=== PATIENT | female | born 1970 | race Caucasian/White ===

== ENCOUNTER 2018-09-09 00:19 | Inpatient (IN) | payer SELFPAY ==
[2018-09-09] VITALS (8 sets, daily range): BP systolic 118–156; BP diastolic 59–83
[~2018-09-09] VITALS: Ht 154.9 cm; Wt 91.6 kg
[~2018-09-09 00:19] MED LIST: ACDPT PO; ACET-461 PO; AMOX500T2 PO; ASP81TEC PO; ATOR80TA PO; CARV3.122 PO; CEPH500C PO; CLPD75T PO; IBUP200T48 PO; INSU100C4 SQ; INSU100I14 SQ; INSU100V5 SQ; Insulin Human Lispro SC; LANTUS; LISI2.5T85 PO; MTF500T PO; MULT-974 PO; NITR0.3T6 SL; PAXIL; RITALIN; TRAM50TA2 PO
--- OUTSIDE RECORDS SUMMARY | 2018-09-09 00:23 | XMS REPORT ---
Author Author AMY ARAYA [facility] Address [address] [place] [address] Care Team Providers Care Dishtank Operator Name Role Phone AMY ARAYA Unavailable PROBLEMS Type Condition ICD9-CM Code [id number] Code Onset Dates Condition Status SNOMED Code Problem Chest pain 786.50 Active 42880946 Problem Diabetes type 2, uncontrolled E11.65 Active 38825178 Problem Arteriosclerosis of coronary artery I25.10 Active 66509323 Problem Alcohol dependence with unspecified alcohol-induced disorder F10.29 Active 33882477 ALLERGIES No Information ENCOUNTERS Encounter Location Date Diagnosis [place] [address] [address] 6984 Dec, Abscess, scalp L02.811 [place] [address] [place] [id number] [place] [address] 39263- 4778 Dec, [facility] [address] 52739- [address]3 Dec, [facility] [address] [place] [id number] [place] [address] 48533 -4501 Dec, Abscess, scalp L02.811 [facility] [address] [place] [id number] [place] [address] 38539- 0649 Dec, Abscess, scalp L02.811 [facility] [address] [address]63 -2107 17 Dec, 2017 Abscess, scalp L02.811 [facility] [address] [place] [id number] [place] [address] 15566- 6672 15 Dec, 2017 Abscess, scalp L02.811 [facility] [address] 03152- 1689 Dec, Abscess, scalp L02.[address] [facility] [id number] [place] [address] 86514 -5185 11 Dec, 2017 Cutaneous abscess of head excluding face L02.811 [facility] [id number] [place] [address] 65336 -0180 10 Dec, 2017 Abscess L02.[address] [id number] [place] [id number] Dec, [facility] [id number] [place] [address] 83084 -2984 Dec, Abscess L02.91 [facility] [id number] [place] [address] 74526 -9990 Aug, Acute allergic rhinitis due to other allergen, unspecified seasonality J30.89 and Cellulitis of head except face L03.811 [place] [address] [place] [id number] [place] [address] 65481- 3151 Jun, [place] [address] 06192- 6700 Jun, [place] [address] [place] [id number] [place] [address] 87475- 4537 Jun, [place] [id number] [place] [address] 12311- 0561 Jun, [place] [address] [place] [id number] [place] [address] 71559- 5986 Jun, [place] [address] [place] [id number] [place] [address] 19806- 9676 Jun, Hematuria 599.70 ; Diabetes type 2, uncontrolled 250.02 ; Chest pain 786.50 ; Chronic pain 338.29 and Coronary atherosclerosis of unspecified type of vessel, grand traverse or graft 414.00 [place] [address] [place] [id number] [place] [address] 05248- 6913 Feb, [facility] [place] [facility] [address] [id number] [place] [address]- 0738 13 Feb, 2015 [facility] [place] [facility] [address] [id number] [place] [address]- 3294 Jan, [facility] [place] [facility] [address] [id number] [place] [address]- 8766 Jan, [facility] [place] [facility] [address] [id number] [place] [address]- 6052 Jan, [facility] [place] [facility] [address] [id number] [place] [address]- 0510 Jan, [facility] [place] [facility] [address] [id number] [place] [address]- 3899 Jan, [facility] [place] [facility] [address] [facility] [id number] [place] [address]- 6908 Jan, [facility] [place] [facility] [address] [id number] [place] [address]- 2519 Dec, [facility] [place] [facility] [address] [id number] [place] [address]- 7674 Dec, [facility] [place] [facility] [address] [facility] [id number] [place] [address]- 7735 Dec, [facility] [place] [facility] [address] [facility] [id number] [place] [address]- 5572 Dec, 2014 [facility] [place] [facility] [address] [id number] [address]- 6194 Dec, 2014 [facility] [place] [facility] [address] [id number] [place] [address]- 1389 Dec, 2014 [facility] [place] [facility] [address] [id number] [place] [address]- 8457 Dec, 2014 [facility] [place] [facility] [address] [facility] [id number] [place] [address]- 4748 Dec, 2014 [facility] [place] [facility] [address] [id number] [place] [address]- 1727 Nov, [facility] [address] [id number] [place] [address]- 6893 Nov, [facility] [address] [id number] [place] [address]- 4014 Aug, [facility] [address] [id number] [place] [address]- 8528 Aug, [facility] [address] [id number] [place] [address]- 8937 May, [facility] [address] [id number] [place] [address]- 2293 March, [facility] [address] [id number] [place] [address]- 8275 March, [facility] [address] [id number] [place] [address]- 7224 March, [facility] [address] [id number] [place] [address]- 8376 March, [facility] [address] [id number] [place] [address]- 2772 Feb, [facility] [address] [id number] [place] [address]- 0607 Feb, [facility] [address] [id number] [place] [address]- 7548 Jan, [facility] [address] [id number] [place] [address]- 8698 Jan, [facility] [address] [id number] [place] [address]- 7206 Dec, [facility] [address] [id number] [place] [address]- 3656 Nov, [facility] [address] [id number] [place] [address]- 5545 Nov, [facility] [address] [id number] [place] [address]- 4776 Nov, [facility] [address] [id number] [place] [address]- 4016 Nov, [facility] [address] [id number] [place] [address]- 2866 Nov, [facility] [address] [place] [id number] Oct [facility] [address] [id number] [place] [address]- 8010 Oct, [facility] [address] [id number] [place] [address]- 3820 Oct, [facility] [address] [id number] [place] [address]- 4807 Oct, [facility] [address] [id number] [place] [address]- 3306 Sep, [facility] [address] [id number] [place] [address]- 9448 Sep, [facility] [address] [id number] [place] [address]- 4066 May, [facility] [address] [id number] [place] [address]- 1476 Apr, [facility] [address] [id number] [place] [address]- 4406 March, [facility] [address] [id number] [place] [address]- 7690 Feb, [facility] [address] [id number] [place] [address]- 2776 Feb, [facility] [address] [id number] [place] [address]- 1416 Feb, [facility] [address] [id number] [place] [address]- 8827 Jan, [facility] [place] [facility] [address] [id number] [place] [address]- 6904 Jan, [facility] [place] [facility] [address] [id number] [place] [address]- 6486 Jan, [facility] [place] [facility] [address] [facility] [id number] [place] [address]- 0251 Dec, [facility] [place] [facility] [address] [id number] [place] [address]- 3494 Dec, [facility] [place] [facility] [address] [id number] [place] [address]- 9400 Dec, [facility] [place] [facility] [address] [facility] [id number] [place] [address]- 7311 Dec, [facility] [place] [facility] [address] [facility] [id number] [place] [address]- 8547 Dec, [facility] [place] [facility] [address] [facility] [id number] [place] [address]- 5477 Dec, [facility] [place] [facility] [address] [facility] [id number] [place] [address]- 7684 Oct, [facility] [place] [facility] [address] [facility] [id number] [place] [address]- 9645 Oct, [facility] [place] [facility] [address] [facility] [id number] [place] [address]- 7722 Oct, [facility] [place] [facility] [address] [facility] [id number] [place] [address]- 8228 Sep, [facility] [place] [facility] [address] [facility] [id number] [place] [address]- 1168 Sep, [facility] [place] [facility] [address] [facility] [id number] [place] [address]- 6865 Sep, [facility] [place] [facility] [address] [facility] [id number] [place] [address]- 5120 Sep, [facility] [place] [facility] [id number] [address]- 2157 14 Sep, 2011 [facility] [id number] [address]- 8808 15 May, 2011 [facility] [id number] [address]- 6925 14 Dec, 2010 [facility] [id number] [address]- 7161 10 Oct, 2010 [facility] [id number] [address]- 1178 Sep, [facility] [id number] [place] [address] 00961- 9720 Aug, [facility] [id number] [place] [address] 38553- 6571 Aug, [facility] [address] [place] [id number] [place] [address] 29473- 0870 Aug, [facility] [id number] [address]- 3249 16 Sep, 2009 [facility] [id number] [address]- 4133 Sep, [facility] [address] [address]- 5107 17 Jul, 2009 IMMUNIZATIONS No Known Immunizations SOCIAL HISTORY Never Assessed REASON FOR VISIT wound care CBrumbackRn PLAN OF CARE VITAL SIGNS MEDICATIONS Unknown Medications RESULTS No Results PROCEDURES No Known procedures INSTRUCTIONS MEDICATIONS ADMINISTERED No Known Medications MEDICAL (GENERAL) HISTORY Type Description Date Medical History Blurred vision Medical History CAD-hospitalized at 10/2012 for NSTEMI, s/p stenting to the mid LAD (had 99% occulsion). EF 45% Medical History Hypertension Medical History Asthma Medical History DM II Medical History Arthritis Medical History Chronic pain-Lupus, fibromyalgia, RA Medical History Depression Medical History Anxiety Medical History ADHD Surgical History coronary artery stent (LAD) s/p NSTEMI-EF 45% 10/2012 Surgical History section 1990 & 1995 Surgical History rotator cuff tear repair-Right 2010 Hospitalization History NSTEMI 10/2012 Hospitalization History ETOH rehab 12/2014
--- OUTSIDE RECORDS SUMMARY | 2018-09-09 00:24 | XMS REPORT ---
Author Author CLEOPATRA FRANCISCO Organization [facility] Address [address] [place] [address] Care Team Providers Care Scow Captain Name Role Phone CLEOPATRA FRANCISCO Unavailable PROBLEMS Type Condition ICD9-CM Code CIE45-VV Code Onset Dates Condition Status SNOMED Code Problem Chest pain 786.50 Active 72566250 Problem Diabetes type 2, uncontrolled E11.65 Active 87147213 Problem Arteriosclerosis of coronary artery I25.10 Active 80384000 Problem Alcohol dependence with unspecified alcohol-induced disorder F10.29 Active 54835269 ALLERGIES No Information ENCOUNTERS Encounter Location Date Diagnosis [place] [address] [address] Dec, Abscess, scalp L02.811 [facility] [address] 19071- 3656 Dec, [facility] [address] 39227- 6857 Dec, [facility] [address] 79160 -5180 Dec, Abscess, scalp L02.811 [facility] [address] [place] [id number] [place] [address] 91522- 3733 Dec, Abscess, scalp L02.811 [facility] [address] 76008 -8830 Dec, Abscess, scalp L02.811 [facility] [address] 59887- 7213 Dec, Abscess, scalp L02.811 [place] [address] 06156- 7627 Dec, Abscess, scalp L02.811 [facility] [address] [address] -7769 11 Dec, 2017 Cutaneous abscess of head excluding face L02.811 [facility] [address] [address] -4419 10 Dec, 2017 Abscess L02.[address] [id number] [id number] Dec, [facility] [id number] [place] [address] 17532 -3324 Dec, Abscess L02.91 [facility] [id number] [place] [address] 59147 -5893 Aug, Acute allergic rhinitis due to other allergen, unspecified seasonality J30.89 and Cellulitis of head except face L03.811 [place] [address] [place] [id number] [place] [address] 30265- 5178 Jun, [place] [address] [place] [id number] [place] [address] 16268- 3280 Jun, [place] [address] [place] [id number] [place] [address] 95507- 0297 Jun, [place] [address] [place] [address] 26478- 9224 Jun, [place] [address] [place] [id number] [place] [address] 85758- 3336 Jun, [facility] [address] [place] [id number] [place] [address] 70000- 4684 Jun, Hematuria 599.70 ; Diabetes type 2, uncontrolled 250.02 ; Chest pain 786.50 ; Chronic pain 338.29 and Coronary atherosclerosis of unspecified type of vessel, [place] or graft 414.00 [place] [address] [place] [id number] [place] [address] 77939- 3066 Feb, [facility] [place] [facility] [address] [id number] [place] [address]- 3761 Feb, [facility] [place] [facility] [address] [id number] [place] [address]- 4685 Jan, [facility] [place] [facility] [address] [id number] [place]15 Jan, [facility] [place] [facility] [address] [id number] [place] [address]- 9672 Jan, [facility] [place] [facility] [address] [id number] [place] [address]- 4920 Jan, [facility] [place] [facility] [address] [id number] [place] [address]- 5372 Jan, [facility] [place] [facility] [address] [facility] [id number] [place] [address]- 4714 Jan, [facility] [place] [facility] [address] [id number] [place] [address]- 0931 Dec, 2014 [facility] [place] [facility] [address] [id number] [place] [address]- 6437 Dec, 2014 [facility] [place] [facility] [address] [facility] [id number] [place] [address]- 4861 Dec, 2014 [facility] [place] [facility] [address] [facility] [id number] [place] [address]- 0103 Dec, 2014 [facility] [place] [facility] [address] [id number] [place] [address]- 3054 Dec, 2014 [facility] [place] [facility] [address] [id number] [place] [address]- 0837 Dec, 2014 [facility] [place] [facility] [address] [id number] [place] [address]- 6916 Dec, 2014 [facility] [place] [facility] [address] [facility] [id number] [place] [address]- 6504 Dec, 2014 [facility] [place] [facility] [address] [facility] [id number] [place] [address]- 9889 Nov, [facility] [address] [id number] [place] [address]- 2564 Nov, [facility] [address] [id number] [place] [address]- 6144 Aug, [facility] [address] [id number] [place] [address]- 2259 Aug, [facility] [address] [id number] [place] [address]- 4150 May, [facility] [address] [id number] [place] [address]- 2853 March, [facility] [address] [id number] [place] [address]- 9295 March, [facility] [address] [id number] [place] [address]- 9874 March, [facility] [address] [id number] [place] [address]- 8952 March, [facility] [address] [id number] [place] [address]- 8272 Feb, [facility] [address] [id number] [place] [address]- 7604 Feb, [facility] [address] [id number] [place] [address]- 0419 Jan, [facility] [place] [facility] [address] [id number] [place] [address]- 2838 Jan, [facility] [place] [facility] [address] [id number] [place] [address]- 1399 Dec, [facility] [place] [facility] [address] [id number] [place] [address]- 6828 Nov, [facility] [address] [id number] [place] [address]- [address] Nov, [facility] [address] [id number] [place] [address]- 7986 Nov, [facility] [address] [id number] [place] [address]- 8176 Nov, [facility] [address] [id number] [place] [address]- 6556 Nov, [facility] [address] [place] [id number] [address] [facility] [address] [id number] [place] [address]- 3686 Oct, [facility] [address] [id number] [place] [address]- 6451 Oct, [facility] [address] [id number] [place] [address]- 1594 Oct, [facility] [address] [id number] [place] [address]- 1126 Sep, [facility] [address] [id number] [place] [address]- 6575 Sep, [facility] [address] [id number] [place] [address]- 9442 May, [facility] [address] [id number] [place] [address]- 4551 Apr, [facility] [address] [id number] [place] [address]- 6306 March, [facility] [address] [id number] [place] [address]- 1166 Feb, [facility] [address] [id number] [place] [address]- 7616 Feb, [facility] [address] [id number] [place] [address]- 9276 Feb, [facility] [address] [id number] [place] [address]- 8927 Jan, [facility] [address] [id number] [place] [address]- 9541 Jan, [facility] [place] [facility] [address] [id number] [place] [address]- 3378 Jan, [facility] [place] [facility] [address] [id number] [place] [address]- 6698 Dec, [facility] [place] [facility] [address] [id number] [place] [address] Dec, [facility] [place] [facility] [address] [id number] [place] [address] Dec, [facility] [place] [facility] [address] [id number] [place] [address] Dec, [facility] [place] [facility] [address] [id number] [place] [address] Dec, [facility] [place] [facility] [address] [id number] [place] [address] Dec, [facility] [place] [facility] [address] [id number] [place] [address] Oct, [facility] [place] [facility] [address] [id number] [place] [address] Oct, [facility] [place] [facility] [address] [id number] [place] [address] Oct, [facility] [place] [facility] [address] [id number] [place] [address] Sep, [facility] [place] [facility] [address] [id number] [place] [address]- [address] Sep, [facility] [place] [facility] [address] [id number] [place] [address] Sep, [facility] [place] [facility] [address] [id number] [place] [address] Sep, [facility] [place] [facility] [address] [address] 14 Sep, 2011 [facility] [address] [address] 15 May, 2011 [facility] [address] [address] 14 Dec, 2010 [facility] [id number] [address] 10 Oct, 2010 [facility] [id number] [address] Sep, [facility] [id number] [place] [address] Aug, [facility] [id number] [place] [address] Aug, [facility] [id number] [place] [address] Aug, [facility] [address] [address] 16 Sep, 2009 [facility] [address] [address] Sep, [facility] [id number] [address] 17 Jul, 2009 IMMUNIZATIONS No Known Immunizations SOCIAL HISTORY Never Assessed REASON FOR VISIT Wound care- Surinder May RN PLAN OF CARE VITAL SIGNS MEDICATIONS Unknown [...]
--- OUTSIDE RECORDS SUMMARY | 2018-09-09 00:24 | XMS REPORT ---
Author Author MACIEJ FITZGERALD Organization [facility] [place] [facility] Address [address] [place] [address] Care Team Providers Care Site Controller Name Role Phone MACIEJ FITZGERALD Unavailable PROBLEMS Type Condition ICD9-CM Code MVN54-IR Code Onset Dates Condition Status SNOMED Code Problem Chest pain 786.50 Active 51240565 Problem Diabetes type 2, uncontrolled E11.65 Active 95483337 Problem Arteriosclerosis of coronary artery I25.10 Active 47705529 Problem Alcohol dependence with unspecified alcohol-induced disorder F10.29 Active 66087113 ALLERGIES No Known Allergies ENCOUNTERS Encounter Location Date Diagnosis [facility] [place] [facility] [address] [address] Dec, Abscess, scalp L02.811 [facility] [place] [facility] [address] [address] 26 Dec, 2017 [facility] [place] [facility] [address] [address]- [address] 23 Dec, 2017 [facility] [address] [address] Dec, Abscess, scalp L02.811 [facility] [place] [facility] [id number] [place] [address]357- 6095 Dec, Abscess, scalp L02.811 [facility] [address] [address] 17 Dec, 2017 Abscess, scalp L02.811 [facility] [place] [facility] [id number] [place] [address]41- 5662 15 Dec, 2017 Abscess, scalp L02.811 [facility] [place] [facility] [address] [address] Dec, Abscess, scalp L02.811 [facility] [id number] [place] [address]99 -1057 11 Dec, 2017 Cutaneous abscess of head excluding face L02.811 [facility] [id number] [place] [address] -7091 10 Dec, 2017 [address] [id number] [id number] Dec, [facility] [id number] [place] [address] 11084 -0251 Dec, Abscess L02.91 [facility] [id number] [place] [address] 40[address] -0504 Aug, Acute allergic rhinitis due to other allergen, unspecified seasonality J30.89 and Cellulitis of head except face L03.811 [place] [id number] [place] [address] 98594- 0165 Jun, [place] [address] [address]- [address] Jun, [place] [id number] [place] [address] 29805- 1167 Jun, [place] [id number] [place] [address] 83597- 8917 Jun, [place] [id number] [place] [address] 79419- 4072 Jun, [place] [id number] [place] [address] 75646- 1300 Jun, Hematuria 599.70 ; Diabetes type 2, uncontrolled 250.02 ; Chest pain 786.50 ; Chronic pain 338.29 and Coronary atherosclerosis of unspecified type of vessel, [place] or graft 414.00 [place] [id number] [place] [address] 21205- 9877 Feb, [facility] [place] [facility] [address] [id number] [place] [address] 3719 13 Feb, 2015 [facility] [place] [facility] [address] [id number] [place] [address]- 4525 24 Jan, 2015 [facility] [place] [facility] [address] [facility] [id number] [place] [address]- 1738 24 Jan, 2015 [facility] [place] [facility] [address] [id number] [place] [address]- 0093 Jan, [facility] [place] [facility] [address] [id number] [place] [address]- 4893 Jan, [facility] [place] [facility] [address] [facility] [id number] [place] [address]- 6721 Jan, [facility] [place] [facility] [address] [id number] [place] [address]- 4577 Jan, [facility] [place] [facility] [address] [facility] [id number] [place] [address]- 5810 Dec, 2014 [facility] [place] [facility] [address] [facility] [id number] [place] [address]- 6530 Dec, [facility] [place] [facility] [address] [id number] [place] [address]- 1568 Dec, [facility] [place] [facility] [address] [id number] [place] [address]- 2329 Dec, 2014 [facility] [place] [facility] [address] [facility] [id number] [address]- 6581 Dec, 2014 [facility] [place] [facility] [address] [id number] [place] [address]- 2248 Dec, 2014 [facility] [place] [facility] [address] [facility] [id number] [place] [address]- 3824 Dec, 2014 [facility] [place] [facility] [address] [facility] [id number] [place] Dec, 2014 [facility] [place] [facility] [address] [id number] [place] [address]- 6423 Nov, [facility] [address] [id number] [place] [address]- 0738 Nov, [facility] [address] [id number] [place] [address]- 6179 Aug, [facility] [address] [id number] [place] [address]- 2568 Aug, [facility] [address] [id number] [place] [address]- 6757 May, [facility] [address] [id number] [place] [address]- 3408 March, [facility] [address] [id number] [place] [address]- 1815 March, [facility] [address] [id number] [place] [address]- 3634 March, [facility] [address] [id number] [place] [address]- 3535 March, [facility] [address] [id number] [place] [address]- 3817 Feb, [facility] [address] [id number] [place] [address]- 4042 Feb, [facility] [address] [id number] [place] [address]- 7608 Jan, [facility] [address] [id number] [place] [address]- 3977 Jan, [facility] [place] [facility] [address] [id number] [place] [address]- 7983 Dec, [facility] [place] [facility] [address] [id number] [place] [address]- 2366 Nov, [facility] [address] [id number] [place] [address]- 2910 Nov, [facility] [address] [id number] [place] [address]- 8371 Nov, [facility] [address] [id number] [place] [address]- 4076 Nov, [facility] [address] [id number] [place] [address]- 8556 Nov, [facility] [address] [place] [id number] Oct [facility] [address] [id number] [place] [address]- 2524 Oct, [facility] [address] [id number] [place] [address]- 5750 Oct, [facility] [address] [id number] [place] [address]- 9905 Oct, [facility] [address] [id number] [place] [address]- 2957 Sep, [facility] [address] [id number] [place] [address]- 4367 Sep, [facility] [address] [id number] [place] [address]- 9390 May, [facility] [address] [id number] [place] [address]- 3601 Apr, [facility] [address] [id number] [place] [address]- 3924 March, [facility] [address] [id number] [place] [address]- 1964 24 Feb, 2012 [facility] [address] [id number] [place] [address]- 3987 Feb, [facility] [address] [id number] [place] [address]- 0205 Feb, [facility] [address] [id number] [place] [address]- 1296 Jan, [facility] [address] [id number] [place] [address]- 2521 Jan, [facility] [place] [facility] [address] [id number] [place] [address]- 4716 Jan, [facility] [place] [facility] [address] [facility] [id number] [place] [address]- 5466 Dec, [facility] [place] [facility] [address] [id number] [place] [address]- 6775 Dec, [facility] [place] [facility] [address] [id number] [place] [address]- 0754 Dec, [facility] [place] [facility] [address] [id number] [place] [address]- 1615 Dec, [facility] [address] [facility] [id number] [place] [address]- 7846 Dec, [facility] [place] [facility] [address] [facility] [id number] [place] [address]- 7262 Dec, [facility] [address] [facility] [id number] [place] [address]- 9067 Oct, [facility] [place] [facility] [address] [facility] [id number] [place] [address]- 7339 Oct, [facility] [address] [facility] [id number] [place] [address]- 5183 Oct, [facility] [place] [facility] [address] [id number] [place] [address]- 3654 Sep, [facility] [place] [facility] [address] [id number] [place] [address]- 7659 Sep, [facility] [place] [facility] [address] [facility] [id number] [place] [address] Sep, [facility] [place] [facility] [address] [facility] [id number] [place] Sep, [facility] [place] [facility] [id number] [address]- 5563 14 Sep, 2011 [facility] [place] [facility] [id number] [address]- 3964 15 May, 2011 [facility] [place] [facility] [id number] [address]- 5101 14 Dec, 2010 [facility] [place] [facility] [id number] [address]- 5680 Oct, [facility] [place] [facility] [address] [facility] [id number] [address]- 7253 Sep, [facility] [place] [facility] [id number] [place] [address] 07328- 8699 Aug, [facility] [place] [facility] [address] [id number] [address]- 3313 Aug, [facility] [place] [facility] [id number] [place] [address] 57992- 3030 Aug, [facility] [place] [facility] [id number] [address]- 9632 16 Sep, 2009 [facility] [place] [facility] [id number] [address]- 3325 Sep, [facility] [place] [facility] [id number] [address]- 3102 Jul, IMMUNIZATIONS No Known Immunizations SOCIAL HISTORY Never Assessed REASON FOR VISIT wound repacking JStrasserRN PLAN OF CARE Activity Details Follow Up if not improving with PCP or reg follow up Reason: VITAL SIGNS Height 61 in 2017-12-24 Weight 174.2 lbs 2017-12-24 Temperature 98.4 degrees Fahrenheit 2017-12-24 Heart Rate 98 bpm 2017-12-24 Respiratory Rate 18 2017-12-24 BMI 32.91 kg/m2 2017-12-24 Blood pressure systolic 122 mmHg 2017-12-24 Blood pressure diastolic 70 mmHg 2017-12-24 MEDICATIONS Medication Instructions Dosage Frequency Start Date End Date Duration Status Levemir 100 UNIT/ML Subcutaneous Once a day INJECT 20 UNITS SUBCUTANEOUSLY AT BEDTIME 24h 30 days Not-Taking Pravastatin Sodium 20 MG Orally Once a day 1 tablet 24h 14 Jun, 2015 30 day(s) Not-Taking Lisinopril 5 MG Orally Once a day 1 tablet 24h Jun, Not- Taking NovoLog Flexpen 100 UNIT/ML Subcutaneous 3 times a day inject 7 Units by Subcutaneous route before meals 3 times per day 8h 24 Feb, 2013 30 days Not-Taking Keflex 500 mg Orally every 12 hrs 1 capsule 12h Dec, Dec, Active Neurontin 100 MG Orally Three times a day as directed 8h Jun, 30 days Not-Taking Nitroglycerin 0.[address] 1 tablet (0.3 mg) by sublingual route at the first sign of an attack; no more than 3 tabs are recommended within a 15 minute period. Nov, Not-Taking RESULTS No Results PROCEDURES No Known procedures [...]
--- OUTSIDE RECORDS SUMMARY | 2018-09-09 00:24 | XMS REPORT ---
Author Author CLEOPATRA FRANCISCO Organization [facility] Address [address] [place] [address] Care Team Providers Care Podiatric Medicine Doctor Name Role Phone CLEOPATRA FRANCISCO Unavailable PROBLEMS Type Condition ICD9-CM Code ZMV54-EG Code Onset Dates Condition Status SNOMED Code Problem Chest pain 786.50 Active 98811268 Problem Diabetes type 2, uncontrolled E11.65 Active 83511604 Problem Arteriosclerosis of coronary artery I25.10 Active 18231116 Problem Alcohol dependence with unspecified alcohol-induced disorder F10.29 Active 64469420 ALLERGIES No Known Allergies ENCOUNTERS Encounter Location Date Diagnosis [place] [address] [address] Dec, Abscess, scalp L02.811 [facility] [address] [address]- [address]68 Dec, [facility] [address] [address]- [address]271 Dec, [facility] [address] [address] -[address]266 Dec, Abscess, scalp L02.811 [facility] [address] 6[address]- 0297 Dec, Abscess, scalp L02.811 [facility] [address] 7[address]11 -[address]95 Dec, Abscess, scalp L02.811 [facility] [address] 8[address]37- 0800 Dec, Abscess, scalp L02.811 [facility] [address] [address]77- 0916 Dec, Abscess, scalp L02.811 [facility] [address] [address] 11 Dec, 2017 Cutaneous abscess of head excluding face L02.811 [facility] [address] [place] [address]70 -1832 10 Dec, 2017 Abscess L02.[address] [id number] [id number] Dec, [facility] [id number] [place] [address]24 -7030 Dec, Abscess L02.91 [facility] [id number] [place] [address] 71523 -4052 Aug, Acute allergic rhinitis due to other allergen, unspecified seasonality J30.89 and Cellulitis of head except face L03.811 [place] [id number] [place] [address] 00689- 7306 Jun, [place] [address] [id number] [place] [address] 61497- 5627 Jun, [place] [id number] [place] [address] 51879- 1012 Jun, [place] [id number] [place] [address] 80100- 6837 Jun, [place] [address] [id number] [place] [address]- 2011 Jun, [facility] [id number] [place] [address] 55084- 5365 Jun, Hematuria 599.70 ; Diabetes type 2, uncontrolled 250.02 ; Chest pain 786.50 ; Chronic pain 338.29 and Coronary atherosclerosis of unspecified type of vessel, [place] or graft 414.00 [place] [id number] [place] [address] 65161- 3316 Feb, [facility] [place] [facility] [address] [id number] [place] [address]- 2783 Feb, [facility] [place] [facility] [address] [id number] [place] [address]- 5008 Jan, [facility] [place] [facility] [address] [id number] [place] [address]- 8317 Jan, [facility] [place] [facility] [address] [id number] [place] [address]- 9714 Jan, [facility] [place] [facility] [address] [id number] [place] [address]- 7676 Jan, [facility] [place] [facility] [address] [id number] [place] [address]- 9687 Jan, [facility] [place] [facility] [address] [facility] [id number] [place] [address]- 8808 Jan, [facility] [place] [facility] [address] [id number] [place] [address]- 6526 Dec, 2014 [facility] [place] [facility] [address] [facility] [id number] [place] [address]- 0970 Dec, 2014 [facility] [place] [facility] [address] [facility] [id number] [place] [address]- 7303 Dec, 2014 [facility] [place] [facility] [address] [facility] [id number] [place] [address]- 5260 Dec, 2014 [facility] [place] [facility] [address] [id number] [place] [address]- 7906 Dec, 2014 [facility] [place] [facility] [address] [id number] [place] [address]- 8414 Dec, 2014 [facility] [place] [facility] [address] [id number] [place] [address]- 4955 Dec, 2014 [facility] [place] [facility] [address] [facility] [id number] [place] 0188 Dec, 2014 [facility] [place] [facility] [address] [facility] [id number] [place] [address]- 9122 Nov, [facility] [address] [id number] [place] [address]- 3513 Nov, [facility] [address] [id number] [place] [address]- 2175 Aug, [facility] [address] [id number] [place] [address]- 3672 Aug, [facility] [address] [id number] [place] [address]- 0923 May, [facility] [address] [id number] [place] [address]- 8597 March, [facility] [address] [id number] [place] [address]- 5231 March, [facility] [address] [id number] [place] [address]- 2330 March, [facility] [address] [id number] [place] [address]- 9693 March, [facility] [address] [id number] [place] [address]- 9519 Feb, [facility] [address] [id number] [place] [address]- 4791 Feb, [facility] [address] [id number] [place] [address]- 6598 Jan, [facility] [place] [facility] [address] [id number] [place] [address]- 0277 Jan, [facility] [place] [facility] [address] [id number] [place] [address]- 3144 Dec, [facility] [place] [facility] [address] [id number] [place] [address]- 4084 Nov, [facility] [place] [facility] [address] [id number] [place] [address]- 4890 Nov, [facility] [place] [facility] [address] [id number] [place] [address]- 3936 Nov, [facility] [address] [id number] [place] [address]- 6526 Nov, [facility] [address] [id number] [place] [address]- 7066 Nov, [facility] [address] [place] [id number] Oct [facility] [address] [id number] [place] [address]- 2666 Oct, [facility] [address] [id number] [place] [address]- 9202 Oct, [facility] [address] [id number] [place] [address]- 9072 Oct, [facility] [address] [id number] [place] [address]- 9186 Sep, [facility] [address] [id number] [place] [address]- 6913 Sep, [facility] [address] [id number] [place] [address]- 2776 May, [facility] [address] [id number] [place] [address]- 5326 Apr, [facility] [address] [id number] [place] [address]- 0086 March, [facility] [address] [id number] [place] [address]- 8926 Feb, [facility] [address] [id number] [place] [address]- 6526 Feb, [facility] [address] [id number] [place] [address]- 2206 Feb, [facility] [address] [id number] [place] [address]- 8816 Jan, [facility] [place] [facility] [address] [id number] [place] [address]- 0631 Jan, [facility] [place] [facility] [address] [id number] [place] [address]- 1496 Jan, [facility] [place] [facility] [address] [id number] [place] [address]- 9536 Dec, [facility] [place] [facility] [address] [id number] [place] [address]- 7436 Dec, [facility] [place] [facility] [address] [id number] [place] [address]- 4430 Dec, [facility] [place] [facility] [address] [id number] [place] [address] Dec, [facility] [place] [facility] [address] [id number] [place] [address] Dec, [facility] [place] [facility] [address] [id number] [place] [address] Dec, [facility] [place] [facility] [address] [id number] [place] [address] Oct, [facility] [place] [facility] [address] [id number] [place] [address] Oct, [facility] [place] [facility] [address] [id number] [place] [address] Oct, [facility] [place] [facility] [address] [id number] [place] [address] Sep, [facility] [place] [facility] [address] [id number] [place] [address] Sep, [facility] [place] [facility] [address] [id number] [place] [address] Sep, [facility] [place] [facility] [address] [id number] [place] [address] Sep, [facility] [place] [facility] [id number] [address] 14 Sep, 2011 [facility] [id number] [place] [address] 15 May, 2011 [facility] [id number] [address] 14 Dec, 2010 [facility] [id number] [address] Oct, [facility] [id number] [address] Sep, [facility] [id number] [place] [address] Aug, [facility] [id number] [place] [address] Aug, [facility] [id number] [place] [address] Aug, [facility] [id number] [address] 16 Sep, 2009 [facility] [id number] [place] [address] Sep, [facility] [id number] [place] [address] 17 Jul, 2009 IMMUNIZATIONS No Known Immunizations SOCIAL HISTORY Never Assessed REASON FOR VISIT Wound packing- SUBHA Alan PLAN OF CARE Activity Details Follow Up 2 - 3 Days Reason:wound packing VITAL SIGNS Height 61 in 2018-01-01 Weight 178 lbs 2018-01-01 Temperature 98.9 degrees Fahrenheit 2018-01-01 Heart Rate 92 bpm 2018-01-01 Respiratory Rate 20 2018-01-01 BMI 33.63 kg/m2 2018-01-01 Blood pressure systolic 140 mmHg 2018-01-01 Blood pressure diastolic 82 mmHg 2018-01-01 MEDICATIONS Medication Instructions Dosage Frequency Start Date End Date Duration Status Keflex 500 mg Orally every 12 hrs 1 capsule 12h Dec, Dec, Active RESULTS No Results PROCEDURES No Known procedures [...]
--- OUTSIDE RECORDS SUMMARY | 2018-09-09 00:24 | XMS REPORT ---
Author Author CLEOPATRA FRANCISCO Organization [facility] Address [address] [place] [address] Care Team Providers Care Optic Fibre Drawer Name Role Phone CLEOPATRA FRANCISCO Unavailable PROBLEMS Type Condition ICD9-CM Code NHR05-GB Code Onset Dates Condition Status SNOMED Code Problem Chest pain 786.50 Active 87944977 Problem Diabetes type 2, uncontrolled E11.65 Active 71187585 Problem Arteriosclerosis of coronary artery I25.10 Active 44779079 Problem Alcohol dependence with unspecified alcohol-induced disorder F10.29 Active 65287509 ALLERGIES No Information ENCOUNTERS Encounter Location Date Diagnosis [place] [id number] [address] Dec, Abscess, scalp L02.811 [facility] [address] [address] Dec, [facility] [address] [address]- [address] Dec, [facility] [address] [address] Dec, Abscess, scalp L02.811 [facility] [address] [place] [id number] [place] [address]45- 9017 Dec, Abscess, scalp L02.811 [facility] [address] [address] Dec, Abscess, scalp L02.811 [facility] [address] [address]- 6980 Dec, Abscess, scalp L02.811 [place] [address] [address]- [address] Dec, Abscess, scalp L02.811 [facility] [address] [address] 11 Dec, 2017 Cutaneous abscess of head excluding face L02.811 [facility] [address] [address] 10 Dec, 2017 Abscess [address] [id number] [id number] Dec, [facility] [id number] [place] [address]886 Dec, Abscess L02.91 [facility] [id number] [place] [address]84 -[address]153 Aug, Acute allergic rhinitis due to other allergen, unspecified seasonality J30.89 and Cellulitis of head except face L03.811 [place] [address] [place] [id number] [place] [address] 37264- 9552 Jun, [place] [address] [place] [id number] [place] [address] 90707- 8093 Jun, [place] [address] [place] [id number] [place] [address] 16672- 7974 Jun, [place] [id number] [place] [address] 53463- 6155 Jun, [place] [address] [place] [id number] [place] [address] 90194- 5034 Jun, [facility] [address] [place] [id number] [place] [address] 87812- 5285 Jun, Hematuria 599.70 ; Diabetes type 2, uncontrolled 250.02 ; Chest pain 786.50 ; Chronic pain 338.29 and Coronary atherosclerosis of unspecified type of vessel, [place] or graft 414.00 [place] [address] [place] [id number] [place] [address] 99027- 2771 Feb, [facility] [place] [facility] [address] [id number] [place] [address]- 1717 Feb, [facility] [place] [facility] [address] [id number] [place] [address]- 9319 Jan, [facility] [place] [facility] [address] [id number] [place] Jan, [facility] [place] [facility] [address] [id number] [place] [address]- 0895 Jan, [facility] [place] [facility] [address] [id number] [place] [address]- 5033 Jan, [facility] [place] [facility] [address] [id number] [place] [address]- 9693 Jan, [facility] [place] [facility] [address] [facility] [id number] [place] [address]- 2876 Jan, [facility] [place] [facility] [address] [id number] [place] [address]- 2371 Dec, 2014 [facility] [place] [facility] [address] [id number] [place] [address]- 9205 Dec, 2014 [facility] [place] [facility] [address] [facility] [id number] [place] [address]- 6543 Dec, 2014 [facility] [place] [facility] [address] [facility] [id number] [place] [address]- 3436 Dec, 2014 [facility] [place] [facility] [address] [id number] [place] [address]- 9932 Dec, 2014 [facility] [place] [facility] [address] [id number] [place] [address]- 9238 Dec, 2014 [facility] [place] [facility] [address] [id number] [place] [address]- 5347 Dec, 2014 [facility] [place] [facility] [address] [facility] [id number] [place] [address]- 1404 Dec, 2014 [facility] [place] [facility] [address] [facility] [id number] [place] [address]- 4892 Nov, [facility] [address] [id number] [place] [address]- 6933 Nov, [facility] [address] [id number] [place] [address]- 3369 Aug, [facility] [address] [id number] [place] [address]- 3646 Aug, [facility] [address] [id number] [place] [address]- 4758 May, [facility] [address] [id number] [place] [address]- 0292 March, [facility] [address] [id number] [place] [address]- 9683 March, [facility] [address] [id number] [place] [address]- 3751 March, [facility] [address] [id number] [place] [address]- 6853 March, [facility] [address] [id number] [place] [address]- 3295 Feb, [facility] [address] [id number] [place] [address]- 3644 Feb, [facility] [address] [id number] [place] [address]- 4726 Jan, [facility] [place] [facility] [address] [id number] [place] [address]- 7309 Jan, [facility] [place] [facility] [address] [id number] [place] [address]- 7612 Dec, [facility] [place] [facility] [address] [id number] [place] [address]- 7521 Nov, [facility] [address] [id number] [place] [address]- 4732 Nov, [facility] [address] [id number] [place] [address]- 7716 Nov, [facility] [address] [id number] [place] [address]- 5426 Nov, [facility] [address] [id number] [place] [address]- 8506 Nov, [facility] [address] [place] [id number] Oct [facility] [address] [id number] [place] [address]- 7666 Oct, [facility] [address] [id number] [place] [address]- 8171 Oct, [facility] [address] [id number] [place] [address]- 5965 Oct, [facility] [address] [id number] [place] [address]- 1746 Sep, [facility] [address] [id number] [place] [address]- 1162 Sep, [facility] [address] [id number] [place] [address]- 8008 May, [facility] [address] [id number] [place] [address]- 0680 Apr, [facility] [address] [id number] [place] [address]- 4996 March, [facility] [address] [id number] [place] [address]- 3236 Feb, [facility] [address] [id number] [place] [address]- 7186 Feb, [facility] [address] [id number] [place] [address]- 1076 Feb, [facility] [address] [id number] [place] [address]- 8013 Jan, [facility] [address] [id number] [place] [address]- 5816 Jan, [facility] [place] [facility] [address] [id number] [place] [address]- 2895 Jan, [facility] [place] [facility] [address] [id number] [place] [address]- 2676 Dec, [facility] [place] [facility] [address] [id number] [place] [address]- 3684 Dec, [facility] [place] [facility] [address] [id number] [place] [address]- 9328 Dec, [facility] [place] [facility] [address] [id number] [place] [address]- 8875 Dec, [facility] [place] [facility] [address] [id number] [place] [address]- 8346 Dec, [facility] [place] [facility] [address] [id number] [place] [address]- 0940 Dec, [facility] [place] [facility] [address] [id number] [place] [address]- 6913 Oct, [facility] [place] [facility] [address] [id number] [place] [address]- 4430 Oct, [facility] [place] [facility] [address] [id number] [place] [address]- 1432 Oct, [facility] [place] [facility] [address] [id number] [place] [address]- 8287 Sep, [facility] [place] [facility] [address] [id number] [place] [address]- 7245 Sep, [facility] [place] [facility] [address] [id number] [place] [address]- 4654 Sep, [facility] [place] [facility] [address] [id number] [place] [address]- 0646 Sep, [facility] [place] [facility] [address], [place] [address]- 3[address] 14 Sep, 2011 [facility] [address], [place] [address]- 4[address] 15 May, 2011 [facility] [address], [place] [address]- 2300 14 Dec, 2010 [facility] [address], [place] [address]- 3028 10 Oct, 2010 [facility] [address], [place] [address]- 6618 Sep, [facility] [id number] [place] [address] 62484- 3105 Aug, [facility] [address] [place] [id number] [place] [address] 90441- 2908 Aug, [facility] [address] [place] [id number] [place] [address] 94012- 2029 Aug, [facility] [address], [place] [address]- 5154 16 Sep, 2009 [facility] [address], [place] [address]- 5303 Sep, [facility] [address], [place] [address]- 9438 17 Jul, 2009 IMMUNIZATIONS No Known Immunizations SOCIAL HISTORY Never Assessed REASON FOR VISIT wound care CBrumbackRN PLAN OF CARE VITAL SIGNS MEDICATIONS Unknown [...]
--- OUTSIDE RECORDS SUMMARY | 2018-09-09 00:24 | XMS REPORT ---
Author Author CLEOPATRA FRANCISCO Organization [facility] Address [address] [place] [address] Care Team Providers Care Residential Pest Control Technician Name Role Phone CLEOPATRA FRANCISCO Unavailable PROBLEMS Type Condition ICD9-CM Code SAR28-LC Code Onset Dates Condition Status SNOMED Code Problem Chest pain 786.50 Active 12772231 Problem Diabetes type 2, uncontrolled E11.65 Active 62430121 Problem Arteriosclerosis of coronary artery I25.10 Active 51832872 Problem Alcohol dependence with unspecified alcohol-induced disorder F10.29 Active 38236766 ALLERGIES No Known Allergies ENCOUNTERS Encounter Location Date Diagnosis [place] [address] [address] Dec, Abscess, scalp L02.811 [facility] [address] [address]- [address]290 Dec, [facility] [address] [address]- 1590 Dec, [facility] [address] [address] Dec, Abscess, scalp L02.811 [facility] [address] [address]- 0714 Dec, Abscess, scalp L02.811 [facility] [address] [address] Dec, Abscess, scalp L02.811 [facility] [address] [address]61- 1225 Dec, Abscess, scalp L02.811 [facility] [address] [address]- 3498 Dec, Abscess, scalp L02.811 [facility] [address], [place] [address] 11 Dec, 2017 Cutaneous abscess of head excluding face L02.811 [facility] [address] [place] [address]8322 10 Dec, 2017 Abscess L02.[address] [id number] [id number] Dec, [facility] [address] [place] [address] 42925 -5176 Dec, Abscess L02.91 [facility] [address] [place] [id number] [place] [address] 72105 -3810 Aug, Acute allergic rhinitis due to other allergen, unspecified seasonality J30.89 and Cellulitis of head except face L03.811 [place] [address] [place] [id number] [place] [address] 04991- 8012 Jun, [place] [address] [place] [id number] [place] [address] 19242- 2222 Jun, [place] [address] [place] [id number] [place] [address] 20556- 3591 Jun, [place] [address] [place] [id number] [place] [address] 92348- 2984 Jun, [place] [address] [place] [id number] [place] [address] 47695- 1569 Jun, [facility] [address] [place] [id number] [place] [address] 69989- 4031 Jun, Hematuria 599.70 ; Diabetes type 2, uncontrolled 250.02 ; Chest pain 786.50 ; Chronic pain 338.29 and Coronary atherosclerosis of unspecified type of vessel, [place] or graft 414.00 [place] [address] [place] [id number] [place] [address] 93835- 9535 Feb, [facility] [place] [facility] [address] [id number] [place] [address]- 9250 Feb, [facility] [place] [facility] [address] [id number] [place] [address]- 7882 Jan, [facility] [place] [facility] [address] [id number] [place] [address]- 5528 Jan, [facility] [place] [facility] [address] [id number] [place] [address]- 1834 Jan, [facility] [place] [facility] [address] [id number] [place] [address]- 2998 Jan, [facility] [place] [facility] [address] [id number] [place] [address]- 7195 Jan, [facility] [place] [facility] [address] [facility] [id number] [place] [address]- 3480 Jan, [facility] [place] [facility] [address] [id number] [place] [address]- 1480 Dec, 2014 [facility] [place] [facility] [address] [facility] [id number] [place] [address]- 7984 Dec, 2014 [facility] [place] [facility] [address] [facility] [id number] [place] [address]- 3958 Dec, 2014 [facility] [place] [facility] [address] [facility] [id number] [place] [address]- 3159 Dec, 2014 [facility] [place] [facility] [address] [id number] [place] [address]- 1911 Dec, 2014 [facility] [place] [facility] [address] [id number] [place] [address]- 5128 Dec, 2014 [facility] [place] [facility] [address] [id number] [place] [address]- 5299 Dec, 2014 [facility] [place] [facility] [address] [facility] [id number] [place] 6860 Dec, 2014 [facility] [place] [facility] [address] [facility] [id number] [place] [address]- 1697 Nov, [facility] [address] [id number] [place] [address]- 9635 Nov, [facility] [address] [id number] [place] [address]- 7652 Aug, [facility] [address] [id number] [place] [address]- 5534 Aug, [facility] [address] [id number] [place] [address]- 3658 May, [facility] [address] [id number] [place] [address]- 0134 March, [facility] [address] [id number] [place] [address]- 2973 March, [facility] [address] [id number] [place] [address]- 7791 March, [facility] [address] [id number] [place] [address]- 7130 March, [facility] [address] [id number] [place] [address]- 9678 Feb, [facility] [address] [id number] [place] [address]- 9113 Feb, [facility] [address] [id number] [place] [address]- 5393 Jan, [facility] [place] [facility] [address] [id number] [place] [address]- 9510 Jan, [facility] [place] [facility] [address] [id number] [place] [address]- 4301 Dec, [facility] [place] [facility] [address] [id number] [place] [address]- 6135 Nov, [facility] [place] [facility] [address] [id number] [place] [address]- 4707 Nov, [facility] [place] [facility] [address] [id number] [place] [address]- 5466 Nov, [facility] [address] [id number] [place] [address]- 9796 Nov, [facility] [address] [id number] [place] [address]- 2696 Nov, [facility] [address] [place] [id number] Oct [facility] [address] [id number] [place] [address]- 9966 Oct, [facility] [address] [id number] [place] [address]- 7684 Oct, [facility] [address] [id number] [place] [address]- 3993 Oct, [facility] [address] [id number] [place] [address]- 5336 Sep, [facility] [address] [id number] [place] [address]- 0029 Sep, [facility] [address] [id number] [place] [address]- 5776 May, [facility] [address] [id number] [place] [address]- 3376 Apr, [facility] [address] [id number] [place] [address]- 8326 March, [facility] [address] [id number] [place] [address]- 2806 Feb, [facility] [address] [id number] [place] [address]- 9666 Feb, [facility] [address] [id number] [place] [address]- 5596 Feb, [facility] [address] [id number] [place] [address]- 5696 Jan, [facility] [place] [facility] [address] [id number] [place] [address]- 9083 Jan, [facility] [place] [facility] [address] [id number] [place] [address]- 9366 Jan, [facility] [place] [facility] [address] [id number] [place] [address]- 6036 Dec, [facility] [place] [facility] [address] [id number] [place] [address]- 8476 Dec, [facility] [place] [facility] [address] [id number] [place] [address]- 3329 Dec, [facility] [place] [facility] [address] [id number] [place] [address]- 0567 Dec, [facility] [place] [facility] [address] [id number] [place] [address]- 0166 Dec, [facility] [place] [facility] [address] [id number] [place] [address]- 1771 Dec, [facility] [place] [facility] [address] [id number] [place] [address]- 6028 Oct, [facility] [place] [facility] [address] [id number] [place] [address]- 2050 Oct, [facility] [place] [facility] [address] [id number] [place] [address]- 8423 Oct, [facility] [place] [facility] [address] [id number] [place] [address]- 6166 Sep, [facility] [place] [facility] [address] [id number] [place] [address]- 2968 Sep, [facility] [place] [facility] [address] [id number] [place] [address]- 8056 Sep, [facility] [place] [facility] [address] [id number] [place] [address]- 2967 Sep, [facility] [place] [facility] [id number] [address] 14 Sep, 2011 [facility] [id number] [address] 15 May, 2011 [facility] [id number] [address] 14 Dec, 2010 [facility] [id number] [address] 10 Oct, 2010 [facility] [id number] [place] [address] Sep, [facility] [id number] [place] [address] Aug, [facility] [id number] [place] [address] Aug, [facility] [id number] [place] [address] Aug, [facility] [id number] [address] 16 Sep, 2009 [facility] [id number] [place] [address] Sep, [facility] [id number] [place] [address] Jul, IMMUNIZATIONS No Known Immunizations SOCIAL HISTORY Never Assessed REASON FOR VISIT Wound Packing JStrasserRN PLAN OF CARE Activity Details Follow Up 2 - 3 Days Reason:wound repacking. VITAL SIGNS Height 61 in 2018-01-03 Weight 178 lbs 2018-01-03 Temperature 98.4 degrees Fahrenheit 2018-01-03 Heart Rate 108 bpm 2018-01-03 Respiratory Rate 20 2018-01-03 BMI 33.63 kg/m2 2018-01-03 Blood pressure systolic 130 mmHg 2018-01-03 Blood pressure diastolic 76 mmHg 2018-01-03 MEDICATIONS Medication Instructions Dosage Frequency Start Date End Date Duration Status Augmentin 875-125 MG Orally every 12 hrs 1 tablet 12h Dec, Jan, 10 day(s) Active RESULTS No Results PROCEDURES No Known [...]
--- OUTSIDE RECORDS SUMMARY | 2018-09-09 00:25 | XMS REPORT ---
Author Author NICK LAM [facility] Address [address] [place] [address] Care Team Providers Care Bit And Shank Department Supervisor Name Role Phone NICK LAM Unavailable PROBLEMS Type Condition ICD9-CM Code EEW85-RR Code Onset Dates Condition Status SNOMED Code Problem Chest pain 786.50 Active 30414985 Problem Diabetes type 2, uncontrolled E11.65 Active 73442026 Problem Arteriosclerosis of coronary artery I25.10 Active 22891838 Problem Alcohol dependence with unspecified alcohol-induced disorder F10.29 Active 74466496 ALLERGIES No Known Allergies ENCOUNTERS Encounter Location Date Diagnosis [place] [address] [address] 28 Dec, 2017 Abscess, scalp L02.811 [facility] [address] [address] [id number] [place] [address] 70267- 6079 26 Dec, 2017 [facility] [address] 01653- [address]20 Dec, [facility] [address] [id number] [place] [address] 76113 -3710 Dec, Abscess, scalp L02.811 [facility] [address] [id number] [place] [address] 33256- 6807 Dec, Abscess, scalp L02.811 [facility] [address] 7[address] -3434 17 Dec, 2017 Abscess, scalp L02.811 [facility] [id number] [place] [address] 09054- 4990 15 Dec, 2017 Abscess, scalp L02.811 [facility] [address] 09089- 3531 Dec, Abscess, scalp L02.811 [facility] [id number] [place] [address] 01939 -2263 11 Dec, 2017 Cutaneous abscess of head excluding face L02.811 [facility] [id number] [place] [address] 84790 -7549 10 Dec, 2017 Abscess L02.[address] [id number] [id number] Dec, [facility] [address] [place] [address] 97370 -7629 Dec, Abscess L02.91 [facility] [address] [place] [address] 56172 -7224 Aug, Acute allergic rhinitis due to other allergen, unspecified seasonality J30.89 and Cellulitis of head except face L03.811 [place] [address] [id number] [place] [address] 57476- 3817 Jun, [place] [address] 28505- 4105 Jun, [place] [address] [place] [id number] [place] [address] 81662- 1880 Jun, [place] [address] [place] [address] 41737- 1661 Jun, [place] [address] [place] [id number] [place] [address] 33623- 5535 Jun, [place] [address] [id number] [place] [address] 88501- 7789 Jun, Hematuria 599.70 ; Diabetes type 2, uncontrolled 250.02 ; Chest pain 786.50 ; Chronic pain 338.29 and Coronary atherosclerosis of unspecified type of vessel, [place] or graft 414.00 [place] [address] [id number] [place] [address] 85225- 9220 Feb, [facility] [place] [facility] [address] [id number] [place] [address] 8443 13 Feb, 2015 [facility] [place] [facility] [address] [id number] [place] [address] 7184 Jan, [facility] [place] [facility] [address] [id number] [place] [address]- 4430 Jan, [facility] [place] [facility] [address] [id number] [place] [address] 0048 Jan, [facility] [place] [facility] [address] [id number] [place] [address]- 9766 Jan, [facility] [place] [facility] [address] [id number] [place] [address]- 3254 Jan, [facility] [place] [facility] [address] [facility] [id number] [place] [address]- 8887 Jan, [facility] [place] [facility] [address] [id number] [place] [address]- 7711 Dec, [facility] [place] [facility] [address] [id number] [place] [address] 6021 Dec, [facility] [place] [facility] [address] [facility] [id number] [place] [address]- 6952 Dec, [facility] [place] [facility] [address] [facility] [id number] [place] [address]- 7787 Dec, 2014 [facility] [place] [facility] [address] [id number] [address] 7315 Dec, 2014 [facility] [place] [facility] [address] [id number] [place] [address]- 9869 Dec, 2014 [facility] [place] [facility] [address] [id number] [place] [address]- 5050 Dec, 2014 [facility] [place] [facility] [address] [facility] [id number] [place] [address]- 6942 Dec, 2014 [facility] [place] [facility] [address] [id number] [place] [address]- 2530 Nov, [facility] [address] [id number] [place] [address]- 8460 Nov, [facility] [address] [id number] [place] [address]- 7620 Aug, [facility] [address] [id number] [place] [address]- 1184 Aug, [facility] [address] [id number] [place] [address]- 8696 May, [facility] [address] [id number] [place] [address]- 8279 March, [facility] [address] [id number] [place] [address]- 4701 March, [facility] [address] [id number] [place] [address]- 9759 March, [facility] [address] [id number] [place] [address]- 1600 March, [facility] [address] [id number] [place] [address]- 2345 Feb, [facility] [address] [id number] [place] [address]- 3271 Feb, [facility] [address] [id number] [place] [address]- 7094 Jan, [facility] [address] [id number] [place] [address]- 8941 Jan, [facility] [address] [id number] [place] [address]- 8057 Dec, [facility] [address] [id number] [place] [address]- 9746 Nov, [facility] [address] [id number] [place] [address]- 1527 Nov, [facility] [address] [id number] [place] [address]- 1394 Nov, [facility] [address] [id number] [place] [address]- 0246 Nov, [facility] [address] [id number] [place] [address]- 7806 Nov, Via [facility] [address] [place] [id number] Oct [facility] [address] [id number] [place] [address]- 9565 Oct, [facility] [address] [id number] [place] [address]- 6025 Oct, [facility] [address] [id number] [place] [address]- 4770 Oct, [facility] [address] [id number] [place] [address]- 8846 Sep, [facility] [address] [id number] [place] [address]- 6389 Sep, [facility] [address] [id number] [place] [address]- 3776 May, [facility] [address] [id number] [place] [address]- 1546 Apr, [facility] [address] [id number] [place] [address]- 3616 March, [facility] [address] [id number] [place] [address]- 0787 Feb, [facility] [address] [id number] [place] [address]- 8866 Feb, [facility] [address] [id number] [place] [address]- 9656 Feb, [facility] [address] [id number] [place] [address]- 7320 Jan, [facility] [place] [facility] [address] [id number] [place] [address]- 5856 Jan, [facility] [place] [facility] [address] [id number] [place] [address]- 0456 Jan, [facility] [place] [facility] [address] [facility] [id number] [place] [address]- 2551 Dec, [facility] [place] [facility] [address] [id number] [place] [address]- 6056 Dec, [facility] [place] [facility] [address] [id number] [place] [address]- 8867 Dec, [facility] [place] [facility] [address] [facility] [id number] [place] [address]- 8698 Dec, [facility] [place] [facility] [address] [facility] [id number] [place] [address]- 2643 Dec, [facility] [place] [facility] [address] [facility] [id number] [place] [address]- 0758 Dec, [facility] [place] [facility] [address] [facility] [id number] [place] [address]- 3222 Oct, [facility] [place] [facility] [address] [facility] [id number] [place] [address]- 2509 Oct, [facility] [place] [facility] [address] [facility] [id number] [place] [address]- 8859 Oct, [facility] [place] [facility] [address] [facility] [id number] [place] [address]- 8878 Sep, [facility] [place] [facility] [address] [facility] [id number] [place] [address]- 2331 Sep, [facility] [place] [facility] [address] [facility] [id number] [place] [address]- 8688 Sep, [facility] [place] [facility] [address] [facility] [id number] [place] [address]- 0696 Sep, [facility] [place] [facility] [address] [address]- 5117 14 Sep, 2011 [facility] [address] 3251 15 May, 2011 [facility] [address] [address]- 4080 14 Dec, 2010 [facility] [address] [address]- 0872 Oct, [facility] [address] 5483 Sep, [facility] [id number] [place] [address] 238225- 0868 Aug, [facility] [address] [address]- 4323 Aug, [facility] [address] [place] [id number] [place] [address] 80328- 6968 Aug, [facility] [address] 4269 Sep, [facility] [address], [place] [address]- 9989 Sep, [facility] [address] [address]- 4875 Jul, IMMUNIZATIONS No Known Immunizations SOCIAL HISTORY Never Assessed REASON FOR VISIT wound packing to top of head. [email or web address] PLAN OF CARE Activity Details Follow Up prn Reason: VITAL SIGNS Height 61 in 2017-12-30 Weight 176.4 lbs 2017-12-30 Temperature 98.6 degrees Fahrenheit 2017-12-30 Heart Rate 90 bpm 2017-12-30 Respiratory Rate 20 2017-12-30 BMI 33.33 kg/m2 2017-12-30 Blood pressure systolic 144 mmHg 2017-12-30 Blood pressure diastolic 86 mmHg 2017-12-30 MEDICATIONS Medication Instructions Dosage Frequency Start Date [...]
--- OUTSIDE RECORDS SUMMARY | 2018-09-09 00:25 | XMS REPORT ---
Author Author CLEOPATRA FRANCISCO Organization [facility] Address [address] [place] [address] Care Team Providers Care Campaign Fundraiser Name Role Phone CLEOPATRA FRANCISCO Unavailable PROBLEMS Type Condition ICD9-CM Code FUR58-HX Code Onset Dates Condition Status SNOMED Code Problem Chest pain 786.50 Active 21157083 Problem Diabetes type 2, uncontrolled E11.65 Active 94092278 Problem Arteriosclerosis of coronary artery I25.10 Active 53636549 Problem Alcohol dependence with unspecified alcohol-induced disorder F10.29 Active 20958916 ALLERGIES No Information ENCOUNTERS Encounter Location Date Diagnosis [place] [address] [address]48- 8664 Dec, Abscess, scalp L02.811 [facility] [address] 45590- 0883 Dec, [facility] [address] 89448- 2176 Dec, [facility] [address] 63285 -5872 Dec, Abscess, scalp L02.811 [facility] [address] [place] [id number] [place] [address] 61641- 0442 Dec, Abscess, scalp L02.811 [facility] [address] 81345 -5056 Dec, Abscess, scalp L02.811 [facility] [address] 36890- 3276 Dec, Abscess, scalp L02.811 [place] [address] 22625- 9670 Dec, Abscess, scalp L02.811 [facility] [address] [address] 11 Dec, 2017 Cutaneous abscess of head excluding face L02.811 [facility] [address] [address]0275 10 Dec, 2017 Abscess L[address] [id number] [id number] Dec, [facility] [address] [place] [address] 45211 -4685 Dec, Abscess L02.91 [facility] [address] [place] [address] 28136 -6140 Aug, Acute allergic rhinitis due to other allergen, unspecified seasonality J30.89 and Cellulitis of head except face L03.811 [place] [address] [place] [id number] [place] [address] 99939- 5205 Jun, [place] [address] [place] [id number] [place] [address] 12056- 7084 Jun, [place] [address] [place] [id number] [place] [address] 06182- 9863 Jun, [place] [address] [place] [address] 98314- 2442 Jun, [place] [address] [place] [id number] [place] [address] 32409- 8346 Jun, [facility] [address] [place] [id number] [place] [address] 73868- 5935 Jun, Hematuria 599.70 ; Diabetes type 2, uncontrolled 250.02 ; Chest pain 786.50 ; Chronic pain 338.29 and Coronary atherosclerosis of unspecified type of vessel, [place] or graft 414.00 [place] [address] [place] [id number] [place] [address] 41589- 7053 Feb, [facility] [place] [facility] [address] [id number] [place] [address]- 0878 Feb, [facility] [place] [facility] [address] [id number] [place] [address]- 8547 Jan, [facility] [place] [facility] [address] [id number] [place] 5258 Jan, [facility] [place] [facility] [address] [id number] [place] [address]- 2486 Jan, [facility] [place] [facility] [address] [id number] [place] [address]- 4267 Jan, [facility] [place] [facility] [address] [id number] [place] [address]- 6030 Jan, [facility] [place] [facility] [address] [facility] [id number] [place] [address]- 8980 Jan, [facility] [place] [facility] [address] [id number] [place] [address]- 0689 Dec, 2014 [facility] [place] [facility] [address] [id number] [place] [address]- 2631 Dec, 2014 [facility] [place] [facility] [address] [facility] [id number] [place] [address]- 6031 Dec, 2014 [facility] [place] [facility] [address] [facility] [id number] [place] [address]- 5212 Dec, 2014 [facility] [place] [facility] [address] [id number] [place] [address]- 1887 Dec, 2014 [facility] [place] [facility] [address] [id number] [place] [address]- 6399 Dec, 2014 [facility] [place] [facility] [address] [id number] [place] [address]- 4305 Dec, 2014 [facility] [place] [facility] [address] [facility] [id number] [place] [address]- 0454 Dec, 2014 [facility] [place] [facility] [address] [facility] [id number] [place] [address]- 2337 Nov, [facility] [address] [id number] [place] [address]- 5866 Nov, [facility] [address] [id number] [place] [address]- 9464 Aug, [facility] [address] [id number] [place] [address]- 4820 Aug, [facility] [address] [id number] [place] [address]- 0032 May, [facility] [address] [id number] [place] [address]- 0986 March, [facility] [address] [id number] [place] [address]- 7655 March, [facility] [address] [id number] [place] [address]- 0705 March, [facility] [address] [id number] [place] [address]- 6460 March, [facility] [address] [id number] [place] [address]- 1132 Feb, [facility] [address] [id number] [place] [address]- 3662 Feb, [facility] [address] [id number] [place] [address]- 1480 Jan, [facility] [place] [facility] [address] [id number] [place] [address]- 6932 Jan, [facility] [place] [facility] [address] [id number] [place] [address]- 9676 Dec, [facility] [place] [facility] [address] [id number] [place] [address]- 7195 Nov, [facility] [address] [id number] [place] [address]- 0772 Nov, [facility] [address] [id number] [place] [address]- 7736 Nov, [facility] [address] [id number] [place] [address]- 9366 Nov, [facility] [address] [id number] [place] [address]- 9356 Nov, [facility] [address] [place] [id number] Oct [facility] [address] [id number] [place] [address]- 9776 Oct, [facility] [address] [id number] [place] [address]- 7623 Oct, [facility] [address] [id number] [place] [address]- 2301 Oct, [facility] [address] [id number] [place] [address]- 6606 Sep, [facility] [address] [id number] [place] [address]- 1050 Sep, [facility] [address] [id number] [place] [address]- 9682 May, [facility] [address] [id number] [place] [address]- 0516 Apr, [facility] [address] [id number] [place] [address]- 2756 March, [facility] [address] [id number] [place] [address]- 6916 Feb, [facility] [address] [id number] [place] [address]- 8556 Feb, [facility] [address] [id number] [place] [address]- 7996 Feb, [facility] [address] [id number] [place] [address]- 4949 Jan, [facility] [address] [id number] [place] [address]- 8977 Jan, [facility] [place] [facility] [address] [id number] [place] [address]- 0947 Jan, [facility] [place] [facility] [address] [id number] [place] [address]- 5497 Dec, [facility] [place] [facility] [address] [id number] [place] [address]- 3064 Dec, [facility] [place] [facility] [address] [id number] [place] [address]- 2584 Dec, [facility] [place] [facility] [address] [id number] [place] [address]- 4522 Dec, [facility] [place] [facility] [address] [id number] [place] [address] Dec, [facility] [place] [facility] [address] [id number] [place] [address] Dec, [facility] [place] [facility] [address] [id number] [place] [address] Oct, [facility] [place] [facility] [address] [id number] [place] [address] Oct, [facility] [place] [facility] [address] [id number] [place] [address] Oct, [facility] [place] [facility] [address] [id number] [place] [address] Sep, [facility] [place] [facility] [address] [id number] [place] [address] Sep, [facility] [place] [facility] [address] [id number] [place] [address] Sep, [facility] [place] [facility] [address] [id number] [place] [address] Sep, [facility] [place] [facility] [id number] [address] 14 Sep, 2011 [facility] [id number] [place] [address] May, [facility] [id number] [place] [address] 14 Dec, 2010 [facility] [id number] [address] Oct, [facility] [id number] [address] Sep, [facility] [id number] [place] [id number] Aug, [facility] [id number] [place] [address] Aug, [facility] [id number] [place] [address] Aug, [facility] [id number] [place] [address] 16 Sep, 2009 [facility] [id number] [place] [address] Sep, [facility] [id number] [place] [address] Jul, IMMUNIZATIONS No Known Immunizations SOCIAL HISTORY Never Assessed REASON FOR VISIT Wound Packing on the PT head[place] PLAN OF CARE Activity Details Follow Up 2 - 3 Days Reason:repacking. VITAL SIGNS Height 61 in 2017-12-26 Weight 173.6 lbs 2017-12-26 Temperature 98.4 degrees Fahrenheit 2017-12-26 Heart Rate 92 bpm 2017-12-26 Respiratory Rate 18 2017-12-26 BMI 32.80 kg/m2 2017-12-26 Blood pressure systolic 142 mmHg 2017-12-26 Blood pressure diastolic 86 mmHg 2017-12-26 MEDICATIONS Medication Instructions Dosage Frequency Start Date [...]
--- OUTSIDE RECORDS SUMMARY | 2018-09-09 00:25 | XMS REPORT ---
Author Author CLEOPATRA FRANCISCO Organization [facility] Address [address] [place] [address] Care Team Providers Care Procedures Analyst Name Role Phone CLEOPATRA FRANCISCO Unavailable PROBLEMS Type Condition ICD9-CM Code CVA10-HO Code Onset Dates Condition Status SNOMED Code Problem Chest pain 786.50 Active 14493305 Problem Diabetes type 2, uncontrolled E11.65 Active 90997590 Problem Arteriosclerosis of coronary artery I25.10 Active 73525853 Problem Alcohol dependence with unspecified alcohol-induced disorder F10.29 Active 72772778 ALLERGIES No Known Allergies ENCOUNTERS Encounter Location Date Diagnosis [place] [address] [address] Dec, Abscess, scalp L02.811 [facility] [address] [address] Dec, [facility] [address] [address] Dec, [facility] [address] [address] Dec, Abscess, scalp L02.811 [facility] [address] [address]- 9875 Dec, Abscess, scalp L02.811 [facility] [address] [address] Dec, Abscess, scalp L02.811 [facility] [address] [address]- 5542 Dec, Abscess, scalp L02.811 [facility] [address] [address]- 6937 Dec, Abscess, scalp L02.811 [facility] [address] [address] 11 Dec, 2017 Cutaneous abscess of head excluding face L02.811 [facility] [id number] [place] [address]49 -8504 10 Dec, 2017 Abscess L[address] [id number] [id number] Dec, [facility] [id number] [place] [address]1248 -5670 Dec, Abscess L02.91 [facility] [address] [place] [id number] [place] [address] 28899 -7814 Aug, Acute allergic rhinitis due to other allergen, unspecified seasonality J30.89 and Cellulitis of head except face L03.811 [place] [address] [place] [id number] [place] [address] 47044- 8826 Jun, [place] [address] [place] [id number] [place] [address] 30237- 5094 Jun, [place] [address] [place] [id number] [place] [address] 96174- 0432 Jun, [place] [address] [place] [id number] [place] [address] 20529- 9760 Jun, [place] [address] [place] [id number] [place] [address] 72245- 8234 Jun, [facility] [address] [place] [id number] [place] [address] 36588- 5804 Jun, Hematuria 599.70 ; Diabetes type 2, uncontrolled 250.02 ; Chest pain 786.50 ; Chronic pain 338.29 and Coronary atherosclerosis of unspecified type of vessel, [place] or graft 414.00 [place] [address] [place] [id number] [place] [address] 20501- 7958 Feb, [facility] [place] [facility] [address] [id number] [place] [address] 6803 Feb, [facility] [place] [facility] [address] [id number] [place] [address]- 3186 Jan, [facility] [place] [facility] [address] [id number] [place] [address]- 6969 Jan, [facility] [place] [facility] [address] [id number] [place] [address]- 5019 Jan, [facility] [place] [facility] [address] [id number] [place] [address]- 3211 Jan, [facility] [place] [facility] [address] [id number] [place] [address]- 4272 Jan, [facility] [place] [facility] [address] [facility] [id number] [place] [address]- 5443 Jan, [facility] [place] [facility] [address] [id number] [place] [address]- 8847 Dec, 2014 [facility] [place] [facility] [address] [facility] [id number] [place] [address]- 6754 Dec, 2014 [facility] [place] [facility] [address] [facility] [id number] [place] [address]- 6591 Dec, 2014 [facility] [place] [facility] [address] [facility] [id number] [place] [address]- 4996 Dec, 2014 [facility] [place] [facility] [address] [id number] [place] [address]- 1235 Dec, 2014 [facility] [place] [facility] [address] [id number] [place] [address]- 1361 Dec, 2014 [facility] [place] [facility] [address] [id number] [place] [address]- 7724 Dec, 2014 [facility] [place] [facility] [address] [facility] [id number] [place] Dec, 2014 [facility] [place] [facility] [address] [facility] [id number] [place] [address]- 8947 Nov, [facility] [address] [id number] [place] [address]- 1483 Nov, [facility] [address] [id number] [place] [address]- 2180 Aug, [facility] [address] [id number] [place] [address]- 9790 Aug, [facility] [address] [id number] [place] [address]- 5885 May, [facility] [address] [id number] [place] [address]- 6290 March, [facility] [address] [id number] [place] [address]- 6800 March, [facility] [address] [id number] [place] [address]- 3938 March, [facility] [address] [id number] [place] [address]- 8230 March, [facility] [address] [id number] [place] [address]- 6518 Feb, [facility] [address] [id number] [place] [address]- 2655 Feb, [facility] [address] [id number] [place] [address]- 6251 Jan, [facility] [place] [facility] [address] [id number] [place] [address]- 7376 Jan, [facility] [place] [facility] [address] [id number] [place] [address]- 7869 Dec, [facility] [place] [facility] [address] [id number] [place] [address]- 1699 Nov, [facility] [place] [facility] [address] [id number] [place] [address]- 9330 Nov, [facility] [place] [facility] [address] [id number] [place] [address]- 7706 Nov, [facility] [address] [id number] [place] [address]- 2386 Nov, [facility] [address] [id number] [place] [address]- 1536 Nov, [facility] [address] [place] [id number] Oct [facility] [address] [id number] [place] [address]- 5356 Oct, [facility] [address] [id number] [place] [address]- 2206 Oct, [facility] [address] [id number] [place] [address]- 2286 Oct, [facility] [address] [id number] [place] [address]- 3266 Sep, [facility] [address] [id number] [place] [address]- 9890 Sep, [facility] [address] [id number] [place] [address]- 9726 May, [facility] [address] [id number] [place] [address]- 0106 Apr, [facility] [address] [id number] [place] [address]- 0246 March, [facility] [address] [id number] [place] [address]- 8796 Feb, [facility] [address] [id number] [place] [address]- 9496 Feb, [facility] [address] [id number] [place] [address]- 9436 Feb, [facility] [address] [id number] [place] [address]- 2606 Jan, [facility] [place] [facility] [address] [id number] [place] [address]- 8445 Jan, [facility] [place] [facility] [address] [id number] [place] [address]- 6826 Jan, [facility] [place] [facility] [address] [id number] [place] [address]- 3386 Dec, [facility] [place] [facility] [address] [id number] [place] [address]- 5056 Dec, [facility] [place] [facility] [address] [id number] [place] [address]- 4564 Dec, [facility] [place] [facility] [address] [id number] [place] [address]- 5379 Dec, [facility] [place] [facility] [address] [id number] [place] [address]- 9026 Dec, [facility] [place] [facility] [address] [id number] [place] [address]- 4870 Dec, [facility] [place] [facility] [address] [id number] [place] [address]- 4767 Oct, [facility] [place] [facility] [address] [id number] [place] [address]- 5253 Oct, [facility] [place] [facility] [address] [id number] [place] [address]- 2607 Oct, [facility] [place] [facility] [address] [id number] [place] [address]- 6003 Sep, [facility] [place] [facility] [address] [id number] [place] [address]- 5154 Sep, [facility] [place] [facility] [address] [id number] [place] [address]- 6585 Sep, [facility] [place] [facility] [address] [id number] [place] [address]- 2578 Sep, [facility] [place] [facility] [address] [address]- 7446 14 Sep, 2011 [facility] [address] [address]- 8673 15 May, 2011 [facility] [address] [address]- 3637 14 Dec, 2010 [facility] [address] [address]- 7430 Oct, [facility] [address] [address]- 7140 Sep, [facility] [id number] [place] [address] 41194- 1559 Aug, [facility] [id number] [place] [address] 97743- 1187 Aug, [facility] [address] [place] [id number] [place] [address] 09046- 7827 Aug, [facility] [address] [address]- 4622 16 Sep, 2009 [facility] [address] [address]- 1549 Sep, [facility] [address] [address]- 7598 17 Jul, 2009 IMMUNIZATIONS No Known Immunizations SOCIAL HISTORY Never Assessed REASON FOR VISIT Wound packing on head, reports packing came out a little yesterday morning she covered with the gauze then when she uncovered it last night packing came out with gauze removal. Reports minimal drainage. CBrumbackRN PLAN OF CARE VITAL SIGNS Height 61 in 2017-12-28 Weight 172.2 lbs 2017-12-28 Temperature 98.6 degrees Fahrenheit 2017-12-28 Heart Rate 96 bpm 2017-12-28 Respiratory Rate 18 2017-12-28 BMI 32.53 kg/m2 2017-12-28 Blood pressure systolic 142 mmHg 2017-12-28 Blood pressure diastolic 88 mmHg 2017-12-28 MEDICATIONS Medication Instructions Dosage Frequency Start Date [...]
--- OUTSIDE RECORDS SUMMARY | 2018-09-09 00:25 | XMS REPORT ---
Author Author MIREILLE BAPTISTE Organization [facility] Address [address] [place] [address] Care Team Providers Care Bankruptcy Judge Name Role Phone MIREILLE BAPTISTE Unavailable PROBLEMS Type Condition ICD9-CM Code GIR99-YQ Code Onset Dates Condition Status SNOMED Code Problem Chest pain 786.50 Active 82867812 Problem Diabetes type 2, uncontrolled E11.65 Active 89462605 Problem Arteriosclerosis of coronary artery I25.10 Active 82796734 Problem Alcohol dependence with unspecified alcohol-induced disorder F10.29 Active 09021554 ALLERGIES No Information ENCOUNTERS Encounter Location Date Diagnosis [facility] [address] [address]- [address] 28 Dec, 2017 Abscess, scalp L02.811 [facility] [address] [place] [id number] [place] [address] 11351- 2017 26 Dec, 2017 [facility] [address] [address]- 6752 Dec, [facility] [address] [place] [id number] [place] [address]162 -7198 Dec, Abscess, scalp L02.811 [facility] [address] [place] [id number] [place] [address] 94950- 3412 Dec, Abscess, scalp L02.811 [facility] [address] [place] [id number] [place] [address] 66650 -0644 17 Dec, 2017 Abscess, scalp L02.811 [facility] [address] [place] [id number] [place] [address] 02001- 9000 15 Dec, 2017 Abscess, scalp L02.811 [facility] [address] [address]- 1761 Dec, Abscess, scalp L02.811 [facility] [address] [place] [address] 47969 -4321 11 Dec, 2017 Cutaneous abscess of head excluding face L02.811 [facility] [address] [place] [address] 22349 -0477 10 Dec, 2017 Abs[address] [id number] [id number] Dec, [facility] [address] [place] [address] 61933 -7566 Dec, Abscess L02.91 [facility] [address] [place] [address] 57376 -6501 Aug, Acute allergic rhinitis due to other allergen, unspecified seasonality J30.89 and Cellulitis of head except face L03.811 [place] [address] [place] [id number] [place] [address] 66015- 3041 Jun, [place] [address] [address]- 6483 Jun, [place] [address] [place] [id number] [place] [address] 56489- 9401 Jun, [place] [address] [place] [id number] [place] [address] 15077- 2569 Jun, [place] [address] [place] [id number] [place] [address] 60518- 6031 Jun, [place] [address] [address]26- 6367 Jun, Hematuria 599.70 ; Diabetes type 2, uncontrolled 250.02 ; Chest pain 786.50 ; Chronic pain 338.29 and Coronary atherosclerosis of unspecified type of vessel, [place] or graft 414.00 [place] [address] [place] [id number] [place] [address] 23709- 5374 Feb, [facility] [place] [facility] [address] [id number] [place] [address]- 9765 13 Feb, 2015 [facility] [place] [facility] [address] [id number] [place] [address]- 9772 24 Jan, 2015 [facility] [place] [facility] [address] [id number] [place] [address]- 7892 24 Jan, 2015 [facility] [place] [facility] [address] [id number] [place] [address]- 2464 Jan, [facility] [place] [facility] [address] [id number] [place] [address]- 8467 Jan, [facility] [place] [facility] [address] [id number] [place] [address]- 0664 Jan, [facility] [place] [facility] [address] [place] [id number] [place] [address]- 3897 Jan, [facility] [place] [facility] [address] [facility] [id number] [place] [address]- 6741 Dec, [facility] [place] [facility] [address] [id number] [place] [address]- 8252 Dec, [facility] [place] [facility] [address] [facility] [id number] [place] [address]- 5204 Dec, 2014 [facility] [place] [facility] [address] [facility] [id number], [place] [address]- 8353 Dec, 2014 [facility] [place] [facility] [address] [id number], [place] [address]- 2247 Dec, 2014 [facility] [place] [facility] [address] [id number] [place] [address]- 2718 Dec, 2014 [facility] [place] [facility] [address] [facility] [id number] [place] [address]- 1155 Dec, 2014 [facility] [place] [facility] [address] [facility] [id number] [place] [address]- 0115 Dec, 2014 [facility] [place] [facility] [address] [id number] [place] [address]- 3109 Nov, [facility] [address] [id number] [place] [address]- 3101 Nov, [facility] [address] [id number] [place] [address]- 2249 Aug, [facility] [address] [id number] [place] [address]- 1699 Aug, [facility] [address] [id number] [place] [address]- 2953 May, [facility] [address] [id number] [place] [address]- 7630 March, [facility] [address] [id number] [place] [address]- 4862 March, [facility] [address] [id number] [place] [address]- 6271 March, [facility] [address] [id number] [place] [address]- 8303 March, [facility] [address] [id number] [place] [address]- 4034 Feb, [facility] [address] [id number] [place] [address]- 7078 Feb, [facility] [address] [id number] [place] [address]- 1143 Jan, [facility] [address] [id number] [place] [address]- 9970 Jan, [facility] [address] [id number] [place] [address]- 8659 Dec, [facility] [address] [id number] [place] [address]- 1746 Nov, [facility] [address] [id number] [place] [address]- 8529 Nov, [facility] [address] [id number] [place] [address]- 4327 Nov, [facility] [address] [id number] [place] [address]- 5896 Nov, [facility] [address] [id number] [place] [address]- 9052 Nov, [facility] [address] [place] [id number] Oct [facility] [address] [id number] [place] [address]- 9539 Oct, [facility] [address] [id number] [place] [address]- 3415 Oct, [facility] [address] [id number] [place] [address]- 6254 Oct, [facility] [address] [id number] [place] [address]- 5595 Sep, [facility] [address] [id number] [place] [address]- 2263 Sep, [facility] [address] [id number] [place] [address]- 7530 May, [facility] [address] [id number] [place] [address]- 8330 Apr, [facility] [address] [id number] [place] [address]- 4767 March, [facility] [address] [id number] [place] [address]- 8896 24 Feb, 2012 [facility] [address] [id number] [place] [address]- 9535 Feb, [facility] [address] [id number] [place] [address]- 9423 Feb, [facility] [address] [id number] [place] [address]- 5312 Jan, [facility] [place] [facility] [address] [id number] [place] [address]- 7354 Jan, [facility] [place] [facility] [address] [id number] [place] 1189 Jan, [facility] [place] [facility] [address] [facility] [id number] [place] [address]- 8855 Dec, [facility] [place] [facility] [address] [id number] [place] [address]- 7295 Dec, [facility] [place] [facility] [address] [id number] [place] [address]- 0578 Dec, [facility] [place] [facility] [address] [facility] [id number] [place] [address]- 6692 Dec, [facility] [address] [facility] [id number] [place] [address]- 1146 Dec, [facility] [place] [facility] [address] [facility] [id number] [place] [address]- 8104 Dec, [facility] [place] [facility] [address] [facility] [id number] [place] [address]- 8090 Oct, [facility] [place] [facility] [address] [facility] [id number] [place] [address]- 4913 Oct, [facility] [place] [facility] [address] [facility] [id number] [place] [address]- 0016 Oct, [facility] [place] [facility] [address] [id number] [place] [address]- 7887 Sep, [facility] [place] [facility] [address] [id number] [place] [address]- 4581 Sep, [facility] [place] [facility] [address] [facility] [id number] [place] [address] Sep, [facility] [place] [facility] [address] [facility] [id number] [place] [address] Sep, [facility] [place] [facility] [id number] [address] 14 Sep, 2011 [facility] [address] [address] 15 May, 2011 [facility] [address] [address] 14 Dec, 2010 [facility] [id number] [place] [address] Oct, [facility] [id number], [place] [address] Sep, [facility] [id number] [place] [address] Aug, [facility] [id number] [place] [address] Aug, [facility] [address] [id number] [place] [address] Aug, [facility] [address], [place] [address] 16 Sep, 2009 [facility] [address], [place] [address] Sep, [facility] [address], [place] [address] 17 Jul, 2009 IMMUNIZATIONS No Known Immunizations SOCIAL HISTORY Never Assessed REASON FOR VISIT PLAN OF CARE VITAL SIGNS MEDICATIONS Unknown [...]
--- OUTSIDE RECORDS SUMMARY | 2018-09-09 00:26 | XMS REPORT ---
Author Author AMY ARAYA Organization [employer] Address Unknown Phone Unavailable Care Team Providers Care Bill Recapitulation Clerk Name Role Phone AMY ARAYA CP Unavailable Allergies No Known Allergies Problems Problem Type Condition ICD-9 Code Onset Dates Condition Status Problem Unspecified vaginitis and vulvovaginitis 616.10 Active Problem Unspecified breast screening V76.10 Active Problem Lymphadenitis, unspecified, except mesenteric 289.3 Active Problem Acute sinusitis, unspecified 461.9 Active Problem Screening for malignant neoplasm of the cervix V76.2 Active Problem Chest pain 786.50 Active Problem Hematuria 599.70 Active Problem Diabetes type 2, uncontrolled 250.02 Active Problem Dysmenorrhea 625.3 Active Problem Other and unspecified alcohol dependence, unspecified drunkenness 303.90 Active Problem Chronic pain 338.29 Active Problem Coronary atherosclerosis of unspecified type of vessel, [place] or graft 414.00 Active Medications No Known Medications Results No Known Results Summary Purpose [employer] Submission
--- OUTSIDE RECORDS SUMMARY | 2018-09-09 00:26 | XMS REPORT ---
Author Author LEI LE [facility] Address [address] [place] [address] Care Team Providers Care Hospice Community Liaison Name Role Phone LEI LE Unavailable PROBLEMS Type Condition ICD9-CM Code AKG15-YD Code Onset Dates Condition Status SNOMED Code Problem Chest pain 786.50 Active 15813237 Problem Diabetes type 2, uncontrolled E11.65 Active 13909720 Problem Arteriosclerosis of coronary artery I25.10 Active 67087920 Problem Alcohol dependence with unspecified alcohol-induced disorder F10.29 Active 77562894 ALLERGIES No Information ENCOUNTERS Encounter Location Date Diagnosis [facility] [address] [address] 28 Dec, 2017 Abscess, scalp L02.811 [facility] [address] [address] 26 Dec, 2017 [facility] [address] [address] 23 Dec, [address] [facility] [address] [address] Dec, Abscess, scalp L02.811 [facility] [address] [address] Dec, Abscess, scalp L02.811 [facility] [address] [address] 17 Dec, 2017 Abscess, scalp L02.811 [facility] [address] [address] 15 Dec, 2017 Abscess, scalp L02.811 [facility] [address] [place] [address] 13 Dec, 2017 Abscess, scalp L02.811 [facility] [id number] [place] [address] 11 Dec, 2017 Cutaneous abscess of head excluding face L02.811 [facility] [id number] [place] [address] 10 Dec, 2017 Abscess L02.[address] [id number] [id number] Dec, [facility] [id number] [place] [address] Dec, Abscess L02.91 [facility] [id number] [place] [address] Aug, Acute allergic rhinitis due to other allergen, unspecified seasonality J30.89 and Cellulitis of head except face L03.811 [place] [id number] [place] [address] Jun, [place] [address] [address] Jun, [place] [id number] [place] [address] Jun, [place] [id number] [place] [address] Jun, [place] [id number] [place] [address] Jun, [place] [id number] [place] [address] Jun, Hematuria 599.70 ; Diabetes type 2, uncontrolled 250.02 ; Chest pain 786.50 ; Chronic pain 338.29 and Coronary atherosclerosis of unspecified type of vessel, inupiat or graft 414.00 [place] [address] [address] 14 Feb, 2015 [facility] [place] [facility] [address] [facility] [id number] [place] [address] 13 Feb, 2015 [facility] [place] [facility] [address] [facility] [id number] [place] [address] 24 Jan, 2015 [facility] [place] [facility] [address] [facility] [id number] [place] [address] Jan, [facility] [place] [facility] [address] [facility] [id number] [place] [address] Jan, [facility] [place] [facility] [address] [facility] [id number] [place] [address] Jan, [facility] [place] [facility] [address] [facility] [id number] [place] [address] Jan, [facility] [place] [facility] [id number] [place] [address] Jan, [facility] [place] [facility] [address] [facility] [id number], [place] [address] Dec, [facility] [place] [facility] [address] [id number] [place] [address] Dec, 2014 [facility] [place] [facility] [address] [facility] [id number] [place] [address] Dec, [facility] [place] [facility] [address] [id number] [address] Dec, 2014 [facility] [place] [facility] [address] [facility] [id number], [place] [address] Dec, 2014 [facility] [place] [facility] [address] [facility] [id number] [place] [address] Dec, 2014 [facility] [place] [facility] [address] [facility] [id number], [place] [address] Dec, 2014 [facility] [place] [facility] [address] [address] Dec, 2014 [facility] [place] [facility] [address] [id number] [place] [address] Nov, [facility] [address] [id number] [place] [address] Nov, [facility] [place] [facility] [address] [id number] [place] [address] Aug, [facility] [address] [id number] [place] [address] Aug, [facility] [place] [facility] [address] [id number] [place] [address] May, [facility] [place] [facility] [address] [id number] [place] [address] March, [facility] [address] [id number] [place] [address] March, [facility] [address] [id number] [place] [address]- [address] March, [facility] [address] [id number] [place] [address] March, [facility] [address] [id number] [place] [address] Feb, [facility] [address] [id number] [place] [address]- 5096 Feb, [facility] [place] [facility] [address] [id number] [place] [address] Jan, [facility] [place] [facility] [address] [id number] [place] [address]- 6[address] Jan, [facility] [place] [facility] [address] [id number] [place] [address]- 9124 Dec, [facility] [place] [facility] [address] [id number] [place] [address]- 4252 Nov, [facility] [place] [facility] [address] [id number] [place] [address]- 7782 Nov, [facility] [address] [id number] [place] [address] Nov, [facility] [address] [id number] [place] [address]- [address] Nov, [facility] [address] [facility] [id number] [place] [address]- [address] Nov, [address] [id number] Oct [facility] [address] [id number] [place] [address]- [address] Oct, [facility] [address] [id number] [place] [address]- 78[address] Oct, [facility] [address] [id number] [place] [address]- 75[address] Oct, [facility] [address] [id number] [place] [address]- 2380 Sep, [facility] [address] [id number] [place] [address]- 3047 Sep, [facility] [address] [id number] [place] [address]- 67[address] May, [facility] [address] [id number] [place] [address]- [address] Apr, [facility] [address] [id number], [place] [address] March, [facility] [address] [id number] [place] [address]- [address] Feb, [facility] [address] [id number] [place] [address]- 5027 Feb, [facility] [address] [id number] [place] [address]- 08[address] Feb, [facility] [address] [id number], [place] [address] Jan, [facility] [place] [facility] [address] [id number] [place] [address]- [address] Jan, [facility] [place] [facility] [address] [id number] [place] [address]- 7396 Jan, [facility] [place] [facility] [address] [id number] [place] [address]- 1536 Dec, [facility] [place] [facility] [address] [id number] [place] [address]- 6038 Dec, [facility] [place] [facility] [address] [id number] [place] [address]- 8280 Dec, [facility] [place] [facility] [address] [id number] [place] [address]- 6[address] Dec, [facility] [place] [facility] [address] [id number] [place] [address]- 7962 Dec, [facility] [place] [facility] [address] [id number] [place] [address]- 8967 Dec, [facility] [place] [facility] [address] [id number] [place] [address]- 1272 Oct, [facility] [place] [facility] [address] [facility] [id number] [place] [address]- 0813 Oct, [facility] [place] [facility] [address] [id number] [place] [address]- 1202 Oct, [facility] [place] [facility] [address] [id number] [place] [address]- 4010 Sep, [facility] [place] [facility] [address] [id number] [place] [address]- 4917 Sep, [facility] [place] [facility] [address] [id number] [place] [address]- 2004 Sep, [facility] [place] [facility] [address] [id number] [place] [address]- 5848 Sep, [facility] [address] [id number] [address] Sep, [facility] [address], [place] [address] May, [facility] [id number] [address] Dec, [facility] [address], [place] [address] Oct, [facility] [id number] Sep, [facility] [address], [place] [address]- [address] Aug, [facility] [address], [place] [address]- [address] Aug, [facility] [address], [place] [address]- [address] Aug, [facility] [address], [place] [address] Sep, [facility] [address], [place] [address] Sep, [facility] [address] [id number], [place] [address] Jul, IMMUNIZATIONS Vaccine Route Administration Date Status ROCEPHIN 1 GM (IM) IM Intramuscular Dec 23, 2017 Administered SOCIAL HISTORY Never Assessed REASON FOR VISIT Nirmalepalean JStrasserRN PLAN OF CARE VITAL SIGNS MEDICATIONS Unknown Medications RESULTS No Results PROCEDURES Procedure Date Ordered Result Body Site ROCEPHIN 1 GM (IM) Dec 23, 2017 THER/PROPH/DIAG INJ, SC/IM Dec 23, 2017 INSTRUCTIONS MEDICATIONS ADMINISTERED No Known Medications MEDICAL [...] 1995 Surgical History rotator cuff tear repair-Right 2009 Hospitalization History NSTEMI 10/2012 Hospitalization History ETOH rehab 12/2014
--- OUTSIDE RECORDS SUMMARY | 2018-09-09 00:26 | XMS REPORT | Continuity of Care Document ---
Author Author [facility] Address Unknown Phone Unavailable Allergies Active Description Code Type Severity Reaction Onset Reported/Identified Relationship to Patient Clinical Status Yes etodolac [id number] Drug Allergy Unknown N/A 02/13/2006 Yes morphine Drug Allergy 01/31/2009 Yes morphine Drug Allergy N/A N/A 01/31/2009 Yes morphine [id number] Drug Allergy Mild itching 12/01/2014 Yes latex [id number] Drug Allergy Unknown N/A 12/01/2014 Medications There is no data. Problems Date Dx Coded Attending Type Code Diagnosis Diagnosed By 06/10/2008 250.02 DIABETES MELLITUS TYPE 2 - UNCOMPLICATED, UNCONTROLLED 06/10/2008 354.0 CARPAL TUNNEL SYNDROME 06/10/2008 401.9 UNSPECIFIED ESSENTIAL HYPERTENSION 06/10/2008 780.52 INSOMNIA UNSPECIFIED 06/10/2008 250.02 DIABETES MELLITUS TYPE 2 - UNCOMPLICATED, UNCONTROLLED 06/10/2008 354.0 CARPAL TUNNEL SYNDROME 06/10/2008 401.9 UNSPECIFIED ESSENTIAL HYPERTENSION 06/10/2008 780.52 INSOMNIA UNSPECIFIED 06/10/2008 DOMINGA MOYA DO 250.02 DIABETES MELLITUS TYPE 2 - UNCOMPLICATED, UNCONTROLLED 06/10/2008 DOMINGA MOYA DO 354.0 CARPAL TUNNEL SYNDROME 06/10/2008 DOMINGA MOYA DO 401.9 UNSPECIFIED ESSENTIAL HYPERTENSION 06/10/2008 DOMINGA MOYA DO 780.52 INSOMNIA UNSPECIFIED 06/10/2008 SARA BURTON MD 250.02 DIABETES MELLITUS TYPE 2 - UNCOMPLICATED, UNCONTROLLED 06/10/2008 SARA BURTON MD 354.0 CARPAL TUNNEL SYNDROME 06/10/2008 SARA BURTON MD 401.9 UNSPECIFIED ESSENTIAL HYPERTENSION 06/10/2008 SARA BURTON MD 780.52 INSOMNIA UNSPECIFIED 06/10/2008 250.02 DIABETES MELLITUS TYPE 2 - UNCOMPLICATED, UNCONTROLLED 06/10/2008 354.0 CARPAL TUNNEL SYNDROME 06/10/2008 401.9 UNSPECIFIED ESSENTIAL HYPERTENSION 06/10/2008 780.52 INSOMNIA UNSPECIFIED 06/10/2008 PEARL DENTON APRN 250.02 DIABETES MELLITUS TYPE 2 - UNCOMPLICATED, UNCONTROLLED 06/10/2008 CORREI LATIF, PEARL SANTORO 354.0 CARPAL TUNNEL SYNDROME 06/10/2008 CORRIE LATIF, PEARL SANTORO 401.9 UNSPECIFIED ESSENTIAL HYPERTENSION 06/10/2008 CORRIE STAFFORDNPEARL 780.52 INSOMNIA UNSPECIFIED 06/10/2008 ISABEL CUSTOMS BROKERAGE MANAGER, JÚNIOR R 250.02 DIABETES MELLITUS TYPE 2 - UNCOMPLICATED, UNCONTROLLED 06/10/2008 ISABEL CUSTOMS BROKERAGE MANAGER, JÚNIOR R 354.0 CARPAL TUNNEL SYNDROME 06/10/2008 ISABEL CUSTOMS BROKERAGE MANAGER, JÚNIOR R 401.9 UNSPECIFIED ESSENTIAL HYPERTENSION 06/10/2008 ISABEL STAFFORDN, JÚNIOR R 780.52 INSOMNIA UNSPECIFIED 06/10/2008 SIABEL CUSTOMS BROKERAGE MANAGER, JÚNIOR R 250.02 DIABETES MELLITUS TYPE 2 - UNCOMPLICATED, UNCONTROLLED 06/10/2008 ISABEL CUSTOMS BROKERAGE MANAGER, JÚNIOR R 354.0 CARPAL TUNNEL SYNDROME 06/10/2008 ISABEL LATIF, JÚNIOR R 401.9 UNSPECIFIED ESSENTIAL HYPERTENSION 06/10/2008 ISABEL STAFFORDN, JÚNIOR R 780.52 INSOMNIA UNSPECIFIED 06/10/2008 CHARISSE LATIF, SHILPI A 250.02 DIABETES MELLITUS TYPE 2 - UNCOMPLICATED, UNCONTROLLED 06/10/2008 CHARISSE LATIF, SHILPI A 354.0 CARPAL TUNNEL SYNDROME 06/10/2008 CHARISSE LATIF, SHILPI A 401.9 UNSPECIFIED ESSENTIAL HYPERTENSION 06/10/2008 CHARISSE LATIF, SHILPI A 780.52 INSOMNIA UNSPECIFIED 01/31/2009 465.9 UPPER RESPIRATORY INFECTION ACUTE 01/31/2009 465.9 UPPER RESPIRATORY INFECTION ACUTE 01/31/2009 DOMINGA MOYA DO 465.9 UPPER RESPIRATORY INFECTION ACUTE 01/31/2009 MICHEAL RINCON, SARA 465.9 UPPER RESPIRATORY INFECTION ACUTE 01/31/2009 465.9 UPPER RESPIRATORY INFECTION ACUTE 01/31/2009 CORRIE LATIF PEARL SANTORO 465.9 UPPER RESPIRATORY INFECTION ACUTE 01/31/2009 ISABEL LATIF JÚNIOR R 465.9 UPPER RESPIRATORY INFECTION ACUTE 01/31/2009 ISABEL LATIF JÚNIOR R 465.9 UPPER RESPIRATORY INFECTION ACUTE 01/31/2009 STEVEN MCQUEEN APRNIDI A 465.9 UPPER RESPIRATORY INFECTION ACUTE 12/22/2009 070.54 HEPATITIS, C VIRUS - CHRONIC 12/22/2009 729.1 INTERCOSTAL MYOSITIS 12/22/2009 780.79 FATIGUE 12/22/2009 070.54 HEPATITIS, C VIRUS - CHRONIC 12/22/2009 729.1 INTERCOSTAL MYOSITIS 12/22/2009 780.79 FATIGUE 12/22/2009 DOMINGA MOYA DO 070.54 HEPATITIS, C VIRUS - CHRONIC 12/22/2009 DOMINGA MOYA DO 729.1 INTERCOSTAL MYOSITIS 12/22/2009 DOMINGA MOYA DO 780.79 FATIGUE 12/22/2009 SARA BURTON MD 070.54 HEPATITIS, C VIRUS - CHRONIC 12/22/2009 SARA BURTON MD 729.1 INTERCOSTAL MYOSITIS 12/22/2009 SARA BURTON MD 780.79 FATIGUE 12/22/2009 070.54 HEPATITIS, C VIRUS - CHRONIC 12/22/2009 729.1 INTERCOSTAL MYOSITIS 12/22/2009 780.79 FATIGUE 12/22/2009 PEARL DENTON APRN 070.54 HEPATITIS, C VIRUS - CHRONIC 12/22/2009 PEARL DENTON APRN 729.1 INTERCOSTAL MYOSITIS 12/22/2009 PEARL DENTON APRN 780.79 FATIGUE 12/22/2009 ISABEL LATIF JÚNIOR R 070.54 HEPATITIS, C VIRUS - CHRONIC 12/22/2009 ISABEL LATIF, JÚNIOR R 729.1 INTERCOSTAL MYOSITIS 12/22/2009 ISABEL LATIF JÚNIOR R 780.79 FATIGUE 12/22/2009 ISABEL LATIF JÚNIOR R 070.54 HEPATITIS, C VIRUS - CHRONIC 12/22/2009 ISABEL LATIF, JÚNIOR R 729.1 INTERCOSTAL MYOSITIS 12/22/2009 ISABEL LATIF, JÚNIOR R 780.79 FATIGUE 12/22/2009 SHILPI MCQUEEN APRN A 070.54 HEPATITIS, C VIRUS - CHRONIC 12/22/2009 SHILPI MCQUEEN APRN A 729.1 INTERCOSTAL MYOSITIS 12/22/2009 SHILPI MCQUEEN APRN 780.79 FATIGUE 12/24/2009 285.9 ANEMIA UNSPECIFIED 12/24/2009 285.9 ANEMIA UNSPECIFIED 12/24/2009 DOMINGA MOYA DO 285.9 ANEMIA UNSPECIFIED 12/24/2009 SARA BURTON MD 285.9 ANEMIA UNSPECIFIED 12/24/2009 285.9 ANEMIA UNSPECIFIED 12/24/2009 PEARL DENTON APRN 285.9 ANEMIA UNSPECIFIED 12/24/2009 ISABEL LATIF, JÚNIOR R 285.9 ANEMIA UNSPECIFIED 12/24/2009 ISABEL LATIF, JÚNIOR R 285.9 ANEMIA UNSPECIFIED 12/24/2009 SHILPI MCQUEEN APRN A 285.9 ANEMIA UNSPECIFIED 12/27/2010 296.32 MO DEPRESSIVE RECURRENT MODERATE 12/27/2010 300.02 AN GEN ANXIETY 12/27/2010 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 12/27/2010 296.32 MO DEPRESSIVE RECURRENT MODERATE 12/27/2010 300.02 AN GEN ANXIETY 12/27/2010 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 12/27/2010 MOYA DO DOMINGA K 296.32 MO DEPRESSIVE RECURRENT MODERATE 12/27/2010 MOYA DO DOMINGA K 300.02 AN GEN ANXIETY 12/27/2010 MOYA DO DOMINGA K 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 12/27/2010 SARA BURTON MD 296.32 MO DEPRESSIVE RECURRENT MODERATE 12/27/2010 SARA BURTON MD 300.02 AN GEN ANXIETY 12/27/2010 SARA BURTON MD 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 12/27/2010 296.32 MO DEPRESSIVE RECURRENT MODERATE 12/27/2010 300.02 AN GEN ANXIETY 12/27/2010 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 12/27/2010 PEARL DENTON APRN 296.32 MO DEPRESSIVE RECURRENT MODERATE 12/27/2010 PEARL DENTON APRN 300.02 AN GEN ANXIETY 12/27/2010 PEARL DENTON APRN 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 12/27/2010 ISABEL LATIF JÚNIOR R 296.32 MO DEPRESSIVE RECURRENT MODERATE 12/27/2010 ISABEL LATIF, JÚNIOR R 300.02 AN GEN ANXIETY 12/27/2010 ISABEL LATIF JÚNIOR R 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 12/27/2010 ISABEL LATIF JÚNIOR R 296.32 MO DEPRESSIVE RECURRENT MODERATE 12/27/2010 ISABEL LATIF JÚNIOR R 300.02 AN GEN ANXIETY 12/27/2010 ISABEL LATIF JÚNIOR R 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 12/27/2010 SHILPI MCQUEEN APRN A 296.32 MO DEPRESSIVE RECURRENT MODERATE 12/27/2010 SHILPI MCQUEEN APRN A 300.02 AN GEN ANXIETY 12/27/2010 SHILPI MCQUEEN APRN A 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 05/27/2011 314.01 ADHD COMBINED 05/27/2011 314.01 ADHD COMBINED 05/27/2011 DOMINGA MOYA DO 314.01 ADHD COMBINED 05/27/2011 SARA BURTON MD 314.01 ADHD COMBINED 05/27/2011 314.01 ADHD COMBINED 05/27/2011 PEARL DENTON APRN 314.01 ADHD COMBINED 05/27/2011 ISABEL LATIF JÚNIOR R 314.01 ADHD COMBINED 05/27/2011 ISABEL LATIF JÚNIOR R 314.01 ADHD COMBINED 05/27/2011 SHILPI MCQUEEN APRN A 314.01 ADHD COMBINED 07/05/2011 112.3 CANDIDIASIS OF SKIN AND NAILS 07/05/2011 710.0 SYSTEMIC LUPUS ERYTHEMATOSUS 07/05/2011 780.60 FEVER UNSPECIFIED 07/05/2011 112.3 CANDIDIASIS OF SKIN AND NAILS 07/05/2011 710.0 SYSTEMIC LUPUS ERYTHEMATOSUS 07/05/2011 780.60 FEVER UNSPECIFIED 07/05/2011 DOMINGA MOYA DO 112.3 CANDIDIASIS OF SKIN AND NAILS 07/05/2011 DOMINGA MOYA DO 710.0 SYSTEMIC LUPUS ERYTHEMATOSUS 07/05/2011 DOMINGA MOYA DO 780.60 FEVER UNSPECIFIED 07/05/2011 SARA BURTON MD 112.3 CANDIDIASIS OF SKIN AND NAILS 07/05/2011 SARA BURTON MD 710.0 SYSTEMIC LUPUS ERYTHEMATOSUS 07/05/2011 SARA BURTON MD 780.60 FEVER UNSPECIFIED 07/05/2011 112.3 CANDIDIASIS OF SKIN AND NAILS 07/05/2011 710.0 SYSTEMIC LUPUS ERYTHEMATOSUS 07/05/2011 780.60 FEVER UNSPECIFIED 07/05/2011 PEARL DENTON APRN 112.3 CANDIDIASIS OF SKIN AND NAILS 07/05/2011 PEARL DENOTN APRN 710.0 SYSTEMIC LUPUS ERYTHEMATOSUS 07/05/2011 PEARL DENTON APRN 780.60 FEVER UNSPECIFIED 07/05/2011 ISABEL LATIF JÚNIOR R 112.3 CANDIDIASIS OF SKIN AND NAILS 07/05/2011 ISABEL LATIF JÚNIOR R 710.0 SYSTEMIC LUPUS ERYTHEMATOSUS 07/05/2011 ISABEL CUSTOMS BROKERAGE MANAGER, JÚNIOR R 780.60 FEVER UNSPECIFIED 07/05/2011 ISABEL CUSTOMS BROKERAGE MANAGER, JÚNIOR R 112.3 CANDIDIASIS OF SKIN AND NAILS 07/05/2011 ISABEL CUSTOMS BROKERAGE MANAGER, JÚNIOR R 710.0 SYSTEMIC LUPUS ERYTHEMATOSUS 07/05/2011 ISABEL CUSTOMS BROKERAGE MANAGER, JÚNIOR R 780.60 FEVER UNSPECIFIED 07/05/2011 CHARISSE CUSTOMS BROKERAGE MANAGER, SHILPI A 112.3 CANDIDIASIS OF SKIN AND NAILS 07/05/2011 CHARISSE CUSTOMS BROKERAGE MANAGER, SHILPI A 710.0 SYSTEMIC LUPUS ERYTHEMATOSUS 07/05/2011 CHARISSE CUSTOMS BROKERAGE MANAGER, SHILPI A 780.60 FEVER UNSPECIFIED 01/03/2012 289.3 PRIMARY LYMPHADENITIS 01/03/2012 616.10 VAGINITIS 01/03/2012 V76.10 visit for: screening exam malignant neoplasm breast 01/03/2012 V76.2 Cervical Pap Smear 01/03/2012 289.3 PRIMARY LYMPHADENITIS 01/03/2012 616.10 VAGINITIS 01/03/2012 V76.10 visit for: screening exam malignant neoplasm breast 01/03/2012 V76.2 Cervical Pap Smear 01/03/2012 DOMINGA MOYA DO 289.3 PRIMARY LYMPHADENITIS 01/03/2012 DOMINGA MOYA DO 616.10 VAGINITIS 01/03/2012 DOMINGA MOYA DO V76.10 visit for: screening exam malignant neoplasm breast 01/03/2012 DOMINGA MOYA DO V76.2 Cervical Pap Smear 01/03/2012 SARA BURTON MD 289.3 PRIMARY LYMPHADENITIS 01/03/2012 SARA BURTON MD 616.10 VAGINITIS 01/03/2012 SARA BURTON MD V76.10 visit for: screening exam malignant neoplasm breast 01/03/2012 SARA BURTON MD V76.2 Cervical Pap Smear 01/03/2012 289.3 PRIMARY LYMPHADENITIS 01/03/2012 616.10 VAGINITIS 01/03/2012 V76.10 visit for: screening exam malignant neoplasm breast 01/03/2012 V76.2 Cervical Pap Smear 01/03/2012 PEARL DENTON APRN 289.3 PRIMARY LYMPHADENITIS 01/03/2012 PEARL DENTON APRN 616.10 VAGINITIS 01/03/2012 DENTON CUSTOMS BROKERAGE MANAGER, PEARL MAUDE V76.10 visit for: screening exam malignant neoplasm breast 01/03/2012 PEARL DENTON APRN V76.2 Cervical Pap Smear 01/03/2012 ISABEL CUSTOMS BROKERAGE MANAGER, JÚNIOR R 289.3 PRIMARY LYMPHADENITIS 01/03/2012 ISABEL CUSTOMS BROKERAGE MANAGER, JÚNIOR R 616.10 VAGINITIS 01/03/2012 ISABEL CUSTOMS BROKERAGE MANAGER, JÚNIOR R V76.10 visit for: screening exam malignant neoplasm breast 01/03/2012 ISABEL CUSTOMS BROKERAGE MANAGER, JÚNIOR R V76.2 Cervical Pap Smear 01/03/2012 ISABEL CUSTOMS BROKERAGE MANAGER, JÚNIOR R 289.3 PRIMARY LYMPHADENITIS 01/03/2012 ISABEL CUSTOMS BROKERAGE MANAGER, JÚNIOR R 616.10 VAGINITIS 01/03/2012 ISABEL CUSTOMS BROKERAGE MANAGER, JÚNIOR R V76.10 visit for: screening exam malignant neoplasm breast 01/03/2012 ISABEL CUSTOMS BROKERAGE MANAGER, JÚNIOR R V76.2 Cervical Pap Smear 01/03/2012 CHARISSE LATIF, SHILPI A 289.3 PRIMARY LYMPHADENITIS 01/03/2012 CHARISSE LATIF, SHILPI A 616.10 VAGINITIS 01/03/2012 CHARISSE APRN, SHILPI A V76.10 visit for: screening exam malignant neoplasm breast 01/03/2012 CHARISSE APRN, SHILPI A V76.2 Cervical Pap Smear 01/09/2012 461.9 SINUSITIS ACUTE 01/09/2012 461.9 SINUSITIS ACUTE 01/09/2012 DOMINGA MOYA DO 461.9 SINUSITIS ACUTE 01/09/2012 SARA BURTON MD 461.9 SINUSITIS ACUTE 01/09/2012 461.9 SINUSITIS ACUTE 01/09/2012 PEARL DENTON APRN 461.9 SINUSITIS ACUTE 01/09/2012 ISABEL LATIF JÚNIOR R 461.9 SINUSITIS ACUTE 01/09/2012 ISABEL LATIF, JÚNIOR R 461.9 SINUSITIS ACUTE 01/09/2012 CHARISSE LATIF SHILPI A 461.9 SINUSITIS ACUTE 11/14/2012 DOMINGA MOYA DO 414.00 CAD 11/14/2012 SARA BURTON MD 414.00 CORONARY ARTERY DISEASE 11/14/2012 414.00 CORONARY ARTERY DISEASE 11/14/2012 PEARL DENTON APRN 414.00 CORONARY ARTERY DISEASE 11/14/2012 ALVARO HALL APRNINA R 414.00 CORONARY ARTERY DISEASE 11/14/2012 ISABEL LATIF, JÚNIOR R 414.00 CORONARY ARTERY DISEASE 11/14/2012 SHILPI MCQUEEN APRN A 414.00 CORONARY ARTERY DISEASE 11/29/2012 MICHEAL RINCON, SARA 625.3 DYSMENORRHEA 11/29/2012 625.3 DYSMENORRHEA 11/29/2012 CORRIE LATIF PEARL MAUDE 625.3 DYSMENORRHEA 11/29/2012 JÚNIOR HALL APRN R 625.3 DYSMENORRHEA 11/29/2012 ALVARO HALL APRNINA R 625.3 DYSMENORRHEA 11/29/2012 CHARISSE LATIF, SHILPI A 625.3 DYSMENORRHEA 12/04/2014 RUBIN RINCON, ERIKA N Ot 038.9 12/04/2014 RUBIN RINCON, ERIKA N Ot 041.49 12/04/2014 RUBIN RINCON, ERIKA N Ot 070.54 12/04/2014 RUBIN RINCON, ERIKA N Ot 250.02 12/04/2014 RUBIN RINCON, ERIKA N Ot 276.1 12/04/2014 RUBIN RINCON, ERIKA N Ot 303.01 12/04/2014 RUBIN RINCON, ERIKA N Ot 305.01 12/04/2014 RUBIN RINCON, ERIKA N Ot 414.01 12/04/2014 RUBIN RINCON, ERIKA N Ot 599.0 12/04/2014 RUBIN RINCON, ERIKA N Ot 995.91 12/31/2014 ALVARO HALL APRNINA R 303.90 OTHER AND UNSPECIFIED ALCOHOL DEPENDENCE UNSPECIFIED DRINKING BEHAVIOR 12/31/2014 ALVARO HALL APRNINA R 303.90 OTHER AND UNSPECIFIED ALCOHOL DEPENDENCE UNSPECIFIED DRINKING BEHAVIOR 12/31/2014 SHILPI MCQUEEN APRN A 303.90 OTHER AND UNSPECIFIED ALCOHOL DEPENDENCE UNSPECIFIED DRINKING BEHAVIOR 02/18/2015 JÚNIOR HALL APRN R 719.47 PAIN IN JOINT INVOLVING ANKLE AND FOOT 02/18/2015 JÚNIOR HALL APRN R 788.41 URINARY FREQUENCY 02/18/2015 SHILPI MCQUEEN APRN A 719.47 PAIN IN JOINT INVOLVING ANKLE AND FOOT 02/18/2015 SHILPI MCQUEEN APRN A 788.41 URINARY FREQUENCY 02/23/2015 SHILPI MCQUEEN APRN 131.01 TRICHOMONAL VULVOVAGINITIS 02/23/2015 SHILPI MCQUEEN APRN V72.31 COLLEGE ADMISSIONS COUNSELOR EXAM, ROUTINE 02/23/2015 SHILPI MCQUEEN APRN V73.81 HPV SCREENING 02/23/2015 SHILPI MCQUEEN APRN V74.5 STD SCREEN Procedures Code Description Performed By Performed On Cardiolog Junito Louise 11/14/2012 13336 A1C (IN-HOUSE) 11/29/2012 48840 US PELVIC COMPL (REFLEX CPT - 46090) 12/03/2012 05124 MICRO ALBUMIN-IN HOUSE 12/03/2012 35247 PSYCH IND W/MED CK 20 12/04/2012 10232 A1C (IN-HOUSE) 03/06/2013 68032 CULTURE URINE 02/18/2015 81876 UA W/ CULTURE IF INDICATED 02/18/2015 94652 TRICHOMONAS (IN-HOUSE) 02/23/2015 76227 MAMMOGRAM, SCREENING 02/23/2015 76007 CULTURE UROGENITAL 02/23/2015 36005 GC/CHLAM PROBE (STATE) 02/23/2015 21596 PAP SMEAR 02/23/2015 Q0091 PAP SMEAR OBTAIN SMEAR 02/23/2015 Results Test Result Range Aerobic Bacterial Culture - 09/01/17 17:35 Aerobic Bacterial Culture Note CULTURE, AEROBIC - 09/01/17 17:35 Aerobic Bacterial Culture Final report NRG Result 1 Staphylococcus aureus NRG Antimicrobial Susceptibility NRG CULTURE, AEROBIC - 12/22/17 13:20 CULTURE, AEROBIC BACTERIA SEE NOTE NRG Encounters ACCT No. Visit Date/Time Discharge Status Pt. Type Provider Facility Loc./Unit Complaint [id number] 02/23/2015 08:49:00 02/23/2015 23:59:59 CLS Outpatient SHILPI MCQUEEN APRN [id number] 02/18/2015 11:19:00 02/18/2015 23:59:59 CLS Outpatient JÚNIOR HALL APRN [id number] 12/31/2014 14:44:00 12/31/2014 23:59:59 CLS Outpatient JÚNIOR HALL APRN [id number] 05/13/2013 11:48:00 05/13/2013 23:59:59 CLS Outpatient CORRIE LATIF PEARL MAUDE [id number] 11/29/2012 13:55:00 11/29/2012 23:59:59 CLS Outpatient SARA BURTON MD [id number] 11/14/2012 09:49:00 11/14/2012 23:59:59 CLS Outpatient DOMINGA MOYA DO [id number] 11/12/2012 09:06:00 11/12/2012 23:59:59 CLS Outpatient [id number] 09/18/2012 12:59:00 09/18/2012 23:59:59 CLS Outpatient [id number] 03/06/2013 14:04:00 Document Registration [id number] 09/07/2017 16:08:00 Document Registration [id number] 01/10/2018 12:40:00 01/10/2018 23:59:59 CLS Outpatient [facility]Y A[facility]A [facility] [id number] 12/22/2017 12:15:00 Document Registration [id number] 09/01/2017 16:45:00 Document Registration [id number] 12/01/2014 17:35:00 12/04/2014 15:57:00 DIS Inpatient RUBIN RINCON, ERIKA [place] [facility]
--- OUTSIDE RECORDS SUMMARY | 2018-09-09 00:26 | XMS REPORT ---
Author Author [facility] Address [address] [place] [address] Care Team Providers Care Barrow Worker Name Role Phone MYRON Garcia Unavailable PROBLEMS Type Condition ICD9-CM Code DCC79-US Code Onset Dates Condition Status SNOMED Code Problem Chest pain 786.50 Active 39124510 Problem Diabetes type 2, uncontrolled E11.65 Active 81956376 Problem Arteriosclerosis of coronary artery I25.10 Active 50002275 Problem Alcohol dependence with unspecified alcohol-induced disorder F10.29 Active 62684097 ALLERGIES No Known Allergies ENCOUNTERS Encounter Location Date Diagnosis [place] [address] [address] Dec, Abscess, scalp L02.811 [facility] [address] [address] Dec, [facility] [address] [address] 23 Dec, 2017 [facility] [address] [address] Dec, Abscess, scalp L02.811 [facility] [address] [address] Dec, Abscess, scalp L02.811 [facility] [address] [address] 17 Dec, 2017 Abscess, scalp L02.811 [facility] [address] [address] 15 Dec, 2017 Abscess, scalp L02.811 [facility] [address] [place] [address] 13 Dec, 2017 Abscess, scalp L02.811 [facility] [address] [place] [id number] [place] [address] 11 Dec, 2017 Cutaneous abscess of head excluding face L02.811 [facility] [id number] [place] [address] 10 Dec, 2017 Abscess L02.[address] [id number] [id number] Dec, [facility] [address] [place] [id number] [place] [address] Dec, Abscess L02.91 [facility] [id number] [place] [address] Aug, Acute allergic rhinitis due to other allergen, unspecified seasonality J30.89 and Cellulitis of head except face L03.811 [place] [address] [place] [id number] [place] [address] Jun, [place] [address] [address] Jun, [place] [address] [place] [id number] [place] [address] Jun, [place] [address] [place] [id number] [place] [address] Jun, [place] [address] [place] [id number] [place] [address] Jun, [place] [address] [place] [id number] [place] [address] Jun, Hematuria 599.70 ; Diabetes type 2, uncontrolled 250.02 ; Chest pain 786.50 ; Chronic pain 338.29 and Coronary atherosclerosis of unspecified type of vessel, [place] or graft 414.00 [place] [address] [address] 14 Feb, 2015 [facility] [place] [facility] [address] [facility] [id number] [place] [address] 13 Feb, 2015 [facility] [place] [facility] [address] [facility] [id number] [place] [address] 24 Jan, 2015 [facility] [place] [facility] [address] [facility] [id number] [place] [address]- [address] Jan, [facility] [place] [facility] [address] [facility] [id number] [place] [address] Jan, [facility] [place] [facility] [address] [facility] [id number] [place] [address]- [address] Jan, [facility] [place] [facility] [address] [facility] [id number] [place] [address] Jan, [facility] [place] [facility] [id number] [place] [address] Jan, [facility] [place] [facility] [address] [facility] [id number] [address] Dec, [facility] [place] [facility] [address] [place] [id number] [place] [address] Dec, 2014 [facility] [place] [facility] [address] [facility] [id number] [place] [address] Dec, [facility] [place] [facility] [address] [id number] [address] Dec, 2014 [facility] [place] [facility] [address] [facility] [id number] [address] Dec, 2014 [facility] [place] [facility] [address] [facility] [id number] [place] [address]- [address] Dec, 2014 [facility] [place] [facility] [address] [facility] [id number][place] [address] Dec, 2014 [facility] [place] [facility] [address] [address] Dec, 2014 [facility] [place] [facility] [address] [id number] [place] [address] Nov, [facility] [address] [id number] [place] [address]- [address] Nov, [facility] [place] [facility] [address] [id number] [place] [address] 98[address] Aug, [facility] [address] [id number] [place] [address]- 9549 Aug, [facility] [place] [facility] [address] [id number] [place] [address]- 95[address] May, [facility] [place] [facility] [address] [id number] [place] [address]- [address] March, [facility] [place] [facility] [address] [id number] [place] [address] March, [facility] [address] [id number] [place] [address]- [address] March, [facility] [address] [id number] [place] [address] March, [facility] [address] [id number] [place] [address]- 75[address] Feb, [facility] [address] [id number] [place] [address]- [address] Feb, [facility] [place] [facility] [address] [id number] [place] [address]- [address]73 Jan, [facility] [place] [facility] [address] [id number] [place] [address]- 46[address] Jan, [facility] [place] [facility] [address] [id number] [place] [address]- 2354 Dec, [facility] [place] [facility] [address] [id number] [place] [address]- 9381 Nov, [facility] [place] [facility] [address] [id number] [place] [address]- 6085 Nov, [facility] [address] [id number] [place] [address]- 1806 Nov, [facility] [address] [id number] [place] [address]- 7606 Nov, [facility] [address] [facility] [id number] [place] [address] Nov, [address] [id number] Oct [facility] [address] [id number] [place] [address]- [address] Oct, [facility] [address] [id number] [place] [address]- [address] Oct, [facility] [address] [id number] [place] [address]- 8347 Oct, [facility] [address] [id number] [place] [address]- 8772 Sep, [facility] [address] [id number] [place] [address]- [address]076 Sep, [facility] [address] [id number] [place] [address]- 2325 May, [facility] [address] [id number] [place] [address]- [address] Apr, [facility] [address] [id number], [place] [address] March, [facility] [address] [id number] [place] [address]- 49[address] Feb, [facility] [address] [id number] [place] [address]- [address] Feb, [facility] [address] [id number] [place] [address]- [address] Feb, [facility] [address] [id number] [address]- [address] Jan, [facility] [place] [facility] [address] [id number] [place] [address]- 8781 Jan, [facility] [place] [facility] [address] [id number] [place] [address]- 7256 Jan, [facility] [place] [facility] [address] [id number] [place] [address]- 3996 Dec, [facility] [place] [facility] [address] [id number] [place] [address]- 6616 Dec, [facility] [place] [facility] [address] [id number] [place] [address]- 2242 Dec, [facility] [place] [facility] [address] [id number] [place] [address]- 4461 Dec, [facility] [place] [facility] [address] [id number] [place] [address]- 2587 Dec, [facility] [place] [facility] [address] [id number] [place] [address]- 5014 Dec, [facility] [place] [facility] [address] [id number] [place] [address]- 0062 Oct, [facility] [place] [facility] [address] [facility] [id number] [place] [address]- 3514 Oct, [facility] [place] [facility] [address] [id number] [place] [address]- 4608 Oct, [facility] [place] [facility] [address] [id number] [place] [address]- 1308 Sep, [facility] [place] [facility] [address] [id number] [place] [address]- 3883 Sep, [facility] [place] [facility] [address] [id number] [place] [address]- 5306 Sep, [facility] [place] [facility] [address] [id number] [place] [address]- 5983 Sep, [facility] [address] [address] Sep, [facility] [address] May, [facility] [address] [address] Dec, [facility] [address] [address] Oct, [facility] [address] [address] Sep, [facility] [address] Aug, [facility] [address] [address]- [address] Aug, [facility] [address], [place] [address]- [address] Aug, [facility] [address], [place] [address]- [address] Sep, [facility] [address], [place] [address]- 18[address] Sep, [facility] [address] [id number] Jul, IMMUNIZATIONS Vaccine Route Administration Date Status DEXAMETHASONE 4MG/ML (PER 1 MG) IM Intramuscular Sep 01, 2017 Administered DEPO MEDROL 40 MG/ML IM Intramuscular Sep 01, 2017 Administered SOCIAL HISTORY Never Assessed REASON FOR VISIT sores on head- she states when she gets these sores it messes with her sinuses. States she has facial swelling Tj SURESH PLAN OF CARE Activity Details Follow Up prn Reason: VITAL SIGNS Height 61 in 2017-09-01 Weight 174.2 lbs 2017-09-01 Temperature 98.0 degrees Fahrenheit 2017-09-01 Heart Rate 104 bpm 2017-09-01 Respiratory Rate 18 2017-09-01 BMI 32.91 kg/m2 2017-09-01 Blood pressure systolic 166 mmHg 2017-09-01 Blood pressure diastolic 94 mmHg 2017-09-01 MEDICATIONS Medication Instructions Dosage Frequency Start Date End Date Duration Status Bactrim DS 800-160 MG Orally Twice a day 1 tablet 12h 20 Aug, 2017Aug 10 day(s) Active RESULTS Name Result Date Reference Range CULTURE, AEROBIC 2017-09-01 Aerobic Bacterial Culture Final report Result 1 Staphylococcus aureus Antimicrobial Susceptibility PROCEDURES Procedure Date Ordered Result Body Site CULTURE, BACTERIA, OTHER Sep 01, 2017 DEPO MEDROL 40 MG/ML Sep 01, 2017 DEXAMETHASONE 4MG/ML (PER 1 MG) Sep 01, 2017 THER/PROPH/DIAG INJ, SC/IM Sep 01, 2017 INSTRUCTIONS MEDICATIONS ADMINISTERED No Known Medications [...]
[2018-09-09] MEDS ORDERED: LACTATED RINGERS 1,000 ML IV ONE (01:38)
[2018-09-09 01:44] LABS: BILIRUBIN,URINE NEGATIVE (NEGATIVE); COLOR,URINE YELLOW; GLUCOSE, URINE (UA) 4+ (NEGATIVE); KETONES,URINE 2+ (NEGATIVE); LEUKOCYTE ESTERASE ,URINE 1+ (NEGATIVE); NITRITE,URINE NEGATIVE (NEGATIVE); PH,URINE 7 (5-9); PROTEIN,URINE 2+ (NEGATIVE); UROBILINOGEN,URINE NORMAL (NORMAL)
[2018-09-09] MEDS ORDERED: ONDANSETRON 4 MG/2 ML (SDV) Z0FRAN IVP ONE (01:45)
[2018-09-09 01:53] LABS: BACTERIA,URINE NEGATIVE /HPF; CLARITY,URINE SLIGHTLY CLOUDY; SQUAMOUS EPITHELIAL CELL,UR 0-2 /HPF
[2018-09-09 01:55] LABS: AMPHETAMINE SCREEN, URINE NEGATIVE (NEGATIVE); BARBITURATE SCREEN URINE NEGATIVE (NEGATIVE); BENZODIAZEPINES SCREEN URINE NEGATIVE (NEGATIVE); CANNABINOID SCREEN, URINE NEGATIVE (NEGATIVE); COCAINE SCREEN URINE NEGATIVE (NEGATIVE); METHADONE STAT NEGATIVE (NEGATIVE); METHAMPHETAMINE SCREEN URINE S NEGATIVE (NEGATIVE); OPIATE SCREEN URINE NEGATIVE (NEGATIVE); OXYCODONE STAT NEGATIVE (NEGATIVE); PROPOXYPHENE STAT NEGATIVE (NEGATIVE); TRICYCLIC ANTIDEPRESSANTS SCRE NEGATIVE (NEGATIVE)
[2018-09-09 01:56] LABS: BASOPHILS % (AUTO) 0 % (0-10); EOSINOPHILS # (AUTO) 0.1 10^3/uL (0.0-0.3); EOSINOPHILS % (AUTO) 1 % (0-10); HEMATOCRIT 34 % (35-52); HEMOGLOBIN 11.4 G/DL (11.5-16.0); LYMPHOCYTES # (AUTO) 1.3 X 10^3 (1.0-4.0); LYMPHOCYTES % (AUTO) 12 % (12-44); MEAN CORPUSCULAR HEMOGLOBIN 26 PG (25-34); MEAN CORPUSCULAR HGB CONC 34 G/DL (32-36); MEAN CORPUSCULAR VOLUME 77 FL (80-99); MEAN PLATELET VOLUME 10.1 FL (7.4-10.4); MONOCYTES # (AUTO) 0.6 X 10^3 (0.0-1.0); MONOCYTES % (AUTO) 5 % (0-12); NEUTROPHILS # (AUTO) 8.8 X 10^3 (1.8-7.8); NEUTROPHILS % (AUTO) 82 % (42-75); PLATELET COUNT 255 10^3/uL (130-400); RED BLOOD COUNT 4.42 10^6/uL (4.35-5.85); RED CELL DISTRIBUTION WIDTH 13.6 % (10.0-14.5); WHITE BLOOD COUNT 10.7 10^3/uL (4.3-11.0)
[2018-09-09 02:13] LABS: ALANINE AMINOTRANSFERASE 14 U/L (0-55); ALBUMIN 3.6 GM/DL (3.2-4.5); ALKALINE PHOSPHATASE 405 U/L (40-136); AMYLASE 22 U/L (25-125); BILIRUBIN,TOTAL 0.5 MG/DL (0.1-1.0); BUN/CREATININE RATIO 12; CARBON DIOXIDE 20 MMOL/L (21-32); CHLORIDE 94 MMOL/L (98-107); CREATININE SERUM 1.14 MG/DL (0.60-1.30); GFR ESTIMATED 51; LIPASE 22 U/L (8-78); POTASSIUM 4.2 MMOL/L (3.6-5.0); SODIUM 129 MMOL/L (135-145); TOTAL PROTEIN 8.5 GM/DL (6.4-8.2)
[2018-09-09 02:15] LABS: GLUCOSE 717 MG/DL (70-105)
[2018-09-09] MEDS ORDERED: NS IV 1000 ML 1,000 ML IV ONE ×2 (02:17→04:12)
[2018-09-09] MEDS ORDERED: inSUlin (REGULAR) HUMAN 1 UNIT/0.01 ML (CHARGE PER UNIT) IV ONE (02:30)
[2018-09-09] MEDS ORDERED: NS 250 ML (IVPB) BAG IV ONE (02:45)
[2018-09-09] MEDS ORDERED: IOHEXOL 350 MG/ML 100 ML (OMNIPAQUE 350) VIAL IV ONE (02:45)
[2018-09-09] MEDS ORDERED: NS IV 1000 ML 1,000 ML ONE (03:13)
[2018-09-09] MEDS ORDERED: KETOROLAC 30 MG/ML VIAL IVP ONE (03:15)
[2018-09-09] MEDS ORDERED: inSUlin (REGULAR) HUMAN 1 UNIT/0.01 ML (CHARGE PER UNIT) ONE (03:16)
[2018-09-09 03:54] LABS: ABG BASE EXCESS -4.2 MMOL/L (-2.5-2.5); ABG OXYGEN SATURATION 98 % (94-100); ABG PCO2 34 MMHG (35-45); ABG PH 7.39 (7.37-7.43); ABG PO2 89 MMHG (79-93); ABG TCO2 21.2 MMOL/L (21.0-31.0)
[2018-09-09 03:55] LABS: ALLENS TEST YES-POS; INSPIRED O2 RA; PATIENT TEMP 97.7; VENTILATOR NO
--- NOTE | 2018-09-09 03:57 | ED Abdominal Pain ---
General Chief Complaint: Abdominal/GI Problems Stated Complaint: R SIDE ABD PAIN Sepsis Screen: No Definite Risk Source of Information: Patient (SOMEWHAT DIFFICULT HISTORIAN--CHANGES STORY MULTIPLE TIMES, GIVES CONFLICTING / INCONSISTENT INFORMATION, ESPECIALLY REGARDING PAST MEDICAL HISTORY), Old Records History of Present Illness Date Seen by Provider: Sep 09, 2018 Time Seen by Provider: 01:32 Initial Comments PT ARRIVES VIA POV FROM HOME C/O RLQ ABDOMINAL PAIN FOR OVER A MONTH STATES PAIN HAD BEEN OFF AND ON, BUT HAS BEEN MUCH WORSE AND CONSTANT FOR OVER A WEEK AND WAS MUCH WORSE TONIGHT PT STATES IT IS NOT GOING AWAY ANYMORE HAS HAD SUBJECTIVE FEVER + NAUSEA, NO VOMITING. ATE DINNER AT 1900 TONIGHT WORKED FULL SHIFT AND GOT OFF AT MIDNIGHT, THEN CAME HERE NO DIARRHEA OR CONSTIPATION STATES SHE WAS HAVING DIFFICULTY URINATING WHEN SYMPTOMS FIRST BEGAN--BURNING, URGENCY, FREQUENCY--BUT THAT HAS GONE AWAY HAS NOT SOUGHT CARE UNTIL TODAY HAS NOT TAKEN ANYTHING FOR SYMPTOMS LMP 07/30/18. NO CONTROL PCP: SHAY--HAS NOT SEEN A DR IN OVER A YEAR. Allergies and Home Medications Allergies Coded Allergies: etodolac (Verified Allergy, Unknown, 02/13/06) latex (Unverified Allergy, Unknown, 12/01/14) morphine (Unverified Adverse Reaction, Mild, itching, 12/01/14) Home Medications Amoxicillin Trihydrate 500 Mg Tablet, 500 MG PO BID Prescribed by: VERO PRYOR on 12/04/141056 Insulin Detemir 1 Unit/0.01 Ml Soln, 20 UNIT SQ HS Prescribed by: VERO PRYOR on 12/04/14 105 Metformin Hcl 500 Mg Tab, 500 MG PO BID@17 Prescribed by: VREO PRYOR on 12/04/141056 Multivitamin 1 Each Tablet, 1 EACH PO DAILY Prescribed by: VERO PRYOR on 12/04/14 105 [Insulin Human Lispro] 1 UNIT/0.01 ML ROZ, 7 UNIT SC AC Prescribed by: VERO PRYOR on 12/04/141056 Patient Home Medication List Home Medication List Reviewed: Yes Review of Systems Review of Systems Constitutional: see HPI, fever Respiratory: No Symptoms Reported Cardiovascular: No Symptoms Reported Gastrointestinal: See HPI, Abdominal Pain, Nausea; Denies Vomiting Genitourinary: See HPI Musculoskeletal: no symptoms reported; No back pain Skin: no symptoms reported Psychiatric/Neurological: No Symptoms Reported Endocrine: No Symptoms Reported Hematologic/Lymphatic: No Symptoms Reported Past Likfuyk-Dfmonp-Hkyhfs Hx Patient Social History Alcohol Use: Regular Use (HX OF ABUSE, NOW "OCCASIONALLY" DRINKS --LAST DRINK WAS A COUPLE OF WEEKS AGO, PER PT ON 09/09/18) Recreational Drug Use: Yes (+ IV METH USE--CLAIMS NONE SINCE 1999, PER PT ON ) Smoking Status: Former Smoker (STATES SHE QUIT YEARS AGO, PER PT ON 09/09/18) Type Used: Cigarettes 2nd Hand Smoke Exposure: No Recent Foreign Travel: No Contact w/Someone Who Travel: No Recent Infectious Disease Expo: No Recent Hopitalizations: No Immunizations Up To Date Tetanus Booster (TDap): Unknown PED Vaccines UTD: No Seasonal Allergies Seasonal Allergies: No Past Medical History Surgeries: Yes (C SECTION X 2; CARDIAC CATH--STENT X 1; RIGHT SHOULDER SURGERY) Section, Coronary Stent, Orthopedic Respiratory: No Cardiac: Yes (NE 2011-CARDIAC CATH WITH STENT X 1) Coronary Artery Disease, Heart Attack, Hypertension Neurological: No Reproductive Disorders: No Female Reproductive Disorders: Denies Genitourinary: Yes Kidney Infection Gastrointestinal: Yes (HEPATITIS C--NO TREATMENT; VENTRAL HERNIA--NO SURGERY) Abdominal Hernia, Hepatitis Musculoskeletal: Yes (RIGHT SHOULDER SURGERY) Arthritis, Fibromyalgia Endocrine: Yes (CLAIMS LUPUS BUT HAS NEVER BEEN ON MEDICATIONS OR SEEN CODING ASSISTANT; EXTREME NON-COMPLIANCE WITH DIABETES) Diabetes, Insulin dep, Lupus HEENT: No Cancer: No Psychosocial: Yes (ADD) ADD/ADHD Integumentary: No Blood Disorders: No Family Medical History Arthritis 19 MOTHER, Onset:Unknown FH: COPD (chronic obstructive pulmonary disease) 19 MOTHER, Onset:Unknown FH: uterine cancer 19 MOTHER, Onset:Unknown No Family History of: AIDS Abdominal aortic aneurysm Noé's disease Alcoholism Alzheimer's disease Aphasia Asthma Cancer of mouth Cardiovascular disease Cataracts Colon cancer Completed stroke Congenital disease Congenital heart disease Coronary thrombosis Cystic fibrosis Deafness or hearing loss Dementia Diabetes mellitus Drug abuse Dysphasia Fibrocystic disease of breast Gastroenteritis Glaucoma Headache disorder Hypercholesterolemia Hypertension Infertility Kidney disease Myocardial infarction Neoplasm Not obtainable due to adoption Osteoporosis Parkinson's disease Prostate cancer Psychosocial problem Respiratory disorder Seizure disorder Severe allergy Thyroid disease Tuberculosis Visual disorder Physical Exam Vital Signs Vital Signs - First Documented 09/09/18 01:27 Temp 97.7 Pulse 126 Resp 16 B/P (MAP) 182/99 (126) Pulse Ox 99 O2 Delivery Room Air Capillary Refill : Less Than 3 Seconds Height/Weight/BMI Height: 5'1.00" Weight: 175lbs. 2.0oz. [id number]; BMI Method:Stated General Appearance: other (WALKS SLOW, SLIGHTLY BENT AT WAIST, HOLDING RLQ; REEKS OF CIGARETTES ) HEENT: other (POOR DENTITION. DRY ORAL MUCOSA WITH LIPS DRIED, CRACKED AND PEELING. SCABBED SORES ON LIPS. ) Neck: normal inspection Respiratory: normal breath sounds, no respiratory distress, no accessory muscle use Cardiovascular: no murmur, tachycardia Gastrointestinal: normal bowel sounds, soft, no organomegaly, no pulsatile mass , tenderness (RLQ/RIGHT MID ABDOMEN), hernia (VENTRAL) Extremities: normal range of motion, non-tender, no calf tenderness, normal capillary refill, pedal edema (TRACE TO 1+ BILATERALLY) Back: normal inspection, CVA tenderness (R) Neurologic/Psychiatric: assembly and packing supervisor II-XII nml as tested, no motor/sensory deficits, alert, normal mood/affect, oriented x 3 Skin: normal color, warm/dry, other (MULTIPLE SORES/SCARS/SCABS TO FACE. ) Progress/Results/Core Measures Results/Orders Lab Results Laboratory Tests Test 09/09/18 01:30 09/09/18 01:47 09/09/18 03:40 Range/Units Urine Color YELLOW Urine Clarity SLIGHTLY CLOUDY Urine pH 7 5-9 Urine Specific [place] 1.005 L 1.016-1.022 Urine Protein 2+ H NEGATIVE Urine Glucose (UA) 4+ H NEGATIVE Urine Ketones 2+ H NEGATIVE Urine Nitrite NEGATIVE NEGATIVE Urine Bilirubin NEGATIVE NEGATIVE Urine Urobilinogen NORMAL NORMAL MG/DL Urine Leukocyte Esterase 1+ H NEGATIVE Urine RBC (Auto) 4+ H NEGATIVE Urine RBC 10-25 H /HPF Urine WBC 2-5 /HPF Urine Squamous Epithelial Cells 0-2 /HPF Urine Crystals NONE /LPF Urine Bacteria NEGATIVE /HPF Urine Casts NONE /LPF Urine Mucus NEGATIVE /LPF Urine Culture Indicated NO Urine Opiates Screen NEGATIVE NEGATIVE Urine Oxycodone Screen NEGATIVE NEGATIVE Urine Methadone Screen NEGATIVE NEGATIVE Urine Propoxyphene Screen NEGATIVE NEGATIVE Urine Barbiturates Screen NEGATIVE NEGATIVE Ur Tricyclic Antidepressants Screen NEGATIVE NEGATIVE Urine Phencyclidine Screen NEGATIVE NEGATIVE Urine Amphetamines Screen NEGATIVE NEGATIVE Urine Methamphetamines Screen NEGATIVE NEGATIVE Urine Benzodiazepines Screen NEGATIVE NEGATIVE Urine Cocaine Screen NEGATIVE NEGATIVE Urine Cannabinoids Screen NEGATIVE NEGATIVE White Blood Count 10.7 4.3-11.0 10^3/uL Red Blood Count 4.42 4.35-5.85 10^6/uL Hemoglobin 11.4 L 11.5-16.0 G/DL Hematocrit 34 L 35-52 % Mean Corpuscular Volume 77 L 80-99 FL Mean Corpuscular Hemoglobin 26 25-34 PG Mean Corpuscular Hemoglobin Concent 34 32-36 G/DL Red Cell Distribution Width 13.6 10.0-14.5 % Platelet Count 255 130-400 10^3/uL Mean Platelet Volume 10.1 7.4-10.4 FL Neutrophils (%) (Auto) 82 H 42-75 % Lymphocytes (%) (Auto) 12 12-44 % Monocytes (%) (Auto) 5 0-12 % Eosinophils (%) (Auto) 1 0-10 % Basophils (%) (Auto) 0 0-10 % Neutrophils # (Auto) 8.8 H 1.8-7.8 X 10^3 Lymphocytes # (Auto) 1.3 1.0-4.0 X 10^3 Monocytes # (Auto) 0.6 0.0-1.0 X 10^3 Eosinophils # (Auto) 0.1 0.0-0.3 10^3/uL Basophils # (Auto) 0.0 0.0-0.1 10^3/uL Sodium Level 129 L 135-145 MMOL/L Potassium Level 4.2 3.6-5.0 MMOL/L Chloride Level 94 L 98-107 MMOL/L Carbon Dioxide Level 20 L 21-32 MMOL/L Anion Gap 15 H 5-14 MMOL/L Blood Urea Nitrogen 14 7-18 MG/DL Creatinine 1.14 0.60-1.30 MG/DL Estimat Glomerular Filtration Rate 51 BUN/Creatinine Ratio 12 Glucose Level 717 *H 70-105 MG/DL Calcium Level 10.0 8.5-10.1 MG/DL Corrected Calcium 10.3 H 8.5-10.1 MG/DL Total Bilirubin 0.5 0.1-1.0 MG/DL Aspartate Amino Transf (AST/SGOT) 14 5-34 U/L Alanine Aminotransferase (ALT/SGPT) 14 0-55 U/L Alkaline Phosphatase 405 H 40-136 U/L Total Protein 8.5 H 6.4-8.2 GM/DL Albumin 3.6 3.2-4.5 GM/DL Amylase Level 22 L 25-125 U/L Lipase 22 8-78 U/L Serum Test, Qualitative NEGATIVE NEGATIVE Serum Alcohol < 10 <10 MG/DL Blood Gas Puncture Site R BRAK Blood Gas Patient Temperature 97.7 Arterial Blood pH 7.39 7.37-7.43 Arterial Blood Partial Pressure CO2 34 L 35-45 MMHG Arterial Blood Partial Pressure O2 89 79-93 MMHG Arterial Blood HCO3 20 L 23-27 MMOL/L Arterial Blood Total CO2 21.2 21.0-31.0 MMOL/L Arterial Blood Oxygen Saturation 98 94-100 % Arterial Blood Base Excess -4.2 L -2.5-2.5 MMOL/L Andrew Test YES-POS Blood Gas Ventilator Setting NO Blood Gas Inspired Oxygen RA My Orders Orders - JUN TINOCO DO Saline Lock/Iv-Start (09/09/18 01:38) Urine Bedside (09/09/18 01:38) Alcohol (09/09/18 01:38) Amylase (09/09/18 01:38) Cbc With Automated Diff (09/09/18 01:38) Comprehensive Metabolic Panel (09/09/18 01:38) Drug Screen Stat (Urine) (09/09/18 01:38) Lipase (09/09/18 01:38) Ua Culture If Indicated (09/09/18 01:38) Saline Lock/Iv-Start (09/09/18 01:38) Ondansetron Injection (Zofran Injectio (09/09/18 01:45) Saline Lock/Iv-Start (09/09/18 01:38) Lactated Ringers (Lr 1000 Ml Iv Solution (09/09/18 01:38) Hcg,Qualitative Serum (09/09/18 01:47) Arterial Blood Gas (09/09/18 02:17) Ct Abd/Pelv W (Appendicitis) (09/09/18 02:17) Acute Abd Series (09/09/18 02:17) Saline Lock/Iv-Start (09/09/18 02:17) Ns Iv 1000 Ml (Sodium Chloride 0.9%) (09/09/18 02:17) Insulin (Regular) Human (Humulin R (Per (09/09/18 02:30) Iohexol Injection (Omnipaque 350 Mg/Ml 1 (09/09/18 02:45) Ns (Ivpb) (Sodium Chloride 0.9%) (09/09/18 02:45) Pharmacy Communication (Pharmacy Communi (09/09/18 02:45) Ketorolac Injection (Toradol Injection) (09/09/18 03:15) Piperacillin Sodium/Tazobactam (Zosyn Vi (09/09/18 04:00) Medications Given in ED Current Medications Medications Dose Ordered Sig/Sisi Route Start Time Stop Time Status Last Admin Dose Admin Insulin Human Regular 20 unit ONCE ONCE IV 09/09/18 02:30 09/09/18 05:22 DC 09/09/18 03:19 20 UNIT Iohexol 100 ml ONCE ONCE IV 09/09/18 02:45 09/09/18 02:46 DC 09/09/18 02:47 100 ML Ketorolac Tromethamine 30 mg ONCE ONCE IVP 09/09/18 03:15 09/09/18 03:16 DC 09/09/18 03:42 30 MG Lactated Ringer's 1,000 ml @ 0 mls/hr Q0M ONCE IV 09/09/18 01:38 09/09/18 01:41 DC 09/09/18 02:09 0 MLS/HR Ondansetron HCl 4 mg ONCE ONCE IVP 09/09/18 01:45 09/09/18 01:46 DC 09/09/18 02:09 4 MG Piperacillin Sod/ Tazobactam Sod 4.5 gm/Sodium Chloride 100 ml @ 200 mls/hr ONCE ONCE IV 09/09/18 04:00 09/09/18 05:22 DC 09/09/18 05:07 200 MLS/HR Sodium Chloride 250 ml ONCE ONCE IV 09/09/18 02:45 09/09/18 02:46 DC 09/09/18 02:47 80 ML Sodium Chloride 1,000 ml @ 0 mls/hr Q0M ONCE IV 09/09/18 02:17 09/09/18 05:22 DC 09/09/18 03:19 0 MLS/HR Vital Signs/I&O 09/09/18 01:27 Temp 97.7 Pulse 126 Resp 16 B/P (MAP) 182/99 (126) Pulse Ox 99 O2 Delivery Room Air Blood Pressure Mean: 126 Progress Progress Note : Progress Note PT HAD REPEATEDLY DENIED THAT SHE HAD ANY MEDICAL PROBLEMS OF ANY KIND, EXCEPT "LUPUS" PT ALSO REPEATEDLY DENIED ANY SURGERIES BESIDES X 2, HOWEVER ON REVIEW OF OLD RECORDS IT SHOWS PT HAD RIGHT SHOULDER SURGERY AND CARDIAC CATH WITH STENT X 1--ON DIRECT QUESTIONING OF PT ABOUT THIS AGAIN, SHE LATER ADMITS THAT SHE HAS HAD THOSE PROCEDURES WELL. ON RECEIVING LAB FINDINGS OF GLUCOSES OF OVER 700, QUESTIONED PT ABOUT ANY HISTORY OF DIABETES, AND NOW SHE ADMITS THAT SHE HAS BEEN A DIABETIC SINCE AT LEAST 1989, AND STATES "I'VE NEVER TAKEN CARE OF IT, I'M SUPPOSED TO, BUT I JUST NEVER DID TAKE CARE OF IT" AND STATES SHE HAS NEVER BEEN PRESCRIBED ANY MEDICATION FOR IT ( OLD CHARTS REPORT THAT SHE HAS BEEN INSULIN-DEPENDENT AND ON METFORMIN WELL) PT ALSO ADAMANTLY DENIED ANY HISTORY OF HTN OR ANY CARDIAC PROBLEMS INITIALLY, THEN ON REVIEW OF OLD CHART IT LISTS HX OF CAD WITH NE AND STENT X 1--ON DIRECT QUESTIONING ABOUT THIS, PT NOW ADMITS THAT SHE HAS HAD AN NE AND STENT. PT ALSO STATES SHE HAS BEEN DX WITH HTN IN THE PAST WELL, BUT REFUSED TO TAKE MEDICATION FOR IT. ALSO ON DIRECT QUESTIONING ABOUT HEPATITIS / LIVER PROBLEMS PT HAD ADAMANTLY DENIED ANY PROBLEMS THERE EITHER INITIALLY, AND AGAIN ON DIRECT QUESTIONING HER ABOUT OLD RECORDS LISTING HISTORY OF HEPATITIS C, SHE NOW ADMITS THAT SHE HAS HEPATITIS C AND NEVER HAD TREATMENT. SHE NOW STATES "THEY TOLD ME I HAD HEPATITIS C IN THE HOSPITAL, BUT WHEN I SAW THEM IN THE CLINIC THEY SAID I HAD LUPUS INSTEAD" --AGAIN DENIES THAT SHE HAS EVER BEEN REFERRED TO CODING ASSISTANT, OR HAD ANY TREATMENT FOR REPORTED LUPUS. PT ALSO DENIES THAT SHE HAS EVER BEEN REFERRED TO LIVER SPECIALIST FOR HER HEPATITIS. ALSO ON INFORMING HER OF HER CT SCAN RESULTS TODAY, AFTER SHE INITIALLY HAD DENIED ANY HISTORY OF ANY PROBLEMS WITH KIDNEYS, BLADDER OR INFECTIONS, PT LATER STATES SHE HAS HAD KIDNEY INFECTIONS BEFORE. NO DETERIORATION IN PT'S CONDITION DURING ER STAY PAIN AND NAUSEA EASED WITH MEDICATIONS GIVEN HYDRALAZINE FOR BP GIVEN INSULIN REPEAT ACCUCHECK 348 AT TIME OF TRANSFER TO FLOOR Diagnostic Imaging Comments ACUTE ABDOMEN XRAYS--NO ACUTE PROCESS PENDING RADIOLOGIST REVIEW CT ABDOMEN/PELVIS--NORMAL APPENDIX. RIGHT KIDNEY IS ENLARGED WITH HETEROGENEOUS ENHANCING AND HETEROGENEOUSLY ENHANCING LOW DENSITY LESION IN INFERIOR POLE OF RIGHT KIDNEY 3 CM IN SIZE. MODERATE RIGHT HYDRONEPHROSIS, NO OBSTRUCTION / STONES. MAY REPRESENT PYELONEPHRITIS WITH INTRARENAL ABSCESS. SPLEEN WITH HYPOENHANCING AREA WHICH MAY REPRESENT INFARCT. BLADDER SEVERELY DILATED WITHOUT WALL THICKENING. NO STONE IN BLADDER LARGE FAT-CONTAINING VENTRAL HERNIA. NO BOWEL CONTAINED IN SAC. NO EVIDENCE OF OBSTRUCTION. PER [facility] VIA FAX @ [phone] Departure Communication (Admissions) [id number]--SPOKE WITH YUMI SANTO, AUTOMOTIVE TITLE CLERK FOR [facility]. ACCEPTS PT FOR ADMIT. Impression Primary Impression: Pyelonephritis Additional Impressions: Uncontrolled diabetes mellitus EXTREME NONCOMPLIANCE HX OF NE WITH STENT HX OF HEPATITIS C UNTREATED History of alcoholism History of methamphetamine abuse Uncontrolled hypertension Hyperosmolar non-ketotic state in patient with type 2 diabetes mellitus Disposition: ADMITTED INPATIENT Condition: Stable Admissions Decision to Admit Reason: Admit from ER (General) Decision to Admit/Date: Sep 09, 2018 Time/Decision to Admit Time: 04:00 Departure-Patient Inst. Referrals: [facility] (PCP/Family) Primary Care Physician JUN TINOCO DO Sep 09, 2018 03:57
[2018-09-09] MEDS ORDERED: PIPERACILLIN SODIUM/TAZOBACTAM 4.5 GM in NS (IVPB) 100 ML IV ONE (04:00)
[2018-09-09] MEDS ORDERED: hydrALAZINE (APESOLINE) 20 MG/ML VIAL IV ONE (04:15)
[2018-09-09] MEDS ORDERED: PIPERACILLIN/TAZO 4.5 GM VIAL (ZOSYN) IV ONE (04:54)
[2018-09-09] MEDS ORDERED: NS (IVPB) 100 ML ONE (04:54)
--- NOTE | 2018-09-09 05:57 | History & Physicial (CHS) ---
HPI History of Present Illness: 47-year-old female presents to [facility] emergency department with chief complaint of right mid to upper quadrant abdominal pain. She has had the pain for over a month but apparently worsened over the past week. She does admit to nausea. She has had no fever or vomiting. She has had pyelonephritis in 2006. She reports she has not had any gallbladder issues in the past. She reports not taking her medications for her diabetes for quite some time due to finances. She admits that this is probably not very smart and she will get back on taking her medical regiment. Source: patient Exam Limitations: clinical condition Date seen by provider: Sep 09, 2018 Time Seen by Provider: 06:30 Attending Physician Jonathan Eason MD [facility] Consult Date of Admission Sep 09, 2018 at 04:00 Home Medications Home Medications Reviewed patient Home Medication Reconciliation performed by pharmacy medication reconciliations tube test technician and/or nursing. Patients Allergies have been reviewed. Allergies Coded Allergies: etodolac (Verified Allergy, Unknown, 02/13/06) latex (Unverified Allergy, Unknown, 12/01/14) morphine (Unverified Adverse Reaction, Mild, itching, 12/01/14) Uncoded Allergies: plastic tape (Allergy, Severe, skin peeling off, 09/09/18) XSE-[id number]-Bcgqht Hx Patient Social History Alcohol Use: Regular Use (HX OF ABUSE, NOW "OCCASIONALLY" DRINKS --LAST DRINK WAS A COUPLE OF WEEKS AGO, PER PT ON 09/09/18) Recreational Drug Use: Yes (+ IV METH USE--CLAIMS NONE SINCE 1999, PER PT ON ) Smoking Status: Former Smoker (STATES SHE QUIT YEARS AGO, PER PT ON 09/09/18) Type Used: Cigarettes 2nd Hand Smoke Exposure: No Recent Foreign Travel: No Contact w/other who traveled: No Recent Hopitalizations: No Recent Infectious Disease Expo: No Immunizations Up To Date Tetanus Booster (TDap): Unknown Past Medical History PMHx: Reported chronic hep C Lupus per patient report Diabetes Coronary artery disease s/p LAD stenting 2011 HTN HLD Alcoholism Surg Hx: x 2 Coronary artery stenting Family Medical History Family History: Arthritis 19 MOTHER, Onset:Unknown FH: COPD (chronic obstructive pulmonary disease) 19 MOTHER, Onset:Unknown FH: uterine cancer 19 MOTHER, Onset:Unknown No Family History of: AIDS Abdominal aortic aneurysm Bulloch's disease Alcoholism Alzheimer's disease Aphasia Asthma Cancer of mouth Cardiovascular disease Cataracts Colon cancer Completed stroke Congenital disease Congenital heart disease Coronary thrombosis Cystic fibrosis Deafness or hearing loss Dementia Diabetes mellitus Drug abuse Dysphasia Fibrocystic disease of breast Gastroenteritis Glaucoma Headache disorder Hypercholesterolemia Hypertension Infertility Kidney disease Myocardial infarction Neoplasm Not obtainable due to adoption Osteoporosis Parkinson's disease Prostate cancer Psychosocial problem Respiratory disorder Seizure disorder Severe allergy Thyroid disease Tuberculosis Visual disorder Review of Systems (CHC) Constitutional: see HPI Reviewed Test Results Reviewed Test Results Lab Laboratory Tests Test 09/09/18 01:30 09/09/18 01:47 09/09/18 03:40 09/09/18 04:13 Range/Units Urine Color YELLOW Urine Clarity SLIGHTLY CLOUDY Urine pH 7 5-9 Urine Specific [place] 1.005 L 1.016-1.022 Urine Protein 2+ H NEGATIVE Urine Glucose (UA) 4+ H NEGATIVE Urine Ketones 2+ H NEGATIVE Urine Nitrite NEGATIVE NEGATIVE Urine Bilirubin NEGATIVE NEGATIVE Urine Urobilinogen NORMAL NORMAL MG/DL Urine Leukocyte Esterase 1+ H NEGATIVE Urine RBC (Auto) 4+ H NEGATIVE Urine RBC 10-25 H /HPF Urine WBC 2-5 /HPF Urine Squamous Epithelial Cells 0-2 /HPF Urine Crystals NONE /LPF Urine Bacteria NEGATIVE /HPF Urine Casts NONE /LPF Urine Mucus NEGATIVE /LPF Urine Culture Indicated NO Urine Opiates Screen NEGATIVE NEGATIVE Urine Oxycodone Screen NEGATIVE NEGATIVE Urine Methadone Screen NEGATIVE NEGATIVE Urine Propoxyphene Screen NEGATIVE NEGATIVE Urine Barbiturates Screen NEGATIVE NEGATIVE Ur Tricyclic Antidepressants Screen NEGATIVE NEGATIVE Urine Phencyclidine Screen NEGATIVE NEGATIVE Urine Amphetamines Screen NEGATIVE NEGATIVE Urine Methamphetamines Screen NEGATIVE NEGATIVE Urine Benzodiazepines Screen NEGATIVE NEGATIVE Urine Cocaine Screen NEGATIVE NEGATIVE Urine Cannabinoids Screen NEGATIVE NEGATIVE White Blood Count 10.7 4.3-11.0 10^3/uL Red Blood Count 4.42 4.35-5.85 10^6/uL Hemoglobin 11.4 L 11.5-16.0 G/DL Hematocrit 34 L 35-52 % Mean Corpuscular Volume 77 L 80-99 FL Mean Corpuscular Hemoglobin 26 25-34 PG Mean Corpuscular Hemoglobin Concent 34 32-36 G/DL Red Cell Distribution Width 13.6 10.0-14.5 % Platelet Count 255 130-400 10^3/uL Mean Platelet Volume 10.1 7.4-10.4 FL Neutrophils (%) (Auto) 82 H 42-75 % Lymphocytes (%) (Auto) 12 12-44 % Monocytes (%) (Auto) 5 0-12 % Eosinophils (%) (Auto) 1 0-10 % Basophils (%) (Auto) 0 0-10 % Neutrophils # (Auto) 8.8 H 1.8-7.8 X 10^3 Lymphocytes # (Auto) 1.3 1.0-4.0 X 10^3 Monocytes # (Auto) 0.6 0.0-1.0 X 10^3 Eosinophils # (Auto) 0.1 0.0-0.3 10^3/uL Basophils # (Auto) 0.0 0.0-0.1 10^3/uL Sodium Level 129 L 135-145 MMOL/L Potassium Level 4.2 3.6-5.0 MMOL/L Chloride Level 94 L 98-107 MMOL/L Carbon Dioxide Level 20 L 21-32 MMOL/L Anion Gap 15 H 5-14 MMOL/L Blood Urea Nitrogen 14 7-18 MG/DL Creatinine 1.14 0.60-1.30 MG/DL Estimat Glomerular Filtration Rate 51 BUN/Creatinine Ratio 12 Glucose Level 717 *H 70-105 MG/DL Calcium Level 10.0 8.5-10.1 MG/DL Corrected Calcium 10.3 H 8.5-10.1 MG/DL Total Bilirubin 0.5 0.1-1.0 MG/DL Aspartate Amino Transf (AST/SGOT) 14 5-34 U/L Alanine Aminotransferase (ALT/SGPT) 14 0-55 U/L Alkaline Phosphatase 405 H 40-136 U/L Total Protein 8.5 H 6.4-8.2 GM/DL Albumin 3.6 3.2-4.5 GM/DL Amylase Level 22 L 25-125 U/L Lipase 22 8-78 U/L Serum Test, Qualitative NEGATIVE NEGATIVE Serum Alcohol < 10 <10 MG/DL Blood Gas Puncture Site R BRAK Blood Gas Patient Temperature 97.7 Arterial Blood pH 7.39 7.37-7.43 Arterial Blood Partial Pressure CO2 34 L 35-45 MMHG Arterial Blood Partial Pressure O2 89 79-93 MMHG Arterial Blood HCO3 20 L 23-27 MMOL/L Arterial Blood Total CO2 21.2 21.0-31.0 MMOL/L Arterial Blood Oxygen Saturation 98 94-100 % Arterial Blood Base Excess -4.2 L -2.5-2.5 MMOL/L Andrew Test YES-POS Blood Gas Ventilator Setting NO Blood Gas Inspired Oxygen RA Radiology NAME: PIP[facility] REC#: [id number] PT STATUS: ADM IN : 1970 PHYSICIAN: JUN TINOCO DO ADMIT DATE: 09/09/18/ICU Draft Date of Exam:09/09/18 CT ABD/PELV W (APPENDICITIS) PROCEDURE: CT abdomen and pelvis with contrast, rule out appendicitis. TECHNIQUE: Multiple contiguous axial images were obtained through the abdomen and pelvis after the administration of intravenous contrast. INDICATION: Right lower quadrant pain There are no prior CT studies available for comparison. The gallbladder ultrasound exam performed on 12/01/2014 noted hepatomegaly but failed to show any sign of an acute abnormality. The pelvic ultrasound exam of 12/07/2012 was unremarkable for an acute abnormality. On this exam the right renal pelvis and right ureter are distended. There is no sign of an obstructive calculus however. There is distortion of the perinephric fat about the right kidney and there is a complex 2.7 x 3.1 CM area of mixed density along the anterior aspect of the inferior pole of the right kidney. This could be related to a renal abscess. A neoplastic mass could also present in this manner. The postcontrast images also reveal that there is some debris within the dilated renal pelvis. This may be related to infection and/or hemorrhage. The left kidney and left renal pelvis are unremarkable. The urinary bladder itself is markedly distended. The appendix was not particularly well-visualized but there are no indirect signs of acute appendicitis. The uterus is not enlarged. There is no pelvic mass or free fluid collection noted. There is a 2.3 CM defect in the anterior abdominal wall in the region of the umbilicus. An 8.9 x 6.0 CM collection of mesenteric fat has extended through the defect. There is no incarceration or obstruction of bowel by the hernia however. As noted on the previous ultrasound exam the liver is enlarged. There is no focal mass involving the liver and the biliary tree is not abnormally dilated. The spleen is also prominent measuring 13.3 CM in length. The adrenals, the gallbladder, the pancreas, aorta and inferior vena cava show no sign of an acute abnormality. The stomach is partially filled with particulate matter and consequently difficult to assess. The lung bases are generally clear. The heart is not enlarged but there are dense coronary calcifications involving the LAD. The bone windows show no sign of a fracture or of a destructive lesion. IMPRESSION: 1. There is dilatation of the right ureter and right renal pelvis and distortion of the pericolonic fat. There is no sign of an obstructive calculus however. The appearance of the right kidney could be secondary to pyelonephritis and there is a question of a renal abscess. The complex lesion involving the anterior aspect of the inferior pole of the right kidney could also be neoplastic in nature. A urologic consult would be recommended. 2. There is marked distention of the urinary bladder by urine. 3. There is a ventral hernia with a sizable amount of mesenteric fat extending through the hernia. There is no sign of a bowel obstruction. 4. There is no acute abnormality of the abdomen or pelvis otherwise. 5. There is hepatomegaly and the spleen is prominent. 6. There is coronary artery disease. Dictated on workstation # [id number] Dict: 09/09/1822 Trans: 09/09/18 0819 [facility] [id number] Interpreted by: TOYIN VERAS MD Electronically signed by: Physical Exam-([facility]) Physical Exam Vital Signs VS - Last 72 Hours, by Label 09/09/18 09/09/18 09/09/18 01:27 06:32 06:45 Temp 97.7 97.7 97.8 Pulse 126 105 107 Resp 16 16 20 B/P (MAP) 182/99 (126) 135/84 (101) 156/83 (107) Pulse Ox 99 96 99 O2 Delivery Room Air Room Air Room Air Capillary Refill : Less Than 3 Seconds General Appearance: no apparent distress Eyes: Bilateral Eye Normal Inspection HEENT: pharynx normal Neck: non-tender, full range of motion, supple Respiratory: chest non-tender, lungs clear, normal breath sounds Gastrointestinal: soft, tenderness (Noted primarily to the mid to right upper quadrant. She does not have any right-sided flank discomfort), other Back: no CVA tenderness (Appreciated ) Extremities: normal range of motion, no pedal edema Neurologic/Psychiatric: alert, normal mood/affect, oriented x 3 Skin: normal color, warm/dry Assessment/Plan Assessment/Plan Admission Dx 1. Pyelonephritis as evidenced by imaging 2. Diabetes mellitus 3. Hepatitis C history of 4. Hypertension Admission Status: Inpatient Order (span 2 midnights) Reason for Inpatient Admission: Further IV antibiotics. Regulate her uncontrolled diabetes Assessment & Plan 1. Pyelonephritis as evidenced by imaging by CT -Patient to be admitted for IV Zosyn as well as IV fluids -CT report also suggestive of possible abscess or neoplasm. Consultation with urology. 2. Diabetes mellitus -. Patient to be placed on sliding insulin scale and initially placed in the ICU 3. Hepatitis C history of -Hepatitis panel pending 4. Hypertension -To be further monitored in the ICU -Patient has received hydralazine as one-time dose -Add on enalapril JONATHAN EASON MD Sep 09, 2018 05:57
[2018-09-09] MEDS ORDERED: KETOROLAC 30 MG/ML VIAL ONE (06:49)
[2018-09-09] MEDS: KETOROLAC 30 MG/ML VIAL IVP PRN ×3 (06:55→20:41)
[2018-09-09] MEDS ORDERED: ACETAMINOPHEN 500 MG TAB (TYLENOL) PO PRN (07:15)
[2018-09-09] MEDS ORDERED: ONDANSETRON 4 MG/2 ML (SDV) Z0FRAN IV PRN (07:15)
--- NOTE | 2018-09-09 08:07 | Diagnostic Imaging Report ---
EXAMINATION: Acute abdomen series at 256h. INDICATION: Abdominal pain The accompanying erect PA chest shows the heart size to be within normal limits and stable when compared to 12/01/2014. The lungs are generally clear. There is no sign of a pneumoperitoneum. Supine and erect views of the abdomen were obtained. There is some gas in both the large and small bowel in a nonspecific fashion. There is no evidence for a bowel obstruction. There is a fair amount of fecal material present. There is no mass or organomegaly evident. A few prominent phleboliths are seen in the right pelvis. The osseous structures are intact. IMPRESSION: The bowel gas pattern is nonspecific. There is no acute abnormality identified. Dictated by: Dictated on workstation # [id number]
[2018-09-09] MEDS: NS IV 1000 ML 1,000 ML IV SCH ×3 (08:10→19:20)
--- NOTE | 2018-09-09 08:20 | Diagnostic Imaging Report ---
PROCEDURE: CT abdomen and pelvis with contrast, rule out appendicitis. TECHNIQUE: Multiple contiguous axial images were obtained through the abdomen and pelvis after the administration of intravenous contrast. INDICATION: Right lower quadrant pain There are no prior CT studies available for comparison. The gallbladder ultrasound exam performed on 12/01/2014 noted hepatomegaly but failed to show any sign of an acute abnormality. The pelvic ultrasound exam of 12/07/2012 was unremarkable for an acute abnormality. On this exam the right renal pelvis and right ureter are distended. There is no sign of an obstructive calculus however. There is distortion of the perinephric fat about the right kidney and there is a complex 2.7 x 3.1 CM area of mixed density along the anterior aspect of the inferior pole of the right kidney. This could be related to a renal abscess. A neoplastic mass could also present in this manner. The postcontrast images also reveal that there is some debris within the dilated renal pelvis. This may be related to infection and/or hemorrhage. The left kidney and left renal pelvis are unremarkable. The urinary bladder itself is markedly distended. The appendix was not particularly well-visualized but there are no indirect signs of acute appendicitis. The uterus is not enlarged. There is no pelvic mass or free fluid collection noted. There is a 2.3 CM defect in the anterior abdominal wall in the region of the umbilicus. An 8.9 x 6.0 CM collection of mesenteric fat has extended through the defect. There is no incarceration or obstruction of bowel by the hernia however. As noted on the previous ultrasound exam the liver is enlarged. There is no focal mass involving the liver and the biliary tree is not abnormally dilated. The spleen is also prominent measuring 13.3 CM in length. The adrenals, the gallbladder, the pancreas, aorta and inferior vena cava show no sign of an acute abnormality. The stomach is partially filled with particulate matter and consequently difficult to assess. The lung bases are generally clear. The heart is not enlarged but there are dense coronary calcifications involving the LAD. The bone windows show no sign of a fracture or of a destructive lesion. IMPRESSION: 1. There is dilatation of the right ureter and right renal pelvis and distortion of the pericolonic fat. There is no sign of an obstructive calculus however. The appearance of the right kidney could be secondary to pyelonephritis and there is a question of a renal abscess. The complex lesion involving the anterior aspect of the inferior pole of the right kidney could also be neoplastic in nature. A urologic consult would be recommended. 2. There is marked distention of the urinary bladder by urine. 3. There is a ventral hernia with a sizable amount of mesenteric fat extending through the hernia. There is no sign of a bowel obstruction. 4. There is no acute abnormality of the abdomen or pelvis otherwise. 5. There is hepatomegaly and the spleen is prominent. 6. There is coronary artery disease. 7. These results were conveyed to the ER by our [employer] service. Dictated by: Dictated on workstation # [id number]
[2018-09-09] MEDS: inSUlin ASPART (NovoLOG) 1 UNIT/0.01 ML (CHARGE PER UNIT) SC SCH ×4 (08:21→20:41)
[2018-09-09] MEDS ORDERED: FLU QUADRIvalent (5+ YOA) 2018-2019 (AFLURIA) 0.5 ML IM ONE (11:15)
[2018-09-09] MEDS: ENALAPRIL 10 MG (VASOTEC) TAB PO SCH (11:37)
[2018-09-09] MEDS: PIPERACILLIN/TAZO 4.5 GM/NS 100 ML IV SCH ×4 (11:38→19:20)
[2018-09-09] MEDS: metFORMIN 500 MG (GLUCOPHAGE) TAB PO SCH (17:08)
[2018-09-09] MEDS: inSUlin DETERMIR 1 UNIT/0.01 ML (LEVEMIR) CHARGE PER UNIT SQ SCH (20:41)
[2018-09-10] VITALS (7 sets, daily range): BP systolic 124–160; BP diastolic 58–82
[2018-09-10] MEDS: PIPERACILLIN/TAZO 4.5 GM/NS 100 ML IV SCH ×6 (03:10→19:16)
[2018-09-10] MEDS: inSUlin ASPART (NovoLOG) 1 UNIT/0.01 ML (CHARGE PER UNIT) SC SCH ×5 (05:51→21:37)
[2018-09-10] MEDS: KETOROLAC 30 MG/ML VIAL IVP PRN ×2 (05:54→13:47)
[2018-09-10 06:58] LABS: BASOPHILS % (AUTO) 0 % (0-10); EOSINOPHILS # (AUTO) 0.1 10^3/uL (0.0-0.3); EOSINOPHILS % (AUTO) 2 % (0-10); HEMATOCRIT 29 % (35-52); HEMOGLOBIN 9.3 G/DL (11.5-16.0); LYMPHOCYTES # (AUTO) 1.1 X 10^3 (1.0-4.0); LYMPHOCYTES % (AUTO) 24 % (12-44); MEAN CORPUSCULAR HEMOGLOBIN 26 PG (25-34); MEAN CORPUSCULAR HGB CONC 32 G/DL (32-36); MEAN CORPUSCULAR VOLUME 79 FL (80-99); MEAN PLATELET VOLUME 10.5 FL (7.4-10.4); MONOCYTES # (AUTO) 0.4 X 10^3 (0.0-1.0); MONOCYTES % (AUTO) 8 % (0-12); NEUTROPHILS # (AUTO) 3.1 X 10^3 (1.8-7.8); NEUTROPHILS % (AUTO) 67 % (42-75); PLATELET COUNT 227 10^3/uL (130-400); RED BLOOD COUNT 3.64 10^6/uL (4.35-5.85); RED CELL DISTRIBUTION WIDTH 13.9 % (10.0-14.5); WHITE BLOOD COUNT 4.7 10^3/uL (4.3-11.0)
[2018-09-10 07:26] LABS: ALANINE AMINOTRANSFERASE 103 U/L (0-55); ALBUMIN 2.9 GM/DL (3.2-4.5); ALKALINE PHOSPHATASE 849 U/L (40-136); BILIRUBIN,TOTAL 0.5 MG/DL (0.1-1.0); BUN/CREATININE RATIO 18; CALCIUM 8.9 MG/DL (8.5-10.1); CARBON DIOXIDE 21 MMOL/L (21-32); CHLORIDE 105 MMOL/L (98-107); CREATININE SERUM 0.82 MG/DL (0.60-1.30); GFR ESTIMATED > 60; GLUCOSE 200 MG/DL (70-105); POTASSIUM 3.6 MMOL/L (3.6-5.0); SODIUM 135 MMOL/L (135-145); TOTAL PROTEIN 6.7 GM/DL (6.4-8.2)
[2018-09-10] MEDS: NS IV 1000 ML 1,000 ML IV SCH ×4 (08:28→19:15)
[2018-09-10] MEDS: ENALAPRIL 10 MG (VASOTEC) TAB PO SCH (08:29)
--- NOTE | 2018-09-10 09:49 | CONSULTATION REPORT ---
DATE OF SERVICE: 09/10/2018 ATTENDING PHYSICIAN: Jonathan Peña MD, in [facility]. SUMMARY: After reviewing the patient's records, x-rays, this is a 47-year-old white lady admitted to the emergency room and found to have acute viral nephritis. She was started on Zosyn. On the CT also, bladder is severely dilated with some more thickening and ventral hernia. The patient is a very poor historian. Denies all kinds of problems, which she does have among which coronary artery disease with a previous stent, osteoarthritis with previous right shoulder surgery, , previous UTIs, insulin-dependent diabetes, fibromyalgia, also has history of alcohol abuse, smoking and IV meth use. ALLERGIES: SHE IS ALLERGIC TO ETODOLAC, LATEX AND MORPHINE. MEDICATIONS: At home, she is on insulin, Glucophage, vitamins. No other medications. PHYSICAL EXAMINATION: Temperature is normal. She is sleeping. She did not have a catheter put in. I did not want to wake her up at this point. I will examine her later on today. LABORATORY DATA: Her urinalysis was positive. Her white count was normal. Her creatinine was 1.14, normal limits, and 51 GFR. Her sugar was 717. IMPRESSION: 1. Right acute pyelonephritis. 2. Urinary retention. 3. History of urinary tract infection. 4. Miscellaneous as per history. PLAN: Continue present management, insert the Leon catheter, see how much we get and manage accordingly. Job ID: [id number] DocumentID: [id number] Dictated Date: 09/10/2018 08:17:30 Director Of Teaching And Learning Date: 09/10/2018 09:48:49 Dictated By: ONESIMO ALVARADO MD
[2018-09-10] MEDS ORDERED: LORA10TA76 PO (09:53)
[2018-09-10] MEDS ORDERED: SIME125T PO (09:53)
[2018-09-10] MEDS ORDERED: ACET-2267 PO (09:53)
[2018-09-10] MEDS ORDERED: IBUP-30 PO (09:53)
[2018-09-10] MEDS: HYDROcodone/APAP 5 MG/325 MG (LORTAB) TAB PO PRN ×3 (10:11→21:13)
[2018-09-10] MEDS: SIMETHICONE 80 MG (MYLICON) CHEW PO SCH ×4 (10:11→21:14)
--- NOTE | 2018-09-10 10:19 | Progress Note-Hospitalist ---
DANUTA CATHERINE DO 09/10/18 1019: Subjective HPI/CC On Admission Date Seen by Provider: Sep 10, 2018 Time Seen by Provider: 09:00 Subjective/Events-last exam CC: RUQ abdominal pain HPI: This is a 47yoWF clinic patient of [facility] w/h/o DM and questionable HCV who presented to the ER w/c/o worsening RUQ abdominal pain of 1 week duration. She has a PMH of DM non-compliant with meds and appt at [facility], ETOH abuse and meth abuse and currently is less nauseated and currently is asking for pain meds. I reviewed the CT scan and noted Urology had seen the patient which was slightly suspicious for kidney mass or abscess. Checked meds and labs. I have consulted Dr Card and obtained an USG for further review. I have also obtained a repeat hepatitis panel since [facility] records do not show a h/o viral hepatitis and patient denies that information also. Review of Systems Gastrointestinal: Abdominal Pain Objective Exam Vital Signs Vital Signs Date Time Temp Pulse Resp B/P (MAP) Pulse Ox O2 Delivery O2 Flow Rate FiO2 09/10/18 15:52 97.8 91 18 147/73 (97) 99 Room Air Capillary Refill : Less Than 3 Seconds General Appearance: No Apparent Distress, WD/WN, Chronically ill Respiratory: Chest Non Tender, Lungs Clear, Normal Breath Sounds, No Accessory Muscle Use, No Respiratory Distress Cardiovascular: Regular Rate, Rhythm, No Edema, No Gallop, No JVD, No Murmur, Normal Peripheral Pulses Gastrointestinal: Tenderness Neurologic/Psychiatric: Alert, Oriented x3, No Motor/Sensory Deficits, Normal Mood/Affect Skin: Normal Color, Warm/Dry Results/Procedures Lab Laboratory Tests 09/10/18 06:35 Patient resulted labs reviewed. Assessment/Plan Assessment and Plan Assess & Plan/Chief Complaint Assessment: Acute pyelonephritis Elevated LFT's especially AP Records report hepatitis but denies and [facility] reveal no record of viral hepatitis - obtaining USG and surgical consultation DM OOC Non-compliance ETOH abuse hx Meth use hx Kidney mass vs abscess on CT scan Plan: Abx empiric Urology and Surgery services appreciated Pain control Insulin HGA1C pending Diagnosis/Problems Diagnosis/Problems (1) Kidney abscess Status: Acute (2) Right kidney mass Status: Acute (3) Pyelonephritis Status: Acute (4) Elevated liver enzymes Status: Acute (5) Elevated alkaline phosphatase level Status: Acute (6) Uncontrolled diabetes mellitus Status: Chronic Qualifiers: Diabetes mellitus type: type 2 Glycemic state: with hyperglycemia Qualified Codes: E11.65 - Type 2 diabetes mellitus with hyperglycemia (7) History of alcoholism Status: Chronic (8) History of methamphetamine abuse Status: Chronic (9) Hydronephrosis Status: Acute Qualifiers: Hydronephrosis type: unspecified Qualified Codes: N13.30 - Unspecified hydronephrosis Clinical Quality Measures DVT/VTE Risk/Contraindication: Risk Factor Score Per Nursin RFS Level Per Nursing on Admit: 2=Moderate JUSTIN CARLISLE MED STUDENT 09/10/18 1122: Subjective HPI/CC On Admission CC: Pyelonephritis, Uncontrolled Diabetes, Hyponatremia HPI: Patient presented to the [facility] ED with a complaint of right mid to upper quadrant abdominal pain. She stated that the pain had been getting worse over the previous week. The patient states that she had a similar episode in 2005. She has uncontrolled diabetes and has not been monitoring her blood sugars or taking her medications. She is not experiencing N/V/D. She is currently constipated and last had a bowel movement on or Monday. She is not currently in pain. The patient states that she is ambulating and has been eating regularly. Subjective/Events-last exam PMH: UTI, ETOH abuse, Hyponatremia, Hyperglycemia due to Type II DM, Uncontrolled HTN, Pyelonephritis, History of Methamphetamine abuse, Hep-C PSH: x 2, PCI - stent x1, Rt shoulder surgery Meds: Acetominophen 1,000 mg PO Q6H PRN Ibuprofen 600 mg PO TID PRN Loatadine 10 mg PO Daily PRN Simethicone 125 mg PO UD PRN Allergies: etodolac, latex, morphine Social: Previous alcohol and methamphetamine abuse. Former smoker, cigarettes. Family Hx: Mother - arthritis, COPD, uterine cancer Focused Exam Respiratory: Chest Non Tender, Lungs Clear, Normal Breath Sounds, No Accessory Muscle Use, No Respiratory Distress Cardiovascular: Regular Rate, Rhythm, No Edema, No Gallop, No JVD, No Murmur, Normal Peripheral Pulses Skin: rash, ulcerations Objective Exam General Appearance: No Apparent Distress, WD/WN HEENT: PERRL/EOMI, TMs Normal, Normal ENT Inspection, Pharynx Normal Neck: Full Range of Motion, Normal Inspection, Non Tender, Supple Respiratory: Chest Non Tender, Lungs Clear, Normal Breath Sounds, No Accessory Muscle Use, No Respiratory Distress Cardiovascular: Regular Rate, Rhythm, No Edema, No Gallop, No JVD, No Murmur, Normal Peripheral Pulses Gastrointestinal: Normal Bowel Sounds, No Organomegaly, No Pulsatile Mass, Non Tender, Soft Neurologic/Psychiatric: Alert, Oriented x3, No Motor/Sensory Deficits, Normal Mood/Affect Skin: Normal Color, Warm/Dry Lymphatic: No Adenopathy Assessment/Plan Assessment and Plan Assess & Plan/Chief Complaint Assessment: 1) Pyelonephritis 2) Diabetes Myelitis type II 3) Hepatitis C DANUTA CATHERINE DO Sep 10, 2018 10:19 JUSTIN CARLISLE MED STUDENT Sep 10, 2018 11:22
--- NOTE | 2018-09-10 14:04 | Consultation ---
History of Present Illness History of Present Illness Patient Consulted On(diane/time) 09/10/18 13:59 Date Seen by Provider: Sep 10, 2018 Time Seen by Provider: 13:00 Reason for Visit: right-sided abdominal pain History of Present Illness Acute onset of pain along the right side of abdomen with hyperglycemia, leading to an ER visit and subsequent admission. Radiologic evaluation shows abnormality around the right kidney with hydronephrosis and a distended bladder. In addition, there is splenomegaly with no obvious evidence of portal hypertension. I've been asked to see her regarding elevated liver enzymes especially alkaline phosphatase. She confirms using intravenous drugs in the past and having suffered hepatic dysfunction. There is uncertainty about hepatitis C positivity. This should be rechecked during the current admission. In addition, she has a history of excessive alcohol use but reports being abstinent. Allergies and Home Medications Allergies Coded Allergies: etodolac (Verified Allergy, Unknown, 02/13/06) latex (Unverified Allergy, Unknown, 12/01/14) morphine (Unverified Adverse Reaction, Mild, itching, 12/01/14) Uncoded Allergies: plastic tape (Allergy, Severe, skin peeling off, 09/09/18) Home Medications Acetaminophen 500 Mg Tablet, 1,000 MG PO Q6H PRN for PAIN-MILD, (Reported) Ibuprofen 200 Mg Tablet, 600 MG PO TID PRN for PAIN-MILD, (Reported) Loratadine 10 Mg Tablet, 10 MG PO DAILY PRN for ALLERGIES, (Reported) Simethicone 125 Mg Tab.chew, 125 MG PO UD PRN for GAS, (Reported) Patient Home Medication List Home Medication List Reviewed: Yes Past Cuqchod-Jxueny-Fzkxzi Hx Patient Social History Alcohol Use: Regular Use Alcohol Beverage of Choice: Beer, Wine, Cheap Liquor Recreational Drug Use: Yes (+ IV METH USE--CLAIMS NONE SINCE 1999, PER PT ON ) Smoking Status: Former Smoker Type Used: Cigarettes Former Smoker, Quit: Sep 09, 2008 2nd Hand Smoke Exposure: No Recent Foreign Travel: No Contact w/Someone Who Travel: No Recent Infectious Disease Expo: No Recent Hopitalizations: No Physical Abuse: No Sexual Abuse: No Mistreated: No Immunizations Up To Date Tetanus Booster (TDap): Unknown PED Vaccines UTD: No Seasonal Allergies Seasonal Allergies: No Past Medical History Surgeries: Yes (C SECTION X 2; CARDIAC CATH--STENT X 1; RIGHT SHOULDER SURGERY) Section, Coronary Stent, Orthopedic Respiratory: No Cardiac: Yes (MA 2012-CARDIAC CATH WITH STENT X 1) Coronary Artery Disease, Heart Attack, Hypertension Neurological: No Reproductive Disorders: No Female Reproductive Disorders: Denies Genitourinary: Yes Kidney Infection Gastrointestinal: Yes (HEPATITIS C--NO TREATMENT; VENTRAL HERNIA--NO SURGERY) Abdominal Hernia, Hepatitis Musculoskeletal: Yes (RIGHT SHOULDER SURGERY) Arthritis, Fibromyalgia Endocrine: Yes Diabetes, Insulin dep, Lupus HEENT: No Cancer: No Psychosocial: Yes (ADD) ADD/ADHD Integumentary: No Blood Disorders: No Family Medical History Arthritis 19 MOTHER, Onset:Unknown FH: COPD (chronic obstructive pulmonary disease) 19 MOTHER, Onset:Unknown FH: uterine cancer 19 MOTHER, Onset:Unknown No Family History of: AIDS Abdominal aortic aneurysm Noé's disease Alcoholism Alzheimer's disease Aphasia Asthma Cancer of mouth Cardiovascular disease Cataracts Colon cancer Completed stroke Congenital disease Congenital heart disease Coronary thrombosis Cystic fibrosis Deafness or hearing loss Dementia Diabetes mellitus Drug abuse Dysphasia Fibrocystic disease of breast Gastroenteritis Glaucoma Headache disorder Hypercholesterolemia Hypertension Infertility Kidney disease Myocardial infarction Neoplasm Not obtainable due to adoption Osteoporosis Parkinson's disease Prostate cancer Psychosocial problem Respiratory disorder Seizure disorder Severe allergy Thyroid disease Tuberculosis Visual disorder Review of Systems-General Constitutional: malaise EENTM: no symptoms reported Respiratory: no symptoms reported Cardiovascular: no symptoms reported Gastrointestinal: see HPI Genitourinary: see HPI Musculoskeletal: back pain Skin: no symptoms reported Psychiatric/Neurological: No Symptoms Reported Physical Exam-General Problems Physical Exam Vital Signs Vital Signs - First Documented 09/09/18 01:27 Temp 97.7 Pulse 126 Resp 16 B/P (MAP) 182/99 (126) Pulse Ox 99 O2 Delivery Room Air Capillary Refill : Less Than 3 Seconds General Appearance: no apparent distress Neck: supple, normal inspection Respiratory: lungs clear Cardiovascular: regular rate, rhythm Gastrointestinal: hernia, spleenomegaly, other Extremities: normal inspection Neurologic/Psychiatric: alert, oriented x 3 Skin: warm/dry Comments Long-standing, reducible ventral hernia. Spleen just palpable. No ascites. No evidence of caput medusae. Assessment/Plan Assessment/Plan Admission Diagnosis/Plan lady with multiple medical problems including uncontrolled diabetes, evidence of possible pyelonephritis. Hepatic dysfunction with elevated liver enzymes. Reasonable to obtain a gallbladder ultrasound to rule out gallstones. Should they be discovered, she will require an endoscopic ultrasound to evaluate the common bile duct. Otherwise, she could be managed on the lines of hepatic dysfunction. I've also requested the hepatitis status to be ascertained by current laboratory analysis Admission Status: Inpatient Order (span 2 midnights) Reason for Inpatient Admission: multiple medical comorbidities requiring management last longer than 2 days Clinical Quality Measures DVT/VTE Risk/Contraindication: Risk Factor Score Per Nursin RFS Level Per Nursing on Admit: 2=Moderate CRISTOFER VINES MD Sep 10, 2018 14:04
--- NOTE | 2018-09-10 15:49 | Diagnostic Imaging Report ---
PROCEDURE: US DOPPLER ABD/COMPLETE TECHNIQUE: Multiple real-time grayscale images were obtained over the kidneys in various projections. Duplex evaluation of renal arteries was also attempted. INDICATION: Renal mass noted on recent CT. Study is performed for further evaluation. COMPARISON: Comparison is made with CT study from 09/09/2018. FINDINGS: The right kidney measures 12.6 x 5.3 x 5.6 cm and the left kidney measures 10.6 x 4.7 x 5.0 cm. Moderate right-sided hydronephrosis is again seen. Cortical thickness and echogenicity is normal bilaterally. There is ill-defined hypoechogenicity noted at the lower pole of the right kidney or just outside of the right kidney. This area measures 3.4 x 2.4 x 3.8 cm. This remains indeterminate. Renal Doppler was attempted. Left renal artery could not be visualized due to bowel gas. Right renal artery in the proximal, mid, and distal aspect shows normal velocities with normal renal artery to aorta ratios. Duplex waveforms are normal in appearance. IMPRESSION: 1. Moderate right hydronephrosis. 2. Ill-defined region of hypoechogenicity arising from or immediately adjacent to the lower pole of the right kidney, likely accounting for the process seen on CT study one day earlier. Features are nonspecific and again could be inflammatory or neoplastic. This is much better seen by CT therefore followup with CT would be recommended. 3. Limited evaluation of the left renal artery due to bowel gas. There is no evidence of right side renal artery stenosis. Dictated by: Dictated on workstation # [id number]
--- NOTE | 2018-09-10 17:48 | Diagnostic Imaging Report ---
PROCEDURE: US Gallbladder. TECHNIQUE: Multiple real-time grayscale images were obtained over the right upper quadrant in various projections. INDICATION: Elevated liver enzymes. FINDINGS: The liver is mildly enlarged at 18.5 cm. No discrete liver mass is identified. Gallbladder is without stones or sludge. There is questionable mild pericholecystic fluid. No biliary ductal dilatation is seen. The right kidney does demonstrate mild hydronephrosis. No calculi are seen. There is no ascites. The pancreas was not well visualized due to bowel gas. IMPRESSION: 1. Mild hepatomegaly. 2. There are findings suggestive of mild pericholecystic fluid, however, no definite gallstones or wall thickening are seen. 3. There is mild right hydronephrosis, etiology indeterminate. Dictated by: Dictated on workstation # [id number]
[2018-09-10] MEDS: inSUlin DETERMIR 1 UNIT/0.01 ML (LEVEMIR) CHARGE PER UNIT SQ SCH (21:13)
[2018-09-11] MEDS: NS IV 1000 ML 1,000 ML IV SCH ×3 (01:03→08:39)
[2018-09-11] MEDS: PIPERACILLIN/TAZO 4.5 GM/NS 100 ML IV SCH ×6 (02:41→18:19)
[2018-09-11] MEDS: HYDROcodone/APAP 5 MG/325 MG (LORTAB) TAB PO PRN ×4 (03:44→21:34)
[2018-09-11 04:00] VITALS: BP 174/87
[2018-09-11 04:36] LABS: BASOPHILS % (AUTO) 0 % (0-10); EOSINOPHILS # (AUTO) 0.1 10^3/uL (0.0-0.3); EOSINOPHILS % (AUTO) 2 % (0-10); HEMATOCRIT 28 % (35-52); LYMPHOCYTES # (AUTO) 1.4 X 10^3 (1.0-4.0); LYMPHOCYTES % (AUTO) 29 % (12-44); MEAN CORPUSCULAR HEMOGLOBIN 26 PG (25-34); MEAN CORPUSCULAR HGB CONC 33 G/DL (32-36); MEAN CORPUSCULAR VOLUME 79 FL (80-99); MEAN PLATELET VOLUME 10.6 FL (7.4-10.4); MONOCYTES # (AUTO) 0.4 X 10^3 (0.0-1.0); MONOCYTES % (AUTO) 9 % (0-12); NEUTROPHILS # (AUTO) 2.8 X 10^3 (1.8-7.8); NEUTROPHILS % (AUTO) 60 % (42-75); PLATELET COUNT 214 10^3/uL (130-400); RED BLOOD COUNT 3.48 10^6/uL (4.35-5.85); RED CELL DISTRIBUTION WIDTH 14.4 % (10.0-14.5); WHITE BLOOD COUNT 4.7 10^3/uL (4.3-11.0)
[2018-09-11 05:13] LABS: ALANINE AMINOTRANSFERASE 172 U/L (0-55); ALBUMIN 2.7 GM/DL (3.2-4.5); ALKALINE PHOSPHATASE 993 U/L (40-136); BILIRUBIN,TOTAL 0.4 MG/DL (0.1-1.0); BUN/CREATININE RATIO 20; CALCIUM 8.3 MG/DL (8.5-10.1); CARBON DIOXIDE 18 MMOL/L (21-32); CHLORIDE 109 MMOL/L (98-107); CREATININE SERUM 0.81 MG/DL (0.60-1.30); GFR ESTIMATED > 60; GLUCOSE 182 MG/DL (70-105); POTASSIUM 3.9 MMOL/L (3.6-5.0); SODIUM 135 MMOL/L (135-145); TOTAL PROTEIN 6.4 GM/DL (6.4-8.2)
[2018-09-11] MEDS: inSUlin ASPART (NovoLOG) 1 UNIT/0.01 ML (CHARGE PER UNIT) SC SCH ×4 (06:30→20:48)
[2018-09-11] MEDS: KETOROLAC 30 MG/ML VIAL IVP PRN ×2 (06:37→18:46)
[2018-09-11 06:54] VITALS: BP 148/80
[2018-09-11 07:17] LABS: HEPATITIS C ANTIBODY C Reactive (Non-Reactive)
[2018-09-11 07:57] VITALS: BP 154/78
[2018-09-11] MEDS: SIMETHICONE 80 MG (MYLICON) CHEW PO SCH ×4 (08:37→21:34)
[2018-09-11] MEDS: ENALAPRIL 10 MG (VASOTEC) TAB PO SCH (08:37)
[2018-09-11] MEDS: metFORMIN 500 MG (GLUCOPHAGE) TAB PO SCH ×2 (08:37→16:33)
--- NOTE | 2018-09-11 09:24 | Progress Note-Urology ---
Progress Note-Urology Progress Notes/Assess & Plan Progress/Assessment & Plan DOING AND FEELING BETTER. URINE CLEAR. MAY DC DELACRUZ ONCE NOT NEEDED Final Diagnosis RT PYELONEPHRITIS ONESIMO ALVARADO MD Sep 11, 2018 09:24
[2018-09-11] MEDS: amLODIPine 5 MG (NORVASC) TAB PO SCH (09:42)
[2018-09-11 10:08] LABS: PROTHROMBIN TIME PATIENT 13.2 SEC (12.2-14.7)
--- NOTE | 2018-09-11 10:19 | Progress Note-Hospitalist ---
DANUTA CATHERINE DO 09/11/18 1019: Subjective HPI/CC On Admission Date Seen by Provider: Sep 11, 2018 Time Seen by Provider: 09:15 CC: Pyelonephritis, Uncontrolled Diabetes, Hyponatremia HPI: Patient presented to the [facility] ED with a complaint of right mid to upper quadrant abdominal pain. She stated that the pain had been getting worse over the previous week. The patient states that she had a similar episode in 2005. She has uncontrolled diabetes and has not been monitoring her blood sugars or taking her medications. She is not experiencing N/V/D. She is currently constipated and last had a bowel movement on or Monday. She is not currently in pain. The patient states that she is ambulating and has been eating regularly. Subjective/Events-last exam Patient states that she is still having significant pain in her right lower quadrant. She states that she slept well las night and had a good breakfast this morning. She reports feeling a little nauseated but no vomiting or diarrhea. The patient has not had a bowel movement since or Monday. She has not experienced any shortness of breath. Ammonia slightly high but INR 1.0 Dispo pending PO abx rec from Urology HCV confirmed Review of Systems Gastrointestinal: Abdominal Pain, Constipation Objective Exam Vital Signs Vital Signs Date Time Temp Pulse Resp B/P (MAP) Pulse Ox O2 Delivery O2 Flow Rate FiO2 09/11/18 07:57 97.5 88 18 154/78 (103) 100 Room Air Capillary Refill : Less Than 3 Seconds General Appearance: No Apparent Distress, WD/WN, Chronically ill Respiratory: Chest Non Tender, Lungs Clear, Normal Breath Sounds, No Accessory Muscle Use, No Respiratory Distress Cardiovascular: Regular Rate, Rhythm, No Edema, No Gallop, No JVD, No Murmur, Normal Peripheral Pulses Gastrointestinal: Normal Bowel Sounds, No Organomegaly, No Pulsatile Mass, Soft , Tenderness (RUQ) Neurologic/Psychiatric: Alert, Oriented x3, No Motor/Sensory Deficits, Normal Mood/Affect Results/Procedures Lab Laboratory Tests 09/11/18 04:23 Patient resulted labs reviewed. Assessment/Plan Assessment and Plan Assess & Plan/Chief Complaint Assessment: Acute pyelonephritis Elevated LFT's especially AP Records report hepatitis but denies and [facility] reveal no record of viral hepatitis - obtaining USG and surgical consultation DM OOC Non-compliance ETOH abuse hx Meth use hx Kidney mass vs abscess on CT scan Plan: Abx empiric Urology and Surgery services appreciated Pain control Insulin HGA1C 12 Diagnosis/Problems Diagnosis/Problems (1) Right kidney mass Status: Acute (2) Pyelonephritis Status: Acute (3) Elevated liver enzymes Status: Acute (4) Elevated alkaline phosphatase level Status: Acute (5) Uncontrolled diabetes mellitus Status: Chronic Qualifiers: Diabetes mellitus type: type 2 Glycemic state: with hyperglycemia Qualified Codes: E11.65 - Type 2 diabetes mellitus with hyperglycemia (6) History of alcoholism Status: Chronic (7) History of methamphetamine abuse Status: Chronic (8) Hydronephrosis Status: Acute Qualifiers: Hydronephrosis type: unspecified Qualified Codes: N13.30 - Unspecified hydronephrosis (9) Hepatitis C Status: Chronic Qualifiers: Viral hepatitis chronicity: unspecified Hepatic coma status: without hepatic coma Qualified Codes: B19.20 - Unspecified viral hepatitis C without hepatic coma Clinical Quality Measures DVT/VTE Risk/Contraindication: Risk Factor Score Per Nursin RFS Level Per Nursing on Admit: 2=Moderate JUSTIN CARLISLE STUDENT 09/11/18 1046: Subjective HPI/CC On Admission CC: Pyelonephritis, Uncontrolled Diabetes, Hyponatremia HPI: Patient states that she is still having significant pain in her right lower quadrant. She states that she slept well las night and had a good breakfast this morning. She reports feeling a little nauseated but no vomiting or diarrhea. The patient has not had a bowel movement since or Monday. She has not experienced any shortness of breath. Objective Exam General Appearance: No Apparent Distress, WD/WN Neck: Full Range of Motion, Non Tender Respiratory: Chest Non Tender, Lungs Clear, Normal Breath Sounds, No Accessory Muscle Use, No Respiratory Distress Cardiovascular: Regular Rate, Rhythm, No Edema, No Gallop, No JVD, No Murmur, Normal Peripheral Pulses Gastrointestinal: Tenderness Neurologic/Psychiatric: Alert, Oriented x3, No Motor/Sensory Deficits, Normal Mood/Affect Skin: Normal Color, Warm/Dry Lymphatic: No Adenopathy Assessment/Plan Assessment and Plan Assess & Plan/Chief Complaint Assessment: 1) Pyelonephritis 2) Diabetes Myelitis type II 3) Hepatitis C Plan: 1) continue empiric antibiotics DANUTA CATHERINE DO Sep 11, 2018 10:19 JUSTIN CARLISLE MED STUDENT Sep 11, 2018 10:46
[2018-09-11] MEDS ORDERED: ENAL10TA PO (11:16)
[2018-09-11] MEDS ORDERED: LACT20SO2 PO (11:16)
[2018-09-11] MEDS ORDERED: NEED-474 MC (11:16)
[2018-09-11] MEDS ORDERED: AMLO5TAB7 PO (11:16)
[2018-09-11] MEDS ORDERED: INSU100I29 SQ (11:16)
[2018-09-11] MEDS ORDERED: CEFD300C3 PO (11:16)
[2018-09-11] MEDS ORDERED: INSU100I14 SQ (11:16)
[2018-09-11] MEDS: LACTULOSE SYRUP 10GM/15ML (ENULOSE) 30ML UDC PO SCH ×2 (11:33→21:33)
[2018-09-11 12:00] VITALS: BP 150/77
--- NOTE | 2018-09-11 13:35 | Physical Therapy Evaluation ---
PT Evaluation-General Medical Diagnosis Admission Date Sep 09, 2018 at 04:00 Medical Diagnosis: pyelonephritis Onset Date: Sep 09, 2018 Therapy Diagnosis Therapy Diagnosis: pyelonephritis Height/Weight Height (Feet): 5 Height (Inches): 1.00 Weight (Pounds): 195 Weight (Ounces): 12.0 Precautions Precautions/Isolations: Standard Precautions Weight Bear Status Right Lower Extremity: Right Full Weight Bearing Left Lower Extremity: Left Full Weight Bearing Referral Physician: Evaristo Reason for Referral: Evaluation/Treatment Medical History Pertinent Medical History: DM Additional Medical History Meth use, ETOH abuse, Hep C, Current History Patient admitted to hospital for R mid to upper quadrant abdominal pain. Social History Home: Single Level Current Living Status: Spouse Entry Into Home: Stairs With Railing PT Steps Into Home: 3 Prior/Core FIM Prior Level of Function Functional [place] Measure 0=Not Assessed/NA 4=Minimal Assistance 1=Total Assistance 5=Supervision or Setup 2=Maximal Assistance 6=Modified [place] 3=Moderate Assistance 7=Complete IndependenceIRFPAI Quality Coding Scale 6 Independent with activity with or without an assistive device 5 Patient requires set up or clean up by helper. Patient completes activity by themselves 4 Supervision or touching assist (CGA). [place] provide cues , steadying assist 3 The helper provides less than half the effort to complete the activity 2 The helper provides more than half the effort to complete the activity 1 Dependent. The helper does all the effort to complete an activity 7 Patient refused to complete or attempt activity 9 The patient did not perform the activity before the current illness or injury 88 Not attempted due to Medical conditions or safety concerns Bed Mobility: 7 Transfers (B,C,W/C) (FIM): 7 Gait: 7 Stairs: 7 PT Evaluation-Current Subjective Patient was awake in bed eating lunch when PT arrived. Pt agreed to evaluation with PT. Pain Numeric Pain Scale: 0-No Pain Location: No Pain Reported Objective Patient Orientation: Normal For Age Problem Solving: Good Attachments: Leon Catheter, IV ROM/Strength ROM Upper Extremities WNL ROM Lower Extremities WNL Strength Upper Extremities WNL Strength Lower Extremities WNL Integumentary/Posture Bowel Incontinence: No Bladder Incontinence: No Neuromuscular (Tone, Coordination, Reflexes) Tone, coordination, and reflexes WNL Sensory Vision: Functional Hearing: Functional Sensation Right Upper Extremit: Intact Sensation Left Upper Extremity: Intact Sensation Right Lower Extremit: Intact Sensation Left Lower Extremity: Intact Transfers Functional [place] Measure 0=Not Assessed/NA 4=Minimal Assistance 1=Total Assistance 5=Supervision or Setup 2=Maximal Assistance 6=Modified [place] 3=Moderate Assistance 7=Complete [place] Transfers (B, C, W/C) (FIM): 7 Scootin Rollin Supine to/from Sit: 7 Sit to/from Stand: 7 Gait Mode of Locomotion: Walk Anticipated Mode of Locomotion: Walk Gait (FIM): 7 Distance (FIM): 3=150 ft Distance: 200' Gait Level of Assist: 7 Gait Persons Needed: 0 Gait Assistive Device: None Balance Sitting Static: Normal Sitting Dynamic: Normal Standing Static: Good Standing Dynamic: Good Assessment/Needs Patient was able to ambulate for 200' feet without showing signs of fatigue but did use railing along wall to guide herself. Patient reported she uses rails at home as precaution when she feels dizzy but states she does not experiences symptoms often. Rehab Potential: Good PT Plan Problem List Problem List: Other Treatment/Plan Treatment Plan: Discontinue PT Treatment Plan: Other Treatment Duration: Sep 11, 2018 Frequency: 1 time per week Estimated Hrs Per Day: .25 hour per day Patient and/or Family Agrees t: Yes Time/GCodes Time In: 1311 Time Out: 1327 Total Billed Treatment Time: 16 Total Billed Treatment 1 visit EVLowC - 16 mins KARMEN SAWANT PT Sep 11, 2018 13:35
--- NOTE | 2018-09-11 14:42 | Progress Note (SOAP) ---
Subjective Date Seen by a Provider: Sep 11, 2018 Time Seen by a Provider: 13:30 Subjective/Events-last exam right-sided abdominal pain improved but still bothersome. Gallbladder ultrasound negative for stones. Liver enzymes trending up. Review of Systems General: No Chills, No Night Sweats, No Fatigue, No Malaise HEENT: No Head Aches, No Visual Changes, No Eye Pain, No Ear Pain, No Dysphasia , No Sinus Congestion, No Post Nasal Drip, No Sore Throat, No Other Cardiovascular: No: Chest Pain, Palpitations, Orthopnea, Paroxysmal Noc. Dyspnea, Edema, Lt Headedness Gastrointestinal: Abdominal Pain Genitourinary: Retention Musculoskeletal: No: other, neck pain, shoulder pain, arm pain, back pain, hand pain, leg pain, foot pain Neurological: No: Weakness, Numbness, Incoordination, Change in speech, Confusion, Seizures, Other Objective Exam Vital Signs Date Time Temp Pulse Resp B/P (MAP) Pulse Ox O2 Delivery O2 Flow Rate FiO2 09/11/18 12:00 98.1 87 16 150/77 (101) 98 Room Air 09/11/18 07:57 97.5 88 18 154/78 (103) 100 Room Air 09/11/18 06:54 148/80 (102) 09/11/18 04:00 97.1 94 16 174/87 (116) 98 Room Air 09/10/18 23:56 97.1 91 16 145/77 (99) 96 Room Air 09/10/18 21:00 98 Room Air 09/10/18 20:00 97.7 97 20 160/82 (108) 98 Room Air 09/10/18 15:52 97.8 91 18 147/73 (97) 99 Room Air I & O 09/11/18 07:00 Intake Total 6072 ml Output Total 2475 ml Balance 3597 ml Capillary Refill : Less Than 3 Seconds General Appearance: Anxious Respiratory: Lungs Clear Cardiovascular: Regular Rate, Rhythm Gastrointestinal: soft Extremity: Normal Inspection Neurologic/Psychiatric: Alert, Oriented x3 Skin: Warm/Dry Results Lab Laboratory Tests 09/10/18 17:17: Glucometer 233H 09/10/18 21:00: Glucometer 269H 09/11/18 04:23: White Blood Count 4.7, Red Blood Count 3.48L, Hemoglobin 9.0L, Hematocrit 28L, Mean Corpuscular Volume 79L, Mean Corpuscular Hemoglobin 26, Mean Corpuscular Hemoglobin Concent 33, Red Cell Distribution Width 14.4, Platelet Count 214, Mean Platelet Volume 10.6H, Neutrophils (%) (Auto) 60, Lymphocytes (%) (Auto) 29 , Monocytes (%) (Auto) 9, Eosinophils (%) (Auto) 2, Basophils (%) (Auto) 0, Neutrophils # (Auto) 2.8, Lymphocytes # (Auto) 1.4, Monocytes # (Auto) 0.4, Eosinophils # (Auto) 0.1, Basophils # (Auto) 0.0, Sodium Level 135, Potassium Level 3.9, Chloride Level 109H, Carbon Dioxide Level 18L, Anion Gap 8, Blood Urea Nitrogen 16, Creatinine 0.81, Estimat Glomerular Filtration Rate > 60, BUN/ Creatinine Ratio 20, Glucose Level 182H, Calcium Level 8.3L, Corrected Calcium 9.3, Total Bilirubin 0.4, Aspartate Amino Transf (AST/SGOT) 142H, Alanine Aminotransferase (ALT/SGPT) 172H, Alkaline Phosphatase 993H, Total Protein 6.4, Albumin 2.7L 09/11/18 06:14: Glucometer 181H 09/11/18 09:50: Prothrombin Time 13.2, INR Comment 1.0, Ammonia 34H 09/11/18 10:58: Glucometer 192H Assessment/Plan Assessment/Plan Assess & Plan/Chief Complaint lady with multiple medical problems including uncontrolled diabetes, evidence of possible pyelonephritis. Hepatic dysfunction with elevated liver enzymes. Reasonable to obtain a gallbladder ultrasound to rule out gallstones. Should they be discovered, she will require an endoscopic ultrasound to evaluate the common bile duct. Otherwise, she could be managed on the lines of hepatic dysfunction. I've also requested the hepatitis status to be ascertained by current laboratory analysis. lady with confirmed hepatitis . Elevated liver enzymes, possibly due to active hepatitis. Pyelonephritis, on appropriate antibiotics. Reasonable to obtain an evaluation by a lidding machine operator. This could be arranged as an outpatient Final Diagnosis elevated liver enzymes. Pyelonephritis. Hepatitis C Clinical Quality Measures DVT/VTE Risk/Contraindication: Risk Factor Score Per Nursin RFS Level Per Nursing on Admit: 2=Moderate CRISTOFER VINES MD Sep 11, 2018 14:42
[2018-09-11 16:00] VITALS: BP 171/77
[2018-09-11] MEDS ORDERED: ACHD5005 PO (16:48)
[2018-09-11 20:04] VITALS: BP 179/83
[2018-09-11] MEDS ORDERED: BETHANECHOL 25 MG (URECHOLINE) TAB PO ONE (20:30)
[2018-09-11] MEDS ORDERED: PHENAZOPYRIDINE 100 MG (PYRIDIUM) TABLET PO ONE (20:30)
[2018-09-11] MEDS: inSUlin DETERMIR 1 UNIT/0.01 ML (LEVEMIR) CHARGE PER UNIT SQ SCH (21:34)
[2018-09-12 00:03] VITALS: BP 155/82
[2018-09-12] MEDS: PIPERACILLIN/TAZO 4.5 GM/NS 100 ML IV SCH ×4 (02:23→11:43)
[2018-09-12 04:00] VITALS: BP 137/84
[2018-09-12] MEDS: HYDROcodone/APAP 5 MG/325 MG (LORTAB) TAB PO PRN ×2 (04:00→11:56)
[2018-09-12] MEDS: inSUlin ASPART (NovoLOG) 1 UNIT/0.01 ML (CHARGE PER UNIT) SC SCH ×2 (06:04→11:16)
[2018-09-12] MEDS: metFORMIN 500 MG (GLUCOPHAGE) TAB PO SCH (06:04)
[2018-09-12] MEDS: BETHANECHOL 25 MG (URECHOLINE) TAB PO SCH ×2 (07:16→11:43)
[2018-09-12] MEDS: PHENAZOPYRIDINE 100 MG (PYRIDIUM) TABLET PO SCH ×2 (07:56→13:17)
[2018-09-12] MEDS: SIMETHICONE 80 MG (MYLICON) CHEW PO SCH ×2 (07:56→13:18)
[2018-09-12 08:50] VITALS: BP 162/89
[2018-09-12] MEDS: ENALAPRIL 10 MG (VASOTEC) TAB PO SCH (09:07)
[2018-09-12] MEDS: amLODIPine 5 MG (NORVASC) TAB PO SCH (09:07)
[2018-09-12] MEDS: LACTULOSE SYRUP 10GM/15ML (ENULOSE) 30ML UDC PO SCH (09:08)
[2018-09-12 12:00] VITALS: BP 140/72
--- NOTE | 2018-09-12 13:20 | Discharge Instructions ---
Discharge Inst-[facility] Discharge Medications New Medications: Cefdinir (Cefdinir) 300 Mg Capsule 300 MG PO BID, #10 CAP Insulin Aspart (Novolog Flexpen) 300 Units/3 Ml Solution 10 UNITS SQ AC, #5 EA Insulin Detemir (Levemir Flextouch) 100 Unit/1 Ml Insuln.pen 20 UNIT SQ HS, #5 EA [place], Insulin Disposable (Advocate Pen [place]) 1 Each Dis.needle EACH MC ACHS for Hyperglycemia, #100 Amlodipine Besylate (Amlodipine Besylate) 5 Mg Tablet 5 MG PO DAILY, #30 TAB Enalapril Maleate (Enalapril Maleate) 10 Mg Tablet 10 MG PO DAILY, #30 TAB Hydrocodone Bit/Acetaminophen (Hydrocodone/Acetaminophen 5/325mg Tablet) 1 Tab Tab 1 TAB PO Q4H PRN for PAIN-MODERATE, #15 TAB Lactulose (Lactulose) 20 Gm/30 Ml Solution 10 GM PO BID, #8 OZ Continued Medications: Ibuprofen (Advil) 200 Mg Tablet 600 MG PO TID PRN for PAIN-MILD, TAB (This prescription has been renewed) Loratadine (Claritin) 10 Mg Tablet 10 MG PO DAILY PRN for ALLERGIES, TAB (This prescription has been renewed) Simethicone (Gas-X) 125 Mg Tab.chew 125 MG PO UD PRN for GAS, TAB (This prescription has been renewed) Discontinued Medications: Acetaminophen (Tylenol Extra Strength) 500 Mg Tablet 1000 MG PO Q6H PRN for PAIN-MILD, TAB Patient Instructions Goal/Follow Up Appt: Follow up with at [facility] with Mariana Clifton APRN on 09/18/18 at 1:20pm Activity & Diet Discharge Diet: ADA Diet Orders-Post D/C & Referrals Pneu Vac Indicated: Yes DOMINGA MOYA DO Sep 12, 2018 13:20
--- NOTE | 2018-09-12 13:28 | Discharge Summary ---
Diagnosis/Chief Complaint Date of Admission Sep 09, 2018 at 04:00 Date of Discharge Sep 12, 2018 Admission Diagnosis Admission Diagnosis 1. Pyelonephritis as evidenced by imaging 2. Diabetes mellitus 3. Hepatitis C history of 4. Hypertension Discharge Diagnosis 1. Acute pyelonephritis - UA consistent with infection though no culture done; CT and US imaging consistent with pyelonephritis - treated with Zosyn IV - Rx for Cefdinir on DC 2. Kidney mass vs abscess/inflammatory process on CT scan - will need f/u CT as outpatient 3. Elevated LFT's especially AP - gallbladder US negative for acute pathology - Records report hepatitis but denies and [facility] reveal no record of viral hepatitis- obtaining USG and surgical consultation 4. Hepatitic C Ab+ - Hep C antibody positive, pt reports hx of IVDU years ago but was unaware of Hep C diagnosis - will need Hep C viral load/quant and genotype if positive - can refer to Dr. Perez for Hep C treatment if active Hep C status 5. DM Type 2, uncontrolled, insulin requiring - initiated on Metformin, which can be titrated up to 1000mg BID as out-patient - initiated Levemir 20 units qhs and Novolog 10 units with meals - BS still high but improved since admission 6. Hypertension - started on Lisinopril 10mg and amlodipine 5mg daily 7. Urinary retention - seen in consultation by Dr. Junior who started bethanechol - retention has improved on DC 8. ERROL - initial Cr 1.14 -->0.81 at [place] Non-compliance ETOH abuse hx Meth use hx Chief Complaint/HPI Chief Complaint/HPI 47-year-old female presents to [facility] emergency department with chief complaint of right mid to upper quadrant abdominal pain. She has had the pain for over a month but apparently worsened over the past week. She does admit to nausea. She has had no fever or vomiting. She has had pyelonephritis in 2006. She reports she has not had any gallbladder issues in the past. She reports not taking her medications for her diabetes for quite some time due to finances. She admits that this is probably not very smart and she will get back on taking her medical regiment. Discharge Summary-Simple/Stand Consultations Discharge Physical Examination Allergies: Coded Allergies: etodolac (Verified Allergy, Unknown, 02/13/06) latex (Unverified Allergy, Unknown, 12/01/14) morphine (Unverified Adverse Reaction, Mild, itching, 12/01/14) Uncoded Allergies: plastic tape (Allergy, Severe, skin peeling off, 09/09/18) Vitals & I&Os Vital Sign - Last 12Hours Date Time Temp Pulse Resp B/P (MAP) Pulse Ox O2 Delivery O2 Flow Rate FiO2 09/12/18 12:30 96.7 09/12/18 09:00 Room Air 09/12/18 08:50 94 20 162/89 (113) 98 Intake and Output 09/12/18 00:00 Intake Total 1450 ml Output Total 1650 ml Balance -200 ml General Appearance: Alert, Oriented X3, Cooperative Hospital Course See final discharge diagnosis. Radiology Reviewed NAME: PIPPA RAINEY [facility] REC#: [id number] PT STATUS: ADM IN : 1970 PHYSICIAN: JUN TINOCO DO ADMIT DATE: 09/09/18/ICU Draft Date of Exam:09/09/18 CT ABD/PELV W (APPENDICITIS) PROCEDURE: CT abdomen and pelvis with contrast, rule out appendicitis. TECHNIQUE: Multiple contiguous axial images were obtained through the abdomen and pelvis after the administration of intravenous contrast. INDICATION: Right lower quadrant pain There are no prior CT studies available for comparison. The gallbladder ultrasound exam performed on 12/01/2014 noted hepatomegaly but failed to show any sign of an acute abnormality. The pelvic ultrasound exam of 12/07/2012 was unremarkable for an acute abnormality. On this exam the right renal pelvis and right ureter are distended. There is no sign of an obstructive calculus however. There is distortion of the perinephric fat about the right kidney and there is a complex 2.7 x 3.1 CM area of mixed density along the anterior aspect of the inferior pole of the right kidney. This could be related to a renal abscess. A neoplastic mass could also present in this manner. The postcontrast images also reveal that there is some debris within the dilated renal pelvis. This may be related to infection and/or hemorrhage. The left kidney and left renal pelvis are unremarkable. The urinary bladder itself is markedly distended. The appendix was not particularly well-visualized but there are no indirect signs of acute appendicitis. The uterus is not enlarged. There is no pelvic mass or free fluid collection noted. There is a 2.3 CM defect in the anterior abdominal wall in the region of the umbilicus. An 8.9 x 6.0 CM collection of mesenteric fat has extended through the defect. There is no incarceration or obstruction of bowel by the hernia however. As noted on the previous ultrasound exam the liver is enlarged. There is no focal mass involving the liver and the biliary tree is not abnormally dilated. The spleen is also prominent measuring 13.3 CM in length. The adrenals, the gallbladder, the pancreas, aorta and inferior vena cava show no sign of an acute abnormality. The stomach is partially filled with particulate matter and consequently difficult to assess. The lung bases are generally clear. The heart is not enlarged but there are dense coronary calcifications involving the LAD. The bone windows show no sign of a fracture or of a destructive lesion. IMPRESSION: 1. There is dilatation of the right ureter and right renal pelvis and distortion of the pericolonic fat. There is no sign of an obstructive calculus however. The appearance of the right kidney could be secondary to pyelonephritis and there is a question of a renal abscess. The complex lesion involving the anterior aspect of the inferior pole of the right kidney could also be neoplastic in nature. A urologic consult would be recommended. 2. There is marked distention of the urinary bladder by urine. 3. There is a ventral hernia with a sizable amount of mesenteric fat extending through the hernia. There is no sign of a bowel obstruction. 4. There is no acute abnormality of the abdomen or pelvis otherwise. 5. There is hepatomegaly and the spleen is prominent. 6. There is coronary artery disease. Dictated on workstation # [id number] Dict: 09/09/18621 Trans: 09/09/18 0819 [facility] [id number] Interpreted by: TOYIN VERAS MD Electronically signed by: Discharge Instructions to patient/family Please see electronic discharge instructions given to patient. Discharge [facility] Discharge Medications New Medications: Cefdinir (Cefdinir) 300 Mg Capsule 300 MG PO BID, #10 CAP Insulin Aspart (Novolog Flexpen) 300 Units/3 Ml Solution 10 UNITS SQ AC, #5 EA Insulin Detemir (Levemir Flextouch) 100 Unit/1 Ml Insuln.pen 20 UNIT SQ HS, #5 EA Benedict, Insulin Disposable (Advocate Pen Benedict) 1 Each Dis.needle EACH ACHS for Hyperglycemia, #100 Amlodipine Besylate (Amlodipine Besylate) 5 Mg Tablet 5 MG PO DAILY, #30 TAB Enalapril Maleate (Enalapril Maleate) 10 Mg Tablet 10 MG PO DAILY, #30 TAB Hydrocodone Bit/Acetaminophen (Hydrocodone/Acetaminophen 5/325mg Tablet) 1 Tab Tab 1 TAB PO Q4H PRN for PAIN-MODERATE, #15 TAB Lactulose (Lactulose) 20 Gm/30 Ml Solution 10 GM PO BID, #8 OZ Continued Medications: Ibuprofen (Advil) 200 Mg Tablet 600 MG PO TID PRN for PAIN-MILD, TAB (This prescription has been renewed) Loratadine (Claritin) 10 Mg Tablet 10 MG PO DAILY PRN for ALLERGIES, TAB (This prescription has been renewed) Simethicone (Gas-X) 125 Mg Tab.chew 125 MG PO UD PRN for GAS, TAB (This prescription has been renewed) Discontinued Medications: Acetaminophen (Tylenol Extra Strength) 500 Mg Tablet 1000 MG PO Q6H PRN for PAIN-MILD, TAB Patient Instructions Goal/Follow Up Appt: Follow up with at [facility] with Mariana Clifton APRN on 09/18/18 at 1:20pm Activity & Diet Discharge Diet: ADA Diet Orders-Post D/C & Referrals Pneu Vac Indicated: Yes Discharge Medications Reviewed and agree with Discharge Medication list on patient's Discharge Instruction sheet Clinical Quality Measures DVT/VTE Risk/Contraindication: Risk Factor Score Per Nursin RFS Level Per Nursing on Admit: 2=Moderate DOMINGA MOYA DO Sep 12, 2018 13:28
[2018-09-12 15:10] VITALS: BP 140/72
== END 2018-09-12 15:10 | disposition home or self-care (01) | DRG 689 ==
LOC: EDUNIT# 00:19 → ER 00:19 → UNDOADMIN 04:00 → ICU 04:00 → 4TH 12:30
PROVIDERS: ADMIT Family Medicine; ATTEND Family Medicine
DX: N10 Acute pyelonephritis (principal); E11.00 Type 2 diabetes mellitus with hyperosmolarity without nonketotic hyperglycemic-hyperosmolar coma (NKHHC); B18.2 Chronic viral hepatitis C; E87.1 Hypo-osmolality and hyponatremia; N15.1 Renal and perinephric abscess; N17.9 Acute kidney failure, unspecified; N28.9 Disorder of kidney and ureter, unspecified; N13.30 Unspecified hydronephrosis; R33.9 Retention of urine, unspecified; I25.2 Old myocardial infarction; I25.10 Atherosclerotic heart disease of native coronary artery without angina pectoris; I10 Essential (primary) hypertension; F90.9 Attention-deficit hyperactivity disorder, unspecified type; M79.7 Fibromyalgia; M19.91 Primary osteoarthritis, unspecified site; M32.9 Systemic lupus erythematosus, unspecified; E78.5 Hyperlipidemia, unspecified; F10.20 Alcohol dependence, uncomplicated; K43.9 Ventral hernia without obstruction or gangrene; Z95.5 Presence of coronary angioplasty implant and graft; Z87.891 Personal history of nicotine dependence; Z91.19 Patient's noncompliance with other medical treatment and regimen; Z79.4 Long term (current) use of insulin; Z87.440 Personal history of urinary (tract) infections
CPT/HCPCS: 36415; 36600; 74022; 74177; 76705; 80053; 80074; 80306; 80320; 81000; 82140; 82150; 82805; 82962; 83036; 83690; 84075; 84080; 84703; 85025; 85610; 86703; 93975; 96361; 96374; 96375

== ENCOUNTER 2019-11-21 10:33 | Inpatient (IN) | payer SELFPAY ==
[~2019-11-21] VITALS: Ht 154 cm; Wt 82.2 kg
[~2019-11-21 10:33] MED LIST changes: +ACET-2267 PO; +ACHD5005 PO; +AMLO5TAB9 PO; +CEFD300C3 PO; +ENAL10TA PO; +IBUP-30 PO; +INSU100I29 SQ; +LACT20SO2 PO; +LORA10TA76 PO; +NEED-474 MC; +SIME125T PO
--- NOTE | 2019-11-21 11:44 | ED Abdominal Pain ---
General Chief Complaint: Abdominal/GI Problems Stated Complaint: ABD PAIN/NAUSEA Nursing Triage Note: ONSET ABD PAIN ON AND OFF FOR 1 MONTH LAST SEVERAL DAY HAS GOT WORSE. DX WITH UTI 1 MONTH AGO C/O BEING DIZZY TODAY. HAS HAD THAT IN THE PAST. HAS HAD THIS IN THE PAST AND TOLD BY TO TAKE MIRLAX Sepsis Screen: No Definite Risk Source of Information: Patient Exam Limitations: No Limitations History of Present Illness Date Seen by Provider: Nov 21, 2019 Time Seen by Provider: 11:39 Initial Comments 49-year-old female who presents to the emergency room with complaints of intermittent abdominal pain for the past month but for the last 2 days has become worse. She describes the pain as cramping and it is periumbilical. The pain does not radiate anywhere. She reports that she recently had a urinary tract infection around November 06, 2019. She also complains of unilateral left- sided lower extremity swelling for the past 3 weeks. She has been seen and evaluated and was started on gabapentin for neuropathy. She denies pain to the left lower extremity. There is no redness and there is a negative Homans sign. Timing/Duration: Other (1 month) Associated Symptoms: Denies Symptoms Allergies and Home Medications Allergies Coded Allergies: etodolac (Verified Allergy, Unknown, 02/13/06) latex (Unverified Allergy, Unknown, 12/01/14) morphine (Unverified Adverse Reaction, Mild, itching, 12/01/14) Uncoded Allergies: plastic tape (Allergy, Severe, skin peeling off, 09/09/18) Home Medications Amlodipine Besylate 5 Mg Tablet, 5 MG PO DAILY Prescribed by: DANUTA CATHERINE on 09/11/18 111 Cefdinir 300 Mg Capsule, 300 MG PO BID Prescribed by: DANUTA CATHERINE on 09/11/18 111 Enalapril Maleate 10 Mg Tablet, 10 MG PO DAILY Prescribed by: DANUTA CATHERINE on 09/11/18 111 Hydrocodone Bit/Acetaminophen 1 Tab Tab, 1 TAB PO Q4H PRN for PAIN-MODERATE Prescribed by: DANUTA CATHERINE on 09/11/18 1648 Ibuprofen 200 Mg Tablet, 600 MG PO TID PRN for PAIN-MILD, (Reported) Insulin Aspart 300 Units/3 Ml Solution, 10 UNITS SQ AC Prescribed by: DANUTA CATHERINE on 09/11/18 111 Insulin Detemir 100 Unit/1 Ml Insuln.pen, 20 UNIT SQ HS Prescribed by: DANUTA CATHERINE on 09/11/181115 Lactulose 20 Gm/30 Ml Solution, 10 GM PO BID Prescribed by: DANUTA CATHERINE on 09/11/18 111 Loratadine 10 Mg Tablet, 10 MG PO DAILY PRN for ALLERGIES, (Reported) Simethicone 125 Mg Tab.chew, 125 MG PO UD PRN for GAS, (Reported) Patient Home Medication List Home Medication List Reviewed: Yes Review of Systems Review of Systems Constitutional: see HPI; No chills, No fever Gastrointestinal: See HPI, Abdominal Pain, Nausea, Vomiting Musculoskeletal: see HPI, other (left leg swelling) All Other Systems Reviewed Negative Unless Noted: Yes Past Fxvhhig-Qlahah-Mwkhba Hx Past Med/Social Hx: Reviewed Nursing Past Med/Soc Hx Patient Social History Alcohol Use: Occasionally Uses Number of Drinks Today: Alcohol Beverage of Choice: Beer, Wine, Cheap Liquor Recreational Drug Use: No Smoking Status: Former Smoker Type Used: Cigarettes Former Smoker, Quit: Sep 09, 2008 2nd Hand Smoke Exposure: No Recent Foreign Travel: No Contact w/Someone Who Travel: No Recent Infectious Disease Expo: No Recent Hopitalizations: No Immunizations Up To Date Tetanus Booster (TDap): Unknown PED Vaccines UTD: No Seasonal Allergies Seasonal Allergies: No Past Medical History Surgeries: Yes (C SECTION X 2; CARDIAC CATH--STENT X 1; RIGHT SHOULDER SURGERY) Section, Coronary Stent, Orthopedic Respiratory: No Cardiac: Yes ([place] 2011-CARDIAC CATH WITH STENT X 1) Coronary Artery Disease, Heart Attack, High Cholesterol, Hypertension Neurological: No Neuropathy Reproductive Disorders: No Female Reproductive Disorders: Denies Genitourinary: Yes Kidney Infection Gastrointestinal: Yes (HEPATITIS C--NO TREATMENT; VENTRAL HERNIA--NO SURGERY) Abdominal Hernia, Hepatitis Musculoskeletal: Yes (RIGHT SHOULDER SURGERY) Arthritis, Fibromyalgia Endocrine: Yes Diabetes, Insulin dep, Lupus HEENT: No Cancer: No Psychosocial: Yes (ADD) ADD/ADHD Integumentary: No Blood Disorders: No Family Medical History Reviewed Nursing Family Hx Arthritis 19 MOTHER, Onset:Unknown FH: COPD (chronic obstructive pulmonary disease) 19 MOTHER, Onset:Unknown FH: uterine cancer 19 MOTHER, Onset:Unknown No Family History of: AIDS Abdominal aortic aneurysm Noé's disease Alcoholism Alzheimer's disease Aphasia Asthma Cancer of mouth Cardiovascular disease Cataracts Colon cancer Completed stroke Congenital disease Congenital heart disease Coronary thrombosis Cystic fibrosis Deafness or hearing loss Dementia Diabetes mellitus Drug abuse Dysphasia Fibrocystic disease of breast Gastroenteritis Glaucoma Headache disorder Hypercholesterolemia Hypertension Infertility Kidney disease Myocardial infarction Neoplasm Not obtainable due to adoption Osteoporosis Parkinson's disease Prostate cancer Psychosocial problem Respiratory disorder Seizure disorder Severe allergy Thyroid disease Tuberculosis Visual disorder Physical Exam Vital Signs Vital Signs - First Documented 11/21/19 11:07 Temp 37.8 Pulse 101 Resp 18 B/P (MAP) 156/79 (104) Pulse Ox 95 O2 Delivery Room Air Capillary Refill : Less Than 3 Seconds Height/Weight/BMI Height: 5'1.00" Weight: 202lbs. 12.0oz. 91.989135ha; 33.00 BMI Method:Stated General Appearance: WD/WN, no apparent distress Respiratory: chest non-tender, lungs clear, normal breath sounds, no res piratory distress, no accessory muscle use Cardiovascular: normal peripheral pulses, regular rate, rhythm, no edema, no gallop, no JVD, no murmur Gastrointestinal: normal bowel sounds, soft, tenderness (periumbilical tenderness) Extremities: normal capillary refill Neurologic/Psychiatric: alert, normal mood/affect, oriented x 3 Skin: normal color, warm/dry, other (pitting edema to the left leg that extends from the foot to the knee. Negative Homans sign. No area of redness or tenderness seen.) Progress/Results/Core Measures Results/Orders Lab Results Laboratory Tests Test 11/21/19 11:48 11/21/19 12:25 Range/Units White Blood Count 10.5 4.3-11.0 10^3/uL Red Blood Count 5.51 4.35-5.85 10^6/uL Hemoglobin 13.4 11.5-16.0 G/DL Hematocrit 41 35-52 % Mean Corpuscular Volume 75 L 80-99 FL Mean Corpuscular Hemoglobin 24 L 25-34 PG Mean Corpuscular Hemoglobin Concent 32 32-36 G/DL Red Cell Distribution Width 14.9 H 10.0-14.5 % Platelet Count 218 130-400 10^3/uL Mean Platelet Volume 11.3 H 7.4-10.4 FL Neutrophils (%) (Auto) 88 H 42-75 % Lymphocytes (%) (Auto) 7 L 12-44 % Monocytes (%) (Auto) 5 0-12 % Eosinophils (%) (Auto) 0 0-10 % Basophils (%) (Auto) 0 0-10 % Neutrophils # (Auto) 9.2 H 1.8-7.8 X 10^3 Lymphocytes # (Auto) 0.7 L 1.0-4.0 X 10^3 Monocytes # (Auto) 0.5 0.0-1.0 X 10^3 Eosinophils # (Auto) 0.0 0.0-0.3 10^3/uL Basophils # (Auto) 0.0 0.0-0.1 10^3/uL Neutrophils % (Manual) 90 % Lymphocytes % (Manual) 6 % Monocytes % (Manual) 4 % Blood Morphology Comment NORMAL D-Dimer 0.52 H 0.00-0.49 UG/ML Sodium Level 133 L 135-145 MMOL/L Potassium Level 3.7 3.6-5.0 MMOL/L Chloride Level 98 98-107 MMOL/L Carbon Dioxide Level 25 21-32 MMOL/L Anion Gap 10 5-14 MMOL/L Blood Urea Nitrogen 12 7-18 MG/DL Creatinine 1.06 0.60-1.30 MG/DL Estimat Glomerular Filtration Rate 55 BUN/Creatinine Ratio 11 Glucose Level 340 H 70-105 MG/DL Calcium Level 9.1 8.5-10.1 MG/DL Corrected Calcium 9.6 8.5-10.1 MG/DL Total Bilirubin 0.5 0.1-1.0 MG/DL Aspartate Amino Transf (AST/SGOT) 12 5-34 U/L Alanine Aminotransferase (ALT/SGPT) 17 0-55 U/L Alkaline Phosphatase 285 H 40-136 U/L Total Protein 7.8 6.4-8.2 GM/DL Albumin 3.4 3.2-4.5 GM/DL Amylase Level 25 25-125 U/L Lipase 17 8-78 U/L Urine Color YELLOW Urine Clarity CLEAR Urine pH 7.0 5-9 Urine Specific [place] 1.020 1.016-1.022 Urine Protein 3+ H NEGATIVE Urine Glucose (UA) 3+ H NEGATIVE Urine Ketones NEGATIVE NEGATIVE Urine Nitrite NEGATIVE NEGATIVE Urine Bilirubin NEGATIVE NEGATIVE Urine Urobilinogen 0.2 < = 1.0 MG/DL Urine Leukocyte Esterase NEGATIVE NEGATIVE Urine RBC (Auto) 3+ H NEGATIVE Urine RBC 50-100 H /HPF Urine WBC NONE /HPF Urine Squamous Epithelial Cells 0-2 /HPF Urine Crystals NONE /LPF Urine Bacteria TRACE /HPF Urine Casts NONE /LPF Urine Mucus NEGATIVE /LPF Urine Culture Indicated NO My Orders Orders - LENNY LONG Comprehensive Metabolic Panel (11/21/19 11:38) Lipase (11/21/19 11:38) Amylase (11/21/19 11:38) Ua Culture If Indicated (11/21/19 11:38) Ed Iv/Invasive Line Start (11/21/19 11:38) Cbc With Automated Diff (11/21/19 11:38) Ct Abdomen/Pelvis W (11/21/19 11:38) Fibrin Degradation Products (11/21/19 11:38) Ns Iv 1000 Ml (Sodium Chloride 0.9%) (11/21/19 11:45) Fentanyl Injection (Sublimaze Injection (11/21/19 11:45) Ondansetron Injection (Zofran Injectio (11/21/19 11:45) Manual Differential (11/21/19 11:48) Iohexol Injection (Omnipaque 350 Mg/Ml 1 (11/21/19 12:30) Received Contrast (Hold Metformin- Contr (11/21/19 12:30) Sodium Chloride Flush (Catheter Flush Sy (11/21/19 12:30) Ns (Ivpb) (Sodium Chloride 0.9% Ivpb Bag (11/21/19 12:30) Us Venous Lower Ext Lt (11/21/19 12:43) Fentanyl Injection (Sublimaze Injection (11/21/19 14:15) Medications Given in ED Current Medications Medications Dose Ordered Sig/Sisi Route Start Time Stop Time Status Last Admin Dose Admin Fentanyl Citrate 50 mcg ONCE ONCE IVP 11/21/19 11:45 11/21/19 11:47 DC 11/21/19 12:22 50 MCG Iohexol 100 ml ONCE ONCE IV 11/21/19 12:30 11/21/19 12:34 DC 11/21/19 12:57 100 ML Ondansetron HCl 4 mg ONCE ONCE IVP 11/21/19 11:45 11/21/19 11:47 DC 11/21/19 12:22 4 MG Sodium Chloride 10 ml NEEDED PRN IV 11/21/19 12:30 11/21/19 12:57 10 ML Sodium Chloride 100 ml ONCE ONCE IV 11/21/19 12:30 11/21/19 12:34 DC 11/21/19 12:57 80 ML Vital Signs/I&O 11/21/19 11:07 Temp 37.8 Pulse 101 Resp 18 B/P (MAP) 156/79 (104) Pulse Ox 95 O2 Delivery Room Air Blood Pressure Mean: 104 Progress Progress Note : Time: 14:00 Progress Note I have seen and evaluated the patient. I've informed her of her laboratory and imaging studies. She agrees with plans for admission. Diagnostic [facility] [place] [place] NAME: PIPPA RAINEY Fermín [facility] REC#: [id number] PT STATUS: ADM IN : 1970 PHYSICIAN: LENNY LONG ADMIT DATE: 11/21/19 Signed Date of Exam:11/21/19 US VENOUS LOWER EXT LT PROCEDURE: US left lower extremity venous. TECHNIQUE: Multiple real-time grayscale images were obtained over the left lower extremity in various projections. Additional duplex Doppler and color Doppler images were also obtained. INDICATION: Left leg pain. A left common femoral and superficial femoral veins are patent showing normal compressibility. There is occlusive thrombus identified in the popliteal vein extending into the upper calf veins. No fluid collections are seen. IMPRESSION: Left lower extremity occlusive DVT involving the left popliteal vein extending into the calf veins. Dictated by: Dictated on workstation # [id number] Dict: 11/21/19 1352 Trans: 11/21/19 155[facility] [id number] Interpreted by: DANIELLE DECKER MD Electronically signed by: DANIELLE DECKER MD 11/21/19 1551 [facility] [place] [place] NAME: PIPPA RAINEY Fermín [facility] REC#: [id number] PT STATUS: ADM IN : 1970 PHYSICIAN: LENNY LONG ADMIT DATE: 11/21/19 Signed Date of Exam:11/21/19 CT ABDOMEN/PELVIS W INDICATION: Left upper quadrant abdominal pain. TECHNIQUE: Multiple contiguous axial images were obtained through the abdomen and pelvis after administration of intravenous contrast. Auto Exposure Controls were utilized during the CT exam to meet ALARA standards for radiation dose reduction. COMPARISON: Comparison dated 09/09/2018. FINDINGS: Visualized portions of the lung bases are clear. There were no pleural fluid collections. There is no free intraperitoneal air. The liver and gallbladder show no focal lesions. The spleen, adrenals, and pancreas appear normal. The right kidney appears unremarkable, except for a small cyst centrally. The hydronephrotic changes of the right kidney have resolved compared to the prior study. The edematous changes in the inferior pole of the right kidney have resolved compared to the prior study. The left kidney shows inhomogeneity of the nephrogram, especially the lower to midpole, suspicious for pyelonephritis. There is no overt urinary calculus or ureteral stone. There are a few borderline size nodes in the periaortic region of the retroperitoneum which are of questionable significance. The largest measured about 1.2 cm. These are a little larger than the previous study. There is no ascites or abnormal fluid collection. There is a prominent ventral hernia in the periumbilical region containing fat but no loops of bowel. Urinary bladder is distended and contains an air-fluid level, question recent instrumentation or infection with a gas producing organism. IMPRESSION: There is an inhomogeneous nephrogram of the left kidney with low-density changes in the lower pole, suspicious for pyelonephritis. The findings suspicious for polynephritis of the right kidney on 09/09/2018 have resolved as has the right hydronephrosis seen on the previous study. There is a fat-containing periumbilical hernia. There is air in the urinary bladder which may be due to instrumentation or gas producing infection, correlate clinically. Dictated by: Dictated on workstation # [id number] Dict: 11/21/19 1306 Trans: 11/21/19 1452 [id number] Interpreted by: DENISHA NASCIMENTO MD Electronically signed by: DENISHA NASCIMENTO MD 11/21/19 1454 Reviewed: Reviewed by De Departure Communication (Admissions) Time/Spoke to Admitting Phy: 14:[address] Gallegos at this time and she recommends admitting the patient as an inpatient status. Impression Primary Impression: DVT (deep venous thrombosis) Additional Impression: Pyelonephritis Disposition: 01 HOME, SELF-CARE Condition: Stable/Unchanged Admissions Decision to Admit Reason: Admit from ER (General) Decision to Admit/Date: Nov 21, 2019 Time/Decision to Admit Time: 14:00 Departure-Patient Inst. Referrals: [facility] (PCP/Family) Primary Care Physician LENNY LONG Nov 21, 2019 11:44
[2019-11-21] MEDS ORDERED: fentaNYL INJECTION 100 MCG/2 ML AMP IVP ONE ×2 (11:45→14:15)
[2019-11-21] MEDS ORDERED: NS IV 1000 ML 1,000 ML IV SCH (11:45)
[2019-11-21] MEDS ORDERED: ONDANSETRON 4 MG/2 ML (SDV) Z0FRAN IVP ONE (11:45)
[2019-11-21 12:02] LABS: BASOPHILS % (AUTO) 0 % (0-10); EOSINOPHILS % (AUTO) 0 % (0-10); HEMATOCRIT 41 % (35-52); HEMOGLOBIN 13.4 G/DL (11.5-16.0); LYMPHOCYTES # (AUTO) 0.7 X 10^3 (1.0-4.0); LYMPHOCYTES % (AUTO) 7 % (12-44); MEAN CORPUSCULAR HEMOGLOBIN 24 PG (25-34); MEAN CORPUSCULAR HGB CONC 32 G/DL (32-36); MEAN CORPUSCULAR VOLUME 75 FL (80-99); MEAN PLATELET VOLUME 11.3 FL (7.4-10.4); MONOCYTES # (AUTO) 0.5 X 10^3 (0.0-1.0); MONOCYTES % (AUTO) 5 % (0-12); NEUTROPHILS # (AUTO) 9.2 X 10^3 (1.8-7.8); NEUTROPHILS % (AUTO) 88 % (42-75); PLATELET COUNT 218 10^3/uL (130-400); RED CELL DISTRIBUTION WIDTH 14.9 % (10.0-14.5); WHITE BLOOD COUNT 10.5 10^3/uL (4.3-11.0)
[2019-11-21] MEDS ORDERED: CATHETER FLUSH 10 ML SYR IV PRN (12:30)
[2019-11-21] MEDS ORDERED: IOHEXOL 350 MG/ML 100 ML (OMNIPAQUE 350) VIAL IV ONE (12:30)
[2019-11-21] MEDS ORDERED: HOLD METFORMIN - RECEIVED CONTRAST 20 ML VIAL IV SCH (12:30)
[2019-11-21] MEDS ORDERED: NS 100 ML (IVPB) BAG IV ONE (12:30)
[2019-11-21 12:33] LABS: BILIRUBIN,URINE NEGATIVE (NEGATIVE); CLARITY,URINE CLEAR; COLOR,URINE YELLOW; GLUCOSE, URINE (UA) 3+ (NEGATIVE); KETONES,URINE NEGATIVE (NEGATIVE); LEUKOCYTE ESTERASE ,URINE NEGATIVE (NEGATIVE); NITRITE,URINE NEGATIVE (NEGATIVE); PROTEIN,URINE 3+ (NEGATIVE)
[2019-11-21 12:36] LABS: ALBUMIN 3.4 GM/DL (3.2-4.5); BILIRUBIN,TOTAL 0.5 MG/DL (0.1-1.0); CALCIUM 9.1 MG/DL (8.5-10.1); CREATININE SERUM 1.06 MG/DL (0.60-1.30); POTASSIUM 3.7 MMOL/L (3.6-5.0); TOTAL PROTEIN 7.8 GM/DL (6.4-8.2)
[2019-11-21 12:47] LABS: BACTERIA,URINE TRACE /HPF; RBC,URINE 50-100 /HPF; SQUAMOUS EPITHELIAL CELL,UR 0-2 /HPF
[2019-11-21 12:48] LABS: LYMPHOCYTES % (MANUAL) 6 %; MONOCYTES % (MANUAL) 4 %; NEUTROPHILS % (MANUAL) 90 %; RBC MORPH NORMAL
--- NOTE | 2019-11-21 13:20 | Diagnostic Imaging Report ---
INDICATION: Left upper quadrant abdominal pain. TECHNIQUE: Multiple contiguous axial images were obtained through the abdomen and pelvis after administration of intravenous contrast. Auto Exposure Controls were utilized during the CT exam to meet ALARA standards for radiation dose reduction. COMPARISON: Comparison dated 09/09/2018. FINDINGS: Visualized portions of the lung bases are clear. There were no pleural fluid collections. There is no free intraperitoneal air. The liver and gallbladder show no focal lesions. The spleen, adrenals, and pancreas appear normal. The right kidney appears unremarkable, except for a small cyst centrally. The hydronephrotic changes of the right kidney have resolved compared to the prior study. The edematous changes in the inferior pole of the right kidney have resolved compared to the prior study. The left kidney shows inhomogeneity of the nephrogram, especially the lower to midpole, suspicious for pyelonephritis. There is no overt urinary calculus or ureteral stone. There are a few borderline size nodes in the periaortic region of the retroperitoneum which are of questionable significance. The largest measured about 1.2 cm. These are a little larger than the previous study. There is no ascites or abnormal fluid collection. There is a prominent ventral hernia in the periumbilical region containing fat but no loops of bowel. Urinary bladder is distended and contains an air-fluid level, question recent instrumentation or infection with a gas producing organism. IMPRESSION: There is an inhomogeneous nephrogram of the left kidney with low-density changes in the lower pole, suspicious for pyelonephritis. The findings suspicious for polynephritis of the right kidney on 09/09/2018 have resolved as has the right hydronephrosis seen on the previous study. There is a fat-containing periumbilical hernia. There is air in the urinary bladder which may be due to instrumentation or gas producing infection, correlate clinically. Dictated by: Dictated on workstation # [id number]
--- NOTE | 2019-11-21 13:56 | Diagnostic Imaging Report ---
PROCEDURE: US left lower extremity venous. TECHNIQUE: Multiple real-time grayscale images were obtained over the left lower extremity in various projections. Additional duplex Doppler and color Doppler images were also obtained. INDICATION: Left leg pain. A left common femoral and superficial femoral veins are patent showing normal compressibility. There is occlusive thrombus identified in the popliteal vein extending into the upper calf veins. No fluid collections are seen. IMPRESSION: Left lower extremity occlusive DVT involving the left popliteal vein extending into the calf veins. Dictated by: Dictated on workstation # [id number]
[2019-11-21] MEDS ORDERED: PROMETHAZINE INJ 25 MG/ML (PHENERGAN) AMP ONE (14:28)
[2019-11-21] MEDS ORDERED: PROMETHAZINE INJ 25 MG/ML (PHENERGAN) AMP IVP ONE (14:30)
[2019-11-21] MEDS ORDERED: cefTRIAXone FOR IV USE 1,000 MG in WATER (STERILE) FOR INJECTION 10 ML IV ONE (14:30)
--- NOTE | 2019-11-21 14:50 | NUR ---
PT O2 SAT DECREASED FROM PHENERGAN IV, PT PLACED ON O2 @3L PER N/C
--- NOTE | 2019-11-21 15:10 | NUR ---
PT VERY DROWSY WILL MONITOR IN ED UNTIL MORE AWAKE
--- NOTE | 2019-11-21 16:34 | NUR ---
PT MUCH MORE ALERT SAT 94% ON ROOM AIR WILL TRANSFER TO ROOM
--- NOTE | 2019-11-21 17:28 | History & Physical ---
HPI History of Present Illness: Right sided abdominal pain since Aug, worse in last week or two. Vomiting and nausea. No diarrhea, no fever. Left leg swelling since probably before Thanksgi. She is rather drowsy currently after pain medication. Source: patient Exam Limitations: clinical condition Date seen by provider: Nov 21, 2019 Time Seen by Provider: 17:26 Attending Physician Erika Gallegos MD PCP [facility] [place] Consult Date of Admission Nov 21, 2019 at 14:10 Home Medications Home Medications Reviewed patient Home Medication Reconciliation performed by pharmacy medication reconciliations fuel retrofitting technician and/or nursing. Patients Allergies have been reviewed. Allergies Coded Allergies: etodolac (Verified Allergy, Unknown, 02/13/06) latex (Unverified Allergy, Unknown, 12/01/14) morphine (Unverified Adverse Reaction, Mild, itching, 12/01/14) Uncoded Allergies: plastic tape (Allergy, Severe, skin peeling off, 09/09/18) [id number]-Kgabjf Hx Patient Social History Alcohol Use: Occasionally Uses Recreational Drug Use: No Smoking Status: Former Smoker Type Used: Cigarettes 2nd Hand Smoke Exposure: No Recent Foreign Travel: No Contact w/other who traveled: No Recent Hopitalizations: No Recent Infectious Disease Expo: No Immunizations Up To Date Tetanus Booster (TDap): Unknown Past Medical History PMHx: Reported chronic hep C Lupus per patient report Diabetes Coronary artery disease s/p LAD stenting 2011 HTN HLD Alcoholism Surg Hx: x 2 Coronary artery stenting Family Medical History Family History: Arthritis 19 MOTHER, Onset:Unknown FH: COPD (chronic obstructive pulmonary disease) 19 MOTHER, Onset:Unknown FH: uterine cancer 19 MOTHER, Onset:Unknown No Family History of: AIDS Abdominal aortic aneurysm Burnett's disease Alcoholism Alzheimer's disease Aphasia Asthma Cancer of mouth Cardiovascular disease Cataracts Colon cancer Completed stroke Congenital disease Congenital heart disease Coronary thrombosis Cystic fibrosis Deafness or hearing loss Dementia Diabetes mellitus Drug abuse Dysphasia Fibrocystic disease of breast Gastroenteritis Glaucoma Headache disorder Hypercholesterolemia Hypertension Infertility Kidney disease Myocardial infarction Neoplasm Not obtainable due to adoption Osteoporosis Parkinson's disease Prostate cancer Psychosocial problem Respiratory disorder Seizure disorder Severe allergy Thyroid disease Tuberculosis Visual disorder Review of Systems ([facility]) Constitutional: No fever EENTM: No nose congestion, No throat pain Respiratory: No cough, No short of breath Cardiovascular: No chest pain Gastrointestinal: see HPI Genitourinary: No dysuria; hesitancy Musculoskeletal: No joint pain, No muscle pain Skin: No rash Reviewed Test Results Reviewed Test Results Lab Laboratory Tests Test 11/21/19 11:48 11/21/19 12:25 Range/Units White Blood Count 10.5 4.3-11.0 10^3/uL Red Blood Count 5.51 4.35-5.85 10^6/uL Hemoglobin 13.4 11.5-16.0 G/DL Hematocrit 41 35-52 % Mean Corpuscular Volume 75 L 80-99 FL Mean Corpuscular Hemoglobin 24 L 25-34 PG Mean Corpuscular Hemoglobin Concent 32 32-36 G/DL Red Cell Distribution Width 14.9 H 10.0-14.5 % Platelet Count 218 130-400 10^3/uL Mean Platelet Volume 11.3 H 7.4-10.4 FL Neutrophils (%) (Auto) 88 H 42-75 % Lymphocytes (%) (Auto) 7 L 12-44 % Monocytes (%) (Auto) 5 0-12 % Eosinophils (%) (Auto) 0 0-10 % Basophils (%) (Auto) 0 0-10 % Neutrophils # (Auto) 9.2 H 1.8-7.8 X 10^3 Lymphocytes # (Auto) 0.7 L 1.0-4.0 X 10^3 Monocytes # (Auto) 0.5 0.0-1.0 X 10^3 Eosinophils # (Auto) 0.0 0.0-0.3 10^3/uL Basophils # (Auto) 0.0 0.0-0.1 10^3/uL Neutrophils % (Manual) 90 % Lymphocytes % (Manual) 6 % Monocytes % (Manual) 4 % Blood Morphology Comment NORMAL D-Dimer 0.52 H 0.00-0.49 UG/ML Sodium Level 133 L 135-145 MMOL/L Potassium Level 3.7 3.6-5.0 MMOL/L Chloride Level 98 98-107 MMOL/L Carbon Dioxide Level 25 21-32 MMOL/L Anion Gap 10 5-14 MMOL/L Blood Urea Nitrogen 12 7-18 MG/DL Creatinine 1.06 0.60-1.30 MG/DL Estimat Glomerular Filtration Rate 55 BUN/Creatinine Ratio 11 Glucose Level 340 H 70-105 MG/DL Calcium Level 9.1 8.5-10.1 MG/DL Corrected Calcium 9.6 8.5-10.1 MG/DL Total Bilirubin 0.5 0.1-1.0 MG/DL Aspartate Amino Transf (AST/SGOT) 12 5-34 U/L Alanine Aminotransferase (ALT/SGPT) 17 0-55 U/L Alkaline Phosphatase 285 H 40-136 U/L Total Protein 7.8 6.4-8.2 GM/DL Albumin 3.4 3.2-4.5 GM/DL Amylase Level 25 25-125 U/L Lipase 17 8-78 U/L Urine Color YELLOW Urine Clarity CLEAR Urine pH 7.0 5-9 Urine Specific [place] 1.020 1.016-1.022 Urine Protein 3+ H NEGATIVE Urine Glucose (UA) 3+ H NEGATIVE Urine Ketones NEGATIVE NEGATIVE Urine Nitrite NEGATIVE NEGATIVE Urine Bilirubin NEGATIVE NEGATIVE Urine Urobilinogen 0.2 < = 1.0 MG/DL Urine Leukocyte Esterase NEGATIVE NEGATIVE Urine RBC (Auto) 3+ H NEGATIVE Urine RBC 50-100 H /HPF Urine WBC NONE /HPF Urine Squamous Epithelial Cells 0-2 /HPF Urine Crystals NONE /LPF Urine Bacteria TRACE /HPF Urine Casts NONE /LPF Urine Mucus NEGATIVE /LPF Urine Culture Indicated NO Radiology 11/21 venous doppler left leg: IMPRESSION: Left lower extremity occlusive DVT involving the left popliteal vein extending into the calf veins. CT ab/pel 11/21: "IMPRESSION: There is an inhomogeneous nephrogram of the left kidney with low-density changes in the lower pole, suspicious for pyelonephritis. The findings suspicious for polynephritis of the right kidney on 09/09/2018 have resolved as has the right hydronephrosis seen on the previous study. There is a fat-containing periumbilical hernia. There is air in the urinary bladder which may be due to instrumentation or gas producing infection, correlate clinically. Physical Exam-([facility]) Physical Exam Vital Signs VS - Last 72 Hours, by Label 11/21/19 11/21/19 11/21/19 11/21/19 11:07 16:45 17:52 18:19 Temp 37.8 37.2 Pulse 101 88 102 Resp 18 18 20 B/P (MAP) 156/79 (104) 156/79 (104) 162/79 Pulse Ox 95 95 95 95 O2 Delivery Room Air Room Air Room Air Room Air 1/9/20 20:11 Temp 37.0 Pulse 103 Resp 20 B/P (MAP) 176/95 (122) Pulse Ox 95 O2 Delivery Room Air Capillary Refill : Less Than 3 Seconds General Appearance: no apparent distress, other (drowsy) Respiratory: lungs clear, normal breath sounds Cardiovascular: regular rate, rhythm, no murmur Gastrointestinal: normal bowel sounds, soft, tenderness (mild) Extremities: no pedal edema Neurologic/Psychiatric: other (drowsy but arousable and answers questions appropriately) Skin: normal color, warm/dry Assessment/Plan Assessment/Plan Admission Status: Inpatient Order (span 2 midnights) Reason for Inpatient Admission: Pyelonephritis (1) Pyelonephritis Status: Acute Assessment & Plan: Left pyelonephritis on CT. Started on ceftriaxone. (2) Hyponatremia Status: Chronic Assessment & Plan: Has had chronic intermittent hyponatremia at previous visits improved with fluid restriction. Currently at least partially pseudohyponatremia due to hyperglycemia. (3) Elevated alkaline phosphatase level Status: Chronic Assessment & Plan: Liver and gall bladder normal on CT, previous ultrasound also okay. (4) Hyperglycemia due to type 2 diabetes mellitus Status: Acute Assessment & Plan: Diabetic diet, sliding scale insulin (5) DVT (deep venous thrombosis) Status: Acute Assessment & Plan: Started on rivaroxaban Qualifiers: ERIKA GALLEGOS MD Nov 21, 2019 17:28
--- NOTE | 2019-11-21 17:40 | NUR ---
PIPPA RAINEY admitted to room 407-1, with an admitting diagnosis of pyelonephritis , on 11/21/19 from ed via wheelchair, accompanied by staff. PIPPA RAINEY introduced to surroundings, call light, bed controls, phone, TV, temperature control, lights, meal times, smoking policy, visitor policy, side rail policy, bathrooms and showers. Patient Rights given to patient in the handbook. PIPPA RAINEY verbalizes understanding that [facility] is not responsible for the loss or damage to any personal effects or valuables that are kept in the patients possession during their hospitalization. The following Patient Care Plans were discussed with the patient: Discharge Planning, pain management, dehydration, and medications. PIPPA RAINEY verbalizes understanding of Interdisciplinary Patient Education. Patient and/or family were informed about the Rapid Response Team and its purpose.
[2019-11-21 17:52] VITALS: BP 162/79
[2019-11-21] MEDS: RIVAROXABAN 15 MG TABLET (XARELTO) PO SCH (18:34)
[2019-11-21] MEDS: NS IV 1000 ML 1,000 ML IV SCH (18:35)
--- NOTE | 2019-11-21 20:05 | NUR ---
Dr Gallegos notified of pt request for pain medication, orders received.
[2019-11-21 20:11] VITALS: BP 176/95
[2019-11-21] MEDS ORDERED: fentaNYL INJECTION 100 MCG/2 ML AMP ONE (20:14)
[2019-11-21] MEDS: fentaNYL INJECTION 100 MCG/2 ML AMP IVP PRN (20:21)
--- NOTE | 2019-11-21 22:15 | NUR ---
Dr Gallegos notified of pt concern over not having her insulin today. Orders received.
[2019-11-21] MEDS ORDERED: inSUlin ASPART (NovoLOG) 1 UNIT/0.01 ML (CHARGE PER UNIT) SC SCH (22:30)
[2019-11-22] VITALS (7 sets, daily range): BP systolic 67–169; BP diastolic 46–82
[2019-11-22] MEDS: fentaNYL INJECTION 100 MCG/2 ML AMP IVP PRN ×4 (02:21→18:40)
[2019-11-22] MEDS: NS IV 1000 ML 1,000 ML IV SCH ×2 (04:41→16:56)
[2019-11-22 05:35] LABS: BASOPHILS % (AUTO) 0 % (0-10); EOSINOPHILS % (AUTO) 0 % (0-10); HEMATOCRIT 36 % (35-52); HEMOGLOBIN 11.4 G/DL (11.5-16.0); LYMPHOCYTES # (AUTO) 1.3 X 10^3 (1.0-4.0); LYMPHOCYTES % (AUTO) 14 % (12-44); MEAN CORPUSCULAR HEMOGLOBIN 24 PG (25-34); MEAN CORPUSCULAR HGB CONC 31 G/DL (32-36); MEAN CORPUSCULAR VOLUME 75 FL (80-99); MEAN PLATELET VOLUME 11.6 FL (7.4-10.4); MONOCYTES # (AUTO) 0.6 X 10^3 (0.0-1.0); MONOCYTES % (AUTO) 6 % (0-12); NEUTROPHILS # (AUTO) 7.8 X 10^3 (1.8-7.8); NEUTROPHILS % (AUTO) 80 % (42-75); PLATELET COUNT 199 10^3/uL (130-400); RED CELL DISTRIBUTION WIDTH 14.5 % (10.0-14.5); WHITE BLOOD COUNT 9.8 10^3/uL (4.3-11.0)
[2019-11-22 05:58] LABS: ALBUMIN 2.9 GM/DL (3.2-4.5); BILIRUBIN,TOTAL 0.4 MG/DL (0.1-1.0); CALCIUM 8.4 MG/DL (8.5-10.1); CREATININE SERUM 1.11 MG/DL (0.60-1.30); POTASSIUM 3.7 MMOL/L (3.6-5.0); TOTAL PROTEIN 6.7 GM/DL (6.4-8.2)
[2019-11-22] MEDS: RIVAROXABAN 15 MG TABLET (XARELTO) PO SCH ×2 (06:29→16:56)
[2019-11-22] MEDS ORDERED: INSU100I10 SQ (08:33)
[2019-11-22] MEDS ORDERED: LISI10TA2 PO (08:34)
[2019-11-22] MEDS ORDERED: ATOR10TA PO (08:34)
[2019-11-22] MEDS ORDERED: POLY17PO6 PO (08:35)
[2019-11-22] MEDS ORDERED: GABA-488 PO (08:38)
--- NOTE | 2019-11-22 08:38 | NUR ---
SPOKE WITH THE PATIENT ABOUT HER MEDICATIONS. SHE HAD HER LIPITOR AND LISINOPRIL BOTTLES FROM THE REPOSITORY WITH HER. SHE WAS ABLE TO LIST HER OTHER MEDICATIONS. I CALLED [facility] AND VERIFIED WHAT HAS BEEN FILLED RECENTLY. [facility] FILLED: 10-31-19 GABAPENTIN 300MG #30 TAKES AT HS 10-31-19 NOVOLOG FLEXPEN 1O UNITS TID #1 BOX (STATES SHE DOES NOT USE THIS) 10-31-19 LANTUS SOLOSTAR 20 UNITS HS #1 BOX (STATES SHE USES 25 UNITS BID) REPOSITORY BOTTLES SHE HAS WITH HER: 10-31-19 ATORVASTATIN 10MG DAILY #90 10-31-19 LISINOPRIL 10MG DAILY #90 SHE STATES SHE TAKES 4 OTC IBU NEEDED AND MIRALAX DAILY OTC.
[2019-11-22] MEDS: ONDANSETRON 4 MG/2 ML (SDV) Z0FRAN IV PRN (09:17)
[2019-11-22] MEDS ORDERED: IBUPROFEN 800 MG (MOTRIN) TAB PO PRN (09:30)
[2019-11-22] MEDS: inSUlin ASPART (NovoLOG) 1 UNIT/0.01 ML (CHARGE PER UNIT) SC SCH ×3 (11:56→21:08)
--- NOTE | 2019-11-22 13:38 | Progress Note ---
Subjective Subjective/Events-last exam Afebrile, feeling slightly better but still with significant abdominal pain. Objective Exam Last Set of Vital Signs Vital Signs Date Time Temp Pulse Resp B/P (MAP) Pulse Ox O2 Delivery O2 Flow Rate FiO2 11/22/19 08:00 37.6 95 20 117/74 (88) 96 Room Air 11/22/19 00:00 4.00 Capillary Refill : Less Than 3 SecondsLess Than 3 Seconds I&O Intake and Output 11/22/19 00:00 Intake Total 780 ml Balance 780 ml Intake Oral 780 ml # Voids 1 Daily Weight Change No No General: Alert, No Acute Distress Lungs: Clear to Auscultation, Normal Air Movement Heart: Regular Rate, No Murmurs Abdomen: Normal Bowel Sounds, Soft, Other (tenderness diffuse with some guarding) Neuro: Normal Speech Psych/Mental Status: Mood NL Results/Procedures Lab Laboratory Tests 11/21/19 22:25: 11/21/19 22:39: Glucometer 300H 11/22/19 04:25: White Blood Count 9.8, Red Blood Count 4.84, Hemoglobin 11.4L, Hematocrit 36, Mean Corpuscular Volume 75L, Mean Corpuscular Hemoglobin 24L, Mean Corpuscular Hemoglobin Concent 31L, Red Cell Distribution Width 14.5, Platelet Count 199, Mean Platelet Volume 11.6H, Neutrophils (%) (Auto) 80H, Lymphocytes (%) (Auto) 14, Monocytes (%) (Auto) 6, Eosinophils (%) (Auto) 0, Basophils (%) (Auto) 0, Neutrophils # (Auto) 7.8, Lymphocytes # (Auto) 1.3, Monocytes # (Auto) 0.6, Eosinophils # (Auto) 0.0, Basophils # (Auto) 0.0, Sodium Level 133L, Potassium Level 3.7, Chloride Level 100, Carbon Dioxide Level 21, Anion Gap 12, Blood Urea Nitrogen 13, Creatinine 1.11, Estimat Glomerular Filtration Rate 52, BUN/Creatinine Ratio 12, Glucose Level 217H, Calcium Level 8.4L, Corrected Calcium 9.3, Total Bilirubin 0.4, Aspartate Amino Transf (AST/SGOT) 9, Alanine Aminotransferase (ALT/SGPT) 13, Alkaline Phosphatase 237H, Total Protein 6.7, Albumin 2.9L 11/22/19 11:01: Glucometer 114H Microbiology 11/21/19 Urine Culture - Final, Complete 3 or more isolates Radiology 11/21 venous doppler left leg: IMPRESSION: Left lower extremity occlusive DVT involving the left popliteal vein extending into the calf veins. CT ab/pel 11/21: "IMPRESSION: There is an inhomogeneous nephrogram of the left kidney with low-density changes in the lower pole, suspicious for pyelonephritis. The findings suspicious for polynephritis of the right kidney on 09/09/2018 have resolved as has the right hydronephrosis seen on the previous study. There is a fat-containing periumbilical hernia. There is air in the urinary bladder which may be due to instrumentation or gas producing infection, correlate clinically. Assessment/Plan Assessment/Plan (1) Pyelonephritis Status: Acute Assessment & Plan: Left pyelonephritis on CT. Started on ceftriaxone. (2) Hyponatremia Status: Chronic Assessment & Plan: Has had chronic intermittent hyponatremia at previous visits improved with fluid restriction. Currently at least partially pseudohyponatremia due to hyperglycemia. (3) Elevated alkaline phosphatase level Status: Chronic Assessment & Plan: Liver and gall bladder normal on CT, previous ultrasound also okay. History of positive Hep C antibody, viral pcr pending. (4) Hyperglycemia due to type 2 diabetes mellitus Status: Acute Assessment & Plan: Diabetic diet, sliding scale insulin (5) DVT (deep venous thrombosis) Status: Acute Assessment & Plan: Started on rivaroxaban Qualifiers: Clinical Quality Measures DVT/VTE Risk/Contraindication: Risk Factor Score Per Nursin RFS Level Per Nursing on Admit: 1=Low/No VTE PPX ERIKA CONKLIN MD Nov 22, 2019 13:38
[2019-11-22] MEDS: cefTRIAXone 1,000 MG/SWFI 10 ML IV PUSH IV SCH ×2 (13:54)
[2019-11-22] MEDS: GABAPENTIN 300 MG (NEURONTIN) CAP PO SCH (21:09)
[2019-11-23] VITALS: BP 143/87
[2019-11-23] MEDS: NS IV 1000 ML 1,000 ML IV SCH ×3 (00:13→21:12)
[2019-11-23] MEDS: fentaNYL INJECTION 100 MCG/2 ML AMP IVP PRN ×6 (00:14→21:11)
[2019-11-23 04:00] VITALS: BP 108/72
[2019-11-23 05:24] LABS: HEMOGLOBIN 10.6 G/DL (11.5-16.0); MEAN PLATELET VOLUME 12.1 FL (7.4-10.4); RED CELL DISTRIBUTION WIDTH 14.2 % (10.0-14.5); WHITE BLOOD COUNT 4.9 10^3/uL (4.3-11.0)
[2019-11-23 05:58] LABS: ALBUMIN 2.6 GM/DL (3.2-4.5); BILIRUBIN,TOTAL 0.2 MG/DL (0.1-1.0); CREATININE SERUM 1.26 MG/DL (0.60-1.30); POTASSIUM 3.7 MMOL/L (3.6-5.0)
[2019-11-23] MEDS: inSUlin ASPART (NovoLOG) 1 UNIT/0.01 ML (CHARGE PER UNIT) SC SCH ×4 (05:59→20:38)
[2019-11-23] MEDS: RIVAROXABAN 15 MG TABLET (XARELTO) PO SCH ×2 (06:56→17:47)
[2019-11-23 07:56] VITALS: BP 163/78
[2019-11-23] MEDS: lisINopril 10 MG (PRINIVIL) TABLET PO SCH (08:27)
[2019-11-23] MEDS: POLYETHYLENE GLYCOL 17 GM (MIRALAX) PACK PO SCH (08:28)
[2019-11-23 11:14] VITALS: BP 135/75
--- NOTE | 2019-11-23 13:04 | Progress Note - Hospitalist ---
Subjective HPI/CC On Admission Date Seen by Provider: Nov 23, 2019 Time Seen by Provider: 11:30 Subjective/Events-last exam Patient doing much better but feels like she can't go home today Xarelto started for left lower extremity DVT MiraLAX will be taken for chronic constipation Overall feels pretty good Urine culture shows 3 or more isolated's maintained on Rocephin but we'll maintain that until tomorrow at discharge Review of Systems General: Fatigue Musculoskeletal: leg pain Objective Exam Vital Signs Vital Signs Date Time Temp Pulse Resp B/P (MAP) Pulse Ox O2 Delivery O2 Flow Rate FiO2 11/23/19 11:14 36.4 87 18 135/75 (95) 97 Room Air 11/22/19 12:00 4.00 Capillary Refill : Less Than 3 SecondsLess Than 3 Seconds General Appearance: No Apparent Distress, WD/WN, Chronically ill Respiratory: Chest Non Tender, Lungs Clear, Normal Breath Sounds, No Accessory Muscle Use, No Respiratory Distress Cardiovascular: Regular Rate, Rhythm, No Edema, No Gallop, No JVD, No Murmur, Normal Peripheral Pulses Extremity: Calf Tenderness (left) Neurologic/Psychiatric: Alert, Oriented x3, No Motor/Sensory Deficits, Normal Mood/Affect Results/Procedures Lab Laboratory Tests 11/23/19 04:39 Patient resulted labs reviewed. Assessment/Plan Assessment and Plan Assess & Plan/Chief Complaint Assessment: Pyelonephritis Left lower extremity DVT Chronic constipation Fatigue Plan: Xarelto MiraLAX IV Rocephin Diagnosis/Problems Diagnosis/Problems (1) Pyelonephritis Status: Acute (2) DVT (deep venous thrombosis) Status: Acute Qualifiers: DVT location: lower extremity Affected thrombotic vein of extremity: popliteal Laterality: left Clinical Quality Measures DVT/VTE Risk/Contraindication: Risk Factor Score Per Nursin RFS Level Per Nursing on Admit: 1=Low/No VTE PPX DANUTA CATHERINE DO Nov 23, 2019 13:04
[2019-11-23] MEDS: cefTRIAXone 1,000 MG/SWFI 10 ML IV PUSH IV SCH ×2 (14:32)
[2019-11-23 16:19] VITALS: BP 125/71
[2019-11-23 20:45] VITALS: BP 134/90
[2019-11-23] MEDS: GABAPENTIN 300 MG (NEURONTIN) CAP PO SCH (21:12)
[2019-11-23] MEDS: ONDANSETRON 4 MG/2 ML (SDV) Z0FRAN IV PRN (22:48)
[2019-11-24 00:36] VITALS: BP 135/83
[2019-11-24 04:30] VITALS: BP 152/96
[2019-11-24 05:25] LABS: BASOPHILS % (AUTO) 0 % (0-10); EOSINOPHILS # (AUTO) 0.1 10^3/uL (0.0-0.3); EOSINOPHILS % (AUTO) 2 % (0-10); HEMATOCRIT 37 % (35-52); HEMOGLOBIN 11.5 G/DL (11.5-16.0); LYMPHOCYTES % (AUTO) 43 % (12-44); MEAN CORPUSCULAR HEMOGLOBIN 24 PG (25-34); MEAN CORPUSCULAR HGB CONC 31 G/DL (32-36); MEAN CORPUSCULAR VOLUME 76 FL (80-99); MEAN PLATELET VOLUME 12.3 FL (7.4-10.4); MONOCYTES # (AUTO) 0.4 X 10^3 (0.0-1.0); MONOCYTES % (AUTO) 10 % (0-12); NEUTROPHILS # (AUTO) 2.1 X 10^3 (1.8-7.8); NEUTROPHILS % (AUTO) 46 % (42-75); PLATELET COUNT 169 10^3/uL (130-400); RED CELL DISTRIBUTION WIDTH 14.5 % (10.0-14.5); WHITE BLOOD COUNT 4.6 10^3/uL (4.3-11.0)
[2019-11-24 05:49] LABS: ALBUMIN 2.9 GM/DL (3.2-4.5); BILIRUBIN,TOTAL 0.2 MG/DL (0.1-1.0); CALCIUM 8.3 MG/DL (8.5-10.1); CREATININE SERUM 1.1 MG/DL (0.60-1.30); POTASSIUM 3.6 MMOL/L (3.6-5.0); TOTAL PROTEIN 6.6 GM/DL (6.4-8.2)
[2019-11-24] MEDS: fentaNYL INJECTION 100 MCG/2 ML AMP IVP PRN ×3 (05:49→11:56)
[2019-11-24] MEDS: RIVAROXABAN 15 MG TABLET (XARELTO) PO SCH (05:58)
[2019-11-24] MEDS: inSUlin ASPART (NovoLOG) 1 UNIT/0.01 ML (CHARGE PER UNIT) SC SCH ×2 (06:01→11:28)
[2019-11-24] MEDS: NS IV 1000 ML 1,000 ML IV SCH ×2 (06:01→08:11)
[2019-11-24] MEDS: POLYETHYLENE GLYCOL 17 GM (MIRALAX) PACK PO SCH (08:12)
[2019-11-24] MEDS: lisINopril 10 MG (PRINIVIL) TABLET PO SCH (08:12)
[2019-11-24 08:55] VITALS: BP 162/92
[2019-11-24] MEDS ORDERED: RIVA15TA2 PO (11:58)
--- NOTE | 2019-11-24 11:59 | Discharge Summary ---
Discharge Summary Hospital Course Was the Problem List Reviewed?: Yes Problems/Dx: (1) DVT (deep venous thrombosis) Status: Acute Qualifiers: Hospital Course Date of Admission: Nov 21, 2019 at 14:10 Admission Diagnosis : Family Physician/Provider: [facility] Date of Discharge: 11/24/19 Discharge Diagnosis: Sepsis of uncertain etiology since UCx revealed multiple isolates, acute DVT left leg, HCV, Elevated LFT's including AP Hospital Course: Patient had a standard course after admitted for sepsis of which appeared to be pyelo and was maintained on Rocephin until UCx revealed multiple isolates. Acute left leg DVT dx placed on Xarelto and was DC in improved condition with close appt with [facility] this week for elevated LFT's jeny given HCV hx and elevated AP. Labs and Pending Lab Test: Laboratory Tests 11/23/19 15:56: Glucometer 162H 11/23/19 20:27: Glucometer 187H 11/24/19 04:54: White Blood Count 4.6, Red Blood Count 4.83, Hemoglobin 11.5, Hematocrit 37, Mean Corpuscular Volume 76L, Mean Corpuscular Hemoglobin 24L, Mean Corpuscular Hemoglobin Concent 31L, Red Cell Distribution Width 14.5, Platelet Count 169, Mean Platelet Volume 12.3H, Neutrophils (%) (Auto) 46, Lymphocytes (%) (Auto) 43, Monocytes (%) (Auto) 10, Eosinophils (%) (Auto) 2, Basophils (%) (Auto) 0, Neutrophils # (Auto) 2.1, Lymphocytes # (Auto) 2.0, Monocytes # (Auto) 0.4, Eosinophils # (Auto) 0.1, Basophils # (Auto) 0.0, Sodium Level 136, Potassium Level 3.6, Chloride Level 109H, Carbon Dioxide Level 18L, Anion Gap 9, Blood Urea Nitrogen 21H, Creatinine 1.10, Estimat Glomerular Filtration Rate 53, BUN/Creatinine Ratio 19, Glucose Level 104, Calcium Level 8.3L, Corrected Calcium 9.2, Total Bilirubin 0.2, Aspartate Amino Transf (AST/SGOT) 110H, Abad ine Aminotransferase (ALT/SGPT) 119H, Alkaline Phosphatase 696H, Total Protein 6.6, Albumin 2.9L 11/24/19 05:57: Glucometer 102 11/24/19 11:27: Glucometer 154H Microbiology 11/21/19 Urine Culture - Final, Complete 3 or more isolates Home Meds Active Xarelto Tablet (Rivaroxaban) 15 Mg Tablet 15 Mg PO BID WITH MEALS Reported Gabapentin 300 Mg Capsule 300 Mg PO HS Miralax (Polyethylene Glycol 3350) 17 Gm Powd.pack 17 Gm PO DAILY Lisinopril 10 Mg Tablet 10 Mg PO DAILY Lipitor (Atorvastatin Calcium) 10 Mg Tablet 10 Mg PO DAILY Lantus Solostar (Insulin Glargine,Hum.rec.anlog) 100 Unit/1 Ml Insuln.pen 25 Unit SQ BID Advil (Ibuprofen) 200 Mg Tablet 800 Mg PO TID PRN Assessment/Pt Instructions [facility] 1 week Discharge Planning: <30 minutes discharge planning Discharge Instructions Discharge Diet: No Restrictions Activity as Tolerated: Yes Discharge Physical Examination Vital Signs Vital Signs Date Time Temp Pulse Resp B/P (MAP) Pulse Ox O2 Delivery O2 Flow Rate FiO2 11/24/19 08:55 36.3 83 18 162/92 (115) 97 Room Air 11/22/19 12:00 4.00 General Appearance: No Apparent Distress, WD/WN Respiratory: Lungs Clear Cardiovascular: Regular Rate, Rhythm Neurologic/Psychiatric: Alert, Oriented x3, No Motor/Sensory Deficits, Normal Mood/Affect Allergies: Coded Allergies: etodolac (Verified Allergy, Unknown, 02/13/06) latex (Unverified Allergy, Unknown, 12/01/14) morphine (Unverified Adverse Reaction, Mild, itching, 12/01/14) Uncoded Allergies: plastic tape (Allergy, Severe, skin peeling off, 09/09/18) Discharge Summary Date of Admission Nov 21, 2019 at 14:10 Date of Discharge Discharge Date: Nov 24, 2019 Discharge Diagnosis Assessment: Pyelonephritis Left lower extremity DVT Chronic constipation Fatigue Plan: Xarelto MiraLAX IV Rocephin (1) Pyelonephritis Status: Acute (2) DVT (deep venous thrombosis) Status: Acute Qualifiers: Clinical Quality Measures DVT/VTE Risk/Contraindication: Risk Factor Score Per Nursin RFS Level Per Nursing on Admit: 1=Low/No VTE PPX DANUTA CATHERINE DO Nov 24, 2019 11:59
[2019-11-24] MEDS: cefTRIAXone 1,000 MG/SWFI 10 ML IV PUSH IV SCH ×2 (13:43)
[2019-11-24 13:45] VITALS: BP 162/92
--- NOTE | 2019-11-26 11:53 | Physician Query Clarification ---
PQ-Uncertain Diagnosis Admission/Discharge Admission Date: Nov 21, 2019 at 14:10 Discharge Date: Nov 24, 2019 at 13:53 The medical record reflects the following clinical scenario: History/Risk Factors: Sepsis, acute pyelonephritis Clinical Findings: T 37.8 C, R 20, P 101, WBC 8.0 Treatment: IV Ceftriaxone Question: Is Sepsis a clinically valid diagnosis? Sepsis was documented in the on in the discharge summary 11/24/19 with no further documentation in the medical record. Please document a response in Progress Note or Discharge Summary. 1. Yes, clinically valid, condition resolved. 2. No, condition ruled out. 3. Other, with explanation of clinical findings. 4. Undetermined, no explanation for clinical findings. PHYSICIAN RESPONSE Diagnosis clinically valid: Yes, Conditon resolved Please remember a lack of response to the above will prompt a phone page by [facility]/Coding staff. In responding to this query, please exercise your independent professional judgment. The purpose of this communication is to more accurately reflect the complexity of your patients condition. The fact that a question is asked does not imply that any particular answer is desired or expected. Thank you for your timely response to this clarification. Requestors name: Shannon THIS PHYSICIAN QUERY FORM IS A PERMANENT PART OF THE MEDICAL RECORD CHRISTIAN ROQUE Nov 26, 2019 11:53 DANUTA CATHERINE DO Nov 27, 2019 05:59
== END 2019-11-24 13:53 | disposition home or self-care (01) | DRG 872 ==
LOC: EDUNIT# 10:33 → ER 10:35 → 4TH 14:10
PROVIDERS: ADMIT Family Medicine; ATTEND Internal Medicine
DX: A41.9 Sepsis, unspecified organism (principal); I82.432 Acute embolism and thrombosis of left popliteal vein; N10 Acute pyelonephritis; I82.4Z2 Acute embolism and thrombosis of unspecified deep veins of left distal lower extremity; I25.10 Atherosclerotic heart disease of native coronary artery without angina pectoris; E78.00 Pure hypercholesterolemia, unspecified; I10 Essential (primary) hypertension; E11.40 Type 2 diabetes mellitus with diabetic neuropathy, unspecified; M19.90 Unspecified osteoarthritis, unspecified site; F90.9 Attention-deficit hyperactivity disorder, unspecified type; E87.5 Hyperkalemia; F10.20 Alcohol dependence, uncomplicated; E11.65 Type 2 diabetes mellitus with hyperglycemia; K59.09 Other constipation; Z87.891 Personal history of nicotine dependence; Z95.5 Presence of coronary angioplasty implant and graft; I25.2 Old myocardial infarction
CPT/HCPCS: 36415; 74177; 80053; 81000; 82150; 82962; 83690; 85007; 85025; 85027; 85379; 87088; 87522; 87902; 96374; 96375; 96376

== ENCOUNTER 2020-02-15 04:24 | Observation (INO) | payer MEDICAID, OTHER ==
[~2020-02-15] VITALS: Ht 162 cm; Wt 82.0 kg
[2020-02-15] VITALS (16 sets, daily range): BP systolic 107–151; BP diastolic 49–88
[~2020-02-15 04:24] MED LIST changes: +ATOR10TA PO; +GABA-488 PO; +INSU100I10 SQ; +LISI10TA2 PO; +POLY17PO6 PO; +RIVA15TA2 PO
[2020-02-15] MEDS ORDERED: LACTATED RINGERS 1,000 ML IV ONE (04:29)
[2020-02-15] MEDS ORDERED: hydrALAZINE (APESOLINE) 20 MG/ML VIAL ONE (04:29)
[2020-02-15] MEDS ORDERED: morphine INJ 10 MG/ML 1ML (SYR OR VIAL) ONE (04:29)
[2020-02-15] MEDS ORDERED: morphine INJ 10 MG/ML 1ML (SYR OR VIAL) IV STA (04:34)
--- NOTE | 2020-02-15 04:35 | NUR ---
Lisinorpil 10mg Gabapentin Xarelto 15mg Atorvastatin 10mg Lasix 20mg
--- NOTE | 2020-02-15 04:42 | ED Chest Pain ---
General Chief Complaint: Chest Pain Stated Complaint: CP Nursing Triage Note: Patient states chest pain for several days that became progressively worse at 1700. She states hx. of hypertension and stabing pain 8/10 to the left chest. States pain with inspiration. Nursing Sepsis Screen: No Definite Risk Source: patient Exam Limitations: no limitations History of Present Illness Date Seen by Provider: Feb 15, 2020 Time Seen by Provider: 04:29 Initial Comments Here with report of chest pain and left arm pain. Chest pain has been intermittent for a few days. Left arm pain associated with that has been going on since 5 PM last night that also intermittent. States it woke her up about an hour ago. She did take a couple Tylenol last night to help with the pain and she was able to go to sleep. States it central in her chest and sharp. No aggravating factors but somewhat relieved by Tylenol and rest. She is diabetic but does not check her sugars. She does take her insulin as directed. 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 She reports that she is taking that as directed. Denies fever or chills. Denies upper respiratory problems or breathing problems. Denies contact with anybody that is sick. She has self isolated in her home due to pandemic concerns. Does have history of heart attack with stent placement. That was in 2011. States this feels kind of like that but she doesn't remember entirely how it felt. She states that she usually gets stomach pain and the pain is relieved with belching or passing gas Timing/Duration: getting worse, changing over time, intermittent, 2-3 days Severity/Quality: moderate, severe, sharp Location: central Radiation: arms (left) Activities at Onset: none Prior CP/Workup: cardiac cath ASA po OVERNIGHT STOCKER: Yes NTG SL OVERNIGHT STOCKER: Yes Associated Symptoms: abdominal pain; No fever/chills, No nausea/vomiting, No shortness of breath, No weakness Allergies and Home Medications Allergies Coded Allergies: etodolac (Verified Allergy, Unknown, 02/13/06) latex (Unverified Allergy, Unknown, 12/01/14) Uncoded Allergies: plastic tape (Allergy, Severe, skin peeling off, 09/09/18) Home Medications Atorvastatin Calcium 10 Mg Tablet, 10 MG PO DAILY, (Reported) Gabapentin 300 Mg Capsule, 300 MG PO HS, (Reported) Ibuprofen 200 Mg Tablet, 800 MG PO TID PRN for PAIN-MILD, (Reported) Insulin Glargine,Hum.rec.anlog 100 Unit/1 Ml Insuln.pen, 25 UNIT SQ BID, (Reported) Lisinopril 10 Mg Tablet, 10 MG PO DAILY, (Reported) Polyethylene Glycol 3350 17 Gm Powd.pack, 17 GM PO DAILY, (Reported) Rivaroxaban 15 Mg Tablet, 15 MG PO BID WITH MEALS Prescribed by: DANUTA CATHERINE on 11/24/19 1158 Patient Home Medication List Home Medication List Reviewed: Yes Review of Systems Review of Systems Constitutional: see HPI; No chills, No diaphoresis, No fever EENTM: No Symptoms Reported Respiratory: No Symptoms Reported Cardiovascular: See HPI, Chest Pain; Denies Edema, Denies Lightheadedness Gastrointestinal: Abdominal Pain (epigastric); Denies Nausea, Denies Vomiting Genitourinary: No Symptoms Reported Musculoskeletal: no symptoms reported Skin: no symptoms reported All Other Systems Reviewed Negative Unless Noted: Yes Past Cygfxom-Vzhzzy-Cpbhlm Hx Past Med/Social Hx: Reviewed Nursing Past Med/Soc Hx Patient Social History Alcohol Use: Occasionally Uses Number of Drinks Today: Alcohol Beverage of Choice: Beer, Wine, Cheap Liquor Recreational Drug Use: No Smoking Status: Former Smoker Type Used: Cigarettes Former Smoker, Quit: Sep 09, 2008 2nd Hand Smoke Exposure: No Recent Foreign Travel: No Contact w/Someone Who Travel: No Recent Infectious Disease Expo: No Recent Hopitalizations: No Immunizations Up To Date Tetanus Booster (TDap): Unknown PED Vaccines UTD: No Seasonal Allergies Seasonal Allergies: No Past Medical History Surgeries: Yes (C SECTION X 2; CARDIAC CATH--STENT X 1; RIGHT SHOULDER SURGERY) Section, Coronary Stent, Orthopedic Respiratory: No Cardiac: Yes (AR 2012-CARDIAC CATH WITH STENT X 1) Coronary Artery Disease, Heart Attack, High Cholesterol, Hypertension Neurological: No Neuropathy Reproductive Disorders: No Female Reproductive Disorders: Denies Genitourinary: Yes Kidney Infection Gastrointestinal: Yes (HEPATITIS C--NO TREATMENT; VENTRAL HERNIA--NO SURGERY) Abdominal Hernia, Hepatitis Musculoskeletal: Yes (RIGHT SHOULDER SURGERY) Arthritis, Fibromyalgia Endocrine: Yes Diabetes, Insulin dep, Lupus HEENT: No Cancer: No Psychosocial: Yes (ADD) ADD/ADHD Integumentary: No Blood Disorders: No Family Medical History Reviewed Nursing Family Hx Arthritis 19 MOTHER, Onset:Unknown FH: COPD (chronic obstructive pulmonary disease) 19 MOTHER, Onset:Unknown FH: uterine cancer 19 MOTHER, Onset:Unknown Physical Exam Vital Signs Vital Signs - First Documented 02/15/20 04:25 Temp 36.5 Pulse 114 Resp 18 Pulse Ox 97 O2 Delivery Room Air Capillary Refill : Less Than 3 Seconds Height, Weight, BMI Height: 5'1.00" Weight: 202lbs. 12.0oz. [id number]; 30.00 BMI Method:Stated General Appearance: WD/WN, Mild Distress HEENT: Pharynx Normal, Other (right eye blind) Neck: Non Tender, Supple Respiratory: Lungs Clear Cardiovascular: No Murmur, Tachycardia Gastrointestinal: Normal Bowel Sounds, Soft, Tenderness (mild epigastric) Extremity: Normal Inspection, Normal Range of Motion, Non Tender, No Calf Tenderness Neurologic/Psychiatric: Alert, Oriented x3 Skin: Normal Color, Warm/Dry Progress/Results/Core Measures Results/Orders Lab Results Laboratory Tests Test 02/15/20 04:28 Range/Units White Blood Count 8.3 4.3-11.0 10^3/uL Red Blood Count 5.01 4.35-5.85 10^6/uL Hemoglobin 12.6 11.5-16.0 G/DL Hematocrit 37 35-52 % Mean Corpuscular Volume 74 L 80-99 FL Mean Corpuscular Hemoglobin 25 25-34 PG Mean Corpuscular Hemoglobin Concent 34 32-36 G/DL Red Cell Distribution Width 16.8 H 10.0-14.5 % Platelet Count 214 130-400 10^3/uL Mean Platelet Volume 10.5 H 7.4-10.4 FL Neutrophils (%) (Auto) 61 42-75 % Lymphocytes (%) (Auto) 28 12-44 % Monocytes (%) (Auto) 8 0-12 % Eosinophils (%) (Auto) 2 0-10 % Basophils (%) (Auto) 0 0-10 % Neutrophils # (Auto) 5.1 1.8-7.8 X 10^3 Lymphocytes # (Auto) 2.3 1.0-4.0 X 10^3 Monocytes # (Auto) 0.7 0.0-1.0 X 10^3 Eosinophils # (Auto) 0.2 0.0-0.3 10^3/uL Basophils # (Auto) 0.0 0.0-0.1 10^3/uL Prothrombin Time 18.6 H 12.2-14.7 SEC INR Comment 1.5 H 0.8-1.4 Activated Partial Thromboplast Time 38 H 24-35 SEC Sodium Level 135 135-145 MMOL/L Potassium Level 3.5 L 3.6-5.0 MMOL/L Chloride Level 101 98-107 MMOL/L Carbon Dioxide Level 22 21-32 MMOL/L Anion Gap 12 5-14 MMOL/L Blood Urea Nitrogen 15 7-18 MG/DL Creatinine 1.13 0.60-1.30 MG/DL Estimat Glomerular Filtration Rate 51 BUN/Creatinine Ratio 13 Glucose Level 280 H 70-105 MG/DL Calcium Level 8.7 8.5-10.1 MG/DL Corrected Calcium 9.2 8.5-10.1 MG/DL Magnesium Level 1.6 1.6-2.4 MG/DL Total Bilirubin 0.3 0.1-1.0 MG/DL Aspartate Amino Transf (AST/SGOT) 18 5-34 U/L Alanine Aminotransferase (ALT/SGPT) 23 0-55 U/L Alkaline Phosphatase 188 H 40-136 U/L Myoglobin 72.4 10.0-92.0 NG/ML Troponin I 0.046 H <0.028 NG/ML Total Protein 7.1 6.4-8.2 GM/DL Albumin 3.4 3.2-4.5 GM/DL Lipase 27 8-78 U/L My Orders Orders - ROBBYJANESSAHERMILO Alejandre MD Morphine Injection (Morphine Injection (02/15/20 04:29) Cbc With Automated Diff (02/15/20 04:34) Magnesium (02/15/20 04:34) Chest 1 View, Ap/Pa Only (02/15/20 04:34) Ekg Tracing (02/15/20 04:34) Comprehensive Metabolic Panel (02/15/20 04:34) Myoglobin Serum (02/15/20 04:34) Protime With Inr (02/15/20 04:34) Partial Thromboplastin Time (02/15/20 04:34) O2 (02/15/20 04:34) Monitor-Rhythm Ecg Trace Only (02/15/20 04:34) Lipid Panel (02/16/20 06:00) Ed Iv/Invasive Line Start (02/15/20 04:34) Lipase (02/15/20 04:34) Troponin I (02/15/20 04:34) Morphine Injection (Morphine Injection (02/15/20 04:34) Hydralazine Injection (Apresoline Inject (02/15/20 04:45) Lactated Ringers (Lr 1000 Ml Iv Solution (02/15/20 04:34) Lactated Ringers (Lr 1000 Ml Iv Solution (02/15/20 04:29) Hydralazine Injection (Apresoline Inject (02/15/20 04:29) Morphine Injection (Morphine Injection (02/15/20 05:45) Medications Given in ED Current Medications Medications Dose Ordered Sig/Sisi Route Start Time Stop Time Status Last Admin Dose Admin Hydralazine HCl 20 mg ONCE ONCE IV 02/15/20 04:45 02/15/20 04:46 DC 02/15/20 05:06 20 MG Vital Signs/I&O 02/15/20 02/15/20 02/15/20 04:25 04:27 04:32 Temp 36.5 Pulse 114 Resp 18 B/P (MAP) Pulse Ox 97 97 O2 Delivery Room Air Room Air Room Air Progress Progress Note : Progress Note Seen and evaluated. IV by EMS. Normal saline 1 L bolus initiated. EMS will be c ompleted. LR afterwards. Morphine 4 mg IV ordered. Labs, EKG and chest x-ray ordered. Monitor patient. 054: Patient still with chest pain although better. Blood pressure down to 140s systolic. Repeat morphine 2 mg IV. She has chest pain and history of previous chest pain requiring stenting and 99% blockage of the LAD.. This and the mild troponin rise, patient will need admission. 0536: I did discuss the case with Dr. Montelongo and he accepts patient in consult. Request nothing by mouth. Request troponin 4 hours which will be ordered. I did discuss the case Dr. Glass 0540 and she accepts patient for admission, observation status. We will continue insulin sliding scale and IV fluids as well as pain medicines. Discussed with patient who agrees with plan. Admit observation status. Initial ECG Impression Date: Feb 15, 2020 Initial ECG Impression Time: 04:47 Initial ECG Rate: 111 Initial ECG Rhythm: S.Tach Initial ECG Comparisson: Unchanged (similar to previous of 12/01/14.) Comment Sinus tachycardia with left atrial abnormality. Normal axis but rightward bleeding. No evidence of ST elevation AR. Interpreted by me. Departure Communication (Admissions) Time/Spoke to Admitting Phy: 05:40 Time/Spoke to Consulting Phy: 05:36 Impression Primary Impression: Chest pain Qualified Codes: R07.9 - Chest pain, unspecified Additional Impression: Elevated troponin Disposition: ADMITTED INPATIENT Condition: Stable Admissions Decision to Admit Reason: Admit from ER (General) Decision to Admit/Date: Feb 15, 2020 Time/Decision to Admit Time: 05:36 Departure-Patient Inst. Referrals: [facility] (PCP/Family) Primary Care Physician JANESSA BUSTAMANTE MD Feb 15, 2020 04:42
[2020-02-15] MEDS ORDERED: hydrALAZINE (APESOLINE) 20 MG/ML VIAL IV ONE (04:45)
[2020-02-15 04:48] LABS: BASOPHILS % (AUTO) 0 % (0-10); EOSINOPHILS # (AUTO) 0.2 10^3/uL (0.0-0.3); EOSINOPHILS % (AUTO) 2 % (0-10); HEMATOCRIT 37 % (35-52); HEMOGLOBIN 12.6 G/DL (11.5-16.0); LYMPHOCYTES # (AUTO) 2.3 X 10^3 (1.0-4.0); LYMPHOCYTES % (AUTO) 28 % (12-44); MEAN CORPUSCULAR HEMOGLOBIN 25 PG (25-34); MEAN CORPUSCULAR HGB CONC 34 G/DL (32-36); MEAN CORPUSCULAR VOLUME 74 FL (80-99); MEAN PLATELET VOLUME 10.5 FL (7.4-10.4); MONOCYTES # (AUTO) 0.7 X 10^3 (0.0-1.0); MONOCYTES % (AUTO) 8 % (0-12); NEUTROPHILS # (AUTO) 5.1 X 10^3 (1.8-7.8); NEUTROPHILS % (AUTO) 61 % (42-75); PLATELET COUNT 214 10^3/uL (130-400); RED CELL DISTRIBUTION WIDTH 16.8 % (10.0-14.5); WHITE BLOOD COUNT 8.3 10^3/uL (4.3-11.0)
[2020-02-15 04:52] LABS: INR 1.5 (0.8-1.4); PROTHROMBIN TIME PATIENT 18.6 SEC (12.2-14.7)
[2020-02-15 05:00] LABS: ALBUMIN 3.4 GM/DL (3.2-4.5); BILIRUBIN,TOTAL 0.3 MG/DL (0.1-1.0); CALCIUM 8.7 MG/DL (8.5-10.1); CREATININE SERUM 1.13 MG/DL (0.60-1.30); MAGNESIUM 1.6 MG/DL (1.6-2.4); POTASSIUM 3.5 MMOL/L (3.6-5.0); TOTAL PROTEIN 7.1 GM/DL (6.4-8.2)
[2020-02-15] MEDS ORDERED: morphine INJ 10 MG/ML 1ML (SYR OR VIAL) IVP ONE (05:45)
[2020-02-15] MEDS: LACTATED RINGERS 1,000 ML IV STA ×2 (05:47→06:15)
--- OUTSIDE RECORDS SUMMARY | 2020-02-15 05:58 | XMS REPORT ---
Author Author Curtis FREIRE Organization [facility] Address [address] [place] [address] Care Team Providers Care Mechanical Fitter Name Role Phone TAMMI FREIRE Unavailable PROBLEMS Type Condition ICD9-CM Code XTX73-KC Code Onset Dates Condition S tatus SNOMED Code Problem Chest pain 786.50 Active 43405448 Problem Type 2 diabetes mellitus wit h complication, without long-term current use of insulin E11.8 Active 62612182 Problem Arteriosclerosis of coronary artery I25.10 Active 18958556 Problem Alcohol dependence with unspecified alcohol-induced disord er F10.29 Active 90182696 Problem Diabetes type 2, uncontrolled E11.65 Active 42382634 ALLERGIES No Information ENCOUNTERS Encounter Location Date Diagnosis [place] [address] [place] [id number] [place] [address] Oct, Chronic viral hepatitis C B1 8.2 [place] [address] [place] [id number] [place] [address] Sep, Type 2 diabetes mellitus wit h complication, without long-term current use of insulin E11.8 [place] [address] [place] [address] Sep, [place] [address] [place] [id number] [place] [address] Sep, Type 2 diabetes mellitus wit h complication, without long-term current use of insulin E11.8 and Enlarged liver R16.0 [facility] [address] [id number] [place] [address] Aug, [place] [address] [place] [id number] [place] [address] Dec, Abscess, scalp L02.811 [place] [address] [place] [id number] [address] [place] [address] Dec, [facility] [address] [address] Dec, [facility] [address] [place] [id number] [address] [place] [address] Dec, Abscess, scalp L02.811 [place] [address] [place] [id number] [place] [address] Dec, Abscess, scalp L02.811 [facility] [place] [id number] [place] [address] 17 Dec, 2017 Abscess, scalp L02.811 [place] [address] [place] [id number] [place] [address] 15 Dec, 2017 Abscess, scalp L02.811 [place] [address] [place] [address] 13 Dec, 2017 Abscess, scalp L02.811 [facility] [address] [place] [address] 11 Dec, 2017 Cutaneous abscess of head ex cluding face L02.811 [facility] [place] [id number] [place] [address] 10 Dec, 2017 Abscess [id number] [place] [id number] Dec, [facility] [address] [facility] [id number] [address] [place] [address] Dec, Abscess L02.91 [facility] [place] [id number] [place] [address] Aug, Acute allergic rhinitis due to other allergen, unspecified seasonality J30.89 and Cellulitis of head except face L03.811 [place] [address] [place] [id number] [address] [place] [address] Jun, [facility] [address] [id number] [address] [place] [address] Jun, [facility] [address] [id number] [address] [place] [address] Jun, [facility] [address] [id number] [address] [place] [address] Jun, [facility] [address] [id number] [address] [place] [address] Jun, [facility] [address] [id number] [address] [place] [address] Jun, Hematuria 599.70 ; Diabetes type 2, uncontrolled 250.02 ; Chest pain 786.50 ; Chronic pain 338.29 and Coronary atherosclerosis of unspecified type of vessel, [place] or graft 414.00 [facility] [address] [id number] [address] [place] [address] Feb, [facility] [address] [id number] [address] [place] [address] Feb, [facility] [address] [id number] [address] [place] [address] Jan, [facility] [address] [id number] [address] [place] [address] Jan, [facility] [address] [id number] [address] [place] [address] Jan, [facility] [address] [id number] [address] [place] [address] Jan, [facility] [address] [id number] [address] [place] [address] Jan, [facility] [address] [id number] [address] [place] [address] Jan, [facility] [address] [id number] [address] [place] [address] Dec, [facility] [address] [id number] [address] [place] [address], [place] [address] Dec, [facility] [address] [id number] [address] [place] [address], [place] [address] Dec, [facility] [address] [id number] [address] [place] [address], [place] [address] Dec, 2014 [facility] [address] [id number] [address] [place] [address], [place] [address] Dec, 2014 [facility] [address] [id number] [address] [place] [address], [place] [address] Dec, [facility] [address] [id number] [address] [place] [address], [place] [address] Dec, [facility] [address] [id number] [address] [place] [address], [place] [address] Dec, [facility] [address] [id number] [address] [place] [address], [place] [address] Nov, [facility] [address] [id number] [address] [place] [address], [place] [address] Nov, [facility] [address] [id number] [address] [place] [address], [place] [address] Aug, [facility] [address] [id number] [address] [place] [address], [place] [address] Aug, [facility] [address] [id number] [address] [place] [address], [place] [address] May, [facility] [address] [id number] [address] [place] [address], [place] [address] March, [facility] [address] [id number] [address] [place] [address], [place] [address] March, [facility] [address] [id number] [address] [place] [address], [place] [address] March, [facility] [address] [id number] [address] [place] [address], [place] [address] March, [facility] [address] [id number] [address] [place] [address], [place] [address] Feb, [facility] [address] [id number] [address] [place] [address], [place] [address] Feb, [facility] [address] [id number] [address] [place] [address], [place] [address] Jan, [facility] [address] [id number] [address] [place] [address], [place] [address] Jan, [facility] [address] [id number] [address] [place] [address], [place] [address] Dec, [facility] [address] [id number] [address] [place] [address], [place] [address] Nov, [facility] [address] [id number] [address] [place] [address], [place] [address] Nov, [facility] [address] [id number] [address] [place] [address], [place] [address] Nov, [facility] [address] [id number] [address] [place] [address], [place] [address] Nov, [facility] [address] [id number] [address] [place] [address], [place] [address] Nov, [address] [id number] Oct, [facility] [address] [id number] [address] [place] [address], [place] [address] Oct, [facility] [address] [id number] [address] [place] [address], [place] [address] Oct, [facility] [address] [id number] [address] [place] [address], [place] [address] Oct, [facility] [address] [id number] [address] [place] [address], [place] [address] Sep, [facility] [address] [id number] [address] [place] [address], [place] [address] Sep, [facility] [address] [id number] [address] [place] [address], [place] [address] May, [facility] [address] [id number] [address] [place] [address], [place] [address] Apr, [facility] [address] [id number] [address] [place] [address], [place] [address] March, [facility] [address] [id number] [address] [place] [address], [place] [address] Feb, [facility] [address] [id number] [address] [place] [address], [place] [address] Feb, [facility] [address] [id number] [address] [place] [address], [place] [address] Feb, [facility] [address] [id number] [address] [place] [address], [place] [address] Jan, [facility] [address] [id number] [address] [place] [address], [place] [address] Jan, [facility] [address] [id number] [address] [place] [address], [place] [address] Jan, [facility] [address] [id number] [address] [place] [address], [place] [address] Dec, [facility] [address] [id number] [address] [place] [address], [place] [address] Dec, [facility] [address] [id number] [address] [place] [address], [place] [address] Dec, [facility] [address] [id number] [address] [place] [address], [place] [address] Dec, [facility] [address] [id number] [address] [place] [address], [place] [address] Dec, [facility] [address] [id number] [address] [place] [address] 16 Dec, 2011 [facility] [address] [id number] [address] [place] [address], [place] [address] 22 Oct, 2011 [facility] [address] [id number] [address] [place] [address], [place] [address] 22 Oct, 2011 [facility] [address] [id number] [address] [place] [address], [place] [address] 07 Oct, 2011 [facility] [address] [id number] [address] [place] [address], [place] [address] 29 Sep, 2011 [facility] [address] [id number] [address] [place] [address], [place] [address] 28 Sep, 2011 [facility] [address] [id number] [address] [place] [address], [place] [address] 18 Sep, 2011 [facility] [address] [id number] [address] [place] [address], [place] [address] 18 Sep, 2011 [facility] [address] [id number] [address] [place] [address], [place] [address] 14 Sep, 2011 [facility] [address] [id number] [address] [place] [address], [place] [address] 15 May, 2011 [facility] [address] [id number] [address] [place] [address], [place] [address] 14 Dec, 2010 [facility] [address] [id number] [address] [place] [address], [place] [address] 10 Oct, 2010 [facility] [address] [id number] [address] [place] [address], [place] [address] 03 Sep, 2010 [facility] [address] [id number] [address] [place] [address], [place] [address] 11 Aug, 2010 [facility] [address] [id number] [address] [place] [address], [place] [address] 11 Aug, 2010 [facility] [address] [id number] [address] [place] [address] 11 Aug, 2010 [facility] [address] [facility] [id number] [address] [place] [address] 16 Sep, 2009 [facility] [address] [facility] [id number] [address] [place] [address] Sep, [facility] [address] [facility] [id number] [address] [place] [address] Jul, IMMUNIZATIONS No Known Immunizations SOCIAL HISTORY Never Assessed REASON FOR VISIT PLAN OF CARE VITAL SIGNS MEDICATIONS Unknown Medications RESULTS No Results PROCEDURES No Known procedures INSTRUCTIONS MEDICATIONS ADMINISTERED No Known Medications MEDICAL (GENERAL) HISTORY Type Description Date Medical History Blurred vision Medical History CAD-hospitalized at 11/01 13 for NSTEMI, s/p stenting to the mid LAD (had 99% occulsion). EF 45% Medical History Hypertension Medical History Asthma Medical History DM II Medical History Arthritis Medical History Chronic pain-Lupus, fibromyalgia, RA Medical History Depression Medical History Anxiety Medical History ADHD Surgical History coronary artery stent (LAD) s/p NSTEMI-E F 45% 10/2012 Surgical History section 1990 & 1995 Surgical History rotator cuff tear repair-Right 2009 Hospitalization History NSTEMI 10/2012 Hospitalization History ETOH rehab 12/2014 Hospitalization History Kidney issues, liver levels were hig h 08/2018
--- OUTSIDE RECORDS SUMMARY | 2020-02-15 05:58 | XMS REPORT ---
Author Author [employer]. Organization [employer] Address [address] [place] [id number] Care Team Providers Care Glue Jointer Feeder Name Role Phone LUDA ARAYA Unavailable Unavailable NO, LOCAL PHYSICIAN Unavailable Unavailable MYRON Garcia Unavailable MIMI BARBARA Unavailable MIREILLE BAPTISTE Unavailable MIREILLE BPATISTE Unavailable CLEOPATRA FRANCISCO Unavailable CLEOPATRA FRANCISCO Unavailable NICK LAM Unavailable MACIEJ FITZGERALD Unavailable CLEOPATRA FRANCISCO Unavailable CLEOPATRA FRANCISCO Unavailable MARYAM CLEOPATRA Unavailable MARYAM CLEOPATRA Unavailable LUDA ARAYA Unavailable [facility] Unavailable LUDA ARAYA Unavailable TREVONMADANTA Unavailable TREVON, JIE Unavailable TREVON, JIE Unavailable Migration, Doctor Unavailable Unavailable Migration, Doctor Unavailable Unavailable Migration, Doctor Unavailable Unavailable zzSANCHEZ, JÚNIOR Unavailable Migration, Doctor Unavailable Unavailable Migration, Doctor Unavailable Unavailable SARA BURTON Unavailable zzSANCHEZ, JÚNIOR Unavailable zzSANCHEZ, JÚNIOR Unavailable zzSANCHEZ, JÚNIOR Unavailable Migration, Doctor Unavailable Unavailable TAMMI FREIRE Unavailable Israel Ratliff MD Unavailable Unavailable Israel Ratliff MD Unavailable Unavailable Physician, No Primary or Family Unavailable UnavailLUDA Allan Unavailable Unavailable SARA BADILLO Unavailable Unavailable GENIE EASON MD Unavailable Unavailable GENIE EASON MD Unavailable Unavailable DANUTA LOERA DO S Unavailable Unavailable ERIKA CONKLIN MD Unavailable Unavailable JUN TINOCO DO Unavailable Unavailable Unavailable Unavailable Allergies Normalized Allergy Reported Date of Reaction(s) Care Provider Facility Allergy Type classification allergen Allergy Onset DA (1 source.) Unclassified No Known 07-02-2019 - no informatio n Israel Ratliff [facility] Allergies , MD [place] ([address]) Allergy to Unclassified plastic tape 09-09-2018 - plastic tape, [facility] Via Substance (10 Translations: skin peeling MD Justin sources.) [ plastic of Hospital - tape] [place] ([address]656) Medications Current Medications Medication Ingredient Drug Dose Dates Status Sig Sig Care Class(es) (Normalized) (Original) Provid er amLODIPine amLODIPine Dihydropyri Active no Amlodipine -A no 5 mg / / dine information torvastatin name atorvastati atorvastati Calcium 5-10 MG (no n 10 mg n Channel Orally Once phone) oral tablet Translation Carlos A, a day 1 (1 source.) s: [ HMG-CoA tablet 24h Amlodipine- Reductase 30 day(s) Atorvastati Inhibitor Active n 5-10 MG] azithromyci Azithromyci Macrolide 500 mg 12-31-19 Active take 2 Azithromycin no n 250 mg n Antimicrobi 15 tablets by 250 mg 2 nam e oral tablet Translation al mouth once Tablet by (no (1 source.) s: [ daily, then Oral route phone) Azithromyci take 1 on day 1 n 250 mg] tablet by then take 1 mouth, then daily for 4 take 1 days Dec, tablet by 2014 Active mouth once daily no Glucocard no 09-18-20 Active no Glucocard no information Expression information 18 information Express ion name (1 source.) Monitor Monitor (no w/Device w/Device as phone) Translation directed 12h s: [ Sep, Glucocard Active Expression Monitor w/Device] no Glucocard no 09-18-20 Active no Glucocard no information Expression information 18 information Express ion name (1 source.) Test - Test - In (no Translation Vitro 2 phone) s: [ times a day Glucocard as directed Expression 12h 06 Sep, Test -] 2017 Active no Multiple no 12-31-19 Active take 1 Multiple no information Vitamins information 15 tablet by Vitamins 1 name (1 source.) mouth once Tablet by (no daily Oral route 1 phone) time per day Dec, Active no NovoLog no 7 [IU] 03-06-20 Active inject 7 NovoLog n o information Flexpen 100 information 13 [IU] by Flexpen 1 00 name (1 source.) unit/mL subcutaneous unit/mL (no injection inject 7 phone) three times Units by daily before Subcutaneous mealtime route before meals 3 times per day Feb, Active no Vol-Plus no 01-09-20 Active take 1 Vol-Plus no information 27-1 mg information 15 tablet by 27-1 mg 1 name (1 source.) Translation mouth once Tablet by (no s: [ daily Oral route 1 phone) Vol-Plus time per day 27-1 mg] Dec, Active Completed/Discontinued Medications Medication Ingredient Drug Dose Dates Status Sig Sig Care Class(es) (Normalized) (Original) Provid er no acetaminoph Opioid 09-11-20 Complete take 1 Acetaminophe Danuta information en / Agonist 18 d tablet by n/Joni Loera (2 HYDROcodone mouth every e Bitart (no sources.) Translation four hours (Hydrocodone phone) s: [ as needed /Acetaminoph Acetaminoph for pain en 5/325MG en 325 MG / Tablet) 1 Hydrocodone Tab Tab 1 Bitartrate Tab ORAL 5 MG Oral Every 4HRS Tablet, as needed Hydrocodone for -Acetaminop Pain-Moderat hen 5-325 e 15 Tab MG] 09/11/18 Active no Hydrocod no name inform one-Acet (no ation aminophe phone) n 5-325 MG Orally every 4 hrs 1 tablet as needed 4h Active amLODIPine amLODIPine Dihydropyri 5 mg 09-11-20 Complete take 1 Amlodipine Danuta 5 mg oral dine 18 d tablet by Besylate 5 Garn er tablet (1 Calcium mouth once Mg Tablet 5 (no source.) Channel daily Mg ORAL phone) Carlos A Daily 30 Tab 09/11/18 no Aspirin no 12-01-19 Complete no Aspirin (no information (Aspirin Ec information 15 d information (A spirin Ec phone) (1 source.) 81 Mg) 81 81 Mg) 81 Mg Mg Tabec, Tabec, 81 Mg 81 Mg Oral Oral Daily Discontinued cefdinir cefdinir Cephalospor 300 mg 09-11-20 Complete take 1 Ce fdinir 300 Danuta 300 mg oral Translation in 18 d capsule by Mg Capsul e Loera capsule (2 s: [ Antibacteri mouth twice 300 Mg ORAL (no sources.) Cefdinir al daily Twice A Day phone) 300 MG] 10 Cap 09/11/18 enalapril enalapril Angiotensin 10 mg 09-11-20 Complete take 1 Enalapril Danuta maleate 10 Translation Converting 18 d tablet by Maleat e 10 Loera mg oral s: [ Enzyme mouth once Mg Tablet 10 (no tablet (2 Enalapril Inhibitor daily Mg ORAL phone) sources.) Maleate 10 Daily 30 Tab MG] 09/11/18 no Insulin no 12-01-19 Complete no Insulin (no information Aspart information 15 d information Aspart phone) (1 source.) (Novolog (Novolog Pen) 100 Pen) 100 Unit/1 Ml Unit/1 Ml Insuln.pen, Insuln.pen, 10 Unit 10 Unit Subcutaneou Subcutaneous s Before Meals Discontinued no Insulin no 12-01-19 Complete no Insulin (no information Glargine information 15 d information Glarg ine phone) (1 source.) (Lantus) (Lantus) 300 300 Units/3 Units/3 Ml Ml Soln, 30 Soln, 30 Units Units Subcutaneou Subcutaneous s Bedtime Discontinued no Insulin no 12-04-19 Complete no Insulin Shona information Human information 15 - d information Human L ispro y A (1 source.) Lispro 1 09-10-20 1 Unit/0.01 Chicle Grinder Feeder Unit/0.01 18 Ml Paulette, 7 Gomez Ml Paulette, 7 Unit (no Unit Subcutaneous phone) Subcutaneou Before Meals s 12/04/14 Discontinued lactulose lactulose Osmotic 6670 09-11-20 Complete take 10 g by Lactulose 20 Danuta 667 mg/ml Laxative mg/mL 18 d mouth twice Gm/30 Ml Ga rner oral daily Solution 10 (no solution (1 Gm ORAL phone) source.) Twice A Day 8 Ounce 09/11/18 no Lantus , no 10-27-20 Complete no Lantus , Not (no information Not information 12 d information Applica ble phone) (1 source.) Applicable Discontinued loratadine loratadine no 10 mg Complete take 1 Loratadine ( no 10 mg oral information d tablet by (Claritin) phone) tablet (1 mouth once 10 Mg Tablet source.) daily as 10 Mg ORAL needed Daily as needed for Allergies no Multivitami no 12-04-19 Complete no Multivitamin Shona information n (Multi information 15 - d information (Mult i y A (1 source.) Vitamin 09-10-20 Vitamin Chicle Grinder Feeder Daily) 1 18 Daily) 1 Gomez Each Each Tablet, (no Tablet, 1 1 Each Oral phone) Each Oral Daily 12/04/14 Discontinued no Nitroglycer no 0.3 mg 12-01-19 Complete no Nitrog lyceri (no information in 0.3 Mg information 15 d information n 0. 3 Mg phone) (1 source.) Tab.subl, Tab.subl, 0.3 Mg 0.3 Mg Sublingual Sublingual As Directed Discontinued no Paxil , Not no 10-27-20 Complete no Paxil , Not ( no information Applicable information 12 d information Elis licable phone) (1 source.) Discontinued no Ritalin , no 10-27-20 Complete no Ritalin , (no information Not information 12 d information Not phone) (1 source.) Applicable Applicable Discontinued simethicone simethicone no 125 mg Complete no Simethicon e (no 125 mg information d information (Gas-X) 125 phone ) chewable Mg Tab.chew tablet (1 125 Mg ORAL source.) As Directed as needed for Gas Problems Active Problems Problem Normalized Date of Normalized Normalized Provider Fac ility Classification Problem(s) Problem Problem Problem Sta tus Onset/Resoluti Duration on Phlebitis; Acute embolism Episodic Active DANUTA LOERA V [facility] Via thrombophlebit and thrombosis DO [facility] is and of left Hospital - thromboembolis popliteal vein [facility] (4 sources.) Translations: (78753) [ AC EMBLSM AND THOMBOS UNSP DEEP VEINS OF] Acute and Acute kidney Episodic Active [facility] Via unspecified failureMD Justin renal failure unspecified Hospital - (5 sources.) [place] (78797) Other liver Alkaline Episodic Active COMMUNITY Via [place] diseases (2 phosphatase [facility] sources.) raised [address] [place] (73021) Attention-defi Attention-defi Chronic Active [facility] Via cit conduct cit MD Justin and disruptive hyperactivity [facility] - behavior disorder, [place] disorders (9 unspecified (20693) sources.) type Hepatitis (15 Chronic Chronic Active GENIE CARTERN , [facility] Via sources.) hepatitis C MD Justin without Hospital - mention of [place] hepatic coma (03798) Translations: [ - Chronic viral hepatitis C B18.2] NEGATED Discoid lupus Chronic Active GENIE EASON , Not Available no erythematosus (90718) information (2 sources.) Other diseases Disorder of Episodic Active [facility] Via of kidney and kidney and MD Justin ureters (5 ureter, Hospital - sources.) unspecified [place] (14601) Other Fibromyalgia Episodic Active GENIEKALEE CARTERN , [facility] Via connective MD Justin tissue disease Hospital - (7 sources.) [place] (87956) Glaucoma (2 Glaucoma Chronic Active [facility] sources.) secondary to , MD Anthony (96099) other eye disorders, right eye, stage unspecified Alcohol-relate H/O: Episodic Active COMMUNITY Via Chri sti d disorders (1 alcoholism [facility] source.) [address] [place] (01610) Other liver Hepatomegaly, Episodic Active JIE TREVON Comm unity diseases (15 not elsewhere [facility] sources.) classified of [place] Translations: [place] ([address]) [ - Enlarged liver R16.0] Other diseases Hydronephrosis Episodic Active COMMUNITY Vi a [place] of kidney and [facility] ureters (3 [address]342 [place] sources.) (26016) Disorders of Hyperlipidemia Chronic Active [facility] Via lipid , unspecified MD Justin metabolism (9 Translations: Hospital - sources.) [ PURE [place] HYPERCHOLESTER (28025) OLEMIA, UNSPECIFIED] Essential Hypertensive Chronic Active GENIE STRAUSSEHN [facility] Via hypertension disorder MD Justin (10 sources.) Translations: Hospital - [ ESSENTIAL [place] (PRIMARY) (89770) HYPERTENSION] Other intermediate teacher Episodic Active [facility] Via aftercare (9 (current) use MD Justin sources.) of insulin [facility] (08319) Other diseases Mass of Episodic Active COMMUNITY Via Chri sti of bladder and urinary [facility] urethra (1 bladder 14747 [place] source.) (57556) 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 coli] Other Other Episodic Active TREY BORGES Via gastrointestin constipation DO [facility] al [facility] - (2 sources.) [place] (40652) Residual Patient's Episodic Active TREY DIAS Via codes; noncompliance MD Justin unclassified with other Hospital - (9 sources.) medical [place] treatment and (97382) regimen Screening and Personal Episodic Active TREY DIAS Via history of history of MD Justin [facility] nicotine Hospital - and substance dependence [place] abuse codes (81303) (11 sources.) Coronary Presence of Episodic Active TREY DIAS V ia atherosclerosi coronary MD [place] de paz and other angioplasty Hospital - heart disease implant and [place] (3 sources.) graft (82770) Osteoarthritis Primary Chronic Active TREY DIAS Via (9 sources.) osteoarthritis MD Justin , unspecified Hospital - site [place] Translations: (92841) [ UNSPECIFIED OSTEOARTHRITIS , UNSPECIFIED ] Other diseases Renal mass Episodic Active COMMUNITY Via Ch risti of kidney and [facility] ureters (1 73732 [place] source.) (36226) Systemic lupus Systemic lupus Chronic Active TREY DIAS Via erythematosus erythematosusMD Justin and connective unspecified Hospital - tissue [place] disorders (5 (34957) sources.) Other diseases Unspecified Episodic Active TREY DIAS Via of kidney and hydronephrosis MD Justin ureters (5 Hospital - sources.) [place] (42747) Septicemia Unspecified Episodic Active DANUTA LOERA [facility] Via (except in septicemia DO [facility] labor) (3 Translations: Hospital - sources.) [ SEPSIS, Coleman SEPSIS, (02131) UNSPECIFIED ORGANISM] Hepatitis (5 Unspecified Episodic Active GENIE EASON , No t Available sources.) viral (64546) hepatitis C without hepatic coma Translations: [ CHRONIC VIRAL HEPATITIS C] Abdominal Ventral hernia Episodic Active GENIE EASON , [facility] Via hernia (7 without MD Justin sources.) obstruction or Hospital - gangrene [place] (61552) Hepatitis (3 Viral Episodic Active COMMUNITY Via Jim sources.) hepatitis C [facility] Translations: [address] [place] [address] [ UNSPECIFIED (14502) VIRAL HEPATITIS C WITHOUT HE] Other eye Vitreous Chronic Active Israel Gallagher Hi dical disorders (2 hemorrhage, , [place] ([address]) sources.) right eye Past or Other Problems Problem Normalized Date of Normalized Normalized Provider Fac ility Classification Problem(s) Problem Problem Problem Sta tus Onset/Resoluti Duration on Diabetes Diabetic - no information no information COMMUNITY V ia [facility] mellitus with poor control [facility] complications Translations: [id number] [place] [address] (3 sources.) [ TYPE 2 DIAB (15825) WITH PROLIF DIAB RTNOP WITH MACULAR ED] Unclassified no information no information no information COMMU NITY Via [facility] (2 sources.) [facility]/[address] ([address]) Procedures Procedure Normalized Procedure Procedure Result Performer Facility Date Alcohol detoxification no information no name (no phone) Not Available (07547) 09-09-2018 Assessment of catheter R BRAK no name (no phon e) Via [facility] - entry site [place] (84959) 09-09-2018 09-18-2018 Comprehensive no information no name (no phone) Co [facility] metabolic panel [facility] (53666) 09-09-2018 Ct Abd/Pelv W no information JUN TINOCO Via [facility] (Appendicitis) [place] (50827) 09-09-2018 Diagnostic radiography no information JUN TINOCO Via [facility] abdomen [place] (99252) 12-31-2014 Hemoglobin no information no name (no phone) [facility] glycosylated a1c [facility] (09797) 09-18-2018 No Charge no information no name (no phone) Comm [facility] (08233) 09-09-2018 Oxygen measurement RA no name (no phone) Via [facility] (87900) 09-09-2018 12-31-2014 Urine albumin no information no name (no phone) Co [facility] quantitative [facility] (18097) 12-31-2014 Urine albumin no information no name (no phone) Co [facility] semiquantitative [facility] (82368) 09-10-2018 US scan of abdomen and no information DANUTA LOERA Via [facility] (61836) 09-10-2018 US scan of gallbladder no information CRISTOFER ZHU INS Via [facility] (40097) Immunizations Normalized Immunization Date Notes Care Provider Facili ty Immunization NEGATED: Highlighted 09-09-2018 no information [facility] Via [facility] row has not [address] [place] (21165) occurred! influenza, injectable,quadrival ent, preservative free, pediatric Results Test Name Value Interpretation Reference Range Date Time Fa cility (Normalized) (Normalized) (Medline Reference) No panel information on null Color (U) 12/13/20~turbid~ (no code) [facility] (34352) Lot # [id number] (no code) [facility] (87667) No panel information on 2020-01-27 Exp date 11/02 (no code) [facility] (02504) Lot 11.2~10.7~0610 (no code) [facility] (00300) No panel information on 2019-11-01 Albumin 3.3 g/dL (L) 3.4 - 5.4 g/dL [facility] [Mass/Vol] [facility] (03328) Albumin/Globulin 0.9 {ratio} (L) 1 - 2.5 {ratio} Comm [facility] [Mass ratio] [facility] (42991) ALP [Catalytic 203 U/L (H) 44 - 147 U/L [facility] Health activity/Vol] [facility] (34110) ALT [Catalytic 10 U/L (N) 4 - 40 U/L [facility] activity/Vol] [facility] (89811) AST [Catalytic 8 U/L (L) 10 - 34 U/L [facility] Health activity/Vol] [facility] (54977) Basophils (Bld) 0.04 10*3/uL (N) 0 - 0.3 10*3/uL [facility] [#/Vol] [facility] (36311) Basophils/100 0.8 % (N) 0.5 - 1 % Community [facility] alth WBC (Bld) [facility] (28978) Bilirubin 0.4 mg/dL (N) 0.1 - 1.2 mg/dL [facility] [Mass/Vol] [facility] (39124) Calcium 9.0 mg/dL (N) 8.5 - 10.2 mg/dL [facility] [Mass/Vol] [facility] (22257) Chloride 102 mmol/L (N) 95 - 106 mmol/L [facility] [Moles/Vol] [facility] (41023) Cholesterol 228 mg/dL (H) 180 - 200 mg/dL [facility] [Mass/Vol] [facility] (40440) Cholesterol in 56 mg/dL (N) [facility] h HDL [Mass/Vol] [facility] (45004) Cholesterol in 150 mg/dL (H) 0 - 100 mg/dL [facility] LDL [Mass/Vol] [facility] (98032) Cholesterol non 172 mg/dL (H) [facility] HDL [Mass/Vol] [facility] (62788) Cholesterol.tota 4.1 {ratio} (N) [facility] Hea lth l/Cholesterol in [facility] HDL [Mass ratio] [facility] (87673) CO2 [Moles/Vol] 28 mmol/L (N) 23 - 29 mmol/L [facility] (31226) Creatinine 0.79 mg/dL (N) [facility] [Mass/Vol] [facility] (83883) Eosinophils 0.13 10*3/uL (N) 0.05 - 0.5 Community He[facility] lth (Bld) [#/Vol] 10*3/uL [facility] (92700) Eosinophils/100 2.6 % (N) 1 - 4 % [facility] WBC (Bld) [facility] (77010) Erythrocyte 13.5 % (N) 11.6 - 14.6 % Community H ealth distribution Center [facility] width (RBC) [facility] [Ratio] (56768) GFR/1.73 sq M 103 (N) 90 - 120 Community He alth predicted among mL/min/{1.73_m2} mL/min/{1.73_m2} Center o f [facility] blacks MDRD [facility] (S/P/Bld) [Vol (72865) rate/Area] GFR/1.73 sq 89 (N) 90 - 120 [facility] Heal th M.predicted MDRD mL/min/{1.73_m2} mL/min/{1.73_m2} [facility] (S/P/Bld) [Vol [facility] rate/Area] (02276) Globulin (S) 3.5 g/dL (N) 2 - 3.5 g/dL [facility] [Mass/Vol] [facility] (59389) Glucose 161 mg/dL (H) 60 - 125 mg/dL [facility] [Mass/Vol] [facility] (20898) Hematocrit (Bld) 40.8 % (N) 36.1 - 50.3 % [facility] (23444) Hemoglobin (Bld) 12.7 g/dL (N) 12.1 - 17.2 g/dL [facility] [Mass/Vol] [facility] (80637) Lymphocytes 1.885 10*3/uL (N) 0.9 - 2.9 [facility] alth (Bld) [#/Vol] 10*3/uL [facility] (97662) Lymphocytes/100 37.7 % (N) 20 - 40 % [facility] WBC (Bld) [facility] (49976) MCH (RBC) 25.2 pg (L) 27 - 31 pg [facility] [Entitic mass] [facility] (13185) MCHC (RBC) 31.1 g/dL (L) 32 - 36 g/dL [facility] He alth [Mass/Vol] [facility] (34117) MCV (RBC) 81.0 fL (N) 80 - 100 fL [facility] lt [Entitic vol] [facility] (82520) Monocytes (Bld) 0.425 10*3/uL (N) 0.3 - 0.9 [facility] [#/Vol] 10*3/uL [facility] (56659) Monocytes/100 8.5 % (N) 2 - 8 % [facility] alth WBC (Bld) [facility] (83736) Neutrophils 2.52 10*3/uL (N) 1.7 - 7 10*3/uL [facility] Health (Bld) [#/Vol] [facility] (01598) Neutrophils/100 50.4 % (N) 40 - 60 % [facility] WBC (Bld) [facility] (79126) Platelet mean 11.7 fL (N) 7.2 - 11.7 fL [facility] volume (Bld) [facility] [Entitic vol] [facility] (81794) Platelets (Bld) 231 10*3/uL (N) 150 - 450 [facility] [#/Vol] 10*3/uL [facility] (86007) Potassium 4.1 mmol/L (N) 3.7 - 5.2 mmol/L [facility] [Moles/Vol] [facility] (47371) Protein 6.8 g/dL (N) 6.4 - 8.3 g/dL [facility] [Mass/Vol] [facility] (34151) RBC (Bld) 5.04 10*6/uL (N) 4.2 - 6.1 [facility] lt [#/Vol] 10*6/uL [facility] (02489) Sodium 138 mmol/L (N) 135 - 145 mmol/L [facility] [Moles/Vol] [facility] (78694) Triglyceride 108 mg/dL (N) 0 - 150 mg/dL [facility] [Mass/Vol] [facility] (91804) Urea nitrogen 16 mg/dL (N) 7 - 20 mg/dL [facility] [Mass/Vol] [facility] (84764) Urea NOT APPLICABLE (no code) [facility] Healt h nitrogen/Creatin [facility] [Mass ratio] [facility] (14385) WBC (Bld) 5.0 10*3/uL (N) 3.5 - 10.5 [facility] th [#/Vol] 10*3/uL [facility] (72833) No panel information on 2019-10-31 Exp date 07/03 (no code) [facility] (80668) HbA1c (Bld) 10.7 % (no code) 0 - 5.7 % [facility] [Mass fraction] [facility] (61084) Lot [id number] (no code) [facility] Healt h [facility] (22372) Previous A1c >14 (no code) [facility] (54146) No panel information on 2019-09-17 Bacteria SEE NOTE (A) [facility] (U) [facility] (91048) No panel information on 2019-07-09 Color (U) 12/02~cloudy~yel (no code) [facility] Hea [facility] ([id number]) Control >300~normal (no code) [facility] (68566) CRE 150~100 (no code) [facility] (45240) Exp date 01/31 (no code) [facility] (75526) Lot [id number] (no code) [facility] (57177) Lot # [id number] (no code) [facility] (63214) MICROALBUMIN abnormal (no code) [facility] (87496) Previous A1c >14~>14 (no code) [facility] (70202) No panel information on 2019-07-03 Glucose 391 mg/dL (H) 60 - 125 mg/dL [facility] [Mass/Vol] [place] ([address]43) Glucose 140 mg/dL (H) 60 - 125 mg/dL [facility] [Mass/Vol] [place] (13760) Glucose 180 mg/dL (H) 60 - 125 mg/dL [facility] [Mass/Vol] [facility] (20717) Glucose 210 mg/dL (H) 60 - 125 mg/dL [facility] [Mass/Vol] [facility] (87162) Glucose 419 mg/dL (HH) 60 - 125 mg/dL [facility] ical [Mass/Vol] [place] (57555) Glucose 367 mg/dL (H) 60 - 125 mg/dL [facility] ical [Mass/Vol] [place] (50644) HbA1c (Bld) 13.5 % (H) 0 - 5.7 % [facility] [Mass fraction] [place] ([address]114) MRSA See Below (no code) [facility] SURVEILLANCE [place] ([address]505) SCREEN OPERATION ~ [facility] (no code) 07-03-2019 [facility] PROCEDURE REPORT CENTER~ [id number] Center (0000 0) [address]~ [place], [place] [address]~ ~ ~PATIENT'S NAME: PIPPA KAPLAN UNIT NO: [id number]~: 71 AGE: 48 SEX: F ~ATT ENDING PHYS: Dr. GUTIERREZ PT STATUS: DEP [facility] [place] ~REPORT NAME: OPERATION PROCEDURE REPORT ROOM NO: ~REPORT STATUS Signed ~ ~DATE OF ADMISSION: 07/03/19~ ~ ~DATE OF SURGERY/PROCEDUR E: 07/03/2019~ ~SURGEON/PHYSICI AN: Israel Ratliff MD~ ~PREOPERATIVE DIAGNOSES:~Neova scular glaucoma, right eye, proliferative diabetic retinopathy, vitreous~hemorrh age.~ ~POSTOPERATIVE DIAGNOSES:~Neova scular glaucoma, right eye, proliferative diabetic retinopathy, vitreous~hemorrh age.~ ~PROCEDURE:~Cycl ophotocoagulatio n, right eye.~ ~ANESTHESIA:~Dr. Cherrie De La Garza.~ ~COMPLICATIONS:~ None.~ ~INDICATIONS FOR PROCEDURE:~Lexi ramirez is 48 years old. She is noncompliant with diabetes management. She~has some chronic alcoholism. She has not taken insulin. In fact, blood sugar~this morning preop was in the 420 range, given 40 units of insulin, still into~the 300 range. The patient has developed severe neovascular glaucoma. She is~having chronic pain or pressure at one point was 70. Vision is in the light~perception range. She has severe nonproliferative diabetic retinopathy with~macular edema on her left eye. Consent was obtained for laser treatment to~her right eye with Iridex Diode G probe. The patient's consent was obtained.~ ~DESCRIPTION OF PROCEDURE:~The patient was taken to the operating room. Under brief induction, placed an~inferotempora l retrobulbar block and medial canthal block. This was~supplemented . Lid speculum was placed. The diode G6 probe was applied.~Power settings at 1500 mW and duration 3.5 seconds, #20 spots from the~inferonasal, inferotemporal, and superotemporal quadrant. She tolerated the~procedure well. The patient will be dismissed to home on prednisolone q.i.d.,~atropine daily. She will continue her preop medicines of Diamox, timolol, and~ ~PATIENT'S NAME: PIPPA KAPLAN ACCOUNT NO: [id number]~ ~ ~ ~latanoprost. She will follow with me in 1 week. She has an appointment with~a clinic she is not followed with and the last appointment approximately 5~years ago~at [facility] with Sara nurse practitioner. This~has been written and appointment obtained.~ ~Israel Ratliff MD Date/Time~ ~trey/jade 1242 1431 JOB#: [id number] ~ ~cc: Israel Ratliff MD~Israel Ratliff MD~Israel Ratliff MD~[facility]~Authen ticated and Edited by Israel Ratliff MD On 07/08/19 10:57:19 AM ~ ~ ~ ~ at 1059~ ~ ~ ~ ~ ~ ~ ~ ~ ~ ~ ~ ~ ~ ~ ~ ~ ~ ~ ~ ~ ~ ~ ~ ~ ~ ~ ~ ~ ~ ~ ~ ~ ~ ~PATIENT'S NAME: PIPPA KAPLAN ACCOUNT NO: [id number] OPERATION ~ [facility] (no code) 07-03-2019 [facility] PROCEDURE REPORT CENTER~ [address]:42-0400 [place] (0000 0) [place]~ [place] [id number]~ ~ ~PATIENT'S NAME: PIPPA KAPLAN UNIT NO: [id number]~: 71 AGE: 48 SEX: F ~ATT ENDING PHYS: Dr. GUTIERREZ PT STATUS: [facility] ~REPORT NAME: OPERATION PROCEDURE REPORT ROOM NO: ~REPORT STATUS Draft ~ ~DATE OF ADMISSION: 07/03/19~ ~ ~ ~ ~ ~ ~DATE OF SURGERY/PROCEDUR E: 07/03/2019~ ~SURGEON/PHYSICI AN: Israel Ratliff MD~ ~PREOPERATIVE DIAGNOSES:~Neova scular glaucoma, right eye, proliferative diabetic retinopathy, vitreous~hemorrh age.~ ~POSTOPERATIVE DIAGNOSES:~Neova scular glaucoma, right eye, proliferative diabetic retinopathy, vitreous~hemorrh age.~ ~PROCEDURE:~Cycl ophotocoagulatio n, right eye.~ ~ANESTHESIA:~Dr. Cherrie De La Garza.~ ~COMPLICATIONS:~ None.~ ~INDICATIONS FOR PROCEDURE:~Lexi ramirez is 48 years old. She is noncompliant with diabetes management. She~has some chronic alcoholism. She has not taken insulin. In fact, blood sugar~this morning preop was in the 420 range, given 40 units of insulin, still into~the 300 range. The patient has developed severe neovascular glaucoma. She is~having chronic pain or pressure at one point was 70. Vision is in the light~perception range. She has severe nonproliferative diabetic retinopathy with~macular edema on her left eye. Consent was obtained for laser treatment to~her right eye with . The patient's consent was obtained.~ ~DESCRIPTION OF PROCEDURE:~The patient was taken to the operating room. Under brief induction, placed an~inferotempora l retrobulbar block and medial canthal block. This was~supplemented . Lid speculum was placed. The diode G6 probe was applied.~ ~PATIENT'S NAME: PIPPA KAPLAN ACCOUNT NO: [id number]~ ~ ~ ~Power settings at 1500 mW and duration 3.5 seconds, #20 spots from the~inferonasal, inferotemporal, and superotemporal quadrant. She tolerated the~procedure well. The patient will be dismissed to home on prednisolone q.i.d.,~atropine daily. She will continue her preop medicines of Diamox, timolol, and~latanoprost. She will follow with me in 1 week. She has an appointment with~a clinic she is not followed with and the last appointment approximately 5~years ago~at [facility] with Sara nurse practitioner. This~has been written and appointment obtained.~ ~ ~ ~ ~Israel Ratliff MD Date/Time~ ~pdw/jade 1242 1431 JOB#: [id number] ~ ~cc: Israel Ratliff MD~Israel Ratliff MD~Israel Ratliff MD~[facility]~ ~ ~ ~ ~ ~ ~ ~ ~ ~ ~ ~ ~ ~ ~ ~ ~ ~ ~ ~ ~ ~ ~ ~ ~ ~ ~ ~ ~ ~ ~ ~ ~PATIENT'S NAME: PIPPA KAPLAN ACCOUNT NO: [id number] Potassium 3.5 mmol/L (N) 3.7 - 5.2 mmol/L [facility] [Moles/Vol] [place] ([address]375) TEST, no information (no code) [facility] (01631) No panel information on 2018-09-18 Albumin 3.4 g/dL (L) 3.4 - 5.4 g/dL [facility] [Mass/Vol] [facility] (41451) Albumin/Globulin 0.8 (L) [facility] Hea lth [Mass ratio] [facility] () ALP [Catalytic 581 U/L (H) 44 - 147 U/L [facility] Health activity/Vol] [facility] (28139) ALT [Catalytic 17 U/L (N) 4 - 40 U/L [facility] H ealth activity/Vol] [facility] (37927) AST [Catalytic 9 U/L (L) 10 - 34 U/L [facility] Health activity/Vol] [facility] (07877) Bilirubin 0.5 mg/dL (N) 0.1 - 1.2 mg/dL [facility] [Mass/Vol] [facility] (98428) Calcium 8.9 mg/dL (N) 8.5 - 10.2 mg/dL [facility] [Mass/Vol] [facility] (23323) Chloride 99 mmol/L (N) 95 - 106 mmol/L [facility] [Moles/Vol] [facility] (34538) CO2 [Moles/Vol] 30 mmol/L (N) 23 - 29 mmol/L [facility] (94002) Creatinine 0.69 mg/dL (N) [facility] [Mass/Vol] [facility] (93844) GFR/1.73 sq M 121 (N) 90 - 120 [facility] predicted among mL/min/{1.73_m2} mL/min/{1.73_m2} Center o f [facility] blacks MDRD [facility] (S/P/Bld) [Vol (58678) rate/Area] GFR/1.73 sq 104 (N) 90 - 120 [facility] th M.predicted MDRD mL/min/{1.73_m2} mL/min/{1.73_m2} [facility] (S/P/Bld) [Vol [facility] rate/Area] (53620) Globulin (S) 4.1 (H) [facility] [Mass/Vol] [facility] (49729) Glucose 274 mg/dL (H) 60 - 125 mg/dL [facility] [Mass/Vol] [facility] (86129) Potassium 3.5 mmol/L (N) 3.7 - 5.2 mmol/L [facility] [Moles/Vol] [facility] (40636) Protein 7.5 g/dL (N) 6.4 - 8.3 g/dL [facility] [Mass/Vol] [facility] (65496) Sodium 138 mmol/L (N) 135 - 145 mmol/L [facility] [Moles/Vol] [facility] (54489) Urea nitrogen 10 mg/dL (N) 7 - 20 mg/dL [facility] [Mass/Vol] [facility] (82081) Urea NOT APPLICABLE (no code) [facility] nitrogen/Creatin [facility] [Mass ratio] [facility] (73032) capillary blood glucose measurement by glucometer (mass/volume) on 2018-09-12 Glucose mass 159 mg/dL (H) 60 - 125 mg/dL Via [facility] () venous blood hemoglobin measurement (mass/volume) on 2018-09-11 Hemoglobin mass 9.0 g/dL (L) 12.1 - 17.2 g/dL Via [facility] (d) [facility] () serum or plasma urea nitrogen/creatin ine mass ratio on 2018-09-11 Urea 20 mg/mg (no code) 6 - 22 mg/mg Via [facility] nitrogen/Creatin Hospital ine mass ratio [facility] () serum or plasma urea nitrogen measurement (mass/volume) on 2018-09-11 Urea nitrogen 16 mg/dL (no code) 7 - 20 mg/dL Via [facility] () serum or plasma total bilirubin measurement (mass/volume) on 2018-09-11 Bilirubin mass 0.4 mg/dL (no code) 0.1 - 1.2 mg/dL Via [facility] () serum or plasma sodium measurement (moles/volume) on 2018-09-11 Sodium molar 135 mmol/L (no code) 135 - 145 mmol/L Via [facility] () serum or plasma protein measurement (mass/volume) on 2018-09-11 Protein mass 6.4 g/dL (no code) 6.4 - 8.3 g/dL [facility] () serum or plasma potassium measurement (moles/volume) on 2018-09-11 Potassium molar 3.9 mmol/L (no code) 3.7 - 5.2 mmol/L Via [facility] () serum or plasma glucose measurement (mass/volume) on 2018-09-11 Glucose mass 182 mg/dL (H) 60 - 125 mg/dL [facility] () serum or plasma creatinine measurement with calculation of estimated glomerular filtration rate on 2018-09-11 GFR/1.73 sq M no information (no code) Via [facility] vol rate/area () (S/P/Bld) serum or plasma creatinine measurement (mass/volume) on 2018-09-11 Creatinine mass 0.81 mg/dL (no code) Via [facility] (45562) serum or plasma chloride measurement (moles/volume) on 2018-09-11 Chloride molar 109 mmol/L (H) 95 - 106 mmol/L Via [facility] (90150) serum or plasma calcium measurement (mass/volume) on 2018-09-11 Calcium mass 8.3 mg/dL (L) 8.5 - 10.2 mg/dL Via [facility] (18998) serum or plasma aspartate aminotransferase measurement (enzymatic activity/volume) on 2018-09-11 AST enzyme 142 U/L (H) 10 - 34 U/L [facility] (13714) serum or plasma anion gap determination (moles/volume) on 2018-09-11 Anion gap 3 8 mmol/L (no code) 3 - 11 mmol/L Via [facility] (17200) serum or plasma alkaline phosphatase measurement (enzymatic activity/volume) on 2018-09-11 ALP enzyme 993 U/L (H) 44 - 147 U/L Via [facility] (45188) serum or plasma albumin measurement (mass/volume) on 2018-09-11 Albumin mass 2.7 g/dL (L) 3.4 - 5.4 g/dL Via [facility] (17855) serum or plasma alanine aminotransferase measurement (enzymatic activity/volume) on 2018-09-11 ALT enzyme 172 U/L (H) 4 - 40 U/L Via [facility] (52979) prothrombin time (pt) in platelet poor plasma by coagulation assay on 2018-09-11 Prothrombin time 13.2 s (no code) 9.4 - 12.5 s Via [facility] (PT) Coag time [facility] ([facility]) [place] (18014) inr in platelet poor plasma or blood by coagulation assay on 2018-09-11 INR Coag RelTime 1.0 (no code) Via [facility] (Platelet poor Hospital plasma or blood) [place] (92247) carbon dioxide on 2018-09-11 CO2 molar conc 18 mmol/L (L) 23 - 29 mmol/L Via [facility] (22758) calcium measurement corrected for albumin on 2018-09-11 Calcium mass 9.3 mg/dL (no code) 8.5 - 10.2 mg/dL Via [facility] isti conc [facility] (02874) blood neutrophils automated count (number/volume) on 2018-09-11 Neutrophils Auto 2.8 10*3/uL (no code) 1.7 - 7 10*3/uL Via [facility] #/vol (Bld) [facility] (49403) blood monocytes/100 leukocytes on 2018-09-11 Monocytes/100 9 % (no code) 2 - 8 % [facility] WBC Auto (Bld) [facility] (90190) blood monocytes automated count (number/volume) on 2018-09-11 Monocytes Auto 0.4 10*3/uL (no code) 0.3 - 0.9 [facility] [place] #/vol (Bld) 10*3/uL [facility] (75450) blood lymphocytes automated count (number/volume) on 2018-09-11 Lymphocytes Auto 1.4 10*3/uL (no code) 0.9 - 2.9 Via [facility] #/vol (Bld) 10*3/uL [facility] (22074) blood leukocytes automated count (number/volume) on 2018-09-11 WBC Auto #/vol 4.7 10*3/uL (no code) 3.5 - 10.5 [facility] (Bld) 10*3/uL [facility] (60399) blood hematocrit (volume fraction) on 2018-09-11 Hematocrit Auto 28 % (L) 36.1 - 50.3 % Via [facility] isti Volume Fraction Hospital (d) [place] (47408) blood erythrocytes automated count (number/volume) on 2018-09-11 RBC Auto #/vol 3.48 10*6/uL (L) 4.2 - 6.1 Via [facility] i (Bld) 10*6/uL [facility] (47386) automated erythrocyte mean corpuscular volume on 2018-09-11 MCV Auto Entitic 79 fL (L) 80 - 100 fL Via [facility] sti volume (RBC) [facility] (49683) automated erythrocyte mean corpuscular hemoglobin concentration measurement (mass/volume) on 2018-09-11 MCHC Auto mass 33 g/dL (no code) 32 - 36 g/dL Via [facility] ti conc (RBC) [facility] (86107) automated erythrocyte mean corpuscular hemoglobin (mass per erythrocyte) on 2018-09-11 MCH Auto Entitic 26 pg (no code) 27 - 31 pg Via [facility] mass (RBC) [facility] (79843) automated erythrocyte distribution width ratio on 2018-09-11 Erythrocyte 14.4 % (no code) 11.6 - 14.6 % Via [facility] distribution Hospital width Auto Ratio [facility] (RBC) (30628) automated eosinophil count on 2018-09-11 Eosinophils Auto 0.1 10*3/uL (no code) 0.05 - 0.5 Via [facility] #/vol (Bld) 10*3/uL [facility] (66220) automated blood platelet mean volume measurement on 2018-09-11 Platelet mean 10.6 fL (H) 7.2 - 11.7 fL Via [facility] volume Auto Hospital Entitic volume [facility] (Bld) (86886) automated blood platelet count (count/volume) on 2018-09-11 Platelets Auto 214 10*3/uL (no code) 150 - 450 [facility] #/vol (Bld) 10*3/uL [facility] (94062) automated blood neutrophils/100 leukocytes on 2018-09-11 Neutrophils/100 60 % (no code) 40 - 60 % Via [facility] i WBC Auto (Bld) [facility] (78954) automated blood lymphocytes/100 leukocytes on 2018-09-11 Lymphocytes/100 29 % (no code) 20 - 40 % Via [facility] i WBC Auto (Bld) [facility] (98834) automated blood eosinophils/100 leukocytes on 2018-09-11 Eosinophils/100 2 % (no code) 1 - 4 % Via [facility] i WBC Auto (Bld) [facility] (75566) automated blood basophils/100 leukocytes on 2018-09-11 Basophils/100 0 % (no code) 0.5 - 1 % [facility] WBC Auto (Bld) [facility] (46292) automated blood basophil count (count/volume) on 2018-09-11 Basophils Auto 0.0 10*3/uL (no code) 0 - 0.3 10*3/uL Via [facility]isti #/vol (Bld) [facility] (37116) ammonia on 2018-09-11 Ammonia mass 34 (H) Via [facility] conc (Unsp spec) [facility] (77957) glucose mean estimated using hba1c on 2018-09-10 Glucose mass 324 mg/dL (H) 60 - 125 mg/dL Via [facility] (34735) blood hemoglobin a1c measurement (mass/volume) on 2018-09-10 Hemoglobin A1c 12.9 (H) Via [facility] (Bld) [facility] (21406) urine urobilinogen measurement by automated test strip (mass/volume) on 2018-09-09 Urobilinogen NORMAL (no code) Via [facility] Test strip Qn [facility] ([facility] (50201) urine total bilirubin detection by test strip on 2018-09-09 Bilirubin Ql (U) no information (no code) Via [facility] () urine protein assay by test strip, semi-quantitativ e on 2018-09-09 Protein Test 2+ (*) Via [facility] strip ([facility] () urine ph measurement by test strip on 2018-09-09 pH Test strip 7 [pH] (no code) 4.6 - 8 [pH] Via [facility] ([facility] () urine nitrite detection by test strip on 2018-09-09 Nitrite Test no information (no code) Via [facility] strip () [facility] () urine leukocyte esterase detection by dipstick on 2018-09-09 Leukocyte 1+ (*) Via [facility] esterase Test Hospital strip Ql ([facility] (01310) urine ketones detection by automated test strip on 2018-09-09 Ketones 2+ (*) Via [facility] Automated test Hospital strip Ql ([facility] (25428) urine glucose detection by automated test strip on 2018-09-09 Glucose 4+ (*) Via [facility] Automated test Hospital strip Ql ([facility] (88174) urine color determination on 2018-09-09 Color Nom (U) YELLOW (no code) Via [facility] (78048) urine clarity determination on 2018-09-09 Clarity Nom (U) SLIGHTLY CLOUDY (no code) Via [facility] (11269) squamous epithelial cells detection in urine sediment by light microscopy on 2018-09-09 Epithelial no information (no code) Via [facility] cells.squamous Hospital LM Ql (Urine [facility] sed) (47345) specific gravity of urine by test strip on 2018-09-09 Specific gravity 1.005 (*) Via [facility] Relative Density [facility] (U) [facility] (35168) setting of ventilation mode on 2018-09-09 Ventilation mode NO (no code) Via [facility] Ventilator [facility] (53132) serum or plasma amylase measurement (enzymatic activity/volume) on 2018-09-09 Amylase enzyme 22 U/L (L) 40 - 140 U/L Via [facility] act/[facility] (42087) mucus detection in urine sediment by light microscopy on 2018-09-09 Mucus LM Ql no information (no code) Via [facility] (Urine sed) [facility] (81986) lipase on 2018-09-09 Lipase enzyme 22 U/L (no code) 10 - 73 U/L Via [facility] act/[facility] (83263) erythrocytes detection in urine sediment by light microscopy on 2018-09-09 RBC LM Ql (Urine 4+ (*) Via [facility]) [facility] (85030) crystals detection in urine sediment by light microscopy on 2018-09-09 Crystals LM Ql NONE (no code) Via [facility] (Urine sed) [facility] (78915) complete urinalysis with reflex to culture on 2018-09-09 Urinalysis NO (no code) Via [facility] Reflex Culture [facility] panel - Urine (50620) casts detection in urine sediment by light microscopy on 2018-09-09 Casts LM Ql NONE (no code) Via [facility] (Urine sed) [facility] (66173) blood po2 on 2018-09-09 Oxygen ppres 89 mm[Hg] (no code) 75 - 100 mm[Hg] Via [facility] sti (Bld) [facility] (34971) blood pco2 on 2018-09-09 CO2 molar conc 34 mmol/L (L) 23 - 29 mmol/L Via [facility] isti [facility] (08571) bacteria detection in urine sediment by light microscopy on 2018-09-09 Bacteria LM Ql no information (no code) Via [facility] (Urine sed) [facility] (05287) automated urine sediment leukocyte count by microscopy (number/high power field) on 2018-09-09 WBC LM.HPF no information (no code) Via [facility] #/area (Urine Hospital sed) [facility] (82336) automated urine sediment erythrocyte count by microscopy (number/high power field) on 2018-09-09 RBC LM.HPF no information (*) Via [facility] #/area (Urine Hospital sed) [facility] (47646) assessment of wrist artery patency prior to arterial puncture on 2018-09-09 Arterial patency no information (no code) Via [facility] Wrist artery [facility] --pre arterial [facility] puncture (53079) arterial blood ph measurement with patient temperature correction on 2018-09-09 pH adjusted to 7.39 (no code) Via [facility] patient's actual Hospital temperature [facility] (BldA) (39217) arterial blood oxygen saturation measurement on 2018-09-09 SaO2% mass 98 (no code) Via [facility] fraction (BldA) [facility] (63694) arterial blood carbon dioxide, total measurement (moles/volume) on 2018-09-09 CO2 molar conc 21.2 mmol/L (no code) 23 - 29 mmol/L [facility] (62013) arterial blood bicarbonate measurement (moles/volume) on 2018-09-09 HCO3 molar conc 20 mmol/L (L) 22 - 28 mmol/L Via ris (d) [facility] (63713) arterial blood base excess by calculation on 2018-09-09 Base excess -4.2 mmol/L (L) -2 - 2 mmol/L Via [facility] Calculated molar Hospital conc (Bld) [facility] (94278) No panel information on 2017-12-22 Bacteria SEE NOTE (A) [facility] identified Aer [facility] cx Nom ([facility] spec) (21965) No panel information on 2017-09-07 Bacteria Note (no code) 09-07-2017 Not Available identified Aer 16:39-0400 (55390) cx Nom ([facility] spec) Vital Signs Vital Sign Value Interpretation Reference Date Time Care Prov ider Facility (Normalized) (Normalized) Range BMI (Body Mass 32.02 kg/m2 (no code) 15 - 25 kg/m2 09-18-2018 DESTINY LESTER Community Index) 14:20-0500 59169 [facility] (59613) Body 97.3 [degF] (no code) 97.8 - 99.0 09-18-2018 JIE Veras Community Temperature [degF] 14:20-0500 39334 [facility] (42644) Body 97.7 (no code) COMMUNITY Via [facility] [address] [place] (30706) Body 97.6 [degF] (no code) 97.8 - 99.0 12-31-2014 JÚNIOR [facility] Temperature [degF] 14:44-[address] ([address]221) Body weight 75.66 kg (no code) kg 12-31-2014 JÚNIOR [facility] 14:44-[address] (17852) Height 154.94 cm (no code) cm 09-18-2018 JIEIVANIA LESTER Co [facility]munity 14:20-[address] [place] [address] (79326) Height 154.94 cm (no code) cm 12-31-2014 JÚNIOR Commu nity 14:44-[address] (62361) Weight 76.89 kg (no code) kg 09-18-2018 JIE LESTER Com munity 14:20-[address] [place] [address] ([id number]) Interventions No Information Plan of Treatment Normalized Care Care Detail Care Activity Date Care Provider F acility Activity (DM-MGMT) Diabetes [facility] 09-24-2018 JIE LESTER [phone] [facility] (52599) Follow-up encounter no information [facility] [id number] [place] [address] ([address]) Patient encounter no information 01-23-2020 [facility] (69587) Goals No Information Social History No Information Functional Status The data below is from unstructured sources Query Response Date Roby rded Patient Orientation Person Place Time Situation December 04, 2014 5:27pm Comprehension Ability Understands Co ncepts December 04, 2014 8:05am Query Response Date Roby rded Patient Orientation Normal For Age September 11, 2018 1:43pm Comprehension Ability Understands Co ncepts September 12, 2018 9:00am Mental Status No Information Encounters Encounter Normalized Encounter Encounter Diagnosis Care Provi hernán Organization Date Type 11-21-2019 Emergency department no information no name (no leonid ne) no organization name patient visit (no phone) 09-09-2018 Emergency department no information no name (no leonid ne) no organization name patient visit (no phone) 11-21-2019 Evaluation and no information no name (no phone) n o organization name - management of (no phone) 11-24-2019 inpatient 09-09-2018 Evaluation and Mass of urinary GENIE Pretty EASON Work no organization name - management of bladder (no phone) 09-12-2018 inpatient 09-18-2018 Follow-up encounter Type 2 diabetes JIE TREVON (no phone) [facility] - mellitus with (no phone) 09-18-2018 unspecified - complications 09-18-2018 09-09-2018 Patient encounter no information no name (no phone) no organization name - (no phone) 09-12-2018 01-10-2018 Patient encounter no information no name (no phone) no organization name (no phone) 01-08-2018 Patient encounter no information no name (no phone) no organization name (no phone) 01-05-2018 Patient encounter no information no name (no phone) no organization name (no phone) 01-03-2018 Patient encounter no information no name (no phone) no organization name (no phone) 01-01-2018 Patient encounter no information no name (no phone) no organization name (no phone) 12-30-2017 Patient encounter no information no name (no phone) no organization name (no phone) 12-26-2017 Patient encounter no information no name (no phone) no organization name (no phone) 12-24-2017 Patient encounter no information no name (no phone) no organization name (no phone) 12-23-2017 Patient encounter no information no name (no phone) no organization name (no phone) 12-22-2017 Patient encounter no information no name (no phone) no organization name (no phone) 01-27-2020 Patient encounter no information SARA BADILLO [facility]) (no phone) [facility] (no phone) 11-21-2019 Patient encounter no information no name (no phone) no organization name - procedure (no phone) 11-24-2019 11-01-2019 Patient encounter no information no name (no phone) no organization name procedure (no phone) 10-31-2019 Patient encounter no information no name (no phone) no organization name procedure (no phone) 09-17-2019 Patient encounter no information no name (no phone) no organization name procedure (no phone) 07-09-2019 Patient encounter no information no name (no phone) no organization name procedure (no phone) 07-03-2019 Patient encounter no information no name (no phone) no organization name - procedure (no phone) 07-03-2019 07-03-2019 Patient encounter no information no name (no phone) no organization name - procedure (no phone) 07-03-2019 06-26-2019 Patient encounter no information no name (no phone) no organization name procedure (no phone) 06-25-2019 Patient encounter no information no name (no phone) no organization name procedure (no phone) 06-25-2019 Patient encounter no information no name (no phone) no organization name procedure (no phone) 06-12-2019 Patient encounter no information no name (no phone) no organization name procedure (no phone) 09-18-2018 Patient encounter no information no name (no phone) no organization name procedure (no phone) 10-29-2018 Telephone encounter Chronic viral JIE TREVON (no p ritchie) [facility] - hepatitis C (no phone) 10-29-2018 - 10-29-2018 2018 Telephone encounter Type 2 diabetes JIE TREVON (no phone) [facility] - mellitus with (no phone) 2018 unspecified - complications 2018 09-18-2018 Telephone encounter no information JIE TREVON (no phone) [facility] - (no phone) 09-18-2018 - 09-18-2018 09-12-2018 Telephone encounter no information LUDA ARAYA (no [facility] (no - phone) phone) 09-12-2018 - 09-12-2018 Medical Equipment No Information Payers Normalized Payer Value Medicaid [id number] Self-pay no information ([id number]) Summary Purpose eClinicalWorks Submission Advance Directives Directive Response Recor ded Date/Time Advance Directives No 9:27pm Health Care Power of Platform Supervisor No 12/01/14 9:27pm Organ Donor No 12/01/14 9:27pm Resuscitation Status Full Code 12/01/14 9:27pm Directive Response Recor ded Date/Time Advance Directives No 8:29am Health Care Power of Platform Supervisor No 09/09/18 8:29am Organ Donor No 09/09/18 8:29am Resuscitation Status Full Code 09/09/18 8:29am Discharge Instructions Patient Instructions Physician Instructions New, Converted or Re-Newed RX: Call to Patients Pharmacy Goal/Follow Up Appt: Check blood sugars at least twice daily would recommend checking at least fasting in the AM. Please crop picker glucometer and supplies from [facility] from [facility] from internal medicine You will need to re-establish with a provider at [facility] at the first available appt. with a provider to monitor your diabetes. You will go straight to [facility] to crop picker your medication and supplies and then to [facility] for treatment Discharge Diet: ADA Diet, Other Diet (Keep fluid restricted to less than 2,000ml or 2L daily) Activity as Tolerated: Yes Patient will need to crop picker glucometer, strips and syringes for insulin if needed. Luda from internal medicine will get her supplies together for her to crop picker on her way to [facility]. No hospital discharge instruction information available. Chief Complaint and Reason for Visit Chief Complaint PYELONEPHRITIS,UNCON TROLLED DIABETES,HYPONATREMIA, Reason for Visit Bladder mass Hepatitis C Elevated liver enzymes Alcohol abuse Hydronephrosis Elevated alkaline phosphatase level Elevated liver enzymes Elevated alkaline phosphatase level Right kidney mass Hydronephrosis Kidney abscess Hepatitis C Additional Source Comments This clinical document has been generated using Plug.dj software that has been certified by the Office of the National Coordinator for Health Information Technology (ONC 15.99.04.3023.Diam.[id number]) and the National Committee for Roving Inspector (NCQA, as an eMeasure certified technology). FOR RECORDS PERTAINING TO PATIENTS WHO ARE OR HAVE BEEN ENROLLED IN A CHEMICAL D EPENDENCY/SUBSTANCE ABUSE PROGRAM, SOME INFORMATION MAY BE OMITTED. This clinica l summary was aggregated from multiple sources. Caution should be exercised in using it in the provision of clinical care. This summary normalizes information from multiple sources, and as a consequence, information in this document may ma terially change the coding, format and clinical context of patient data. In mylene tion, data may be omitted in some cases. CLINICAL DECISIONS SHOULD BE BASED ON T HE PRIMARY CLINICAL RECORDS. [employer] provides no warranty or guara ntee of the accuracy or completeness of information in this document.The followi ng information is based on time limited clinical information UNRECOGNIZED CONTENT PROVIDED BELOW FOR UNRECOGNIZED SECTION MEDICAL (GENERAL) HISTORY Type Description Date Medical History Blurred vision Medical History CAD-hospitalized at 10/2012 for NSTEMI, s/p stenting to the mid LAD (had 99% occulsion). EF 45% Medical History Hypertension Medical History Asthma Medical History DM II Medical History Arthritis Medical History Chronic pain-Lupus, fibromyalgia, RA Medical History Depression Medical History Anxiety Medical History ADHD Surgical History coronary artery grupo nt (LAD) s/p NSTEMI-EF 45% 10/2012 Surgical History section 1990 & 1995 Surgical History rotator cuff tear r epair-Right 2009 Hospitalization History NSTEMI 10/2012 Hospitalization History ETOH rehab 12/2014 Type Description Date Medical History Blurred vision Medical History CAD-hospitalized at 10/2012 for NSTEMI, s/p stenting to the mid LAD (had 99% occulsion). EF 45% Medical History Hypertension Medical History Asthma Medical History DM II Medical History Arthritis Medical History Chronic pain-Lupus, fibromyalgia, RA Medical History Depression Medical History Anxiety Medical History ADHD Surgical History coronary artery grupo nt (LAD) s/p NSTEMI-EF 45% 10/2012 Surgical History section 1990 & 1996 Surgical History rotator cuff tear r epair-Right 2009 Hospitalization History NSTEMI 10/2012 Hospitalization History ETOH rehab 12/2014 Hospitalization History Kidney issue s, liver levels were high 08/2018 UNRECOGNIZED CONTENT PROVIDED BELOW FOR UNRECOGNIZED SECTION REASON FOR VISIT [facility], [facility] problems, liver levels were elevated Moe Garland [id number]
--- OUTSIDE RECORDS SUMMARY | 2020-02-15 05:59 | XMS REPORT ---
Author Author Curtis Ying Organization [facility] Address [address] [place] [address] Care Team Providers Care Intermodal Owner Operator Truck Driver Name Role Phone JÚNIOR Ying Unavailable PROBLEMS Type Condition ICD9-CM Code RSQ89-UE Code Onset Dates Condition S tatus SNOMED Code Problem Chest pain 786.50 Active 29675326 Problem Type 2 diabetes mellitus wit h complication, without long-term current use of insulin E11.8 Active 28563324 Problem Arteriosclerosis of coronary artery I25.10 Active 93364840 Problem Alcohol dependence with unspecified alcohol-induced disord er F10.29 Active 73593184 Problem Diabetes type 2, uncontrolled E11.65 Active 84842497 ALLERGIES No Information ENCOUNTERS Encounter Location Date Diagnosis [place] [address] [address] [place] [place] [address] Oct, Chronic viral hepatitis C B1 8.2 [place] [address] [address] [place] [id number] [place] [address] Sep, Type 2 diabetes mellitus wit h complication, without long-term current use of insulin E11.8 [place] [address] [address] [place] [address] Sep, [place] [address] [address] [place] [address] Sep, Type 2 diabetes mellitus wit h complication, without long-term current use of insulin E11.8 and Enlarged liver R16.0 [facility] [id number] [place] [address] Aug, [place] [address] [address] [facility] [id number] [address] [place] [address] Dec, Abscess, scalp L02.811 [place] [address] [address] [facility] [id number] [address] [place] [address] Dec, [facility] [address] [address] Dec, [facility] [address] [facility] [id number] [address] [place] [address] Dec, Abscess, scalp L02.811 [place] [address] [address] [place] [id number] [place] [address] 19 Dec, 2017 Abscess, scalp L02.811 [facility] N [address] [address] 17 Dec, 2017 Abscess, scalp L02.811 [place] [address] [address] [place] [id number] [place] [address] 15 Dec, 2017 Abscess, scalp L02.811 [place] [address] [address] [place] [id number] [address] [place] [address] 13 Dec, 2017 Abscess, scalp L02.811 [facility] [place] [id number] [address] [place] [address] 11 Dec, 2017 Cutaneous abscess of head ex cluding face L02.811 [facility] [place] [id number] [place] [phone] 10 Dec, 2017 Abscess L02.[id number] [place] [id number] Dec, [facility] [address] [facility] [id number] [address] [place] [address] Dec, Abscess L02.91 [facility] [place] [id number] [place] [address] Aug, Acute allergic rhinitis due to other allergen, unspecified seasonality J30.89 and Cellulitis of head except face L03.811 [place] [address] [address] [place] [id number] [place] [address] Jun, [facility] [address] [id number] [address] [place] [address] Jun, [facility] [address] [id number] [address] [place] [address] Jun, [facility] [address] [id number] [address] [place] [address] Jun, [facility] [address] [id number] [address] [place] [address] Jun, [facility] [address] [id number] [address] [place] [address] Jun, Hematuria 599.70 ; Diabetes type 2, uncontrolled 250.02 ; Chest pain 786.50 ; Chronic pain 338.29 and Coronary atherosclerosis of unspecified type of vessel, ely shoshone or graft 414.00 [facility] [address] [id number] [address] [place] [address] Feb, [facility] [address] [id number] [address] [place] [phone] Feb, [facility] [address] [id number] [address] [place] [phone] Jan, [facility] [address] [id number] [address] [place] [phone] Jan, [facility] [address] [id number] [address] [place] [phone] Jan, [facility] [address] [id number] [address] [place] [phone] Jan, [facility] [address] [id number] [address] [place] [phone] Jan, [facility] [address] [id number] [address] [place] [phone] Jan, [facility] [address] [id number] [address] [place] [phone] Dec, 2014 [facility] [address] [id number] [address] [place] [address], [place] [address] Dec, [facility] [address] [id number] [address] [place] [address], [place] [address] Dec, 2014 [facility] [address] [id number] [address] [place] [address], [place] [address] Dec, 2014 [facility] [address] [id number] [address] [place] [address], [place] [address] Dec, 2014 [facility] [address] [id number] [address] [place] [address], [place] [address] Dec, 2014 [facility] [address] [id number] [address] [place] [address], [place] [address] Dec, [facility] [address] [id number] [address] [place] [address], [place] [address] Dec, [facility] [address] [id number] [address] [place] [address], [place] [address] Nov, [facility] [address] [id number] [address] [place] [address], [place] [address] Nov, [facility] [address] [id number] [address] [place] [address], [place] [address] Aug, [facility] [address] [id number] [address] [place] [address], [place] [address] Aug, [facility] [address] [id number] [address] [place] [address], [place] [address] May, [facility] [address] [id number] [address] [place] [address], [place] [address] March, [facility] [address] [id number] [address] [place] [address], [place] [address] March, [facility] [address] [id number] [address] [place] [address], [place] [address] March, [facility] [address] [id number] [address] [place] [address], [place] [address] March, [facility] [address] [id number] [address] [place] [address], [place] [address] Feb, [facility] [address] [id number] [address] [place] [address], [place] [address] Feb, [facility] [address] [id number] [address] [place] [address], [place] [address] Jan, [facility] [address] [id number] [address] [place] [address], [place] [address] Jan, [facility] [address] [id number] [address] [place] [address], [place] [address] Dec, [facility] [address] [id number] [address] [place] [address], [place] [address] Nov, [facility] [address] [id number] [address] [place] [address], [place] [address] Nov, [facility] [address] [id number] [address] [place] [address], [place] [address] Nov, [facility] [address] [id number] [address] [place] [address], [place] [address] Nov, [facility] [address] [id number] [address] [place] [address], [place] [address] Nov, [address] [id number] Oct, [facility] [address] [id number] [address] [place] [address], [place] [address] Oct, [facility] [address] [id number] [address] [place] [address], [place] [address] Oct, [facility] [address] [id number] [address] [place] [address], [place] [address] Oct, [facility] [address] [id number] [address] [place] [address], [place] [address] Sep, [facility] [address] [id number] [address] [place] [address], [place] [address] Sep, [facility] [address] [id number] [address] [place] [address], [place] [address] May, [facility] [address] [id number] [address] [place] [address], [place] [address] Apr, [facility] [address] [id number] [address] [place] [address], [place] [address] March, [facility] [address] [id number] [address] [place] [address], [place] [address] Feb, [facility] [address] [id number] [address] [place] [address], [place] [address] Feb, [facility] [address] [id number] [address] [place] [address], [place] [address] Feb, [facility] [address] [id number] [address] [place] [address], [place] [address] Jan, [facility] [address] [id number] [address] [place] [address], [place] [address] Jan, [facility] [address] [id number] [address] [place] [address], [place] [address] Jan, [facility] [address] [id number] [address] [place] [address], [place] [address] Dec, [facility] [address] [id number] [address] [place] [address], [place] [address] Dec, [facility] [address] [id number] [address] [place] [address], [place] [address] Dec, [facility] [address] [id number] [address] [place] [address], [place] [address] Dec, [facility] [address] [id number] [address] [place] [address], [place] [address] Dec, [facility] [address] [id number] [address] [place] [address], [place] [address] 16 Dec, 2011 [facility] [address] [id number] [address] [place] [address], [place] [address] 22 Oct, 2011 [facility] [address] [id number] [address] [place] [address], [place] [address] 22 Oct, 2011 [facility] [address] [id number] [address] [place] [address], [place] [address] 07 Oct, 2011 [facility] [address] [id number] [address] [place] [address], [place] [address] 29 Sep, 2011 [facility] [address] [id number] [address] [place] [address], [place] [address] 28 Sep, 2011 [facility] [address] [id number] [address] [place] [address], [place] [address] 18 Sep, 2011 [facility] [address] [id number] [address] [place] [address], [place] [address] 18 Sep, 2011 [facility] [address] [id number] [address] [place] [address], [place] [address] 14 Sep, 2011 [facility] [address] [id number] [address] [place] [address], [place] [address] 15 May, 2011 [facility] [address] [id number] [address] [place] [address], [place] [address] 14 Dec, 2010 [facility] [address] [id number] [address] [place] [address], [place] [address] 10 Oct, 2010 [facility] [address] [id number] [address] [place] [address], [place] [address] 03 Sep, 2010 [facility] [address] [id number] [address] [place] [address], [place] [address] 11 Aug, 2010 [facility] [address] [id number] [address] [place] [address], [place] [address] Aug, [facility] [address] [id number] [address] [place] [address], [place] [address] Aug, [facility] [address] [facility] [id number] [address] [place] [id number] 16 Sep, 2009 [facility] [address] [facility] [id number] [address] [place] [place] [id number] 09 Sep, 2009 [facility] [address] [facility] [id number] [address] [place] [address] 17 Jul, 2009 IMMUNIZATIONS No Known Immunizations SOCIAL HISTORY Never Assessed REASON FOR VISIT PLAN OF CARE VITAL SIGNS Height 61 in 2014-12-31 Weight 166.8 lbs 2014-12-31 Temperature 97.6 degrees Fahrenheit 2014-12-31 Heart Rate 111 bpm 2014-12-31 Respiratory Rate 20 2014-12-31 Blood pressure systolic 140 mmHg 2014-12-31 Blood pressure diastolic 91 mmHg 2014-12-31 MEDICATIONS Unknown Medications RESULTS No Results PROCEDURES Procedure Date Ordered Result Body Site GLYCATED HEMOGLOBIN TEST Dec 31, 2014 MICROALBUMIN, SEMIQUANT Dec 31, 2014 MICROALBUMIN, QUANTITATIVE Dec 31, 2014 INSTRUCTIONS MEDICATIONS ADMINISTERED No Known Medications MEDICAL [...]
--- OUTSIDE RECORDS SUMMARY | 2020-02-15 05:59 | XMS REPORT ---
Author Author Curtis BURTON Organization [facility] Address [address] [place] [address] Care Team Providers Care Director Veterinary Name Role Phone SARA BURTON Unavailable PROBLEMS Type Condition ICD9-CM Code SQF17-AH Code Onset Dates Condition S tatus SNOMED Code Problem Chest pain 786.50 Active 32092052 Problem Type 2 diabetes mellitus wit h complication, without long-term current use of insulin E11.8 Active 22640899 Problem Arteriosclerosis of coronary artery I25.10 Active 17041943 Problem Alcohol dependence with unspecified alcohol-induced disord er F10.29 Active 09733102 Problem Diabetes type 2, uncontrolled E11.65 Active 94658146 ALLERGIES No Information ENCOUNTERS Encounter Location Date Diagnosis [place] [address] [place] [id number] [place] [address] Oct, Chronic viral hepatitis C B1 8.2 [place] [address] [address] 15 Sep, 2018 Type 2 diabetes mellitus wit h complication, without long-term current use of insulin E11.8 [place] [id number] [place] [address] Sep, [place] [address] [place] [id number] [address] [place] [address] Sep, Type 2 diabetes mellitus wit h complication, without long-term current use of insulin E11.8 and Enlarged liver R16.0 [facility] [address] [id number] [address] Aug, [place] [address] [place] [id number] [address] [place] [address] Dec, Abscess, scalp L02.811 [place] [address] [place] [id number] [address] [place] [address] Dec, [facility] [address] [address] Dec, [facility] [address] [place] [id number] [address] [place] [address] Dec, Abscess, scalp L02.811 [place] [address] [address] Dec, Abscess, scalp L02.811 [facility] [address] [place] [id number] [place] [address] 17 Dec, 2017 Abscess, scalp L02.811 [place] [address] [place] [id number] [address] [place] [address] 15 Dec, 2017 Abscess, scalp L02.811 [place] [address] [place] [id number] [address] [place] [address] 13 Dec, 2017 Abscess, scalp L02.811 [facility] [place] [id number] [place] [address] 11 Dec, 2017 Cutaneous abscess of head ex cluding face L02.811 [facility] [place] [id number] [address] [place] [address] 10 Dec, 2017 Abs[id number] [place] [id number] Dec, [facility] [address] [facility] [id number] [address] [place] [address] Dec, Abscess L02.91 [facility] [address] [place] [address] Aug, Acute allergic rhinitis due to other allergen, unspecified seasonality J30.89 and Cellulitis of head except face L03.811 [place] [address] [place] [id number] [address] [place] [address] Jun, [facility] [address] [id number] [address] [place] [address] Jun, [facility] [address] [id number] [address] [place] [address] Jun, [facility] [address] [id number] [address] [place] [address] Jun, [facility] [address] [id number] [address] [place] [address] Jun, [facility] [address] [id number] [address] [place] [address] Jun, Hematuria 599.70 ; Diabetes type 2, uncontrolled 250.02 ; Chest pain 786.50 ; Chronic pain 338.29 and Coronary atherosclerosis of unspecified type of vessel, zuni or graft 414.00 [facility] [address] [id number] [address] [place] [address] Feb, [facility] [address] [id number] [address] [place] [address] Feb, [facility] [address] [id number] [address] [place] [address] Jan, [facility] [address] [id number] [address] [place] [address] Jan, [facility] [address] [id number] [address] [place] [address] Jan, [facility] [address] [id number] [address] [place] [address] Jan, [facility] [address] [id number] [address] [place] [address] Jan, [facility] [address] [id number] [address] [place] [address] Jan, [facility] [address] [id number] [address] [place] [address] Dec, [facility] [address] [id number] [address] [place] [address], [place] [address] Dec, [facility] [address] [id number] [address] [place] [address], [place] [address] Dec, [facility] [address] [id number] [address] [place] [address], [place] [address] Dec, 2014 [facility] [address] [id number] [address] [place] [address], [place] [address] Dec, 2014 [facility] [address] [id number] [address] [place] [address], [place] [address] Dec, [facility] [address] [id number] [address] [place] [address], [place] [address] Dec, [facility] [address] [id number] [address] [place] [address], [place] [address] Dec, [facility] [address] [id number] [address] [place] [address], [place] [address] Nov, [facility] [address] [id number] [address] [place] [address], [place] [address] Nov, [facility] [address] [id number] [address] [place] [address], [place] [address] Aug, [facility] [address] [id number] [address] [place] [address], [place] [address] Aug, [facility] [address] [id number] [address] [place] [address], [place] [address] May, [facility] [address] [id number] [address] [place] [address], [place] [address] March, [facility] [address] [id number] [address] [place] [address], [place] [address] March, [facility] [address] [id number] [address] [place] [address], [place] [address] March, [facility] [address] [id number] [address] [place] [address], [place] [address] March, [facility] [address] [id number] [address] [place] [address], [place] [address] Feb, [facility] [address] [id number] [address] [place] [address], [place] [address] Feb, [facility] [address] [id number] [address] [place] [address], [place] [address] Jan, [facility] [address] [id number] [address] [place] [address], [place] [address] Jan, [facility] [address] [id number] [address] [place] [address], [place] [address] Dec, [facility] [address] [id number] [address] [place] [address], [place] [address] Nov, [facility] [address] [id number] [address] [place] [address], [place] [address] Nov, [facility] [address] [id number] [address] [place] [address], [place] [address] Nov, [facility] [address] [id number] [address] [place] [address], [place] [address] Nov, [facility] [address] [id number] [address] [place] [address], [place] [address] Nov, [facility] [address] [place] [id number] Oct, [facility] [address] [id number] [address] [place] [address], [place] [address] Oct, [facility] [address] [id number] [address] [place] [address], [place] [address] Oct, [facility] [address] [id number] [address] [place] [address], [place] [address] Oct, [facility] [address] [id number] [address] [place] [address], [place] [address] Sep, [facility] [address] [id number] [address] [place] [address], [place] [address] Sep, [facility] [address] [id number] [address] [place] [address], [place] [address] May, [facility] [address] [id number] [address] [place] [address], [place] [address] Apr, [facility] [address] [id number] [address] [place] [address], [place] [address] March, [facility] [address] [id number] [address] [place] [address], [place] [address] Feb, [facility] [address] [id number] [address] [place] [address], [place] [address] Feb, [facility] [address] [id number] [address] [place] [address], [place] [address] Feb, [facility] [address] [id number] [address] [place] [address], [place] [address] Jan, [facility] [address] [id number] [address] [place] [address], [place] [address] Jan, [facility] [address] [id number] [address] [place] [address], [place] [address] Jan, [facility] [address] [id number] [address] [place] [address], [place] [address] Dec, [facility] [address] [id number] [address] [place] [address], [place] [address] Dec, [facility] [address] [id number] [address] [place] [address], [place] [address] Dec, [facility] [address] [id number] [address] [place] [address], [place] [address] Dec, [facility] [address] [id number] [address] [place] [address], [place] [address] Dec, [facility] [address] [id number] [address] [place] [address], [place] [address] 16 Dec, 2011 [facility] [address] [id number] [address] [place] [address], [place] [address] 22 Oct, 2011 [facility] [address] [id number] [address] [place] [address], [place] [address] 22 Oct, 2011 [facility] [address] [id number] [address] [place] [address], [place] [address] 07 Oct, 2011 [facility] [address] [id number] [address] [place] [address], [place] [address] 29 Sep, 2011 [facility] [address] [id number] [address] [place] [address], [place] [address] 28 Sep, 2011 [facility] [address] [id number] [address] [place] [address], [place] [address] 18 Sep, 2011 [facility] [address] [id number] [address] [place] [address], [place] [address] 18 Sep, 2011 [facility] [address] [id number] [address] [place] [address], [place] [address] 14 Sep, 2011 [facility] [address] [id number] [address] [place] [address], [place] [address] 15 May, 2011 [facility] [address] [id number] [address] [place] [address], [place] [address] 14 Dec, 2010 [facility] [address] [id number] [address] [place] [address] Oct, [facility] [address] [id number] [address] [place] [address], [place] [address] 03 Sep, 2010 [facility] [address] [id number] [address] [place] [address], [place] [address] 11 Aug, 2010 [facility] [address] [id number] [address] [place] [address], [place] [address] Aug, [facility] [address] [id number] [address] [place] [address], [place] [address] Aug, [facility] [address] [id number] [address] [address] 16 Sep, 2009 [facility] [address] [facility] [id number] [address] [place] [address] Sep, [facility] [address] [facility] [id number] [address] [place] [address] 17 Jul, 2009 IMMUNIZATIONS No Known Immunizations [...]
--- OUTSIDE RECORDS SUMMARY | 2020-02-15 05:59 | XMS REPORT ---
Author Author Curtis Ying Organization [facility] Address [address] [place] [address] Care Team Providers Care Tab Cutter Name Role Phone JÚNIOR Ying Unavailable PROBLEMS Type Condition ICD9-CM Code FFL17-OQ Code Onset Dates Condition S tatus SNOMED Code Problem Chest pain 786.50 Active 20588656 Problem Type 2 diabetes mellitus wit h complication, without long-term current use of insulin E11.8 Active 08690644 Problem Arteriosclerosis of coronary artery I25.10 Active 31480602 Problem Alcohol dependence with unspecified alcohol-induced disord er F10.29 Active 02732117 Problem Diabetes type 2, uncontrolled E11.65 Active 89070608 ALLERGIES No Information ENCOUNTERS Encounter Location Date Diagnosis [place] [address] [address] [place] [address] Oct, Chronic viral hepatitis C B1 8.2 [place] [address] [address] [place] [id number] [address] [place] [address] Sep, Type 2 diabetes mellitus wit h complication, without long-term current use of insulin E11.8 [place] [address] [place] [address] Sep, [place] [address] [place] [address] Sep, Type 2 diabetes mellitus wit h complication, without long-term current use of insulin E11.8 and Enlarged liver R16.0 [facility] [id number] [place] [address] Aug, [place] [address] [address] [facility] [id number] [address] [place] [address] Dec, Abscess, scalp L02.811 [place] [address] [address] [facility] [id number] [address] [place] [address] Dec, [facility] [address] [address] Dec, [facility] [address] [facility] [id number] [address] [place] [address] Dec, Abscess, scalp L02.811 [place] [address] [address] [place] [id number] [place] [address] 19 Dec, 2017 Abscess, scalp L02.811 [facility] N [address] [address] 17 Dec, 2017 Abscess, scalp L02.811 [place] [address] [address] [place] [id number] [address] [place] [address] 15 Dec, 2017 Abscess, scalp L02.811 [place] [address] [address] [place] [id number] [address] [place] [address] 13 Dec, 2017 Abscess, scalp L02.811 [facility] [place] [id number] [address] [place] [address] 11 Dec, 2017 Cutaneous abscess of head ex cluding face L02.811 [facility] [place] [id number] [place] [address] 10 Dec, 2017 Abscess L02.[id number] [place] [id number] Dec, [facility] [address] [facility] [id number] [address] [place] [address] Dec, Abscess L02.91 [facility] [place] [id number] [address] [place] [address] Aug, Acute allergic rhinitis due to other allergen, unspecified seasonality J30.89 and Cellulitis of head except face L03.811 [place] [address] [address] [place] [id number] [address] [place] [address] Jun, [facility] [address] [id number] [address] [place] [address] Jun, [facility] [address] [id number] [address] [place] [address] Jun, [facility] [address] [id number] [address] [place] [address] Jun, [facility] [address] [id number] [address] [place] [address] Jun, [facility] [address] [id number] [address] [place] [address] Jun, Hematuria 599.70 ; Diabetes type 2, uncontrolled 250.02 ; Chest pain 786.50 ; Chronic pain 338.29 and Coronary atherosclerosis of unspecified type of vessel, [place] or graft 414.00 [facility] [address] [id number] [address] [place] [address] Feb, [facility] [address] [id number] [address] [place] [address] Feb, [facility] [address] [id number] [address] [place] [address] Jan, [facility] [address] [id number] [address] [place] [address] Jan, [facility] [address] [id number] [address] [place] [address] Jan, [facility] [address] [id number] [address] [place] [address] Jan, [facility] [address] [id number] [address] [place] [address] Jan, [facility] [address] [id number] [address] [place] [address] Jan, [facility] [address] [id number] [address] [place] [address] Dec, 2014 [facility] [address] [id number] [address] [place] [address], [place] [address] Dec, [facility] [address] [id number] [address] [place] [address], [place] [address] Dec, 2014 [facility] [address] [id number] [address] [place] [address], [place] [address] Dec, 2014 [facility] [address] [id number] [address] [place] [address], [place] [address] Dec, 2014 [facility] [address] [id number] [address] [place] [address], [place] [address] Dec, 2014 [facility] [address] [id number] [address] [place] [address], [place] [address] Dec, [facility] [address] [id number] [address] [place] [address], [place] [address] Dec, [facility] [address] [id number] [address] [place] [address], [place] [address] Nov, [facility] [address] [id number] [address] [place] [address], [place] [address] Nov, [facility] [address] [id number] [address] [place] [address], [place] [address] Aug, [facility] [address] [id number] [address] [place] [address], [place] [address] Aug, [facility] [address] [id number] [address] [place] [address], [place] [address] May, [facility] [address] [id number] [address] [place] [address], [place] [address] March, [facility] [address] [id number] [address] [place] [address], [place] [address] March, [facility] [address] [id number] [address] [place] [address], [place] [address] March, [facility] [address] [id number] [address] [place] [address], [place] [address] March, [facility] [address] [id number] [address] [place] [address], [place] [address] Feb, [facility] [address] [id number] [address] [place] [address], [place] [address] Feb, [facility] [address] [id number] [address] [place] [address], [place] [address] Jan, [facility] [address] [id number] [address] [place] [address], [place] [address] Jan, [facility] [address] [id number] [address] [place] [address], [place] [address] Dec, [facility] [address] [id number] [address] [place] [address], [place] [address] Nov, [facility] [address] [id number] [address] [place] [address], [place] [address] Nov, [facility] [address] [id number] [address] [place] [address], [place] [address] Nov, [facility] [address] [id number] [address] [place] [address], [place] [address] Nov, [facility] [address] [id number] [address] [place] [address], [place] [address] Nov, [address] [id number] Oct, [facility] [address] [id number] [address] [place] [address], [place] [address] Oct, [facility] [address] [id number] [address] [place] [address], [place] [address] Oct, [facility] [address] [id number] [address] [place] [address], [place] [address] Oct, [facility] [address] [id number] [address] [place] [address], [place] [address] Sep, [facility] [address] [id number] [address] [place] [address], [place] [address] Sep, [facility] [address] [id number] [address] [place] [address], [place] [address] May, [facility] [address] [id number] [address] [place] [address], [place] [address] Apr, [facility] [address] [id number] [address] [place] [address], [place] [address] March, [facility] [address] [id number] [address] [place] [address], [place] [address] Feb, [facility] [address] [id number] [address] [place] [address], [place] [address] Feb, [facility] [address] [id number] [address] [place] [address], [place] [address] Feb, [facility] [address] [id number] [address] [place] [address], [place] [address] Jan, [facility] [address] [id number] [address] [place] [address], [place] [address] Jan, [facility] [address] [id number] [address] [place] [address], [place] [address] Jan, [facility] [address] [id number] [address] [place] [address], [place] [address] Dec, [facility] [address] [id number] [address] [place] [address], [place] [address] Dec, [facility] [address] [id number] [address] [place] [address], [place] [address] Dec, [facility] [address] [id number] [address] [place] [address], [place] [address] Dec, [facility] [address] [id number] [address] [place] [address], [place] [address] Dec, [facility] [address] [id number] [address] [place] [address], [place] [address] 16 Dec, 2011 [facility] [address] [id number] [address] [place] [address], [place] [address] 22 Oct, 2011 [facility] [address] [id number] [address] [place] [address], [place] [address] 22 Oct, 2011 [facility] [address] [id number] [address] [place] [address], [place] [address] 07 Oct, 2011 [facility] [address] [id number] [address] [place] [address], [place] [address] 29 Sep, 2011 [facility] [address] [id number] [address] [place] [address], [place] [address] 28 Sep, 2011 [facility] [address] [id number] [address] [place] [address], [place] [address] 18 Sep, 2011 [facility] [address] [id number] [address] [place] [address], [place] [address] 18 Sep, 2011 [facility] [address] [id number] [address] [place] [address], [place] [address] 14 Sep, 2011 [facility] [address] [id number] [address] [place] [address], [place] [address] 15 May, 2011 [facility] [address] [id number] [address] [place] [address], [place] [address] 14 Dec, 2010 [facility] [address] [id number] [address] [place] [address], [place] [address] 10 Oct, 2010 [facility] [address] [id number] [address] [place] [address], [place] [address] 03 Sep, 2010 [facility] [address] [id number] [address] [place] [address], [place] [address] 11 Aug, 2010 [facility] [address] [id number] [address] [place] [address], [place] [address] Aug, [facility] [address] [id number] [address] [place] [address], [place] [address] Aug, [facility] [address] [facility] [id number] [address] [place] [address] Sep, [facility] [address] [facility] [id number] [address] [place] [address] Sep, [facility] [address] [facility] [id number] [address] [place] [address] 17 Jul, 2009 IMMUNIZATIONS No Known Immunizations [...]
--- OUTSIDE RECORDS SUMMARY | 2020-02-15 05:59 | XMS REPORT ---
Author Author Curtis Tanner Doctor Organization [facility] Address Unknown Phone Unavailable Care Team Providers Care Icu Nurse Name Role Phone Migration, Doctor Unavailable Unavailable PROBLEMS Type Condition ICD9-CM Code [id number] Code Onset Dates Condition S tatus SNOMED Code Problem Chest pain 786.50 Active 75857452 Problem Type 2 diabetes mellitus wit h complication, without long-term current use of insulin E11.8 Active 34427880 Problem Arteriosclerosis of coronary artery I25.10 Active 30601838 Problem Alcohol dependence with unspecified alcohol-induced disord er F10.29 Active 44343679 Problem Diabetes type 2, uncontrolled E11.65 Active 20768139 ALLERGIES No Information ENCOUNTERS Encounter Location Date Diagnosis [place] [address] [place] [address] Oct, Chronic viral hepatitis C B1 8.2 [place] [address] [place] [address] Sep, Type 2 diabetes mellitus wit h complication, without long-term current use of insulin E11.8 [place] [address] [address] [place] [id number] [place] [address] Sep, [place] [address] [place] [address] Sep, Type 2 diabetes mellitus wit h complication, without long-term current use of insulin E11.8 and Enlarged liver R16.0 [facility] [address] [id number] [address] Aug, [place] [address] [address] [place] [id number] [address] [place] [address] Dec, Abscess, scalp L02.811 [place] [address] [address] [place] [id number] [address] [place] [address] Dec, [place] [address] [address] [facility] [id number] [address] [place] [address] 23 Dec, 2017 [facility] [address] [facility] [id number] [address] [place] [address] 21 Dec, 2017 Abscess, scalp L02.811 [facility] [address] [facility] [id number] [address] [place] [address] 19 Dec, 2017 Abscess, scalp L02.811 [facility] [address] [facility] [id number] [address] [place] [address] 17 Dec, 2017 Abscess, scalp L02.811 [facility] [address] [place] [id number] [place] [address] 15 Dec, 2017 Abscess, scalp L02.811 [facility] [address] [place] [id number] [address] [place] [address] 13 Dec, 2017 Abscess, scalp L02.811 [facility] [address] [place] [id number] [address] [place] [address] 11 Dec, 2017 Cutaneous abscess of head ex cluding face L02.811 [facility] [address] [place] [id number] [address] [place] [address] 10 Dec, 2017 Abscess L02.[id number] [place] [id number] Dec, [facility] [address] [facility] [id number] [address] [place] [address] Dec, Abscess L02.91 [facility] [address] [facility] [id number] [address] [place] [address] Aug, Acute allergic rhinitis due to other allergen, unspecified seasonality J30.89 and Cellulitis of head except face L03.811 [facility] [address] [facility] [id number] [address] [place] [address] Jun, [facility] [address] [facility] [id number] [address] [place] [address] Jun, [facility] [address] [id number] [address] [place] [address] Jun, [facility] [address] [id number] [address] [place] [address] Jun, [facility] [address] [id number] [address] [place] [address] Jun, [facility] [address] [id number] [address] [place] [address] Jun, Hematuria 599.70 ; Diabetes type 2, uncontrolled 250.02 ; Chest pain 786.50 ; Chronic pain 338.29 and Coronary atherosclerosis of unspecified type of vessel, [place] or graft 414.00 [facility] [address] [id number] [address] [place] [address] Feb, [facility] [address] [id number] [address] [place] [address] Feb, [facility] [address] [id number] [address] [place] [address] Jan, [facility] [address] [id number] [address] [place] [address] Jan, [facility] [address] [id number] [address] [place] [address] Jan, [facility] [address] [id number] [address] [place] [address] Jan, [facility] [address] [id number] [address] [place] [address] Jan, [facility] [address] [id number] [address] [place] [address] Jan, [facility] [address] [id number] [address] [place] [address] Dec, [facility] [address] [id number] [address] [place] [address] Dec, [facility] [address] [id number] [address] [place] [address], [place] [address] Dec, [facility] [address] [id number] [address] [place] [address], [place] [address] Dec, [facility] [address] [id number] [address] [place] [address], [place] [address] Dec, [facility] [address] [id number] [address] [place] [address], [place] [address] Dec, [facility] [address] [id number] [address] [place] [address], [place] [address] Dec, [facility] [address] [id number] [address] [place] [address], [place] [address] Dec, [facility] [address] [id number] [address] [place] [address], [place] [address] Nov, [facility] [address] [id number] [address] [place] [address], [place] [address] Nov, [facility] [address] [id number] [address] [place] [address], [place] [address] Aug, [facility] [address] [id number] [address] [place] [address], [place] [address] Aug, [facility] [address] [id number] [address] [place] [address], [place] [address] May, [facility] [address] [id number] [address] [place] [address], [place] [address] March, [facility] [address] [id number] [address] [place] [address], [place] [address] March, [facility] [address] [id number] [address] [place] [address], [place] [address] March, [facility] [address] [id number] [address] [place] [address], [place] [address] March, [facility] [address] [id number] [address] [place] [address], [place] [address] Feb, [facility] [address] [id number] [address] [place] [address], [place] [address] Feb, [facility] [address] [id number] [address] [place] [address], [place] [address] Jan, [facility] [address] [id number] [address] [place] [address], [place] [address] Jan, [facility] [address] [id number] [address] [place] [address], [place] [address] Dec, [facility] [address] [id number] [address] [place] [address], [place] [address] Nov, [facility] [address] [id number] [address] [place] [address], [place] [address] Nov, [facility] [address] [id number] [address] [place] [address], [place] [address] Nov, [facility] [address] [id number] [address] [place] [address], [place] [address] Nov, [facility] [address] [id number] [address] [place] [address], [place] [address] Nov, [address] [id number] Oct, [facility] [address] [id number] [address] [place] [address], [place] [address] Oct, [facility] [address] [id number] [address] [place] [address], [place] [address] Oct, [facility] [address] [id number] [address] [place] [address], [place] [address] Oct, [facility] [address] [id number] [address] [place] [address], [place] [address] Sep, [facility] [address] [id number] [address] [place] [address], [place] [address] Sep, [facility] [address] [id number] [address] [place] [address], [place] [address] May, [facility] [address] [id number] [address] [place] [address], [place] [address] Apr, [facility] [address] [id number] [address] [place] [address], [place] [address] March, [facility] [address] [id number] [address] [place] [address], [place] [address] 24 Feb, 2012 [facility] [address] [id number] [address] [place] [address], [place] [address] Feb, [facility] [address] [id number] [address] [place] [address], [place] [address] Feb, [facility] [address] [id number] [address] [place] [address], [place] [address] Jan, [facility] [address] [id number] [address] [place] [address], [place] [address] Jan, [facility] [address] [id number] [address] [place] [address], [place] [address] Jan, [facility] [address] [id number] [address] [place] [address], [place] [address] Dec, [facility] [address] [id number] [address] [place] [address], [place] [address] Dec, [facility] [address] [id number] [address] [place] [address], [place] [address] Dec, [facility] [address] [id number] [address] [place] [address], [place] [address] Dec, [facility] [address] [id number] [address] [place] [address], [place] [address] Dec, [facility] [address] [id number] [address] [place] [address], [place] [address] 16 Dec, 2011 [facility] [address] [id number] [address] [place] [address], [place] [address] 22 Oct, 2011 [facility] [address] [id number] [address] [place] [address], [place] [address] 22 Oct, 2011 [facility] [address] [id number] [address] [place] [address], [place] [address] 07 Oct, 2011 [facility] [address] [id number] [address] [place] [address], [place] [address] 29 Sep, 2011 [facility] [address] [id number] [address] [place] [address], [place] [address] 28 Sep, 2011 [facility] [address] [id number] [address] [place] [address], [place] [address] 18 Sep, 2011 [facility] [address] [id number] [address] [place] [address], [place] [address] 18 Sep, 2011 [facility] [address] [id number] [address] [place] [address], [place] [address] 14 Sep, 2011 [facility] [address] [id number] [address] [place] [address], [place] [address] 15 May, 2011 [facility] [address] [id number] [address] [place] [address], [place] [address] 14 Dec, 2010 [facility] [address] [id number] [address] [place] [address], [place] [address] 10 Oct, 2010 [facility] [address] [id number] [address] [place] [address], [place] [address] 03 Sep, 2010 [facility] [address] [id number] [address] [place] [address], [place] [address] 11 Aug, 2010 [facility] [address] [id number] [address] [place] [address], [place] [address] 11 Aug, 2010 [facility] [address] [id number] [address] [place] [address], [place] [address] 11 Aug, 2010 [facility] [address] [id number] [address] [place] [address], [place] [address] 16 Sep, 2009 [facility] [address] [facility] [id number] [address] [address] Sep, [facility] [address] [facility] [id number] [address] [place] [address] Jul, IMMUNIZATIONS No Known Immunizations SOCIAL HISTORY [...]
--- OUTSIDE RECORDS SUMMARY | 2020-02-15 05:59 | XMS REPORT ---
Author Author Curtis Ying Organization [facility] Address [address] [place] [address] Care Team Providers Care Sergeant At Arms Name Role Phone JÚNIOR Ying Unavailable PROBLEMS Type Condition ICD9-CM Code OMH54-NO Code Onset Dates Condition S tatus SNOMED Code Problem Chest pain 786.50 Active 07056380 Problem Type 2 diabetes mellitus wit h complication, without long-term current use of insulin E11.8 Active 96311259 Problem Arteriosclerosis of coronary artery I25.10 Active 43196908 Problem Alcohol dependence with unspecified alcohol-induced disord er F10.29 Active 18191110 Problem Diabetes type 2, uncontrolled E11.65 Active 49860267 ALLERGIES No Information ENCOUNTERS Encounter Location Date Diagnosis [place] [id number] [place] [address] Oct, Chronic viral hepatitis C B1 8.2 [place] [address] [address] [place] [id number] [address] [place] [address] Sep, Type 2 diabetes mellitus wit h complication, without long-term current use of insulin E11.8 [place] [address] [place] [address] Sep, [place] [address] [place] [address] Sep, Type 2 diabetes mellitus wit h complication, without long-term current use of insulin E11.8 and Enlarged liver R16.0 [facility] [id number] [place] [address] Aug, [place] [address] [address] [facility] [place] [facility] [id number] [address] [place] [address] Dec, Abscess, scalp L02.811 [place] [address] [address] [facility] [place] [id number] [address] [place] [phone] Dec, [facility] [address] [address] Dec, [facility] [address] [facility] [place] [id number] [address] [place] [address] Dec, Abscess, scalp L02.811 [place] [address] [address] [place] [id number] [place] [address] 19 Dec, 2017 Abscess, scalp L02.811 [facility] N [address] [address] 17 Dec, 2017 Abscess, scalp L02.811 [place] [address] [address] [place] [id number] [place] [address] 15 Dec, 2017 Abscess, scalp L02.811 [place] [address] [address] [place] [id number] [place] [address] 13 Dec, 2017 Abscess, scalp L02.811 [facility] [place] [id number] [address] [place] [address] 11 Dec, 2017 Cutaneous abscess of head ex cluding face L02.811 [facility] [place] [id number] [place] [address] 10 Dec, 2017 Abscess L02.[id number] [place] [id number] Dec, [facility] [address] [facility] [place] [id number] [address] [place] [address] Dec, Abscess L02.91 [facility] [place] [id number] [place] [address] Aug, Acute allergic rhinitis due to other allergen, unspecified seasonality J30.89 and Cellulitis of head except face L03.811 [place] [address] [address] [place] [id number] [place] [address] Jun, [facility] [address] [id number] [address] [place] [phone] Jun, [facility] [address] [id number] [address] [place] [address] Jun, [facility] [address] [id number] [address] [place] [address] Jun, [facility] [address] [id number] [address] [place] [address] Jun, [facility] [address] [id number] [address] [place] [address] Jun, Hematuria 599.70 ; Diabetes type 2, uncontrolled 250.02 ; Chest pain 786.50 ; Chronic pain 338.29 and Coronary atherosclerosis of unspecified type of vessel, mechoopda or graft 414.00 [facility] [address] [id number] [address] [place] [address] Feb, [facility] [address] [id number] [address] [place] [address] Feb, [facility] [address] [id number] [address] [place] [phone] Jan, [facility] [address] [id number] [address] [place] [address] Jan, [facility] [address] [id number] [address] [place] [phone] Jan, [facility] [address] [id number] [address] [place] [phone] Jan, [facility] [address] [id number] [address] [place] [phone] Jan, [facility] [address] [id number] [address] [place] [phone] Jan, [facility] [address] [id number] [address] [place] [address] Dec, 2014 [facility] [address] [id number] [address] [place] [address], [place] [address] Dec, [facility] [address] [id number] [address] [place] [address], [place] [address] Dec, 2014 [facility] [address] [id number] [address] [place] [address], [place] [address] Dec, 2014 [facility] [address] [id number] [address] [place] [address], [place] [address] Dec, 2014 [facility] [address] [id number] [address] [place] [address], [place] [address] Dec, 2014 [facility] [address] [id number] [address] [place] [address], [place] [address] Dec, [facility] [address] [id number] [address] [place] [address], [place] [address] Dec, [facility] [address] [id number] [address] [place] [address], [place] [address] Nov, [facility] [address] [id number] [address] [place] [address], [place] [address] Nov, [facility] [address] [id number] [address] [place] [address], [place] [address] Aug, [facility] [address] [id number] [address] [place] [address], [place] [address] Aug, [facility] [address] [id number] [address] [place] [address], [place] [address] May, [facility] [address] [id number] [address] [place] [address], [place] [address] March, [facility] [address] [id number] [address] [place] [address], [place] [address] March, [facility] [address] [id number] [address] [place] [address], [place] [address] March, [facility] [address] [id number] [address] [place] [address], [place] [address] March, [facility] [address] [id number] [address] [place] [address], [place] [address] Feb, [facility] [address] [id number] [address] [place] [address], [place] [address] Feb, [facility] [address] [id number] [address] [place] [address], [place] [address] Jan, [facility] [address] [id number] [address] [place] [address], [place] [address] Jan, [facility] [address] [id number] [address] [place] [address], [place] [address] Dec, [facility] [address] [id number] [address] [place] [address], [place] [address] Nov, [facility] [address] [id number] [address] [place] [address], [place] [address] Nov, [facility] [address] [id number] [address] [place] [address], [place] [address] Nov, [facility] [address] [id number] [address] [place] [address], [place] [address] Nov, [facility] [address] [id number] [address] [place] [address], [place] [address] Nov, [address] [id number] Oct, [facility] [address] [id number] [address] [place] [address], [place] [address] Oct, [facility] [address] [id number] [address] [place] [address], [place] [address] Oct, [facility] [address] [id number] [address] [place] [address], [place] [address] Oct, [facility] [address] [id number] [address] [place] [address], [place] [address] Sep, [facility] [address] [id number] [address] [place] [address], [place] [address] Sep, [facility] [address] [id number] [address] [place] [address], [place] [address] May, [facility] [address] [id number] [address] [place] [address], [place] [address] Apr, [facility] [address] [id number] [address] [place] [address], [place] [address] March, [facility] [address] [id number] [address] [place] [address], [place] [address] Feb, [facility] [address] [id number] [address] [place] [address], [place] [address] Feb, [facility] [address] [id number] [address] [place] [address], [place] [address] Feb, [facility] [address] [id number] [address] [place] [address], [place] [address] Jan, [facility] [address] [id number] [address] [place] [address], [place] [address] Jan, [facility] [address] [id number] [address] [place] [address], [place] [address] Jan, [facility] [address] [id number] [address] [place] [address], [place] [address] Dec, [facility] [address] [id number] [address] [place] [address], [place] [address] Dec, [facility] [address] [id number] [address] [place] [address], [place] [address] Dec, [facility] [address] [id number] [address] [place] [address], [place] [address] Dec, [facility] [address] [id number] [address] [place] [address], [place] [address] Dec, [facility] [address] [id number] [address] [place] [address], [place] [address] 16 Dec, 2011 [facility] [address] [id number] [address] [place] [address], [place] [address] 22 Oct, 2011 [facility] [address] [id number] [address] [place] [address], [place] [address] 22 Oct, 2011 [facility] [address] [id number] [address] [place] [address], [place] [address] 07 Oct, 2011 [facility] [address] [id number] [address] [place] [address], [place] [address] 29 Sep, 2011 [facility] [address] [id number] [address] [place] [address], [place] [address] 28 Sep, 2011 [facility] [address] [id number] [address] [place] [address], [place] [address] 18 Sep, 2011 [facility] [address] [id number] [address] [place] [address], [place] [address] 18 Sep, 2011 [facility] [address] [id number] [address] [place] [address], [place] [address] 14 Sep, 2011 [facility] [address] [id number] [address] [place] [address], [place] [address] 15 May, 2011 [facility] [address] [id number] [address] [place] [address], [place] [address] 14 Dec, 2010 [facility] [address] [id number] [address] [place] [address], [place] [address] 10 Oct, 2010 [facility] [address] [id number] [address] [place] [address], [place] [address] 03 Sep, 2010 [facility] [address] [id number] [address] [place] [address], [place] [address] 11 Aug, 2010 [facility] [address] [id number] [address] [place] [address], [place] [address] Aug, [facility] [address] [id number] [address] [place] [address], [place] [address] Aug, [facility] [address] [facility] [place] [id number] [address] [place] [id number] Sep, [facility] [address] [facility] [place] [id number] [address] [place] [id number] Sep, [facility] [address] [facility] [place] [id number] [address] [place] [id number] 17 Jul, 2009 IMMUNIZATIONS No Known Immunizations [...]
--- OUTSIDE RECORDS SUMMARY | 2020-02-15 05:59 | XMS REPORT ---
Author Author Curtis Ying Organization [facility] Address [address] [place] [address] Care Team Providers Care Workforce Planning Analyst Name Role Phone JÚNIOR Ying Unavailable PROBLEMS Type Condition ICD9-CM Code GHA23-UA Code Onset Dates Condition S tatus SNOMED Code Problem Chest pain 786.50 Active 48340600 Problem Type 2 diabetes mellitus wit h complication, without long-term current use of insulin E11.8 Active 97883346 Problem Arteriosclerosis of coronary artery I25.10 Active 66435020 Problem Alcohol dependence with unspecified alcohol-induced disord er F10.29 Active 99396556 Problem Diabetes type 2, uncontrolled E11.65 Active [id number] ALLERGIES No Information ENCOUNTERS Encounter Location Date Diagnosis [place] [address] [place] [id number] Oct, Chronic viral hepatitis C B1 8.2 [place] [address] [address] [place] [id number] [place] [address] Sep, Type 2 diabetes mellitus wit h complication, without long-term current use of insulin E11.8 [place] [address] [place] [address] Sep, [place] [address] [place] [address] Sep, Type 2 diabetes mellitus wit h complication, without long-term current use of insulin E11.8 and Enlarged liver R16.0 [facility] [id number] [place] [address] Aug, [place] [address] [address] [facility] [id number] [address] [place] [address] Dec, Abscess, scalp L02.811 [place] [address] [address] [facility] [id number] [address] [place] [address] Dec, [facility] [address] [address] Dec, [facility] [address] [facility] [id number] [address] [place] [address] Dec, Abscess, scalp L02.811 [place] [address] [address] [place] [id number] [place] [address] 19 Dec, 2017 Abscess, scalp L02.811 [facility] N [address] [address] 17 Dec, 2017 Abscess, scalp L02.811 [place] [address] [address] [place] [id number] [address] [place] [address] 15 Dec, 2017 Abscess, scalp L02.811 [place] [address] [address] [place] [id number] [place] [address] 13 Dec, 2017 Abscess, scalp L02.811 [facility] [place] [id number] [place] [address] 11 Dec, 2017 Cutaneous abscess of head ex cluding face L02.811 [facility] [place] [id number] [place] [phone] 10 Dec, 2017 Abscess [id number] [place] [id number] Dec, [facility] [address] [facility] [id number] [address] [place] [address] Dec, Abscess L02.91 [facility] [place] [id number] [place] [phone] Aug, Acute allergic rhinitis due to other allergen, unspecified seasonality J30.89 and Cellulitis of head except face L03.811 [place] [address] [address] [place] [id number] [place] [address] Jun, [facility] [address] [id number] [address] [place] [address] Jun, [facility] [address] [id number] [address] [place] [address] Jun, [facility] [address] [id number] [address] [place] [address] Jun, [facility] [address] [id number] [address] [place] [phone] Jun, [facility] [address] [id number] [address] [place] [address] Jun, Hematuria 599.70 ; Diabetes type 2, uncontrolled 250.02 ; Chest pain 786.50 ; Chronic pain 338.29 and Coronary atherosclerosis of unspecified type of vessel, red devil or graft 414.00 [facility] [address] [id number] [address] [place] [phone] Feb, [facility] [address] [id number] [address] [place] [phone] Feb, [facility] [address] [id number] [address] [place] [phone] Jan, [facility] [address] [id number] [address] [place] [phone] Jan, [facility] [address] [id number] [address] [place] [address] Jan, [facility] [address] [id number] [address] [place] [phone] Jan, [facility] [address] [id number] [address] [place] [phone] Jan, [facility] [address] [id number] [address] [place] [phone] Jan, [facility] [address] [id number] [address] [place] [phone] Dec, 2014 [facility] [address] [id number] [address] [place] [address], [place] [address] Dec, [facility] [address] [id number] [address] [place] [address], [place] [address] Dec, 2014 [facility] [address] [id number] [address] [place] [address], [place] [address] Dec, 2014 [facility] [address] [id number] [address] [place] [address], [place] [address] Dec, 2014 [facility] [address] [id number] [address] [place] [address], [place] [address] Dec, 2014 [facility] [address] [id number] [address] [place] [address], [place] [address] Dec, [facility] [address] [id number] [address] [place] [address], [place] [address] Dec, [facility] [address] [id number] [address] [place] [address], [place] [address] Nov, [facility] [address] [id number] [address] [place] [address], [place] [address] Nov, [facility] [address] [id number] [address] [place] [address], [place] [address] Aug, [facility] [address] [id number] [address] [place] [address], [place] [address] Aug, [facility] [address] [id number] [address] [place] [address], [place] [address] May, [facility] [address] [id number] [address] [place] [address], [place] [address] March, [facility] [address] [id number] [address] [place] [address], [place] [address] March, [facility] [address] [id number] [address] [place] [address], [place] [address] March, [facility] [address] [id number] [address] [place] [address], [place] [address] March, [facility] [address] [id number] [address] [place] [address], [place] [address] Feb, [facility] [address] [id number] [address] [place] [address], [place] [address] Feb, [facility] [address] [id number] [address] [place] [address], [place] [address] Jan, [facility] [address] [id number] [address] [place] [address], [place] [address] Jan, [facility] [address] [id number] [address] [place] [address], [place] [address] Dec, [facility] [address] [id number] [address] [place] [address], [place] [address] Nov, [facility] [address] [id number] [address] [place] [address], [place] [address] Nov, [facility] [address] [id number] [address] [place] [address], [place] [address] Nov, [facility] [address] [id number] [address] [place] [address], [place] [address] Nov, [facility] [address] [id number] [address] [place] [address], [place] [address] Nov, [address] [id number] Oct, [facility] [address] [id number] [address] [place] [address], [place] [address] Oct, [facility] [address] [id number] [address] [place] [address], [place] [address] Oct, [facility] [address] [id number] [address] [place] [address], [place] [address] Oct, [facility] [address] [id number] [address] [place] [address], [place] [address] Sep, [facility] [address] [id number] [address] [place] [address], [place] [address] Sep, [facility] [address] [id number] [address] [place] [address], [place] [address] May, [facility] [address] [id number] [address] [place] [address], [place] [address] Apr, [facility] [address] [id number] [address] [place] [address], [place] [address] March, [facility] [address] [id number] [address] [place] [address], [place] [address] Feb, [facility] [address] [id number] [address] [place] [address], [place] [address] Feb, [facility] [address] [id number] [address] [place] [address], [place] [address] Feb, [facility] [address] [id number] [address] [place] [address], [place] [address] Jan, [facility] [address] [id number] [address] [place] [address], [place] [address] Jan, [facility] [address] [id number] [address] [place] [address], [place] [address] Jan, [facility] [address] [id number] [address] [place] [address], [place] [address] Dec, [facility] [address] [id number] [address] [place] [address], [place] [address] Dec, [facility] [address] [id number] [address] [place] [address], [place] [address] Dec, [facility] [address] [id number] [address] [place] [address], [place] [address] Dec, [facility] [address] [id number] [address] [place] [address], [place] [address] Dec, [facility] [address] [id number] [address] [place] [address], [place] [address] 16 Dec, 2011 [facility] [address] [id number] [address] [place] [address], [place] [address] 22 Oct, 2011 [facility] [address] [id number] [address] [place] [address], [place] [address] 22 Oct, 2011 [facility] [address] [id number] [address] [place] [address], [place] [address] 07 Oct, 2011 [facility] [address] [id number] [address] [place] [address], [place] [address] 29 Sep, 2011 [facility] [address] [id number] [address] [place] [address], [place] [address] 28 Sep, 2011 [facility] [address] [id number] [address] [place] [address], [place] [address] 18 Sep, 2011 [facility] [address] [id number] [address] [place] [address], [place] [address] 18 Sep, 2011 [facility] [address] [id number] [address] [place] [address], [place] [address] 14 Sep, 2011 [facility] [address] [id number] [address] [place] [address], [place] [address] 15 May, 2011 [facility] [address] [id number] [address] [place] [address], [place] [address] 14 Dec, 2010 [facility] [address] [id number] [address] [place] [address], [place] [address] 10 Oct, 2010 [facility] [address] [id number] [address] [place] [address], [place] [address] 03 Sep, 2010 [facility] [address] [id number] [address] [place] [address], [place] [address] 11 Aug, 2010 [facility] [address] [id number] [address] [place] [address], [place] [address] Aug, [facility] [address] [id number] [address] [place] [address], [place] [address] Aug, [facility] [address] [facility] [id number] [address] [place] [address] Sep, [facility] [address] [facility] [id number] [address] [place] [address] Sep, [facility] [address] [facility] [id number] [address] [place] [address] 17 Jul, 2009 IMMUNIZATIONS No Known Immunizations [...]
--- OUTSIDE RECORDS SUMMARY | 2020-02-15 05:59 | XMS REPORT ---
Author Author uCrtis Tanner Doctor Organization [facility] Address Unknown Phone Unavailable Care Team Providers Care Drapery And Upholstery Estimator Name Role Phone Migration, Doctor Unavailable Unavailable PROBLEMS Type Condition ICD9-CM Code KEK92-XB Code Onset Dates Condition S tatus SNOMED Code Problem Chest pain 786.50 Active 71400856 Problem Type 2 diabetes mellitus wit h complication, without long-term current use of insulin E11.8 Active 47814144 Problem Arteriosclerosis of coronary artery I25.10 Active 72089547 Problem Alcohol dependence with unspecified alcohol-induced disord er F10.29 Active 57415525 Problem Diabetes type 2, uncontrolled E11.65 Active 32028092 ALLERGIES No Information ENCOUNTERS Encounter Location Date Diagnosis [place] [address] [place] [address] Oct, Chronic viral hepatitis C B1 8.2 [place] [address] [place] [address] Sep, Type 2 diabetes mellitus wit h complication, without long-term current use of insulin E11.8 [place] [address] [place] [id number] [place] [address] Sep, [place] [address] [place] [address] Sep, Type 2 diabetes mellitus wit h complication, without long-term current use of insulin E11.8 and Enlarged liver R16.0 [facility] [address] [id number] [address] Aug, [place] [address] [place] [id number] [place] [address] Dec, Abscess, scalp L02.811 [place] [address] [place] [id number] [place] [address] Dec, [place] [address] [facility] [id number] [address] [place] [address] 23 Dec, 2017 [facility] [address] [facility] [id number] [address] [place] [address] 21 Dec, 2017 Abscess, scalp L02.811 [facility] [address] [facility] [id number] [address] [place] [address] 19 Dec, 2017 Abscess, scalp L02.811 [facility] [address] [facility] [id number] [address] [place] [address] 17 Dec, 2017 Abscess, scalp L02.811 [facility] [address] [place] [id number] [place] [address] 15 Dec, 2017 Abscess, scalp L02.811 [facility] [address] [place] [id number] [place] [address] 13 Dec, 2017 Abscess, scalp L02.811 [facility] [address] [place] [id number] [place] [address] 11 Dec, 2017 Cutaneous abscess of head ex cluding face L02.811 [facility] [address] [place] [id number] [place] [address] 10 Dec, 2017 Abscess L02.[id number] [place] [id number] Dec, [facility] [address] [facility] [id number] [address] [place] [address] Dec, Abscess L02.91 [facility] [address] [facility] [id number] [address] [place] [address] Aug, Acute allergic rhinitis due to other allergen, unspecified seasonality J30.89 and Cellulitis of head except face L03.811 [facility] [address] [facility] [id number] [address] [place] [address] Jun, [facility] [address] [facility] [id number] [address] [place] [address] Jun, [facility] [address] [id number] [address] [place] [address] Jun, [facility] [address] [id number] [address] [place] [address] Jun, [facility] [address] [id number] [address] [place] [address] Jun, [facility] [address] [id number] [address] [place] [address] Jun, Hematuria 599.70 ; Diabetes type 2, uncontrolled 250.02 ; Chest pain 786.50 ; Chronic pain 338.29 and Coronary atherosclerosis of unspecified type of vessel, barrow or graft 414.00 [facility] [address] [id number] [address] [place] [address] Feb, [facility] [address] [id number] [address] [place] [address] Feb, [facility] [address] [id number] [address] [place] [address] Jan, [facility] [address] [id number] [address] [place] [address] Jan, [facility] [address] [id number] [address] [place] [address] Jan, [facility] [address] [id number] [address] [place] [address] Jan, [facility] [address] [id number] [address] [place] [address] Jan, [facility] [address] [id number] [address] [place] [address] Jan, [facility] [address] [id number] [address] [place] [address] Dec, [facility] [address] [id number] [address] [place] [address] Dec, [facility] [address] [id number] [address] [place] [address], [place] [address] Dec, [facility] [address] [id number] [address] [place] [address], [place] [address] Dec, [facility] [address] [id number] [address] [place] [address], [place] [address] Dec, [facility] [address] [id number] [address] [place] [address], [place] [address] Dec, [facility] [address] [id number] [address] [place] [address], [place] [address] Dec, [facility] [address] [id number] [address] [place] [address], [place] [address] Dec, [facility] [address] [id number] [address] [place] [address], [place] [address] Nov, [facility] [address] [id number] [address] [place] [address], [place] [address] Nov, [facility] [address] [id number] [address] [place] [address], [place] [address] Aug, [facility] [address] [id number] [address] [place] [address], [place] [address] Aug, [facility] [address] [id number] [address] [place] [address], [place] [address] May, [facility] [address] [id number] [address] [place] [address], [place] [address] March, [facility] [address] [id number] [address] [place] [address], [place] [address] March, [facility] [address] [id number] [address] [place] [address], [place] [address] March, [facility] [address] [id number] [address] [place] [address], [place] [address] March, [facility] [address] [id number] [address] [place] [address], [place] [address] Feb, [facility] [address] [id number] [address] [place] [address], [place] [address] Feb, [facility] [address] [id number] [address] [place] [address], [place] [address] Jan, [facility] [address] [id number] [address] [place] [address], [place] [address] Jan, [facility] [address] [id number] [address] [place] [address], [place] [address] Dec, [facility] [address] [id number] [address] [place] [address], [place] [address] Nov, [facility] [address] [id number] [address] [place] [address], [place] [address] Nov, [facility] [address] [id number] [address] [place] [address], [place] [address] Nov, [facility] [address] [id number] [address] [place] [address], [place] [address] Nov, [facility] [address] [id number] [address] [place] [address], [place] [address] Nov, [address] [id number] Oct, [facility] [address] [id number] [address] [place] [address], [place] [address] Oct, [facility] [address] [id number] [address] [place] [address], [place] [address] Oct, [facility] [address] [id number] [address] [place] [address], [place] [address] Oct, [facility] [address] [id number] [address] [place] [address], [place] [address] Sep, [facility] [address] [id number] [address] [place] [address], [place] [address] Sep, [facility] [address] [id number] [address] [place] [address], [place] [address] May, [facility] [address] [id number] [address] [place] [address], [place] [address] Apr, [facility] [address] [id number] [address] [place] [address], [place] [address] March, [facility] [address] [id number] [address] [place] [address], [place] [address] 24 Feb, 2012 [facility] [address] [id number] [address] [place] [address], [place] [address] Feb, [facility] [address] [id number] [address] [place] [address], [place] [address] Feb, [facility] [address] [id number] [address] [place] [address], [place] [address] Jan, [facility] [address] [id number] [address] [place] [address], [place] [address] Jan, [facility] [address] [id number] [address] [place] [address], [place] [address] Jan, [facility] [address] [id number] [address] [place] [address], [place] [address] Dec, [facility] [address] [id number] [address] [place] [address], [place] [address] Dec, [facility] [address] [id number] [address] [place] [address], [place] [address] Dec, [facility] [address] [id number] [address] [place] [address], [place] [address] Dec, [facility] [address] [id number] [address] [place] [address], [place] [address] Dec, [facility] [address] [id number] [address] [place] [address], [place] [address] 16 Dec, 2011 [facility] [address] [id number] [address] [place] [address], [place] [address] 22 Oct, 2011 [facility] [address] [id number] [address] [place] [address], [place] [address] 22 Oct, 2011 [facility] [address] [id number] [address] [place] [address], [place] [address] 07 Oct, 2011 [facility] [address] [id number] [address] [place] [address], [place] [address] 29 Sep, 2011 [facility] [address] [id number] [address] [place] [address], [place] [address] 28 Sep, 2011 [facility] [address] [id number] [address] [place] [address], [place] [address] 18 Sep, 2011 [facility] [address] [id number] [address] [place] [address], [place] [address] 18 Sep, 2011 [facility] [address] [id number] [address] [place] [address], [place] [address] 14 Sep, 2011 [facility] [address] [id number] [address] [place] [address], [place] [address] 15 May, 2011 [facility] [address] [id number] [address] [place] [address], [place] [address] 14 Dec, 2010 [facility] [address] [id number] [address] [place] [address], [place] [address] 10 Oct, 2010 [facility] [address] [id number] [address] [place] [address], [place] [address] 03 Sep, 2010 [facility] [address] [id number] [address] [place] [address], [place] [address] 11 Aug, 2010 [facility] [address] [id number] [address] [place] [address], [place] [address] 11 Aug, 2010 [facility] [address] [id number] [address] [place] [address], [place] [address] 11 Aug, 2010 [facility] [address] [id number] [address] [place] [address], [place] [address] 16 Sep, 2009 [facility] [address] [facility] [id number] [place] [address] Sep, [facility] [address] [facility] [id number] [address] [place] [address] Jul, IMMUNIZATIONS No Known Immunizations SOCIAL HISTORY [...]
--- OUTSIDE RECORDS SUMMARY | 2020-02-15 05:59 | XMS REPORT ---
Author Author Curtis Tanner Doctor Organization [facility] Address Unknown Phone Unavailable Care Team Providers Care Pasteuriser Operator Name Role Phone Migration, Doctor Unavailable Unavailable PROBLEMS Type Condition ICD9-CM Code CPX00-WD Code Onset Dates Condition S tatus SNOMED Code Problem Chest pain 786.50 Active 44504702 Problem Type 2 diabetes mellitus wit h complication, without long-term current use of insulin E11.8 Active 59067381 Problem Arteriosclerosis of coronary artery I25.10 Active 06928867 Problem Alcohol dependence with unspecified alcohol-induced disord er F10.29 Active 60613858 Problem Diabetes type 2, uncontrolled E11.65 Active 07518425 ALLERGIES No Information ENCOUNTERS Encounter Location Date Diagnosis [place] [id number] [place] [address] Oct, Chronic viral hepatitis C B1 8.2 [place] [address] [place] [address] Sep, Type 2 diabetes mellitus wit h complication, without long-term current use of insulin E11.8 [place] [address] [address] [place] [id number] [address] [place] [address] Sep, [place] [address] [place] [address] Sep, Type 2 diabetes mellitus wit h complication, without long-term current use of insulin E11.8 and Enlarged liver R16.0 [facility] [address] [id number] [address] Aug, [place] [address] [address] [place] [id number] [address] [place] [address] Dec, Abscess, scalp L02.811 [place] [address] [address] [place] [id number] [address] [place] [address] Dec, [place] [address] [address] [facility] [id number] [address] [place] [address] 23 Dec, 2017 [facility] [address] [facility] [id number] [address] [place] [address] 21 Dec, 2017 Abscess, scalp L02.811 [facility] [address] [facility] [id number] [address] [place] [address] 19 Dec, 2017 Abscess, scalp L02.811 [facility] [address] [facility] [id number] [address] [place] [address] 17 Dec, 2017 Abscess, scalp L02.811 [facility] [address] [place] [id number] [place] [address] 15 Dec, 2017 Abscess, scalp L02.811 [facility] [address] [place] [id number] [address] [place] [address] 13 Dec, 2017 Abscess, scalp L02.811 [facility] [address] [place] [id number] [address] [place] [address] 11 Dec, 2017 Cutaneous abscess of head ex cluding face L02.811 [facility] [address] [place] [id number] [address] [place] [address] 10 Dec, 2017 Abscess L02.[id number] [place] [id number] Dec, [facility] [address] [facility] [id number] [address] [place] [address] Dec, Abscess L02.91 [facility] [address] [facility] [id number] [address] [place] [address] Aug, Acute allergic rhinitis due to other allergen, unspecified seasonality J30.89 and Cellulitis of head except face L03.811 [facility] [address] [facility] [id number] [address] [place] [address] Jun, [facility] [address] [facility] [id number] [address] [place] [address] Jun, [facility] [address] [id number] [address] [place] [address] Jun, [facility] [address] [id number] [address] [place] [address] Jun, [facility] [address] [id number] [address] [place] [address] Jun, [facility] [address] [id number] [address] [place] [address] Jun, Hematuria 599.70 ; Diabetes type 2, uncontrolled 250.02 ; Chest pain 786.50 ; Chronic pain 338.29 and Coronary atherosclerosis of unspecified type of vessel, marshall or graft 414.00 [facility] [address] [id number] [address] [place] [address] Feb, [facility] [address] [id number] [address] [place] [address] Feb, [facility] [address] [id number] [address] [place] [address] Jan, [facility] [address] [id number] [address] [place] [address] Jan, [facility] [address] [id number] [address] [place] [address] Jan, [facility] [address] [id number] [address] [place] [address] Jan, [facility] [address] [id number] [address] [place] [address] Jan, [facility] [address] [id number] [address] [place] [address] Jan, [facility] [address] [id number] [address] [place] [id number] Dec, [facility] [address] [id number] [address] [place] [address] Dec, [facility] [address] [id number] [address] [place] [address], [place] [address] Dec, [facility] [address] [id number] [address] [place] [address], [place] [address] Dec, [facility] [address] [id number] [address] [place] [address], [place] [address] Dec, [facility] [address] [id number] [address] [place] [address], [place] [address] Dec, [facility] [address] [id number] [address] [place] [address], [place] [address] Dec, [facility] [address] [id number] [address] [place] [address], [place] [address] Dec, [facility] [address] [id number] [address] [place] [address], [place] [address] Nov, [facility] [address] [id number] [address] [place] [address], [place] [address] Nov, [facility] [address] [id number] [address] [place] [address], [place] [address] Aug, [facility] [address] [id number] [address] [place] [address], [place] [address] Aug, [facility] [address] [id number] [address] [place] [address], [place] [address] May, [facility] [address] [id number] [address] [place] [address], [place] [address] March, [facility] [address] [id number] [address] [place] [address], [place] [address] March, [facility] [address] [id number] [address] [place] [address], [place] [address] March, [facility] [address] [id number] [address] [place] [address], [place] [address] March, [facility] [address] [id number] [address] [place] [address], [place] [address] Feb, [facility] [address] [id number] [address] [place] [address], [place] [address] Feb, [facility] [address] [id number] [address] [place] [address], [place] [address] Jan, [facility] [address] [id number] [address] [place] [address], [place] [address] Jan, [facility] [address] [id number] [address] [place] [address], [place] [address] Dec, [facility] [address] [id number] [address] [place] [address], [place] [address] Nov, [facility] [address] [id number] [address] [place] [address], [place] [address] Nov, [facility] [address] [id number] [address] [place] [address], [place] [address] Nov, [facility] [address] [id number] [address] [place] [address], [place] [address] Nov, [facility] [address] [id number] [address] [place] [address], [place] [address] Nov, [address] [id number] Oct, [facility] [address] [id number] [address] [place] [address], [place] [address] Oct, [facility] [address] [id number] [address] [place] [address], [place] [address] Oct, [facility] [address] [id number] [address] [place] [address], [place] [address] Oct, [facility] [address] [id number] [address] [place] [address], [place] [address] Sep, [facility] [address] [id number] [address] [place] [address], [place] [address] Sep, [facility] [address] [id number] [address] [place] [address], [place] [address] May, [facility] [address] [id number] [address] [place] [address], [place] [address] Apr, [facility] [address] [id number] [address] [place] [address], [place] [address] March, [facility] [address] [id number] [address] [place] [address], [place] [address] 24 Feb, 2012 [facility] [address] [id number] [address] [place] [address], [place] [address] Feb, [facility] [address] [id number] [address] [place] [address], [place] [address] Feb, [facility] [address] [id number] [address] [place] [address], [place] [address] Jan, [facility] [address] [id number] [address] [place] [address], [place] [address] Jan, [facility] [address] [id number] [address] [place] [address], [place] [address] Jan, [facility] [address] [id number] [address] [place] [address], [place] [address] Dec, [facility] [address] [id number] [address] [place] [address], [place] [address] Dec, [facility] [address] [id number] [address] [place] [address], [place] [address] Dec, [facility] [address] [id number] [address] [place] [address], [place] [address] Dec, [facility] [address] [id number] [address] [place] [address], [place] [address] Dec, [facility] [address] [id number] [address] [place] [address], [place] [address] 16 Dec, 2011 [facility] [address] [id number] [address] [place] [address], [place] [address] 22 Oct, 2011 [facility] [address] [id number] [address] [place] [address], [place] [address] 22 Oct, 2011 [facility] [address] [id number] [address] [place] [address], [place] [address] 07 Oct, 2011 [facility] [address] [id number] [address] [place] [address], [place] [address] 29 Sep, 2011 [facility] [address] [id number] [address] [place] [address], [place] [address] 28 Sep, 2011 [facility] [address] [id number] [address] [place] [address], [place] [address] 18 Sep, 2011 [facility] [address] [id number] [address] [place] [address], [place] [address] 18 Sep, 2011 [facility] [address] [id number] [address] [place] [address], [place] [address] 14 Sep, 2011 [facility] [address] [id number] [address] [place] [address], [place] [address] 15 May, 2011 [facility] [address] [id number] [address] [place] [address], [place] [address] 14 Dec, 2010 [facility] [address] [id number] [address] [place] [address], [place] [address] 10 Oct, 2010 [facility] [address] [id number] [address] [place] [address], [place] [address] 03 Sep, 2010 [facility] [address] [id number] [address] [place] [address], [place] [address] 11 Aug, 2010 [facility] [address] [id number] [address] [place] [address], [place] [address] 11 Aug, 2010 [facility] [address] [id number] [address] [place] [address], [place] [address] 11 Aug, 2010 [facility] [address] [id number] [address] [place] [address], [place] [address] 16 Sep, 2009 [facility] [address] [facility] [id number] [address] [address] Sep, [facility] [address] [facility] [id number] [address] [place] [address] Jul, IMMUNIZATIONS No Known Immunizations SOCIAL HISTORY [...]
--- OUTSIDE RECORDS SUMMARY | 2020-02-15 06:00 | XMS REPORT ---
Author Author Curtis ARAYA [facility] Address [address] [place] [address] Care Team Providers Care Oral And Maxillofacial Pathologist Name Role Phone AMY ARAYA Unavailable PROBLEMS Type Condition ICD9-CM Code FKZ37-KS Code Onset Dates Condition S tatus SNOMED Code Problem Chest pain 786.50 Active 09202378 Problem Diabetes type 2, uncontrolled E11.65 Active 06402179 Problem Arteriosclerosis of coronary artery I25.10 Active 45317117 Problem Alcohol dependence with unspecified alcohol-induced disord er F10.29 Active 07350128 ALLERGIES No Information ENCOUNTERS Encounter Location Date Diagnosis [facility] [address] [facility] [id number] [address] [place] [address] Sep, [facility] [id number] [place] [address] Aug, [facility] [address] [facility] [id number] [address] [place] [address] Dec, Abscess, scalp L02.811 [facility] [address] [facility] [id number] [address] [place] [address] Dec, [facility] [address] [facility] [id number] [address] [place] [address] Dec, [facility] [address] [id number] [address] [place] [address] Dec, Abscess, scalp L02.811 [facility] [address] [id number] [address] [place] [address] Dec, Abscess, scalp L02.811 [facility] [address] [facility] [id number] [address] [place] [address] 17 Dec, 2017 Abscess, scalp L02.811 [facility] [address] [facility] [id number] [address] [place] [address] 15 Dec, 2017 Abscess, scalp L02.811 [facility] [address] [facility] [id number] [address] [place] [address] 13 Dec, 2017 Abscess, scalp L02.811 [facility] [address] [facility] [id number] [address] [place] [address] 11 Dec, 2017 Cutaneous abscess of head ex cluding face L02.811 [facility] [address] [facility] [id number] [address] [place] [id number] 10 Dec, 2017 Abscess L02.[address] [id number] [place] [id number] 09 Dec, 2017 [facility] [address] [facility] [id number] [address] [place] [address] Dec, Abscess L02.91 [facility] [address] [facility] [id number] [address] [place] [address] Aug, Acute allergic rhinitis due to other allergen, unspecified seasonality J30.89 and Cellulitis of head except face L03.811 [facility] [address] [facility] [id number] [address] [place] [address] Jun, [facility] [address] [facility] [id number] [address] [place] [address] Jun, [facility] [address] [facility] [id number] [address] [place] [address] Jun, [facility] [address] [facility] [id number] [address] [place] [phone] Jun, [facility] [address] [facility] [id number] [address] [place] [address] Jun, [facility] [address] [facility] [id number] [address] [place] [address] Jun, Hematuria 599.70 ; Diabetes type 2, uncontrolled 250.02 ; Chest pain 786.50 ; Chronic pain 338.29 and Coronary atherosclerosis of unspecified type of vessel, shishmaref ira or graft 414.00 [facility] [address] [id number] [address] [place] [phone] 14 Feb, 2015 [facility] [address] [id number] [address] [place] [address] Feb, [facility] [address] [id number] [address] [place] [address] Jan, [facility] [address] [id number] [address] [place] [address] Jan, [facility] [address] [id number] [address] [place] [address] Jan, [facility] [address] [id number] [address] [place] [phone] Jan, [facility] [address] [id number] [address] [place] [phone] Jan, [facility] [address] [id number] [address] [place] [phone] Jan, [facility] [address] [id number] [address] [place] [address] Dec, [facility] [address] [id number] [address] [place] [address] Dec, [facility] [address] [id number] [address] [place] [phone] Dec, [facility] [address] [id number] [address] [place] [phone] Dec, [facility] [address] [id number] [address] [place] [address] Dec, [facility] [address] [id number] [address] [place] [address] Dec, [facility] [address] [id number] [address] [place] [address], [place] [address] Dec, [facility] [address] [id number] [address] [place] [address], [place] [address] Dec, [facility] [address] [id number] [address] [place] [address], [place] [address] Nov, [facility] [address] [id number] [address] [place] [address], [place] [address] Nov, [facility] [address] [id number] [address] [place] [address], [place] [address] Aug, [facility] [address] [id number] [address] [place] [address], [place] [address] Aug, [facility] [address] [id number] [address] [place] [address], [place] [address] May, [facility] [address] [id number] [address] [place] [address], [place] [address] March, [facility] [address] [id number] [address] [place] [address], [place] [address] March, [facility] [address] [id number] [address] [place] [address], [place] [address] March, [facility] [address] [id number] [address] [place] [address], [place] [address] March, [facility] [address] [id number] [address] [place] [address], [place] [address] Feb, [facility] [address] [id number] [address] [place] [address], [place] [address] Feb, [facility] [address] [id number] [address] [place] [address], [place] [address] Jan, [facility] [address] [id number] [address] [place] [address], [place] [address] Jan, [facility] [address] [id number] [address] [place] [address], [place] [address] Dec, [facility] [address] [id number] [address] [place] [address], [place] [address] Nov, [facility] [address] [id number] [address] [place] [address], [place] [address] Nov, [facility] [address] [id number] [address] [place] [address], [place] [address] Nov, [facility] [address] [id number] [address] [place] [address], [place] [address] Nov, [facility] [address] [id number] [address] [place] [address], [place] [address] Nov, [address] [id number] Oct, [facility] [address] [id number] [address] [place] [address], [place] [address] Oct, [facility] [address] [id number] [address] [place] [address] Oct, [facility] [address] [id number] [address] [place] [address], [place] [address] Oct, [facility] [address] [id number] [address] [place] [phone] Sep, [facility] [address] [id number] [address] [place] [phone] Sep, [facility] [address] [id number] [address] [place] [address] May, [facility] [address] [id number] [address] [place] [address], [place] [address] Apr, [facility] [address] [id number] [address] [place] [address], [place] [address] March, [facility] [address] [id number] [address] [place] [address], [place] [address] Feb, [facility] [address] [id number] [address] [place] [address] Feb, [facility] [address] [id number] [address] [place] [address], [place] [address] Feb, [facility] [address] [id number] [address] [place] [address], [place] [address] 24 Jan, 2012 [facility] [address] [id number] [address] [place] [address], [place] [address] Jan, [facility] [address] [id number] [address] [place] [address], [place] [address] Jan, [facility] [address] [id number] [address] [place] [address], [place] [address] Dec, [facility] [address] [id number] [address] [place] [address], [place] [address] 24 Dec, 2011 [facility] [address] [id number] [address] [place] [address], [place] [address] Dec, [facility] [address] [id number] [address] [place] [address], [place] [address] Dec, [facility] [address] [id number] [address] [place] [address], [place] [address] Dec, [facility] [address] [id number] [address] [place] [address], [place] [address] Dec, [facility] [address] [id number] [address] [place] [address], [place] [address] Oct, [facility] [address] [id number] [address] [place] [address], [place] [address] Oct, [facility] [address] [id number] [address] [place] [address], [place] [address] Oct, [facility] [address] [id number] [address] [place] [address], [place] [address] Sep, [facility] [address] [id number] [address] [place] [address], [place] [address] Sep, [facility] [address] [id number] [address] [place] [address] Sep, [facility] [address] [id number] [address] [place] [address] Sep, [facility] [address] [id number] [address] [place] [address] Sep, [facility] [address] [id number] [address] [place] [address] May, [facility] [address] [id number] [address] [place] [address] Dec, [facility] [address] [id number] [address] [place] [address] Oct, [facility] [address] [id number] [address] [place] [address] Sep, [facility] [address] [id number] [address] [place] [address] Aug, [facility] [address] [id number] [address] [place] [address] Aug, [facility] [address] [id number] [address] [place] [address] Aug, [facility] [address] [id number] [address] [place] [phone] Sep, [facility] [address] [id number] [address] [place] [address] Sep, [facility] [address] [id number] [address] [place] [address] Jul, IMMUNIZATIONS No Known Immunizations SOCIAL HISTORY [...]
--- OUTSIDE RECORDS SUMMARY | 2020-02-15 06:00 | XMS REPORT ---
Author Author Curtis LESTER JIE Organization [facility] [place] Address [address] [place] [address] Care Team Providers Care Fleece Tier Name Role Phone JIE LESTER Unavailable PROBLEMS Type Condition ICD9-CM Code [id number] Code Onset Dates Condition S tatus SNOMED Code Problem Type 2 diabetes mellitus wit h complication, without long-term current use of insulin E11.8 Active 12551029 Problem Chest pain 786.50 Active 81153449 Problem Arteriosclerosis of coronary artery I25.10 Active 67811561 Problem Diabetes type 2, uncontrolled E11.65 Active 91750588 Problem Alcohol dependence with unspecified alcohol-induced disord er F10.29 Active 04702354 ALLERGIES No Known Allergies ENCOUNTERS Encounter Location Date Diagnosis [facility] [place] [id number] [place] [address] Sep, [facility] [place] [address] [address] Sep, Type 2 diabetes mellitus wit h complication, without long-term current use of insulin E11.8 and Enlarged liver R16.0 [facility] [address] [id number] [address] Aug, [facility] [place] [address] [place] [id number] [address] [place] [address] Dec, Abscess, scalp L02.811 [facility] [place] [address] [place] [id number] [address] [place] [id number] Dec, [facility] [place] [address] [place] [id number] [address] [place] [address] Dec, [facility] [address] [place] [id number] [address] [place] [phone] Dec, Abscess, scalp L02.811 [facility] [place] [address] [facility] [id number] [address] [place] [phone] 19 Dec, 2017 Abscess, scalp L02.811 [facility] [address] [facility] [id number] [address] [place] [id number] 17 Dec, 2017 Abscess, scalp L02.811 [facility] [place] [address] [facility] [id number] [address] [place] [id number] 15 Dec, 2017 Abscess, scalp L02.811 [facility] [place] [address] [facility] [id number] [address] [place] [phone] 13 Dec, 2017 Abscess, scalp L02.811 [facility] [address] [facility] [id number] [address] [place] [phone] 11 Dec, 2017 Cutaneous abscess of head ex cluding face L02.811 [facility] [address] [facility] [id number] [address] [place] [address] Dec, Abscess L02.[id number] [place] [id number] Dec, [facility] [address] [facility] [id number] [address] [place] [id number] Dec, Abscess L02.91 [facility] [address] [facility] [id number] [address] [place] [phone] Aug, Acute allergic rhinitis due to other allergen, unspecified seasonality J30.89 and Cellulitis of head except face L03.811 [facility] [place] [address] [facility] [id number] [address] [place] [phone] Jun, [facility] [place] [address] [facility] [id number] [address] [place] [phone] Jun, [facility] [place] [address] [facility] [id number] [address] [place] [phone] Jun, [facility] [place] [address] [facility] [id number] [address] [place] [address] Jun, [facility] [place] [address] [id number] [address] [place] [phone] Jun, [facility] [place] [address] [id number] [address] [place] [id number] Jun, Hematuria 599.70 ; Diabetes type 2, uncontrolled 250.02 ; Chest pain 786.50 ; Chronic pain 338.29 and Coronary atherosclerosis of unspecified type of vessel, deering or graft 414.00 [facility] [place] [address] [id number] [address] [place] [phone] Feb, [facility] [place] [address] [id number] [address] [place] [phone] Feb, [facility] [place] [address] [id number] [address] [place] [phone] Jan, [facility] [place] [address] [id number] [address] [place] [phone] Jan, [facility] [place] [address] [id number] [address] [place] [phone] Jan, [facility] [place] [address] [id number] [address] [place] [phone] Jan, [facility] [place] [address] [id number] [address] [place] [phone] Jan, [facility] [place] [address] [id number] [address] [place] [phone] Jan, [facility] [place] [address] [id number] [address] [place] [phone] Dec, [facility] [place] [address] [id number] [address] [place] [phone] Dec, [facility] [place] [address] [id number] [address] [place] [id number] Dec, [facility] [place] [address] [id number] [address] [place] [id number] Dec, [facility] [address] [id number] [address] [place] [address], [place] [address] Dec, [facility] [address] [id number] [address] [place] [address], [place] [address] Dec, [facility] [address] [id number] [address] [place] [address], [place] [address] Dec, [facility] [address] [id number] [address] [place] [address], [place] [address] Dec, [facility] [address] [id number] [address] [place] [address], [place] [address] Nov, [facility] [address] [id number] [address] [place] [address], [place] [address] Nov, [facility] [address] [id number] [address] [place] [address], [place] [address] Aug, [facility] [address] [id number] [address] [place] [address], [place] [address] Aug, [facility] [address] [id number] [address] [place] [address], [place] [address] May, [facility] [address] [id number] [address] [place] [address], [place] [address] March, [facility] [address] [id number] [address] [place] [address], [place] [address] March, [facility] [address] [id number] [address] [place] [address], [place] [address] March, [facility] [address] [id number] [address] [place] [address], [place] [address] March, [facility] [address] [id number] [address] [place] [address], [place] [address] Feb, [facility] [address] [id number] [address] [place] [address], [place] [address] Feb, [facility] [address] [id number] [address] [place] [address], [place] [address] Jan, [facility] [address] [id number] [address] [place] [address], [place] [address] Jan, [facility] [address] [id number] [address] [place] [address], [place] [address] Dec, [facility] [address] [id number] [address] [place] [address], [place] [address] Nov, [facility] [address] [id number] [address] [place] [address], [place] [address] Nov, [facility] [address] [id number] [address] [place] [address], [place] [address] Nov, [facility] [address] [id number] [address] [place] [address], [place] [address] Nov, [facility] [address] [id number] [address] [place] [address], [place] [address] Nov, [facility] [address] [place] [id number] Oct, [facility] [address] [id number] [address] [place] [address], [place] [address] Oct, [facility] [address] [id number] [address] [place] [address], [place] [address] Oct, [facility] [address] [id number] [address] [place] [address], [place] [address] Oct, [facility] [address] [id number] [address] [place] [address], [place] [address] Sep, [facility] [address] [id number] [address] [place] [address], [place] [address] Sep, [facility] [address] [id number] [address] [place] [address], [place] [address] May, [facility] [address] [id number] [address] [place] [address], [place] [address] Apr, [facility] [address] [id number] [address] [place] [address], [place] [address] March, [facility] [address] [id number] [address] [place] [address], [place] [address] Feb, [facility] [address] [id number] [address] [place] [address], [place] [address] Feb, [facility] [address] [id number] [address] [place] [address], [place] [address] Feb, [facility] [address] [id number] [address] [place] [address], [place] [address] Jan, [facility] [address] [id number] [address] [place] [address], [place] [address] Jan, [facility] [address] [id number] [address] [place] [address], [place] [address] Jan, [facility] [address] [id number] [address] [place] [address], [place] [address] Dec, [facility] [address] [id number] [address] [place] [address], [place] [address] Dec, [facility] [address] [id number] [address] [place] [address], [place] [address] Dec, [facility] [address] [id number] [address] [place] [address], [place] [address] Dec, [facility] [address] [id number] [address] [place] [address], [place] [address] Dec, [facility] [address] [id number] [address] [place] [address], [place] [address] Dec, [facility] [address] [id number] [address] [place] [address], [place] [address] Oct, [facility] [address] [id number] [address] [place] [address], [place] [address] Oct, [facility] [address] [id number] [address] [place] [id number] 07 Oct, 2011 [facility] [address] [id number] [address] [place] [address], [place] [address] 29 Sep, 2011 [facility] [address] [id number] [address] [place] [id number] 28 Sep, 2011 [facility] [address] [id number] [address] [place] [phone] 18 Sep, 2011 [facility] [address] [id number] [address] [place] [phone] 18 Sep, 2011 [facility] [address] [id number] [address] [place] [id number] 14 Sep, 2011 [facility] [address] [id number] [address] [place] [phone] 15 May, 2011 [facility] [address] [id number] [address] [place] [phone] 14 Dec, 2010 [facility] [address] [id number] [address] [place] [address] Oct, [facility] [address] [id number] [address] [place] [id number] 03 Sep, 2010 [facility] [address] [id number] [address] [place] [address] Aug, [facility] [address] [id number] [address] [place] [address] Aug, [facility] [address] [id number] [address] [place] [phone] 11 Aug, 2010 [facility] [address] [id number] [address] [place] [id number] 16 Sep, 2009 [facility] [address] [id number] [address] [place] [id number] 09 Sep, 2009 [facility] [address] [id number] [address] [place] [id number] 17 Jul, 2009 IMMUNIZATIONS No Known Immunizations SOCIAL HISTORY Never Assessed REASON FOR VISIT [facility] follow up, kidney problems, liver levels were elevated Moe [place] MA PLAN OF CARE Activity Details Follow Up 4 Weeks or as indicated by harrison santos PCP Reason:DM/Liver enlargement Pending Test HEP C ANTIBODY (STATE) Pending Test CMP VITAL SIGNS Height 61 in 2018-09-18 Weight 169.5 lbs 2018-09-18 Temperature 97.3 degrees Fahrenheit 2018-09-18 Heart Rate 94 bpm 2018-09-18 Respiratory Rate 20 2018-09-18 BMI 32.02 kg/m2 2018-09-18 Blood pressure systolic 142 mmHg 2018-09-18 Blood pressure diastolic 86 mmHg 2018-09-18 MEDICATIONS Medication Instructions Dosage Frequency Start Date End Date Duration S tatus Hydrocodone-Acetaminophen 5-325 MG Orally every 4 hrs 1 tablet as need ed 4h Active Enalapril Maleate 10 MG Orally Once a day 1 tablet 24h 30 day(s) Active Cefdinir 300 MG as directed Acti ve Levemir FlexTouch 100 UNIT/ML as directed Active Glucocard Expression Test - In Vitro 2 times a day as directed Sep, Active Amlodipine-Atorvastatin 5-10 MG Orally Once a day 1 tablet 24h 30 day(s) Active NovoLog Flexpen 100 UNIT/ML as directed Active Glucocard Expression Monitor w/Device as directed Sep Active RESULTS No Results PROCEDURES Procedure Date Ordered Result Body Site No Charge Sep 18, 2018 COMPREHEN METABOLIC PANEL Sep 18, 2018 INSTRUCTIONS MEDICATIONS ADMINISTERED No Known Medications MEDICAL [...]
--- OUTSIDE RECORDS SUMMARY | 2020-02-15 06:00 | XMS REPORT ---
Author Author Curtis LESTER JIE Organization [facility] Address [address] [place] [address] Care Team Providers Care Jet Piercer Operator Name Role Phone JEI LESTER Unavailable PROBLEMS Type Condition ICD9-CM Code JYE22-UC Code Onset Dates Condition S tatus SNOMED Code Problem Type 2 diabetes mellitus wit h complication, without long-term current use of insulin E11.8 Active 18336441 Problem Chest pain 786.50 Active 54062351 Problem Arteriosclerosis of coronary artery I25.10 Active 34699108 Problem Diabetes type 2, uncontrolled E11.65 Active 61394782 Problem Alcohol dependence with unspecified alcohol-induced disord er F10.29 Active 73181908 ALLERGIES No Information ENCOUNTERS Encounter Location Date Diagnosis [place] [address] [place] [id number] [address] [place] [address] Sep, [place] [id number] [place] [address] Sep, [place] [address] [place] [id number] [address] [place] [address] Sep, Type 2 diabetes mellitus wit h complication, without long-term current use of insulin E11.8 and Enlarged liver R16.0 [facility] [id number] [place] [address] Aug, [facility] [address] [facility] [id number] [address] [place] [address] Dec, Abscess, scalp L02.811 [place] [address] [facility] [id number] [address] [place] [address] Dec, [facility] [address] [facility] [id number] [address] [place] [address] Dec, [facility] [address] [facility] [id number] [address] [place] [address] 21 Dec, 2017 Abscess, scalp L02.811 [facility] [address] [facility] [id number] [address] [place] [address] 19 Dec, 2017 Abscess, scalp L02.811 [facility] [address] [facility] [id number] [address] [place] [address] 17 Dec, 2017 Abscess, scalp L02.811 [facility] [address] [facility] [id number] [address] [place] [address] 15 Dec, 2017 Abscess, scalp L02.811 [place] [address] [place] [id number] [place] [address] 13 Dec, 2017 Abscess, scalp L02.811 [facility] [address] [place] [id number] [address] [place] [address] 11 Dec, 2017 Cutaneous abscess of head ex cluding face L02.811 [facility] [address] [facility] [id number] [address] [place] [address] Dec, Abscess L02.[id number] [place] [id number] Dec, [facility] [address] [place] [id number] [address] [place] [address] Dec, Abscess L02.91 [facility] [address] [place] [id number] [address] [place] [address] Aug, Acute allergic rhinitis due to other allergen, unspecified seasonality J30.89 and Cellulitis of head except face L03.811 [place] [address] [facility] [id number] [address] [place] [address] Jun, [facility] [address] [facility] [id number] [address] [place] [address] Jun, [facility] [address] [place] [id number] [place] [address] Jun, [facility] [address] [id number] [address] [place] [address] Jun, [facility] [address] [id number] [address] [place] [address] Jun, [facility] [address] [id number] [address] [place] [address] Jun, Hematuria 599.70 ; Diabetes type 2, uncontrolled 250.02 ; Chest pain 786.50 ; Chronic pain 338.29 and Coronary atherosclerosis of unspecified type of vessel, wrangell or graft 414.00 [facility] [address] [id number] [address] [place] [phone] Feb, [facility] [address] [id number] [address] [place] [address] Feb, [facility] [address] [id number] [address] [place] [phone] Jan, [facility] [address] [id number] [address] [place] [phone] Jan, [facility] [address] [id number] [address] [place] [phone] Jan, [facility] [address] [id number] [place] [id number] Jan, [facility] [address] [id number] [address] [place] [phone] Jan, [facility] [address] [id number] [address] [place] [address] Jan, [facility] [address] [id number] [address] [place] [address] Dec, [facility] [address] [id number] [address] [place] [phone] Dec, [facility] [address] [id number] [address] [place] [phone] Dec, [facility] [address] [id number] [address] [place] [address], [place] [address] Dec, [facility] [address] [id number] [address] [place] [address], [place] [address] Dec, [facility] [address] [id number] [address] [place] [address], [place] [address] Dec, [facility] [address] [id number] [address] [place] [address], [place] [address] Dec, [facility] [address] [id number] [address] [place] [address], [place] [address] Dec, [facility] [address] [id number] [address] [place] [address], [place] [address] Nov, [facility] [address] [id number] [address] [place] [address], [place] [address] Nov, [facility] [address] [id number] [address] [place] [address], [place] [address] Aug, [facility] [address] [id number] [address] [place] [address], [place] [address] Aug, [facility] [address] [id number] [address] [place] [address], [place] [address] May, [facility] [address] [id number] [address] [place] [address], [place] [address] March, [facility] [address] [id number] [address] [place] [address], [place] [address] March, [facility] [address] [id number] [address] [place] [address], [place] [address] March, [facility] [address] [id number] [address] [place] [address], [place] [address] March, [facility] [address] [id number] [address] [place] [address], [place] [address] Feb, [facility] [address] [id number] [address] [place] [address], [place] [address] Feb, [facility] [address] [id number] [address] [place] [address], [place] [address] Jan, [facility] [address] [id number] [address] [place] [address], [place] [address] Jan, [facility] [address] [id number] [address] [place] [address], [place] [address] Dec, [facility] [address] [id number] [address] [place] [address], [place] [address] Nov, [facility] [address] [id number] [address] [place] [address], [place] [address] Nov, [facility] [address] [id number] [address] [place] [address], [place] [address] Nov, [facility] [address] [id number] [address] [place] [address], [place] [address] Nov, [facility] [address] [id number] [address] [place] [address], [place] [address] Nov, [facility] [address] [place] [id number] Oct, [facility] [address] [id number] [address] [place] [address], [place] [address] Oct, [facility] [address] [id number] [address] [place] [address], [place] [address] Oct, [facility] [address] [id number] [address] [place] [address], [place] [address] Oct, [facility] [address] [id number] [address] [place] [address], [place] [address] Sep, [facility] [address] [id number] [address] [place] [address], [place] [address] Sep, [facility] [address] [id number] [address] [place] [address], [place] [address] May, [facility] [address] [id number] [address] [place] [address], [place] [address] 08 Apr, 2012 [facility] [address] [id number] [address] [place] [address], [place] [address] March, [facility] [address] [id number] [address] [place] [address], [place] [address] Feb, [facility] [address] [id number] [address] [place] [address], [place] [address] Feb, [facility] [address] [id number] [address] [place] [address], [place] [address] Feb, [facility] [address] [id number] [address] [place] [address], [place] [address] 24 Jan, 2012 [facility] [address] [id number] [address] [place] [address], [place] [address] Jan, [facility] [address] [id number] [address] [place] [address], [place] [address] Jan, [facility] [address] [id number] [address] [place] [address], [place] [address] Dec, [facility] [address] [id number] [address] [place] [address], [place] [address] Dec, [facility] [address] [id number] [address] [place] [address], [place] [address] Dec, [facility] [address] [id number] [address] [place] [address] Dec, [facility] [address] [id number] [address] [place] [address], [place] [address] Dec, [facility] [address] [id number] [address] [place] [address], [place] [address] 16 Dec, 2011 [facility] [address] [id number] [address] [place] [address], [place] [address] Oct, [facility] [address] [id number] [address] [place] [address] 22 Oct, 2011 [facility] [address] [id number] [address] [place] [address], [place] [address] 07 Oct, 2011 [facility] [address] [id number] [address] [place] [address], [place] [address] 29 Sep, 2011 [facility] [address] [id number] [address] [place] [address], [place] [address] 28 Sep, 2011 [facility] [address] [id number] [address] [place] [address], [place] [address] 18 Sep, 2011 [facility] [address] [id number] [address] [place] [address], [place] [address] 18 Sep, 2011 [facility] [address] [id number] [address] [place] [address], [place] [address] 14 Sep, 2011 [facility] [address] [id number] [address] [place] [address], [place] [address] 15 May, 2011 [facility] [address] [id number] [address] [place] [address], [place] [address] 14 Dec, 2010 [facility] [address] [id number] [address] [place] [address], [place] [address] Oct, [facility] [address] [id number] [address] [place] [address], [place] [address] Sep, [facility] [address] [id number] [address] [place] [address], [place] [address] Aug, [facility] [address] [id number] [address] [place] [address], [place] [address] Aug, [facility] [address] [id number] [address] [place] [address], [place] [address] 11 Aug, 2010 [facility] [address] [id number] [address] [place] [address], [place] [address] 16 Sep, 2009 [facility] [address] [id number] [address] [place] [address], [place] [address] 09 Sep, 2009 [facility] [address] [facility] [id number] [address] [place] [address] 17 Jul, 2009 IMMUNIZATIONS No Known Immunizations SOCIAL HISTORY Never Assessed REASON FOR VISIT Requests return call PLAN OF CARE VITAL SIGNS MEDICATIONS Unknown [...]
--- OUTSIDE RECORDS SUMMARY | 2020-02-15 06:00 | XMS REPORT ---
Author Author Curtis Tanner Doctor Organization [facility] Address Unknown Phone Unavailable Care Team Providers Care Outcome Analyst Name Role Phone Migration, Doctor Unavailable Unavailable PROBLEMS Type Condition ICD9-CM Code [id number] Code Onset Dates Condition S tatus SNOMED Code Problem Chest pain 786.50 Active 67337257 Problem Type 2 diabetes mellitus wit h complication, without long-term current use of insulin E11.8 Active 91328869 Problem Arteriosclerosis of coronary artery I25.10 Active 62633538 Problem Alcohol dependence with unspecified alcohol-induced disord er F10.29 Active 25910916 Problem Diabetes type 2, uncontrolled E11.65 Active [id number] ALLERGIES No Information ENCOUNTERS Encounter Location Date Diagnosis [place] [address] [id number] [place] [address] Oct, Chronic viral hepatitis C B1 8.2 [place] [address] [address] [place] [address] Sep, Type 2 diabetes mellitus wit h complication, without long-term current use of insulin E11.8 [place] [address] [address] [place] [id number] [address] [place] [address] Sep, [place] [address] [address] [place] [address] Sep, Type 2 diabetes mellitus wit h complication, without long-term current use of insulin E11.8 and Enlarged liver R16.0 [facility] [address] [id number] [address] Aug, [place] [address] [address] [place] [id number] [address] [place] [address] Dec, Abscess, scalp L02.811 [place] [address] [address] [place] [id number] [address] [place] [address] Dec, [place] [address] [address] [facility] [id number] [address] [place] [address] 23 Dec, 2017 [facility] [address] [facility] [id number] [address] [place] [address] 21 Dec, 2017 Abscess, scalp L02.811 [facility] [address] [facility] [id number] [address] [place] [address] 19 Dec, 2017 Abscess, scalp L02.811 [facility] [address] [facility] [id number] [address] [place] [address] 17 Dec, 2017 Abscess, scalp L02.811 [facility] [address] [place] [id number] [place] [address] 15 Dec, 2017 Abscess, scalp L02.811 [facility] [address] [place] [id number] [address] [place] [address] 13 Dec, 2017 Abscess, scalp L02.811 [facility] [address] [place] [id number] [address] [place] [address] 11 Dec, 2017 Cutaneous abscess of head ex cluding face L02.811 [facility] [address] [place] [id number] [address] [place] [address] 10 Dec, 2017 Abscess L02.[id number] [place] [id number] Dec, [facility] [address] [facility] [id number] [address] [place] [address] Dec, Abscess L02.91 [facility] [address] [facility] [id number] [address] [place] [address] Aug, Acute allergic rhinitis due to other allergen, unspecified seasonality J30.89 and Cellulitis of head except face L03.811 [facility] [address] [facility] [id number] [address] [place] [address] Jun, [facility] [address] [facility] [id number] [address] [place] [address] Jun, [facility] [address] [id number] [address] [place] [address] Jun, [facility] [address] [id number] [address] [place] [address] Jun, [facility] [address] [id number] [address] [place] [address] Jun, [facility] [address] [id number] [address] [place] [address] Jun, Hematuria 599.70 ; Diabetes type 2, uncontrolled 250.02 ; Chest pain 786.50 ; Chronic pain 338.29 and Coronary atherosclerosis of unspecified type of vessel, [place] or graft 414.00 [facility] [address] [id number] [address] [place] [address] Feb, [facility] [address] [id number] [address] [place] [address] Feb, [facility] [address] [id number] [address] [place] [address] Jan, [facility] [address] [id number] [address] [place] [address] Jan, [facility] [address] [id number] [address] [place] [address] Jan, [facility] [address] [id number] [address] [place] [address] Jan, [facility] [address] [id number] [address] [place] [address] Jan, [facility] [address] [id number] [address] [place] [address] Jan, [facility] [address] [id number] [address] [place] [address] Dec, [facility] [address] [id number] [address] [place] [address] Dec, [facility] [address] [id number] [address] [place] [address], [place] [address] Dec, [facility] [address] [id number] [address] [place] [address], [place] [address] Dec, [facility] [address] [id number] [address] [place] [address], [place] [address] Dec, [facility] [address] [id number] [address] [place] [address], [place] [address] Dec, [facility] [address] [id number] [address] [place] [address], [place] [address] Dec, [facility] [address] [id number] [address] [place] [address], [place] [address] Dec, [facility] [address] [id number] [address] [place] [address], [place] [address] Nov, [facility] [address] [id number] [address] [place] [address], [place] [address] Nov, [facility] [address] [id number] [address] [place] [address], [place] [address] Aug, [facility] [address] [id number] [address] [place] [address], [place] [address] Aug, [facility] [address] [id number] [address] [place] [address], [place] [address] May, [facility] [address] [id number] [address] [place] [address], [place] [address] March, [facility] [address] [id number] [address] [place] [address], [place] [address] March, [facility] [address] [id number] [address] [place] [address], [place] [address] March, [facility] [address] [id number] [address] [place] [address], [place] [address] March, [facility] [address] [id number] [address] [place] [address], [place] [address] Feb, [facility] [address] [id number] [address] [place] [address], [place] [address] Feb, [facility] [address] [id number] [address] [place] [address], [place] [address] Jan, [facility] [address] [id number] [address] [place] [address], [place] [address] Jan, [facility] [address] [id number] [address] [place] [address], [place] [address] Dec, [facility] [address] [id number] [address] [place] [address], [place] [address] Nov, [facility] [address] [id number] [address] [place] [address], [place] [address] Nov, [facility] [address] [id number] [address] [place] [address], [place] [address] Nov, [facility] [address] [id number] [address] [place] [address], [place] [address] Nov, [facility] [address] [id number] [address] [place] [address], [place] [address] Nov, [address] [id number] Oct, [facility] [address] [id number] [address] [place] [address], [place] [address] Oct, [facility] [address] [id number] [address] [place] [address], [place] [address] Oct, [facility] [address] [id number] [address] [place] [address], [place] [address] Oct, [facility] [address] [id number] [address] [place] [address], [place] [address] Sep, [facility] [address] [id number] [address] [place] [address], [place] [address] Sep, [facility] [address] [id number] [address] [place] [address], [place] [address] May, [facility] [address] [id number] [address] [place] [address], [place] [address] Apr, [facility] [address] [id number] [address] [place] [address], [place] [address] March, [facility] [address] [id number] [address] [place] [address], [place] [address] 24 Feb, 2012 [facility] [address] [id number] [address] [place] [address], [place] [address] Feb, [facility] [address] [id number] [address] [place] [address], [place] [address] Feb, [facility] [address] [id number] [address] [place] [address], [place] [address] Jan, [facility] [address] [id number] [address] [place] [address], [place] [address] Jan, [facility] [address] [id number] [address] [place] [address], [place] [address] Jan, [facility] [address] [id number] [address] [place] [address], [place] [address] Dec, [facility] [address] [id number] [address] [place] [address], [place] [address] Dec, [facility] [address] [id number] [address] [place] [address], [place] [address] Dec, [facility] [address] [id number] [address] [place] [address], [place] [address] Dec, [facility] [address] [id number] [address] [place] [address], [place] [address] Dec, [facility] [address] [id number] [address] [place] [address], [place] [address] 16 Dec, 2011 [facility] [address] [id number] [address] [place] [address], [place] [address] 22 Oct, 2011 [facility] [address] [id number] [address] [place] [address], [place] [address] 22 Oct, 2011 [facility] [address] [id number] [address] [place] [address], [place] [address] 07 Oct, 2011 [facility] [address] [id number] [address] [place] [address], [place] [address] 29 Sep, 2011 [facility] [address] [id number] [address] [place] [address], [place] [address] 28 Sep, 2011 [facility] [address] [id number] [address] [place] [address], [place] [address] 18 Sep, 2011 [facility] [address] [id number] [address] [place] [address], [place] [address] 18 Sep, 2011 [facility] [address] [id number] [address] [place] [address], [place] [address] 14 Sep, 2011 [facility] [address] [id number] [address] [place] [address], [place] [address] 15 May, 2011 [facility] [address] [id number] [address] [place] [address], [place] [address] 14 Dec, 2010 [facility] [address] [id number] [address] [place] [address], [place] [address] 10 Oct, 2010 [facility] [address] [id number] [address] [place] [address], [place] [address] 03 Sep, 2010 [facility] [address] [id number] [address] [place] [address], [place] [address] 11 Aug, 2010 [facility] [address] [id number] [address] [place] [address], [place] [address] 11 Aug, 2010 [facility] [address] [id number] [address] [place] [address], [place] [address] 11 Aug, 2010 [facility] [address] [id number] [address] [place] [address], [place] [address] 16 Sep, 2009 [facility] [address] [facility] [id number] [place] [address] Sep, [facility] [address] [facility] [id number] [address] [place] [address] Jul, IMMUNIZATIONS No Known Immunizations SOCIAL HISTORY Never Assessed REASON FOR VISIT EMR-[facility] [place] PLAN OF CARE VITAL SIGNS MEDICATIONS Unknown [...]
--- OUTSIDE RECORDS SUMMARY | 2020-02-15 06:00 | XMS REPORT ---
Author Author Curtis Tanner Doctor Organization [facility] Address Unknown Phone Unavailable Care Team Providers Care Senior Devops Engineer Name Role Phone Migration, Doctor Unavailable Unavailable PROBLEMS Type Condition ICD9-CM Code HZX48-XP Code Onset Dates Condition S tatus SNOMED Code Problem Chest pain 786.50 Active 18239701 Problem Type 2 diabetes mellitus wit h complication, without long-term current use of insulin E11.8 Active 53768244 Problem Arteriosclerosis of coronary artery I25.10 Active 44050724 Problem Alcohol dependence with unspecified alcohol-induced disord er F10.29 Active 91013515 Problem Diabetes type 2, uncontrolled E11.65 Active 10915001 ALLERGIES No Information ENCOUNTERS Encounter Location Date Diagnosis [place] [address] [place] [id number] Oct, Chronic viral hepatitis C B1 8.2 [place] [address] [place] [address] Sep, Type 2 diabetes mellitus wit h complication, without long-term current use of insulin E11.8 [place] [address] [place] [id number] [place] [phone] Sep, [place] [address] [place] [address] Sep, Type 2 diabetes mellitus wit h complication, without long-term current use of insulin E11.8 and Enlarged liver R16.0 [facility] [address] [id number] [address] Aug, [place] [address] [place] [id number] [place] [address] Dec, Abscess, scalp L02.811 [place] [address] [place] [id number] [place] [id number] Dec, [place] [address] [facility] [place] [id number] [address] [place] [id number] 23 Dec, 2017 [facility] [address] [facility] [place] [id number] [address] [place] [address] 21 Dec, 2017 Abscess, scalp L02.811 [facility] [address] [facility] [place] [id number] [address] [place] [id number] 19 Dec, 2017 Abscess, scalp L02.811 [facility] [address] [facility] [place] [id number] [address] [place] [address] 17 Dec, 2017 Abscess, scalp L02.811 [facility] [address] [place] [id number] [place] [id number] 15 Dec, 2017 Abscess, scalp L02.811 [facility] [address] [place] [id number] [address] [place] [address] 13 Dec, 2017 Abscess, scalp L02.811 [facility] [address] [place] [id number] [place] [id number] 11 Dec, 2017 Cutaneous abscess of head ex cluding face L02.811 [facility] [address] [place] [id number] [place] [id number] 10 Dec, 2017 Abscess L02.[id number] [place] [id number] Dec, [facility] [address] [facility] [place] [id number] [address] [place] [address] Dec, Abscess L02.91 [facility] [address] [facility] [place] [id number] [address] [place] [id number] Aug, Acute allergic rhinitis due to other allergen, unspecified seasonality J30.89 and Cellulitis of head except face L03.811 [facility] [address] [facility] [place] [id number] [address] [place] [id number] Jun, [facility] [address] [facility] [place] [id number] [address] [place] [phone] Jun, [facility] [address] [id number] [address] [place] [id number] Jun, [facility] [address] [id number] [address] [place] [id number] Jun, [facility] [address] [id number] [address] [place] [id number] Jun, [facility] [address] [id number] [address] [place] [address] Jun, Hematuria 599.70 ; Diabetes type 2, uncontrolled 250.02 ; Chest pain 786.50 ; Chronic pain 338.29 and Coronary atherosclerosis of unspecified type of vessel, [place] or graft 414.00 [facility] [address] [id number] [address] [place] [id number] Feb, [facility] [address] [id number] [address] [place] [id number] Feb, [facility] [address] [id number] [address] [place] [id number] Jan, [facility] [address] [id number] [address] [place] [id number] Jan, [facility] [address] [id number] [address] [place] [phone] Jan, [facility] [address] [id number] [address] [place] [phone] Jan, [facility] [address] [id number] [address] [place] [phone] Jan, [facility] [address] [id number] [address] [place] [phone] Jan, [facility] [address] [id number] [address] [place] [phone] Dec, [facility] [address] [id number] [address] [place] [phone] Dec, [facility] [address] [id number] [address] [place] [address], [place] [address] Dec, [facility] [address] [id number] [address] [place] [address], [place] [address] Dec, [facility] [address] [id number] [address] [place] [address], [place] [address] Dec, [facility] [address] [id number] [address] [place] [address], [place] [address] Dec, [facility] [address] [id number] [address] [place] [address], [place] [address] Dec, [facility] [address] [id number] [address] [place] [address], [place] [address] Dec, [facility] [address] [id number] [address] [place] [address], [place] [address] Nov, [facility] [address] [id number] [address] [place] [address], [place] [address] Nov, [facility] [address] [id number] [address] [place] [address], [place] [address] Aug, [facility] [address] [id number] [address] [place] [address], [place] [address] Aug, [facility] [address] [id number] [address] [place] [address], [place] [address] May, [facility] [address] [id number] [address] [place] [address], [place] [address] March, [facility] [address] [id number] [address] [place] [address], [place] [address] March, [facility] [address] [id number] [address] [place] [address], [place] [address] March, [facility] [address] [id number] [address] [place] [address], [place] [address] March, [facility] [address] [id number] [address] [place] [address], [place] [address] Feb, [facility] [address] [id number] [address] [place] [address], [place] [address] Feb, [facility] [address] [id number] [address] [place] [address], [place] [address] Jan, [facility] [address] [id number] [address] [place] [address], [place] [address] Jan, [facility] [address] [id number] [address] [place] [address], [place] [address] Dec, [facility] [address] [id number] [address] [place] [address], [place] [address] Nov, [facility] [place] [address] [id number] [address] [place] [address], [place] [address] Nov, [facility] [address] [id number] [address] [place] [address], [place] [address] Nov, [facility] [place] [address] [id number] [address] [place] [address], [place] [address] Nov, [facility] [address] [id number] [address] [place] [address], [place] [address] Nov, [address] [id number] Oct, [facility] [place] [address] [id number] [address] [place] [address], [place] [address] Oct, [facility] [place] [address] [id number] [address] [place] [address], [place] [address] Oct, [facility] [place] [address] [id number] [address] [place] [address], [place] [address] Oct, [facility] [place] [address] [id number] [address] [place] [address], [place] [address] Sep, [facility] [place] [address] [id number] [address] [place] [address], [place] [address] Sep, [facility] [address] [id number] [address] [place] [address], [place] [address] May, [facility] [address] [id number] [address] [place] [address], [place] [address] Apr, [facility] [address] [id number] [address] [place] [address], [place] [address] March, [facility] [address] [id number] [address] [place] [address], [place] [address] 24 Feb, 2012 [facility] [address] [id number] [address] [place] [address], [place] [address] Feb, [facility] [address] [id number] [address] [place] [address], [place] [address] Feb, [facility] [address] [id number] [address] [place] [address], [place] [address] Jan, [facility] [address] [id number] [address] [place] [address], [place] [address] Jan, [facility] [address] [id number] [address] [place] [address], [place] [address] Jan, [facility] [address] [id number] [address] [place] [address], [place] [address] Dec, [facility] [address] [id number] [address] [place] [address], [place] [address] Dec, [facility] [address] [id number] [address] [place] [address], [place] [address] Dec, [facility] [address] [id number] [address] [place] [address], [place] [address] Dec, [facility] [address] [id number] [address] [place] [address], [place] [address] Dec, [facility] [address] [id number] [address] [place] [address], [place] [address] 16 Dec, 2011 [facility] [address] [id number] [address] [place] [address], [place] [address] 22 Oct, 2011 [facility] [address] [id number] [address] [place] [address], [place] [address] 22 Oct, 2011 [facility] [address] [id number] [address] [place] [address], [place] [address] 07 Oct, 2011 [facility] [address] [id number] [address] [place] [address], [place] [address] 29 Sep, 2011 [facility] [address] [id number] [address] [place] [address], [place] [address] 28 Sep, 2011 [facility] [address] [id number] [address] [place] [address], [place] [address] 18 Sep, 2011 [facility] [address] [id number] [address] [place] [address], [place] [address] 18 Sep, 2011 [facility] [address] [id number] [address] [place] [address], [place] [address] 14 Sep, 2011 [facility] [address] [id number] [address] [place] [address], [place] [address] 15 May, 2011 [facility] [address] [id number] [address] [place] [address], [place] [address] 14 Dec, 2010 [facility] [address] [id number] [address] [place] [address], [place] [address] 10 Oct, 2010 [facility] [address] [id number] [address] [place] [address], [place] [address] 03 Sep, 2010 [facility] [address] [id number] [address] [place] [address], [place] [address] 11 Aug, 2010 [facility] [address] [id number] [address] [place] [address], [place] [address] 11 Aug, 2010 [facility] [address] [id number] [address] [place] [address], [place] [address] 11 Aug, 2010 [facility] [address] [id number] [address] [place] [address], [place] [address] 16 Sep, 2009 [facility] [address] [facility] [place] [id number] [address] [place] [id number] Sep, [facility] [address] [facility] [place] [id number] [address] [place] [id number] Jul, IMMUNIZATIONS No Known Immunizations SOCIAL HISTORY Never Assessed REASON FOR VISIT EMR-[facility] PLAN OF CARE VITAL SIGNS MEDICATIONS Medication Instructions Dosage Frequency Start Date End Date Duration S tat Vol-Plus 27-1 mg 1 Tablet by Oral route 1 time per day 2 Dec, Active metformin 500 mg 1 Tablet by Oral route 2 times per day Dec, Active Nitroglycerin 0.[address] 1 tablet (0.3 mg) by sublingual route at the first sign of an attack; no more than 3 tabs are recommended within a 15 minute period. Nov, Active Multiple Vitamins 1 Tablet by Oral route 1 time per day Dec, Active Keflex 500 mg 1 capsule by Oral route 3 times per day for 7 days Dec, Active Azithromycin 250 mg 2 Tablet by Oral rou te on day 1 then take 1 daily for 4 days Dec, Active Levemir 100 unit/mL 20 Units by Sq route 1 time per day at hs Dec, Active NovoLog Flexpen 100 unit/mL inject 7 Uni ts by Subcutaneous route before meals 3 times per day Feb, Active RESULTS No Results PROCEDURES No Known [...]
--- OUTSIDE RECORDS SUMMARY | 2020-02-15 06:00 | XMS REPORT ---
Author Author Curtis Tanner Doctor Organization [facility] Address Unknown Phone Unavailable Care Team Providers Care Bolting Machine Operator Name Role Phone Migration, Doctor Unavailable Unavailable PROBLEMS Type Condition ICD9-CM Code [id number] Code Onset Dates Condition S tatus SNOMED Code Problem Chest pain 786.50 Active 16842365 Problem Type 2 diabetes mellitus wit h complication, without long-term current use of insulin E11.8 Active 71714630 Problem Arteriosclerosis of coronary artery I25.10 Active 38270338 Problem Alcohol dependence with unspecified alcohol-induced disord er F10.29 Active 46550248 Problem Diabetes type 2, uncontrolled E11.65 Active 73215712 ALLERGIES No Information ENCOUNTERS Encounter Location Date Diagnosis [place] [address] [place] [id number] Oct, Chronic viral hepatitis C B1 8.2 [place] [address] [place] [address] Sep, Type 2 diabetes mellitus wit h complication, without long-term current use of insulin E11.8 [place] [address] [address] [place] [id number] [address] [place] [phone] Sep, [place] [address] [place] [phone] Sep, Type 2 diabetes mellitus wit h complication, without long-term current use of insulin E11.8 and Enlarged liver R16.0 [facility] [address] [id number] [address] Aug, [place] [address] [address] [place] [id number] [address] [place] [phone] Dec, Abscess, scalp L02.811 [place] [address] [address] [place] [id number] [address] [place] [phone] Dec, [place] [address] [facility] [id number] [address] [place] [phone] 23 Dec, 2017 [facility] [address] [facility] [id number] [address] [place] [phone] 21 Dec, 2017 Abscess, scalp L02.811 [facility] [address] [facility] [id number] [address] [place] [phone] 19 Dec, 2017 Abscess, scalp L02.811 [facility] [address] [facility] [id number] [address] [place] [phone] 17 Dec, 2017 Abscess, scalp L02.811 [facility] [address] [place] [id number] [place] [address] 15 Dec, 2017 Abscess, scalp L02.811 [facility] [address] [place] [id number] [address] [place] [phone] 13 Dec, 2017 Abscess, scalp L02.811 [facility] [address] [place] [id number] [address] [place] [phone] 11 Dec, 2017 Cutaneous abscess of head ex cluding face L02.811 [facility] [address] [place] [id number] [address] [place] [phone] 10 Dec, 2017 Abscess L02.[id number] [place] [id number] Dec, [facility] [address] [facility] [id number] [address] [place] [phone] Dec, Abscess L02.91 [facility] [address] [facility] [id number] [address] [place] [phone] Aug, Acute allergic rhinitis due to other allergen, unspecified seasonality J30.89 and Cellulitis of head except face L03.811 [facility] [address] [facility] [id number] [address] [place] [id number] Jun, [facility] [address] [facility] [id number] [address] [place] [phone] Jun, [facility] [address] [id number] [address] [place] [phone] Jun, [facility] [address] [id number] [address] [place] [phone] Jun, [facility] [address] [id number] [address] [place] [phone] Jun, [facility] [address] [id number] [address] [place] [phone] Jun, Hematuria 599.70 ; Diabetes type 2, uncontrolled 250.02 ; Chest pain 786.50 ; Chronic pain 338.29 and Coronary atherosclerosis of unspecified type of vessel, tejon or graft 414.00 [facility] [address] [id number] [address] [place] [phone] Feb, [facility] [address] [id number] [address] [place] [phone] Feb, [facility] [address] [id number] [address] [place] [phone] Jan, [facility] [address] [id number] [address] [place] [phone] Jan, [facility] [address] [id number] [address] [place] [phone] Jan, [facility] [address] [id number] [address] [place] [phone] Jan, [facility] [address] [id number] [address] [place] [phone] Jan, [facility] [address] [id number] [address] [place] [phone] Jan, [facility] [address] [id number] [address] [place] [phone] Dec, [facility] [address] [id number] [address] [place] [phone] Dec, [facility] [address] [id number] [address] [place] [address], [place] [address] Dec, [facility] [address] [id number] [address] [place] [address], [place] [address] Dec, [facility] [address] [id number] [address] [place] [address], [place] [address] Dec, [facility] [address] [id number] [address] [place] [address], [place] [address] Dec, [facility] [address] [id number] [address] [place] [address], [place] [address] Dec, [facility] [address] [id number] [address] [place] [address], [place] [address] Dec, [facility] [address] [id number] [address] [place] [address], [place] [address] Nov, [facility] [address] [id number] [address] [place] [address], [place] [address] Nov, [facility] [address] [id number] [address] [place] [address], [place] [address] Aug, [facility] [address] [id number] [address] [place] [address], [place] [address] Aug, [facility] [address] [id number] [address] [place] [address], [place] [address] May, [facility] [address] [id number] [address] [place] [address], [place] [address] March, [facility] [address] [id number] [address] [place] [address], [place] [address] March, [facility] [address] [id number] [address] [place] [address], [place] [address] March, [facility] [address] [id number] [address] [place] [address], [place] [address] March, [facility] [address] [id number] [address] [place] [address], [place] [address] Feb, [facility] [address] [id number] [address] [place] [address], [place] [address] Feb, [facility] [address] [id number] [address] [place] [address], [place] [address] Jan, [facility] [address] [id number] [address] [place] [address], [place] [address] Jan, [facility] [address] [id number] [address] [place] [address], [place] [address] Dec, [facility] [address] [id number] [address] [place] [address], [place] [address] Nov, [facility] [address] [id number] [address] [place] [address], [place] [address] Nov, [facility] [address] [id number] [address] [place] [address], [place] [address] Nov, [facility] [address] [id number] [address] [place] [address], [place] [address] Nov, [facility] [address] [id number] [address] [place] [address], [place] [address] Nov, [address] [id number] Oct, [facility] [address] [id number] [address] [place] [address], [place] [address] Oct, [facility] [address] [id number] [address] [place] [address], [place] [address] Oct, [facility] [address] [id number] [address] [place] [address], [place] [address] Oct, [facility] [address] [id number] [address] [place] [address], [place] [address] Sep, [facility] [address] [id number] [address] [place] [address], [place] [address] Sep, [facility] [address] [id number] [address] [place] [address], [place] [address] May, [facility] [address] [id number] [address] [place] [address], [place] [address] Apr, [facility] [address] [id number] [address] [place] [address], [place] [address] March, [facility] [address] [id number] [address] [place] [address], [place] [address] 24 Feb, 2012 [facility] [address] [id number] [address] [place] [address], [place] [address] Feb, [facility] [address] [id number] [address] [place] [address], [place] [address] Feb, [facility] [address] [id number] [address] [place] [address], [place] [address] Jan, [facility] [address] [id number] [address] [place] [address], [place] [address] Jan, [facility] [address] [id number] [address] [place] [address], [place] [address] Jan, [facility] [address] [id number] [address] [place] [address], [place] [address] Dec, [facility] [address] [id number] [address] [place] [address], [place] [address] Dec, [facility] [address] [id number] [address] [place] [address], [place] [address] Dec, [facility] [address] [id number] [address] [place] [address], [place] [address] Dec, [facility] [address] [id number] [address] [place] [address], [place] [address] Dec, [facility] [address] [id number] [address] [place] [address], [place] [address] 16 Dec, 2011 [facility] [address] [id number] [address] [place] [address], [place] [address] 22 Oct, 2011 [facility] [address] [id number] [address] [place] [address], [place] [address] 22 Oct, 2011 [facility] [address] [id number] [address] [place] [address], [place] [address] 07 Oct, 2011 [facility] [address] [id number] [address] [place] [address], [place] [address] 29 Sep, 2011 [facility] [address] [id number] [address] [place] [address], [place] [address] 28 Sep, 2011 [facility] [address] [id number] [address] [place] [address], [place] [address] 18 Sep, 2011 [facility] [address] [id number] [address] [place] [address], [place] [address] 18 Sep, 2011 [facility] [address] [id number] [address] [place] [address], [place] [address] 14 Sep, 2011 [facility] [address] [id number] [address] [place] [address], [place] [address] 15 May, 2011 [facility] [address] [id number] [address] [place] [address], [place] [address] 14 Dec, 2010 [facility] [address] [id number] [address] [place] [address], [place] [address] 10 Oct, 2010 [facility] [address] [id number] [address] [place] [address], [place] [address] 03 Sep, 2010 [facility] [address] [id number] [address] [place] [address], [place] [address] 11 Aug, 2010 [facility] [address] [id number] [address] [place] [address], [place] [address] 11 Aug, 2010 [facility] [address] [id number] [address] [place] [address], [place] [address] 11 Aug, 2010 [facility] [address] [id number] [address] [place] [address], [place] [address] 16 Sep, 2009 [facility] [address] [facility] [id number] [address] [address] Sep, [facility] [address] [facility] [id number] [address] [place] [phone] Jul, IMMUNIZATIONS No Known Immunizations SOCIAL HISTORY Never Assessed REASON FOR VISIT EMR-[facility] PLAN OF CARE VITAL SIGNS [...]
--- OUTSIDE RECORDS SUMMARY | 2020-02-15 06:00 | XMS REPORT ---
Author Author Ranjit LESTERana CERON [facility] Address [address] [place] [address] Care Team Providers Care Telephone Lines Repairer Name Role Phone JIE LESTER Unavailable PROBLEMS Type Condition ICD9-CM Code [id number] Code Onset Dates Condition S tatus SNOMED Code Problem Type 2 diabetes mellitus wit h complication, without long-term current use of insulin E11.8 Active 13570244 Problem Chest pain 786.50 Active 10023853 Problem Arteriosclerosis of coronary artery I25.10 Active 52908056 Problem Diabetes type 2, uncontrolled E11.65 Active 18730431 Problem Alcohol dependence with unspecified alcohol-induced disord er F10.29 Active 25614581 ALLERGIES No Information ENCOUNTERS Encounter Location Date Diagnosis [place] [address] [place] [id number] [place] [address] Oct, Chronic viral hepatitis C B1 8.2 [place] [address] [place] [id number] [place] [address] Sep, Type 2 diabetes mellitus wit h complication, without long-term current use of insulin E11.8 [place] [address] [place] [id number] [address] [place] [address] Sep, [place] [id number] [place] [address] Sep, Type 2 diabetes mellitus wit h complication, without long-term current use of insulin E11.8 and Enlarged liver R16.0 [facility] [id number] [place] [address] Aug, [place] [address] [place] [id number] [address] [place] [address] Dec, Abscess, scalp L02.811 [place] [address] [place] [id number] [address] [place] [address] Dec, [facility] [address] [address] Dec, [facility] [address] [place] [id number] [address] [place] [address] Dec, Abscess, scalp L02.811 [place] [address] [address] 19 Dec, 2017 Abscess, scalp L02.811 [facility] [place] [id number] [place] [address] 17 Dec, 2017 Abscess, scalp L02.811 [place] [address] [place] [id number] [place] [address] 15 Dec, 2017 Abscess, scalp L02.811 [place] [address] [place] [id number] [place] [address] 13 Dec, 2017 Abscess, scalp L02.811 [facility] [place] [id number] [place] [address] 11 Dec, 2017 Cutaneous abscess of head ex cluding face L02.811 [facility] [place] [id number] [address] [place] [address] Dec, Abscess L02.[id number] [place] [id number] Dec, [facility] [address] [facility] [id number] [address] [place] [address] Dec, Abscess L02.91 [facility] [place] [id number] [place] [address] Aug, Acute allergic rhinitis due to other allergen, unspecified seasonality J30.89 and Cellulitis of head except face L03.811 [place] [address] [place] [id number] [address] [place] [address] Jun, [facility] [address] [id number] [address] [place] [phone] Jun, [facility] [address] [id number] [address] [place] [address] Jun, [facility] [address] [id number] [address] [place] [address] Jun, [facility] [address] [id number] [address] [place] [phone] Jun, [facility] [address] [id number] [address] [place] [address] Jun, Hematuria 599.70 ; Diabetes type 2, uncontrolled 250.02 ; Chest pain 786.50 ; Chronic pain 338.29 and Coronary atherosclerosis of unspecified type of vessel, campo or graft 414.00 [facility] [address] [id number] [address] [place] [phone] Feb, [facility] [address] [id number] [address] [place] [phone] Feb, [facility] [address] [id number] [address] [place] [address] Jan, [facility] [address] [id number] [address] [place] [phone] Jan, [facility] [address] [id number] [address] [place] [phone] Jan, [facility] [address] [id number] [address] [place] [phone] Jan, [facility] [address] [id number] [address] [place] [phone] Jan, [facility] [address] [id number] [address] [place] [phone] Jan, [facility] [address] [id number] [address] [place] [phone] Dec, [facility] [address] [id number] [address] [place] [address], [place] [address] Dec, 2014 [facility] [address] [id number] [address] [place] [address], [place] [address] Dec, 2014 [facility] [address] [id number] [address] [place] [address], [place] [address] Dec, 2014 [facility] [address] [id number] [address] [place] [address], [place] [address] Dec, 2014 [facility] [address] [id number] [address] [place] [address], [place] [address] Dec, [facility] [address] [id number] [address] [place] [address], [place] [address] Dec, [facility] [address] [id number] [address] [place] [address], [place] [address] Dec, [facility] [address] [id number] [address] [place] [address], [place] [address] Nov, [facility] [address] [id number] [address] [place] [address], [place] [address] Nov, [facility] [address] [id number] [address] [place] [address], [place] [address] Aug, [facility] [address] [id number] [address] [place] [address], [place] [address] Aug, [facility] [address] [id number] [address] [place] [address], [place] [address] May, [facility] [address] [id number] [address] [place] [address], [place] [address] March, [facility] [address] [id number] [address] [place] [address], [place] [address] March, [facility] [address] [id number] [address] [place] [address], [place] [address] March, [facility] [address] [id number] [address] [place] [address], [place] [address] March, [facility] [address] [id number] [address] [place] [address], [place] [address] Feb, [facility] [address] [id number] [address] [place] [address], [place] [address] Feb, [facility] [address] [id number] [address] [place] [address], [place] [address] Jan, [facility] [address] [id number] [address] [place] [address], [place] [address] Jan, [facility] [address] [id number] [address] [place] [address], [place] [address] Dec, [facility] [address] [id number] [address] [place] [address], [place] [address] Nov, [facility] [address] [id number] [address] [place] [address], [place] [address] Nov, [facility] [address] [id number] [address] [place] [address], [place] [address] Nov, [facility] [address] [id number] [address] [place] [address], [place] [address] Nov, [facility] [address] [id number] [address] [place] [address], [place] [address] Nov, [facility] [address] [place] [id number] Oct, [facility] [address] [id number] [address] [place] [address], [place] [address] Oct, [facility] [address] [id number] [address] [place] [address], [place] [address] Oct, [facility] [address] [id number] [address] [place] [address], [place] [address] Oct, [facility] [address] [id number] [address] [place] [address], [place] [address] Sep, [facility] [address] [id number] [address] [place] [address], [place] [address] Sep, [facility] [address] [id number] [address] [place] [address], [place] [address] May, [facility] [address] [id number] [address] [place] [address], [place] [address] Apr, [facility] [address] [id number] [address] [place] [address], [place] [address] March, [facility] [address] [id number] [address] [place] [address], [place] [address] Feb, [facility] [address] [id number] [address] [place] [address], [place] [address] Feb, [facility] [address] [id number] [address] [place] [address], [place] [address] Feb, [facility] [address] [id number] [address] [place] [address], [place] [address] Jan, [facility] [address] [id number] [address] [place] [address], [place] [address] Jan, [facility] [address] [id number] [address] [place] [address], [place] [address] Jan, [facility] [address] [id number] [address] [place] [address], [place] [address] Dec, [facility] [address] [id number] [address] [place] [address], [place] [address] Dec, [facility] [address] [id number] [address] [place] [address], [place] [address] Dec, [facility] [address] [id number] [address] [place] [address], [place] [address] Dec, [facility] [address] [id number] [address] [place] [address], [place] [address] Dec, [facility] [address] [id number] [address] [place] [address], [place] [address] 16 Dec, 2011 [facility] [address] [id number] [address] [place] [address], [place] [address] 22 Oct, 2011 [facility] [address] [id number] [address] [place] [address], [place] [address] 22 Oct, 2011 [facility] [address] [id number] [address] [place] [address], [place] [address] Oct, [facility] [address] [id number] [address] [place] [address], [place] [address] 29 Sep, 2011 [facility] [address] [id number] [address] [place] [address], [place] [address] 28 Sep, 2011 [facility] [address] [id number] [address] [place] [address], [place] [address] 18 Sep, 2011 [facility] [address] [id number] [address] [place] [address], [place] [address] 18 Sep, 2011 [facility] [address] [id number] [address] [place] [address], [place] [address] 14 Sep, 2011 [facility] [address] [id number] [address] [place] [address], [place] [address] 15 May, 2011 [facility] [address] [id number] [address] [place] [address], [place] [address] 14 Dec, 2010 [facility] [address] [id number] [address] [place] [address] Oct, [facility] [address] [id number] [address] [place] [id number] 03 Sep, 2010 [facility] [address] [id number] [address] [place] [address], [place] [address] 11 Aug, 2010 [facility] [address] [id number] [address] [place] [address], [place] [address] Aug, [facility] [address] [id number] [address] [place] [address] Aug, [facility] [address] [id number] [address] [address] 16 Sep, 2009 [facility] [address] [facility] [id number] [address] [place] [id number] Sep, [facility] [address] [facility] [id number] [address] [place] [address] 17 Jul, 2009 IMMUNIZATIONS No Known Immunizations SOCIAL HISTORY Never Assessed REASON FOR VISIT Deferred lab PLAN OF CARE VITAL SIGNS MEDICATIONS Unknown [...]
--- NOTE | 2020-02-15 06:35 | Diagnostic Imaging Report ---
Indication: Chest pain. Comparison: 09/09/2018. Discussion: Single portable upright view of the chest was obtained. Normal heart size. Mildly elevated right hemidiaphragm. Mild perihilar infiltrates are noted which is of uncertain etiology or clinical significance. No focal consolidation. No pleural fluid or pneumothorax. No osseous abnormality. Impression: 1. Questionable bilateral perihilar infiltrates which could be seen with early infection. Dictated by: Dictated on workstation # [id number]
[2020-02-15] MEDS ORDERED: morphine INJ 4 MG/ML 1 ML (VIAL/SYRINGE) IV PRN (07:00)
[2020-02-15] MEDS ORDERED: ONDANSETRON 4 MG/2 ML (SDV) Z0FRAN IV PRN (07:00)
[2020-02-15] MEDS: ASPIRIN E.C. 81 MG (ECOTRIN) TAB PO SCH (07:59)
[2020-02-15] MEDS: NITROGLYCERIN 0.4 MG SL TABS BTL 25'S SL PRN ×3 (07:59→09:11)
[2020-02-15] MEDS: LACTATED RINGERS 1,000 ML IV SCH ×2 (08:04→16:47)
[2020-02-15] MEDS: inSUlin ASPART (NovoLOG) 1 UNIT/0.01 ML (CHARGE PER UNIT) SC SCH ×4 (08:14→21:06)
--- NOTE | 2020-02-15 09:10 | NUR ---
This nurse notified of patients complaint of chest pain. x3 nitro's given sublingual. EKG obtained. Recent troponin lab is pending currently. No new orders received att. will continue to closely monitor.
[2020-02-15 10:07] LABS: ABG BASE EXCESS -1.4 MMOL/L (-2.5-2.5); ABG OXYGEN SATURATION 97 % (94-100); ABG PCO2 36 MMHG (35-45); ABG PH 7.41 (7.37-7.43); ABG PO2 83 MMHG (79-93); ABG TCO2 23.9 MMOL/L (21.0-31.0)
[2020-02-15 10:08] LABS: ALLENS TEST POSITIVE; PATIENT TEMP 36.4; VENTILATOR NO
--- NOTE | 2020-02-15 10:33 | Consultation-Cardiology ---
HPI-Cardiology Cardiology Consultation Date of Consultation 02/15/20 Date of Admission Time Seen by Provider: 10:28 Indication: chest pain HPI 49-year-old lady with history of coronary artery disease, had a stent to the LAD done in 2011, history of DVT diagnosed in November 2019, right eye blindness. Started to have chest pain on and off for the past week recently reported persis tent chest pain started about 3 a.m. Did not respond to nitroglycerin, still having active chest pain, mild dyspnea, no palpitation, no syncope or near syncopal episode, troponin level is slightly elevated and trending up. Home Medications & Allergies Allergies: Coded Allergies: etodolac (Verified Allergy, Unknown, 02/13/06) latex (Unverified Allergy, Unknown, 12/01/14) Uncoded Allergies: plastic tape (Allergy, Severe, skin peeling off, 09/09/18) Home Medication List Reviewed: Yes XRI-Mwexph-Buqbcc Hx Patient Social History Alcohol Use: Occasionally Uses Recreational Drug Use: No Smoking Status: Former Smoker Type Used: Cigarettes 2nd Hand Smoke Exposure: No Recent Foreign Travel: No Recent Infectious Disease Expo: No Recent Hopitalizations: No Immunizations Up To Date Tetanus Booster (TDap): Unknown Past Medical History Discussed below Family Medical History Family History: Arthritis 19 MOTHER, Onset:Unknown FH: COPD (chronic obstructive pulmonary disease) 19 MOTHER, Onset:Unknown FH: uterine cancer 19 MOTHER, Onset:Unknown No Family History of: AIDS Abdominal aortic aneurysm Noé's disease Alcoholism Alzheimer's disease Aphasia Asthma Cancer of mouth Cardiovascular disease Cataracts Colon cancer Completed stroke Congenital disease Congenital heart disease Coronary thrombosis Cystic fibrosis Deafness or hearing loss Dementia Diabetes mellitus Drug abuse Dysphasia Fibrocystic disease of breast Gastroenteritis Glaucoma Headache disorder Hypercholesterolemia Hypertension Infertility Kidney disease Myocardial infarction Neoplasm Not obtainable due to adoption Osteoporosis Parkinson's disease Prostate cancer Psychosocial problem Respiratory disorder Seizure disorder Severe allergy Thyroid disease Tuberculosis Visual disorder Review of Systems-General Review of Systems Constitutional: see HPI; No chills, No diaphoresis, No fever EENTM: see HPI, no symptoms reported Respiratory: see HPI, short of breath Cardiovascular: see HPI, chest pain, edema; No Hx of Intervention, No palpitations, No syncope, No vascular heart diseas, No other Gastrointestinal: no symptoms reported, see HPI Genitourinary: no symptoms reported, see HPI Musculoskeletal: no symptoms reported Skin: no symptoms reported Psychiatric/Neurological: No Symptoms Reported, See HPI All Other Systems Reviewed Negative Unless Noted: Yes Reviewed Test Results Reviewed Test Results Lab Laboratory Tests Test 02/15/20 04:28 02/15/20 08:48 02/15/20 10:00 Range/Units White Blood Count 8.3 4.3-11.0 10^3/uL Red Blood Count 5.01 4.35-5.85 10^6/uL Hemoglobin 12.6 11.5-16.0 G/DL Hematocrit 37 35-52 % Mean Corpuscular Volume 74 L 80-99 FL Mean Corpuscular Hemoglobin 25 25-34 PG Mean Corpuscular Hemoglobin Concent 34 32-36 G/DL Red Cell Distribution Width 16.8 H 10.0-14.5 % Platelet Count 214 130-400 10^3/uL Mean Platelet Volume 10.5 H 7.4-10.4 FL Neutrophils (%) (Auto) 61 42-75 % Lymphocytes (%) (Auto) 28 12-44 % Monocytes (%) (Auto) 8 0-12 % Eosinophils (%) (Auto) 2 0-10 % Basophils (%) (Auto) 0 0-10 % Neutrophils # (Auto) 5.1 1.8-7.8 X 10^3 Lymphocytes # (Auto) 2.3 1.0-4.0 X 10^3 Monocytes # (Auto) 0.7 0.0-1.0 X 10^3 Eosinophils # (Auto) 0.2 0.0-0.3 10^3/uL Basophils # (Auto) 0.0 0.0-0.1 10^3/uL Prothrombin Time 18.6 H 12.2-14.7 SEC INR Comment 1.5 H 0.8-1.4 Activated Partial Thromboplast Time 38 H 24-35 SEC Sodium Level 135 135-145 MMOL/L Potassium Level 3.5 L 3.6-5.0 MMOL/L Chloride Level 101 98-107 MMOL/L Carbon Dioxide Level 22 21-32 MMOL/L Anion Gap 12 5-14 MMOL/L Blood Urea Nitrogen 15 7-18 MG/DL Creatinine 1.13 0.60-1.30 MG/DL Estimat Glomerular Filtration Rate 51 BUN/Creatinine Ratio 13 Glucose Level 280 H 70-105 MG/DL Calcium Level 8.7 8.5-10.1 MG/DL Corrected Calcium 9.2 8.5-10.1 MG/DL Magnesium Level 1.6 1.6-2.4 MG/DL Total Bilirubin 0.3 0.1-1.0 MG/DL Aspartate Amino Transf (AST/SGOT) 18 5-34 U/L Alanine Aminotransferase (ALT/SGPT) 23 0-55 U/L Alkaline Phosphatase 188 H 40-136 U/L Myoglobin 72.4 10.0-92.0 NG/ML Troponin I 0.046 H 0.053 H <0.028 NG/ML Total Protein 7.1 6.4-8.2 GM/DL Albumin 3.4 3.2-4.5 GM/DL Lipase 27 8-78 U/L Blood Gas Puncture Site RIGHT RADIAL Blood Gas Patient Temperature 36.4 Arterial Blood pH 7.41 7.37-7.43 Arterial Blood Partial Pressure CO2 36 35-45 MMHG Arterial Blood Partial Pressure O2 83 79-93 MMHG Arterial Blood HCO3 23 23-27 MMOL/L Arterial Blood Total CO2 23.9 21.0-31.0 MMOL/L Arterial Blood Oxygen Saturation 97 94-100 % Arterial Blood Base Excess -1.4 -2.5-2.5 MMOL/L Andrew Test POSITIVE Blood Gas Ventilator Setting NO Blood Gas Inspired Oxygen N/A Physical Exam Physical Exam Vital Signs Vital Signs - First Documented 02/15/20 02/15/20 04:25 06:15 Temp 36.5 Pulse 114 Resp 18 B/P (MAP) 112/55 (74) Pulse Ox 97 O2 Delivery Room Air Capillary Refill : Less Than 3 Seconds Height, Weight, BMI Height: 5'1.00" Weight: 202lbs. 12.0oz. 91.616738nh; 30.48 BMI Method:Stated General Appearance: WD/WN, Mild Distress Eyes: Bilateral Eye Normal Inspection, Bilateral Eye PERRL, Bilateral Eye EOMI HEENT: Pharynx Normal, Other (right eye blind) Neck: Non Tender, Supple Respiratory: Lungs Clear Cardiovascular: No Murmur, Tachycardia Gastrointestinal: Normal Bowel Sounds, Soft, Tenderness (mild epigastric) Back: Normal Inspection, No CVA Tenderness, No Vertebral Tenderness Extremity: Normal Inspection, Normal Range of Motion, Non Tender, No Calf Tenderness Neurologic/Psychiatric: Alert, Oriented x3 Skin: Normal Color, Warm/Dry Lymphatic: No Adenopathy A/P-Cardiology Admission Diagnosis Chest pain Coronary artery disease Hypertension Hyperlipidemia Assessment/Plan Chest pain, persistent, mild elevation in troponin level trending up, extensive history of coronary artery disease planning to proceed with cardiac catheterization possible PTCA Coronary artery disease, history of stenting to the LAD using 2.25 mm stent secondary to 99 percent stenosis at the mid LAD. At that time she was reported to have 60-70 percent mid ramus intermedius disease and 40-50 percent mid right coronary artery disease, no further workup was done, planning to repeat cardiac catheterization. Hyperlipidemia, managed by primary care physician I will evaluate lipid profile Diabetes mellitus, managed by primary care physician Recent deep venous thrombosis, unprovoked diagnosed in November 2019, has been maintained on Xarelto History of hepatitis C, managed and followed by primary care physician History of recurrent pyelonephritis, managed by primary care physician History of peripheral neuropathy History of illicit drug use she has stopped using drugs in 2009 Clinical Quality Measures AMI/AHF: ASA po Prior to arrival: Yes DVT/VTE Risk/Contraindication: Risk Factor Score Per Nursin RFS Level Per Nursing on Admit: 4+=Very High SOHEILA SANTO MD Feb 15, 2020 10:33
--- NOTE | 2020-02-15 10:34 | Cardiac Procedure Note-CS/ASA ---
Pre-Procedure Note Pre-Op Procedure Note H&P Reviewed The H&P was reviewed, patient examined and no changes noted. Date H&P Reviewed: Feb 15, 2020 Time H&P Reviewed: 10:33 Conscious Sedation Pre-Proced Time 10:33 ASA Score 3 For ASA 3 and 4: Consider anesthesia and medical clearance. Also, for patients with a history of failed moderate sedation consider anesthesia. Airway Lungs Heart ASA score ASA 1: a normal healthy patient ASA 2: a patient with a mild systemic disease (mid diabetes, controlled hypertension, obesity x ASA 3: a patient with a severe systemic disease that limits activity (angina, COPD, prior Myocardial infarction) ASA 4: a patient with an incapacitating disease that is a constant threat to life (CHF, renal failure) ASA 5: a moribund patient not expected to survive 24 hrs. (ruptured aneurysm) ASA 6: a declared brain- patient whose organs are being harvested. For emergent operations, add the letter E after the classification Mallampati Classification Grade 3 Sedation Plan Analgesia, Amnesia, Plan communicated to team members, Discussed options with patient/fam, Discussed risks with patient/fam The patient is an appropriate candidate to undergo the planned procedure, sedation, and anesthesia. The patient immediately re-assessed prior to indication. SOHEILA SANTO MD Feb 15, 2020 10:34 am
--- NOTE | 2020-02-15 11:14 | History & Physical-Hospitalist ---
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 Elevated troponin noted along with abnormal CXR. DR Montelongo evaluated her to be in need of cardiac cath. Upon further evaluation the CXR appears to have bilateral ATX so I will repeat that and check a LA and PCT in order to fully r/o infectious process. Patient denies cough but her chest pain continues even after 6 NTG given since admit. Patient is non-compliant with her DM and remains non- compliant shr reports. She is applying for disability due to right eye blindness with left eye cataract. Source: patient, RN/MD Exam Limitations: no limitations Date Seen 02/15/20 Time Seen by a Provider: 11:15 Attending Physician Sheyla Loera DO [facility] Referring Physician Date of Admission Feb 15, 2020 at 05:44 Home Medications & Allergies Home Medications Reviewed patient Home Medication Reconciliation performed by pharmacy medication reconciliations auto repair technician and/or nursing. Patients Allergies have been reviewed. Allergies Allergies Coded Allergies etodolac (Verified Allergy, Unknown, 02/13/06) latex (Unverified Allergy, Unknown, 12/01/14) Uncoded Allergies plastic tape ( Allergy, Severe, skin peeling off, 09/09/18) Past Narzzef-Abykgy-Ueelze Hx Past Med/Social Hx: Reviewed Nursing Past Med/Soc Hx, Reviewed and Corrections made Patient Social History Marrital Status: single Employed/Student: unemployed Alcohol Use: Regular Use Number of Drinks Today: Alcohol Beverage of Choice: Beer, Wine, Cheap Liquor Recreational Drug Use: No Smoking Status: Former Smoker Former Smoker, Quit: Sep 09, 2008 Type Used: Cigarettes 2nd Hand Smoke Exposure: No Recent Foreign Travel: No Contact w/other who traveled: No Recent Hopitalizations: No Recent Infectious Disease Expo: No Immunizations Up To Date Tetanus Booster (TDap): Unknown Pediatric: No Seasonal Allergies Seasonal Allergies: No Past Medical History Surgeries: Section, Coronary Stent, Orthopedic Cardiac: Coronary Artery Disease, Heart Attack, High Cholesterol, Hypertension Neurological: Neuropathy Reproductive: No Female Reproductive Disorders: Denies Genitourinary: Kidney Infection Gastrointestinal: Abdominal Hernia, Hepatitis Musculoskeletal: Arthritis, Fibromyalgia Endocrine: Diabetes, Insulin dep, Lupus Are Your Blood Sugars Over 250: Yes HEENT: Cataract Loss of Vision: Bilateral Hearing Impairment: Denies Psychosocial: ADD/ADHD History of Blood Disorders: No Family History Reviewed Nursing Family Hx Arthritis 19 MOTHER, Onset:Unknown FH: COPD (chronic obstructive pulmonary disease) 19 MOTHER, Onset:Unknown FH: uterine cancer 19 MOTHER, Onset:Unknown No Family History of: AIDS Abdominal aortic aneurysm [place]'s disease Alcoholism Alzheimer's disease Aphasia Asthma Cancer of mouth Cardiovascular disease Cataracts Colon cancer Completed stroke Congenital disease Congenital heart disease Coronary thrombosis Cystic fibrosis Deafness or hearing loss Dementia Diabetes mellitus Drug abuse Dysphasia Fibrocystic disease of breast Gastroenteritis Glaucoma Headache disorder Hypercholesterolemia Hypertension Infertility Kidney disease Myocardial infarction Neoplasm Not obtainable due to adoption Osteoporosis Parkinson's disease Prostate cancer Psychosocial problem Respiratory disorder Seizure disorder Severe allergy Thyroid disease Tuberculosis Visual disorder Review of Systems Constitutional: see HPI Cardiovascular: chest pain Physical Exam Physical Exam Vital Signs Vital Signs - First Documented 02/15/20 02/15/20 04:25 06:15 Temp 36.5 Pulse 114 Resp 18 B/P (MAP) 112/55 (74) Pulse Ox 97 O2 Delivery Room Air Capillary Refill : Less Than 3 Seconds Height, Weight, BMI Height: 5'1.00" Weight: 202lbs. 12.0oz. [id number]; 30.48 BMI Method:Stated General Appearance: No Apparent Distress, WD/WN, Anxious, Chronically ill, Obese Eyes: Right Eye Normal Inspection, Right Eye PERRL HEENT: PERRL/EOMI, Normal ENT Inspection, Pharynx Normal, Moist Mucous Membranes Neck: Full Range of Motion, Normal Inspection, Non Tender Respiratory: Chest Non Tender, Lungs Clear, Normal Breath Sounds, No Accessory Muscle Use, No Respiratory Distress Cardiovascular: Regular Rate, Rhythm, No Edema, No Gallop, No JVD, No Murmur, Normal Peripheral Pulses Gastrointestinal: Normal Bowel Sounds, No Organomegaly, No Pulsatile Mass, Non Tender, Soft Back: Normal Inspection, No CVA Tenderness, No Vertebral Tenderness Extremity: Normal Capillary Refill, Normal Inspection, Normal Range of Motion, Non Tender, No Calf Tenderness, No Pedal Edema Neurologic/Psychiatric: Alert, Oriented x3, No Motor/Sensory Deficits, Normal Mood/Affect Skin: Normal Color, Warm/Dry Lymphatic: No Adenopathy Results Results/Procedures Labs Laboratory Tests 02/15/20 04:28 Patient resulted labs reviewed. 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 Left eye cataract Disability due to blindness ETOHism Non-compliance with medical treatments CAD previous stent 8 yrs ago and no cardiology care since that time she reports Plan: Cardiac cath management per Dr Montelongo ACS management Checking LA and PCT Admission Status: Observation Diagnosis/Problems Diagnosis/Problems (1) Chest pain Status: Acute Qualifiers: Chest pain type: unspecified Qualified Codes: R07.9 - Chest pain, unspecif ied (2) Elevated troponin Status: Acute (3) Hyperglycemia due to type 2 diabetes mellitus Status: Acute (4) Hepatitis C Status: Chronic (5) Alcohol abuse Status: Resolved (6) History of alcoholism Status: Chronic (7) History of methamphetamine abuse Status: Chronic (8) Uncontrolled hypertension Status: Acute Clinical Quality Measures AMI/AHF: ASA po Prior to arrival: Yes DVT/VTE Risk/Contraindication: Risk Factor Score Per Nursin RFS Level Per Nursing on Admit: 4+=Very High SHEYLA LOERA DO Feb 15, 2020 11:13
[2020-02-15] MEDS ORDERED: NS IV 1000 ML 1,000 ML ONE (11:34)
[2020-02-15] MEDS ORDERED: LIDOCAINE 1% INJ 20 ML 20 ML VIAL ONE (11:34)
[2020-02-15] MEDS ORDERED: HEParin (CATH LAB) 2,000 ML IV ONE (11:34)
[2020-02-15] MEDS ORDERED: MIDAZOLAM 5 MG/5 ML (VERSED) VIAL ONE (11:49)
[2020-02-15] MEDS ORDERED: fentaNYL INJECTION 100 MCG/2 ML AMP ONE (11:49)
[2020-02-15] MEDS ORDERED: HEParin 1000 UNIT/ML (10ML VIAL) FOR BOLUS ONE (12:30)
[2020-02-15] MEDS ORDERED: PATIENT MAY USE OWN MEDS, ALL PO SCH (12:45)
--- NOTE | 2020-02-15 13:07 | Cardiac Cath Report ---
Cardiac Cath Report Physician (s)/Guidance Adviser (s) Physician SOHEILA SANTO MD Pre-Procedure Diagnosis Pre-Procedure Diagnosis: coronary artery disease Post-Procedure Note Procedure Start Date: Feb 15, 2020 Name of Procedure: Left heart catheterization Findings/Procedure Note PROCEDURE NOTE: 49-year-old lady with history of coronary artery disease, stent to the LAD, hepatitis C, DVT. Admitted with chest pain, continue to have recurrent chest pain, had mild elevation in troponin level, brought for cardiac catheterization possible PTCA. After explaining the procedure to the patient, all pros and cons were explained, all questions were answered. The patient signed the consent and then she was placed on the cardiac catheterization laboratory. Groin was prepped SL fashion local anesthesia was used. Sheath placed in the artery. Chad right and left catheter were used to access the coronary system. Pigtail was used to access the left ventricular cavity. Left ventriculogram was done At the end of the procedure the sheath was removed. Closure device was used FINDINGS: Hemodynamics LV 117/23, end-diastolic pressure of 23 Aorta 127/65 mean of 30 ANATOMY: Left Main has [id number] disease Left Anterior Descending has a patent stent with moderate to severe disease proximal to the stent, smaller artery Left Circumflex is moderate in size, the second obtuse marginal branch with is known to be moderate to large size artery is occluded getting filled by collaterals, the proximal portion of the circumflex artery has moderate to severe lesion distal portion has moderate lesion Ramus intermedius is a small artery with moderate severe stenosis proximally Right Coronory Artery is dominant artery, totally occluded at the midportion getting filled by collaterals LV Gram is prominent with inferior wall hypokinesia to akinesia estimated ejection fraction 45 percent CONCLUSION: 1. Severe multi-vessel coronary artery disease with total occlusion of the right coronary artery and the second obtuse marginal branch both are large arteries getting filled by collaterals 2. Moderate to severe stenosis in the proximal circumflex artery and moderate disease at the distal portion of the circumflex artery 3. Moderate to severe stenosis in the proximal ramus intermedius artery that is smaller in size 4. Moderate to severe stenosis in the proximal LAD, patent stent in the mid LAD, moderate disease distally 5. Normal left ventricular size with akinesia at the mid to distal inferior wal l, hypokinesia at the inferior wall, estimated ejection fraction 45 percent DISCUSSION AND RECOMMENDATION: Both significant lesions in the right coronary artery and obtuse marginal artery appeared to be chronic total occlusions with collaterals, probably the cause of her recurrent chest pain and the mild elevation in troponin, consideration for high risk intervention versus maximizing medical therapy Anesthesia Type: Conscious Sedation Estimated blood loss (mL): 25 ml Contrast Amount: 75 ml Total Radiation Dose: 688 mGy Post-Procedure Diagnosis Post-operative diagnosis: Unstable angina Non-ST elevation myocardial infarction Coronary artery disease Hyperlipidemia SOHEILA SANTO MD Feb 15, 2020 1:07 pm
[2020-02-15 13:11] LABS: CHOLESTEROL 172 MG/DL (< 200); HDL CHOLESTEROL 56 MG/DL (40-60); TRIGLYCERIDES 102 MG/DL (<150); VLDL CHOLESTEROL 20 MG/DL (5-40)
--- NOTE | 2020-02-15 16:36 | Diagnostic Imaging Report ---
HISTORY: Dyspnea. COMPARISON: 02/15/2020. TECHNIQUE: Single frontal view of the chest. FINDINGS: There is mild cardiomegaly. There is mild central vascular congestion. No focal airspace consolidation is seen. There is no pleural effusion or pneumothorax. IMPRESSION: Mild cardiomegaly with mild central vascular congestion. Dictated by: Dictated on workstation # [id number]
[2020-02-15] MEDS: ISOSORBIDE MONONITRATE 30 MG (IMDUR) TAB PO SCH (16:45)
[2020-02-15] MEDS: PANTOPRAZOLE 40 MG (PROTONIX) TAB PO SCH (16:45)
[2020-02-15] MEDS: NS IV 1000 ML 1,000 ML IV SCH (16:50)
[2020-02-15] MEDS ORDERED: RIVAROXABAN 20 MG TABLET (XARELTO) PO SCH (17:00)
[2020-02-15] MEDS: ACETAMINOPHEN 325 MG TABLET PO PRN (19:20)
[2020-02-15] MEDS ORDERED: ZOLPIDEM 5 MG (AMBIEN) TAB PO PRN (22:00)
[2020-02-16 00:33] VITALS: BP 122/56
[2020-02-16] MEDS: NS IV 1000 ML 1,000 ML IV SCH ×2 (00:34→08:58)
[2020-02-16] MEDS: LACTATED RINGERS 1,000 ML IV SCH ×2 (00:35→08:35)
[2020-02-16 02:41] LABS: HEMOGLOBIN 10.7 G/DL (11.5-16.0); MEAN PLATELET VOLUME 10.5 FL (7.4-10.4); WHITE BLOOD COUNT 7.7 10^3/uL (4.3-11.0)
[2020-02-16 02:58] LABS: CHOLESTEROL 145 MG/DL (< 200); HDL CHOLESTEROL 43 MG/DL (40-60); TRIGLYCERIDES 83 MG/DL (<150); VLDL CHOLESTEROL 17 MG/DL (5-40)
[2020-02-16 04:00] VITALS: BP 151/86
[2020-02-16] MEDS: ACETAMINOPHEN 325 MG TABLET PO PRN (05:05)
[2020-02-16] MEDS: inSUlin ASPART (NovoLOG) 1 UNIT/0.01 ML (CHARGE PER UNIT) SC SCH (06:54)
[2020-02-16 08:00] VITALS: BP 168/97
[2020-02-16] MEDS ORDERED: CLOPIDOGREL 75 MG (PLAVIX) TABLET PO SCH (09:00)
[2020-02-16] MEDS ORDERED: HYDROcodone/APAP 10 MG/325 MG (LORTAB) TAB PO ONE ×2 (09:52→10:00)
[2020-02-16] MEDS: PANTOPRAZOLE 40 MG (PROTONIX) TAB PO SCH (09:54)
[2020-02-16] MEDS: ASPIRIN E.C. 81 MG (ECOTRIN) TAB PO SCH (09:55)
[2020-02-16] MEDS: ISOSORBIDE MONONITRATE 30 MG (IMDUR) TAB PO SCH (09:55)
[2020-02-16] MEDS ORDERED: ISOS30TA3 PO (11:10)
[2020-02-16] MEDS ORDERED: RIVA20TA2 PO (11:10)
[2020-02-16] MEDS ORDERED: ATOR80TA76 PO (11:10)
[2020-02-16] MEDS ORDERED: CLOP75TA28 PO (11:10)
[2020-02-16] MEDS ORDERED: PANT40TA3 PO (11:10)
[2020-02-16] MEDS ORDERED: ASPI-983 PO (11:10)
--- NOTE | 2020-02-16 11:11 | Discharge Summary ---
Discharge Summary Hospital Course Was the Problem List Reviewed?: Yes Problems/Dx: (1) Chest pain Status: Acute Qualifiers: Qualified Codes: R07.9 - Chest pain, unspecified (2) Elevated troponin Status: Acute (3) Hyperglycemia due to type 2 diabetes mellitus Status: Acute (4) Hepatitis C Status: Chronic (5) Alcohol abuse Status: Resolved (6) History of alcoholism Status: Chronic (7) History of methamphetamine abuse Status: Chronic (8) Uncontrolled hypertension Status: Acute Hospital Course Date of Admission: Feb 15, 2020 at 05:44 Admission Diagnosis : Family Physician/Provider: Robbin White Date of Discharge: 02/16/20 Discharge Diagnosis: NSTEMI, unstable angina, DM OOC, right eye blindness due to DM retinopathy, Left eye cataract Hospital Course: Patient had a standard course after admitted for chest pain with h/o CAD and stent 8 yrs ago without cardiology care since that time. Cardiac cath performed due to elevated troponin and continued chest pain revealed multivessel disease so aggressive medical management was indicated and Plavix, ASA added to Xarelto she had been placed on for thrombosis and high dose statin was also added. DM management per insulin ordered per PCP and patient was DC in improved condition. Labs and Pending Lab Test: Laboratory Tests 02/15/20 11:52: Glucometer 112H 02/15/20 15:20: Lactic Acid Level 0.89, Procalcitonin 0.05 02/15/20 17:57: Glucometer 189H 02/15/20 20:52: Glucometer 227H 02/16/20 02:24: White Blood Count 7.7, Red Blood Count 4.34L, Hemoglobin 10.7L, Hematocrit 33L, Mean Corpuscular Volume 77L, Mean Corpuscular Hemoglobin 25, Mean Corpuscular Hemoglobin Concent 32, Red Cell Distribution Width 17.0H, Platelet Count 213, Mean Platelet Volume 10.5H, Triglycerides Level 83, Cholesterol Level 145, LDL Cholesterol Direct 93, VLDL Cholesterol 17, HDL Cholesterol 43 02/16/20 06:52: Glucometer 104 Home Meds Active Pantoprazole Sodium 40 Mg Tablet. 40 Mg PO DAILY Aspirin EC (Aspirin) 81 Mg Tablet.dr 81 Mg PO DAILY Isosorbide Mononitrate ER (Isosorbide Mononitrate) 30 Mg Tab.er.24h 30 Mg PO DAILY Atorvastatin Calcium 80 Mg Tablet 80 Mg PO HS Clopidogrel (Clopidogrel Bisulfate) 75 Mg Tablet 75 Mg PO DAILY Xarelto Tablet (Rivaroxaban) 20 Mg Tablet 20 Mg PO DAILY@1700 Xarelto Tablet (Rivaroxaban) 15 Mg Tablet 15 Mg PO BID WITH MEALS Reported Gabapentin 300 Mg Capsule 300 Mg PO HS Miralax (Polyethylene Glycol 3350) 17 Gm Powd.pack 17 Gm PO DAILY Lisinopril 10 Mg Tablet 10 Mg PO DAILY Lipitor (Atorvastatin Calcium) 10 Mg Tablet 10 Mg PO DAILY Lantus Solostar (Insulin Glargine,Hum.rec.anlog) 100 Unit/1 Ml Insuln.pen 25 Unit SQ BID Advil (Ibuprofen) 200 Mg Tablet 800 Mg PO TID PRN Assessment/Pt Instructions [facility] 1 week Discharge Planning: <30 minutes discharge planning Discharge Instructions Discharge Diet: ADA Diet, Cardiac Diet Activity as Tolerated: Yes Pneumonia Vaccine Order Indica: Yes Discharge Physical Examination Vital Signs Vital Signs Date Time Temp Pulse Resp B/P (MAP) Pulse Ox O2 Delivery O2 Flow Rate FiO2 02/16/20 08:00 Room Air 02/16/20 08:00 100 168/97 (120) 02/16/20 04:00 36.8 98 02/16/20 00:33 20 General Appearance: No Apparent Distress, WD/WN Respiratory: Lungs Clear Cardiovascular: Regular Rate, Rhythm Neurologic/Psychiatric: Alert, Oriented x3, No Motor/Sensory Deficits, Normal Mood/Affect Allergies: Coded Allergies: etodolac (Verified Allergy, Unknown, 02/13/06) latex (Unverified Allergy, Unknown, 12/01/14) Uncoded Allergies: plastic tape (Allergy, Severe, skin peeling off, 09/09/18) Discharge Summary Date of Admission Feb 15, 2020 at 05:44 Date of Discharge Discharge Date: Feb 16, 2020 Admission Diagnosis Assessment: Chest pain with elevated troponin c/w NTEMI with multivessel disease on cardiac cath ATX bilateral on CXR checking LA and PCT to assure no infectious process DM OOC 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 Left eye cataract Disability due to blindness ETOHism Non-compliance with medical treatments CAD previous stent 8 yrs ago and no cardiology care since that time she reports Plan: Cardiac cath management per Dr Montelongo ACS management Checking LA and PCT Discharge Diagnosis (1) Chest pain Status: Acute Qualifiers: Qualified Codes: R07.9 - Chest pain, unspecified (2) Elevated troponin Status: Acute (3) Hyperglycemia due to type 2 diabetes mellitus Status: Acute (4) Hepatitis C Status: Chronic (5) Alcohol abuse Status: Resolved (6) History of alcoholism Status: Chronic (7) History of methamphetamine abuse Status: Chronic (8) Uncontrolled hypertension Status: Acute Clinical Quality Measures AMI/AHF: ASA po Prior to arrival: Yes DVT/VTE Risk/Contraindication: Risk Factor Score Per Nursin RFS Level Per Nursing on Admit: 4+=Very High DANUTA CATHERINE DO Feb 16, 2020 11:11
--- NOTE | 2020-02-16 12:38 | Cardiology Progress Note ---
Subjective Date Seen by Provider: Feb 16, 2020 Time Seen by Provider: 12:36 Subjective/Events-last exam Patient is sitting in bed, feeling better, still reporting occasional chest pain Review of Systems General: No Chills, No Night Sweats, No Fatigue, No Malaise, No Appetite, No Other HEENT: No Head Aches, No Visual Changes, No Eye Pain, No Ear Pain, No Dysphasia, No Sinus Congestion, No Post Nasal Drip, No Sore Throat, No Other Pulmonary: No Dyspnea, No Cough, No Pleuritic Chest Pain, No Other Cardiovascular: No: Chest Pain, Palpitations, Orthopnea, Paroxysmal Noc. Dyspnea, Edema, Lt Headedness, Other Focused Exam Lactate Level 02/15/20 15:20: Lactic Acid Level 0.89 Objective-Cardiology Exam Last Set of Vital Signs Vital Signs 02/16/20 02/16/20 02/16/20 00:33 08:00 09:00 Pulse 100 Resp 20 B/P (MAP) 168/97 (120) O2 Delivery Room Air Capillary Refill : Less Than 3 Seconds I&O Intake and Output 02/16/20 00:00 Intake Total 1240 ml Output Total 900 ml Balance 340 ml Intake Oral 240 ml IV Total 1000 ml Output Urine Total 900 ml # Voids 2 # Bowel Movements 1 Daily Weight Change No No General: Alert, Oriented X3, Cooperative HEENT: Atraumatic, PERRLA Neck: Supple, No JVD, No Thyromegaly Lungs: Clear to Auscultation, Normal Air Movement Heart: Regular Rate, Normal S1, Normal S2, No Murmurs Abdomen: Normal Bowel Sounds, Soft, No Tenderness, No Hepatosplenomegaly, No Masses Extremities: No Clubbing, No Cyanosis, No Edema, Normal Pulses, No Tenderness /Swelling Skin: No Rashes, No Breakdown, No Significant Lesion Neuro: Normal Gait, Normal Speech, Strength at 5/5 X4 Ext, Normal Tone, Sensation Intact Psych/Mental Status: Mental Status NL, Mood NL Results Lab Laboratory Tests 02/16/20 02:24 A/P-Cardiology Admission Diagnosis Chest pain Coronary artery disease Hypertension Hyperlipidemia Assessment/Plan Chest pain, unstable angina, non-ST elevation myocardial infarction type I [place], will require high risk intervention. Arrangement were made for evaluation at [facility] on Monday at noon with Dr. Weaver Coronary artery disease, history of stenting to the LAD using 2.25 mm stent secondary to 99 percent stenosis at the mid LAD. Repeat cardiac catheterization was done on February 15, 2020 showing total occlusion of the large dominant right coronary artery receiving collaterals from the circumflex artery, total occlusion of the large second obtuse marginal branch that is receiving collaterals from the proper circumflex, moderate severe stenosis at the mid and proximal circumflex artery moderate to severe stenosis in the proximal LAD with patent stent in the mid LAD. We require evaluation for possible high risk intervention, arrangement were made for evaluation [facility] with Dr. Villa Hyperlipidemia, I instructed her to take 2 tablets of her Lipitor 10 mg daily and monitor lipids Diabetes mellitus, managed by primary care physician Recent deep venous thrombosis, unprovoked diagnosed in November 2019, has been maintained on Xarelto History of hepatitis C, managed and followed by primary care physician History of recurrent pyelonephritis, managed by primary care physician History of peripheral neuropathy History of illicit drug use she has stopped using drugs in 2009 Clinical Quality Measures AMI/AHF: ASA po Prior to arrival: Yes DVT/VTE Risk/Contraindication: Risk Factor Score Per Nursin RFS Level Per Nursing on Admit: 4+=Very High SOHEILA SANTO MD Feb 16, 2020 12:38 pm
[2020-02-16 14:41] VITALS: BP 168/97
--- NOTE | 2020-02-16 14:42 | NUR ---
PIPPA RAINEY demonstrates understanding of discharge instructions and accurately returns instructions upon questioning. Copy of Post-Discharge Instructions and Medication Discharge Instructions given to PATIENT. PIPPA RAINEY is Able to manage continuing needs after discharge. Patients belongings returned to PATIENT, HOME MEDS RETURNED TO PATIENT. Skin dry and intact; no breakdown noted. Patient discharged from 12-1 on at 1428 . PIPPA RAINEY left floor via WC, accompanied by RN. FOLLOW UP CARE ORDERED FOR PATIENT, EXPLAINED INSTRUCTIONS, ET SENT CD WITH PATIENT. PATIENT VOICED UNDERSTANDING. IV REMOVED, TIP INTACT.
== END 2020-02-16 14:28 | disposition home or self-care (01) ==
LOC: EDUNIT# 04:24 → ER 04:26 → ICU 05:44
PROVIDERS: ADMIT Internal Medicine; ATTEND Internal Medicine
DX: I21.4 Non-ST elevation (NSTEMI) myocardial infarction (principal); I25.110 Atherosclerotic heart disease of native coronary artery with unstable angina pectoris; I25.82 Chronic total occlusion of coronary artery; I10 Essential (primary) hypertension; E11.65 Type 2 diabetes mellitus with hyperglycemia; E11.319 Type 2 diabetes mellitus with unspecified diabetic retinopathy without macular edema; E11.42 Type 2 diabetes mellitus with diabetic polyneuropathy; E78.5 Hyperlipidemia, unspecified; F10.20 Alcohol dependence, uncomplicated; B19.20 Unspecified viral hepatitis C without hepatic coma; M19.91 Primary osteoarthritis, unspecified site; M79.7 Fibromyalgia; M32.9 Systemic lupus erythematosus, unspecified; F90.9 Attention-deficit hyperactivity disorder, unspecified type; H26.9 Unspecified cataract; I25.2 Old myocardial infarction; Z87.891 Personal history of nicotine dependence; Z91.19 Patient's noncompliance with other medical treatment and regimen; Z86.718 Personal history of other venous thrombosis and embolism; Z79.4 Long term (current) use of insulin; Z79.01 Long term (current) use of anticoagulants; Z95.5 Presence of coronary angioplasty implant and graft
CPT/HCPCS: 36415; 71045; 80053; 80061; 82805; 82962; 83605; 83690; 83735; 83874; 84145; 84484; 85025; 85027; 85610; 85730; 93005; 93041; 93458

== ENCOUNTER → 2020-04-02 | Outpatient (CLI) | payer MEDICAID ==
[~2020-04-02] MED LIST changes: +ASPI-983 PO; +ATOR80TA76 PO; +CLOP75TA28 PO; +ISOS30TA3 PO; +PANT40TA3 PO; +RIVA20TA2 PO
== END ==
LOC: CARD 12:47
PROVIDERS: ATTEND Physician Assistant
DX: I82.409 Acute embolism and thrombosis of unspecified deep veins of unspecified lower extremity (principal); I25.10 Atherosclerotic heart disease of native coronary artery without angina pectoris; I51.7 Cardiomegaly; I34.0 Nonrheumatic mitral (valve) insufficiency
CPT/HCPCS: 93306

== ENCOUNTER → 2020-04-17 | Outpatient (CLI) | payer MEDICAID ==
[~2020-04-17] VITALS: Ht 155 cm; Wt 86.0 kg
[~2020-04-17] MED LIST changes: +CATHETER FLUSH 10 ML SYR IV PRN; +REGADENOSON 0.4 MG/5 ML SYR (LEXISCAN) IV ONE
[2020-04-17 18:08] VITALS: BP 193/113
--- NOTE | 2020-04-17 18:08 | Cardiology Stress Test Report ---
Stress Test Report Date of Procedure/Referring: Date of Procedure: Apr 17, 2020 PCP Soheila Montelongo MD Admitting Physician [facility] Indications: Shortness of breath Baseline Heart Rate: 93 Baseline Blood Pressure: Blood Pressure Systolic: 193 Blood Pressure Diastolic: 113 Baseline EKG: Baseline EKG: NSR Summary: Patient received 0.4 mg Lexiscan for stress test, ECG, heart rate and blood pressure were monitored continuously. Resting and stress dose of radio tracer were injected, imaging was acquired and reviewed in short axis, horizontal long axis and vertical long axis views. TID 0.91 SSS 19 SDS 12 EF 45% Conclusion: 1. Patient tolerated Lexiscan well, had mild shortness of breath. 2. Baseline hypertension persisted through for test. 3. Breast attenuation with reversible ischemia involving the whole anterior wall anterolateral wall and inferolateral wall 4. Normal left ventricular size with hypokinesia at the anterior wall calculated ejection fraction 45 percent SOHEILA MONTELONGO MD Apr 17, 2020 6:08 pm
== END ==
LOC: CARD 06:57
PROVIDERS: ATTEND Internal Medicine Cardiovascular Disease
DX: I34.0 Nonrheumatic mitral (valve) insufficiency (principal); I51.7 Cardiomegaly; I25.89 Other forms of chronic ischemic heart disease; I25.10 Atherosclerotic heart disease of native coronary artery without angina pectoris; N64.89 Other specified disorders of breast; I82.409 Acute embolism and thrombosis of unspecified deep veins of unspecified lower extremity
CPT/HCPCS: 78452; 93017

== ENCOUNTER 2020-05-28 18:36 | Emergency (ER) | payer MEDICAID ==
[~2020-05-28] VITALS: Ht 154.9 cm; Wt 90.9 kg
[~2020-05-28 18:36] MED LIST changes: -CATHETER FLUSH 10 ML SYR IV PRN; -REGADENOSON 0.4 MG/5 ML SYR (LEXISCAN) IV ONE
[2020-05-28] MEDS ORDERED: LACTATED RINGERS 1,000 ML IV ONE (18:44)
[2020-05-28 18:57] LABS: BASOPHILS % (AUTO) 0 % (0-10); EOSINOPHILS % (AUTO) 0 % (0-10); HEMATOCRIT 34 % (35-52); HEMOGLOBIN 10.4 G/DL (11.5-16.0); LYMPHOCYTES # (AUTO) 1.5 X 10^3 (1.0-4.0); LYMPHOCYTES % (AUTO) 18 % (12-44); MEAN CORPUSCULAR HEMOGLOBIN 22 PG (25-34); MEAN CORPUSCULAR HGB CONC 31 G/DL (32-36); MEAN CORPUSCULAR VOLUME 73 FL (80-99); MONOCYTES # (AUTO) 0.7 X 10^3 (0.0-1.0); MONOCYTES % (AUTO) 8 % (0-12); NEUTROPHILS # (AUTO) 6.2 X 10^3 (1.8-7.8); NEUTROPHILS % (AUTO) 74 % (42-75); PLATELET COUNT 213 10^3/uL (130-400); RED CELL DISTRIBUTION WIDTH 16.9 % (10.0-14.5); WHITE BLOOD COUNT 8.4 10^3/uL (4.3-11.0)
[2020-05-28] MEDS ORDERED: KETOROLAC 30 MG/ML VIAL IVP STA (19:01)
[2020-05-28 19:05] LABS: ALBUMIN 3.1 GM/DL (3.2-4.5); CHLORIDE 104 MMOL/L (98-107); POTASSIUM 3.4 MMOL/L (3.6-5.0); SODIUM 137 MMOL/L (135-145)
[2020-05-28 19:07] LABS: CALCIUM 8.4 MG/DL (8.5-10.1)
[2020-05-28 19:08] LABS: GLUCOSE 252 MG/DL (70-105); TOTAL PROTEIN 6.7 GM/DL (6.4-8.2)
[2020-05-28 19:09] LABS: BILIRUBIN,TOTAL 0.6 MG/DL (0.1-1.0); CARBON DIOXIDE 25 MMOL/L (21-32)
[2020-05-28 19:11] LABS: ALKALINE PHOSPHATASE 263 U/L (40-136)
--- NOTE | 2020-05-28 19:11 | ED Abdominal Pain ---
General Chief Complaint: Abdominal/GI Problems Stated Complaint: RLQ PAIN RADIATING TO L Nursing Triage Note: PT TO ED W/ C/O ABD PAIN ONSET LAST NOC, WORSE TODAY. REPORTS SHE THOUGHT SHE WAS CONSTIPATED BUT HAS HAD SEVERAL BM SINCE Sepsis Screen: No Definite Risk Source of Information: Patient, Old Records History of Present Illness Date Seen by Provider: May 28, 2020 Time Seen by Provider: 18:45 Initial Comments PT ARRIVES VIA POV FROM HOME PT STATES "MY GUTS ARE KILLIN' ME" C/O PAIN FROM RLQ ALL ACROSS LOWER ABDOMEN TO LLQ PAIN BEGAN LAST NIGHT--STATES SHE WAS REALLY CONSTIPATED LAST NIGHT ( CHRONIC PROBLEM FOR PT) --STATES SHE DID HAVE 2-3 BM'S BEFORE MIDNIGHT LAST NIGHT, DID NOT TAKE ANYTHING FOR CONSTIPATION STATES PAIN CONTINUES TODAY C/O NAUSEA, NO VOMITING STATES SHE HAS ONLY URINATED ONE TIME TODAY AND WAS PAINFUL--HAS FREQUENT UTI'S NO FEVER NO BACK PAIN PT HAS CONTINUED TO EAT AND DRINK USUAL TOOK 2 TYLENOL THIS MORNING WITH OUT RELIEF, HAS NOT ATTEMPTED TO TAKE ANYTHING ELSE FOR PAIN DID NOT ATTEMPT TO GO TO [facility] OR CONTACT THEM TODAY SYMPTOMS NO DIFFERENT TONIGHT PT IS INSULIN DEPENDENT DIABETIC--STATES BLOOD SUGAR WAS 127 THIS AM, HAS NOT CHECKED IT SINCE PT HAS CAD AND HTN AND HX OF LEFT LEG DVT--ON XARELTO PT ALSO HAS A UMBILICAL/PERIUMBILICAL HERNIA THAT SHE HAS HAD "FOR 20 YEARS" AND IS NOT ANY DIFFERENT TODAY--STATES IT IS ALWAYS SORE PT ALSO HAS AND 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 SANTO Allergies and Home Medications Allergies Coded Allergies: etodolac (Verified Allergy, Unknown, 02/13/06) latex (Unverified Allergy, Unknown, 12/01/14) Uncoded Allergies: plastic tape (Allergy, Severe, skin peeling off, 09/09/18) Home Medications Aspirin 81 Mg Nicolle., 81 MG PO DAILY Prescribed by: DANUTA CATHERINE on 02/16/20 111 Atorvastatin Calcium 10 Mg Tablet, 10 MG PO DAILY, (Reported) Cefdinir 300 Mg Capsule, 300 MG PO BID Prescribed by: JUN TINOCO on 05/28/202112 Clopidogrel Bisulfate 75 Mg Tablet, 75 MG PO DAILY Prescribed by: DANUTA CATHERINE on 02/16/201109 Gabapentin 300 Mg Capsule, 300 MG PO HS, (Reported) Insulin Glargine,Hum.rec.anlog 100 Unit/1 Ml Insuln.pen, 25 UNIT SQ BID, (Reported) Isosorbide Mononitrate 30 Mg Tab.er.24h, 30 MG PO DAILY Prescribed by: DANUTA CATHERINE on 02/16/201109 Lisinopril 10 Mg Tablet, 10 MG PO DAILY, (Reported) Pantoprazole Sodium 40 Mg Tablet.dr, 40 MG PO DAILY Prescribed by: DANUTA CATHERINE on 02/16/201109 Phenazopyridine HCl 200 Mg Tablet, 1 TAB PO TID Prescribed by: JUN TINOCO on 05/28/202109 Polyethylene Glycol 3350 17 Gm Powd.pack, 17 GM PO DAILY, (Reported) Rivaroxaban 20 Mg Tablet, 20 MG PO DAILY@1700 Prescribed by: DANUTA CATHERINE on 02/16/201109 Tramadol HCl 50 Mg Tablet, 50 MG PO Q4H Prescribed by: JUN TINOCO on 05/28/202109 Patient Home Medication List Home Medication List Reviewed: Yes Review of Systems Review of Systems Constitutional: no symptoms reported; No chills, No diaphoresis, No fever EENTM: No Symptoms Reported Respiratory: Cough (OCCASIONAL, MILD COUGH--ONGOING PROBLEMS), Shortness of Air (MILD, ONGOING PROBLEM) Cardiovascular: No Symptoms Reported; Denies Chest Pain Gastrointestinal: See HPI, Abdominal Pain, Constipated; Denies Diarrhea; Nausea; Denies Poor Appetite, Denies Poor Fluid Intake, Denies Vomiting Genitourinary: See HPI, Burning; Denies Flank Pain; Pain Musculoskeletal: no symptoms reported; No back pain Skin: no symptoms reported Psychiatric/Neurological: No Symptoms Reported, Pre-Existing Deficit (PERIPHERAL NEUROPATHY) Endocrine: No Symptoms Reported Hematologic/Lymphatic: See HPI Past Gouvzov-Amewnc-Xlbzhq Hx Past Med/Social Hx: Reviewed and Corrections made Patient Social History Alcohol Use: Occasionally Uses (HISTORY OF ABUSE, STATES NOW "OCCASIONALLY DRINKS" ) Number of Drinks Today: Alcohol Beverage of Choice: Beer, Wine, Cheap Liquor Recreational Drug Use: Yes (THC, + IV METH USE-CLAIMS NONE FOR 3 MOTHS) Drug of Choice: THC, +IV METH USE-CLAIMS NO USE FOR 3 MONTHS Smoking Status: Former Smoker (1 PPD, QUIT > 10 YEARS GAGO) Type Used: Cigarettes Former Smoker, Quit: Sep 09, 2008 2nd Hand Smoke Exposure: No Recent Foreign Travel: No Contact w/Someone Who Travel: No Recent Infectious Disease Expo: No Recent Hopitalizations: No Physical Abuse: No Sexual Abuse: No Mistreated: No Fear: No Immunizations Up To Date Tetanus Booster (TDap): Unknown PED Vaccines UTD: No Seasonal Allergies Seasonal Allergies: No Past Medical History Surgeries: Yes (C SECTION X 2; CARDIAC CATH--STENT X 1; RIGHT SHOULDER SURGERY) Cardiac, Section, Coronary Stent, Orthopedic Respiratory: No Cardiac: Yes (TX 2012-CATH W/ STENT X 1;NSTEMI [id number] INTERVENTION;DVT L LEG) Coronary Artery Disease, Deep Vein Thrombosis, Heart Attack, High Cholesterol, Hypertension Neurological: Yes (PERIPHERAL NEUROPATHY IN FEET) Neuropathy Reproductive Disorders: No Female Reproductive Disorders: Denies Genitourinary: Yes Kidney Infection, UTI-Chronic Gastrointestinal: Yes (HEPATITIS C--NO TREATMENT; VENTRAL HERNIA--NO SURGERY) Abdominal Hernia, Hepatitis Musculoskeletal: Yes (RIGHT SHOULDER SURGERY) Arthritis, Fibromyalgia, Chronic Back Pain Endocrine: Yes Diabetes, Insulin dep, Lupus HEENT: Yes (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 ET HAS DRAIN IN LT TO REDUCE PRESSURE) Cataract, Glaucoma Loss of Vision: Right Hearing Impairment: Denies Cancer: No Psychosocial: Yes (ADD;POLYSUBSTANCE ABUSE) ADD/ADHD Integumentary: No Blood Disorders: No Family Medical History Arthritis 19 MOTHER, Onset:Unknown FH: COPD (chronic obstructive pulmonary disease) 19 MOTHER, Onset:Unknown FH: uterine cancer 19 MOTHER, Onset:Unknown No Family History of: AIDS Abdominal aortic aneurysm Noé's disease Alcoholism Alzheimer's disease Aphasia Asthma Cancer of mouth Cardiovascular disease Cataracts Colon cancer Completed stroke Congenital disease Congenital heart disease Coronary thrombosis Cystic fibrosis Deafness or hearing loss Dementia Diabetes mellitus Drug abuse Dysphasia Fibrocystic disease of breast Gastroenteritis Glaucoma Headache disorder Hypercholesterolemia Hypertension Infertility Kidney disease Myocardial infarction Neoplasm Not obtainable due to adoption Osteoporosis Parkinson's disease Prostate cancer Psychosocial problem Respiratory disorder Seizure disorder Severe allergy Thyroid disease Tuberculosis Visual disorder Physical Exam Vital Signs Vital Signs - First Documented 05/28/20 18:42 Temp 36.1 Pulse 103 Resp 18 B/P (MAP) 203/119 (147) Pulse Ox 99 O2 Delivery Room Air Capillary Refill : Less Than 3 Seconds Height/Weight/BMI Height: 5'1.00" Weight: 202lbs. 12.0oz. 91.231974am; 37.00 BMI Method:Stated General Appearance: no apparent distress, obese Neck: normal inspection Respiratory: normal breath sounds, no respiratory distress, no accessory muscle use Cardiovascular: no edema, no JVD, no murmur, tachycardia (110) Gastrointestinal: normal bowel sounds, soft, hernia (LARGE, FIRM UMBILICAL/PERIUMBILICAL HERNIA WITH MILD TENDERNESS--PT STATES IS NORMAL AND NO DIFFERENT THAN USUSAL. DIFFUSE LOWER ABDOMINAL TENDERNESS) Extremities: normal inspection, normal capillary refill Neurologic/Psychiatric: disassembler product II-XII nml as tested, no motor/sensory deficits, alert, normal mood/affect, oriented x 3 Skin: normal color, warm/dry, other (MULTIPLE SORES/SCARS/SCABS TO FACE AND LOWER LEGS. ) Progress/Results/Core Measures Results/Orders Lab Results Laboratory Tests Test 05/28/20 18:48 05/28/20 20:20 Range/Units White Blood Count 8.4 4.3-11.0 10^3/uL Red Blood Count 4.64 4.35-5.85 10^6/uL Hemoglobin 10.4 L 11.5-16.0 G/DL Hematocrit 34 L 35-52 % Mean Corpuscular Volume 73 L 80-99 FL Mean Corpuscular Hemoglobin 22 L 25-34 PG Mean Corpuscular Hemoglobin Concent 31 L 32-36 G/DL Red Cell Distribution Width 16.9 H 10.0-14.5 % Platelet Count 213 130-400 10^3/uL Mean Platelet Volume 11.0 H 7.4-10.4 FL Neutrophils (%) (Auto) 74 42-75 % Lymphocytes (%) (Auto) 18 12-44 % Monocytes (%) (Auto) 8 0-12 % Eosinophils (%) (Auto) 0 0-10 % Basophils (%) (Auto) 0 0-10 % Neutrophils # (Auto) 6.2 1.8-7.8 X 10^3 Lymphocytes # (Auto) 1.5 1.0-4.0 X 10^3 Monocytes # (Auto) 0.7 0.0-1.0 X 10^3 Eosinophils # (Auto) 0.0 0.0-0.3 10^3/uL Basophils # (Auto) 0.0 0.0-0.1 10^3/uL Sodium Level 137 135-145 MMOL/L Potassium Level 3.4 L 3.6-5.0 MMOL/L Chloride Level 104 98-107 MMOL/L Carbon Dioxide Level 25 21-32 MMOL/L Anion Gap 8 5-14 MMOL/L Blood Urea Nitrogen 12 7-18 MG/DL Creatinine 1.19 0.60-1.30 MG/DL Estimat Glomerular Filtration Rate 48 BUN/Creatinine Ratio 10 Glucose Level 252 H 70-105 MG/DL Calcium Level 8.4 L 8.5-10.1 MG/DL Corrected Calcium 9.1 8.5-10.1 MG/DL Total Bilirubin 0.6 0.1-1.0 MG/DL Aspartate Amino Transf (AST/SGOT) 22 5-34 U/L Alanine Aminotransferase (ALT/SGPT) 30 0-55 U/L Alkaline Phosphatase 263 H 40-136 U/L Total Protein 6.7 6.4-8.2 GM/DL Albumin 3.1 L 3.2-4.5 GM/DL Serum Alcohol < 10 <10 MG/DL Urine Color YELLOW Urine Clarity CLEAR Urine pH 6.5 5-9 Urine Specific [place] 1.015 L 1.016-1.022 Urine Protein 2+ H NEGATIVE Urine Glucose (UA) 3+ H NEGATIVE Urine Ketones NEGATIVE NEGATIVE Urine Nitrite NEGATIVE NEGATIVE Urine Bilirubin NEGATIVE NEGATIVE Urine Urobilinogen 1.0 < = 1.0 MG/DL Urine Leukocyte Esterase 1+ H NEGATIVE Urine RBC (Auto) 2+ H NEGATIVE Urine RBC 5-10 H /HPF Urine WBC >100 H /HPF Urine Crystals NONE /LPF Urine Bacteria LARGE H /HPF Urine Casts NONE /LPF Urine Mucus NEGATIVE /LPF Urine Culture Indicated YES Urine Opiates Screen NEGATIVE NEGATIVE Urine Oxycodone Screen NEGATIVE NEGATIVE Urine Methadone Screen NEGATIVE NEGATIVE Urine Propoxyphene Screen NEGATIVE NEGATIVE Urine Barbiturates Screen NEGATIVE NEGATIVE Ur Tricyclic Antidepressants Screen NEGATIVE NEGATIVE Urine Phencyclidine Screen NEGATIVE NEGATIVE Urine Amphetamines Screen NEGATIVE NEGATIVE Urine Methamphetamines Screen NEGATIVE NEGATIVE Urine Benzodiazepines Screen NEGATIVE NEGATIVE Urine Cocaine Screen NEGATIVE NEGATIVE Urine Cannabinoids Screen NEGATIVE NEGATIVE My Orders Orders - JUN TINOCO DO Ed Iv/Invasive Line Start (05/28/20 18:44) Urine Bedside (05/28/20 18:44) Ct Abd/Pelvis Wo(Kidney Stone) (05/28/20 18:44) Abdomen/Kub 1[place] (05/28/20 18:44) Cbc With Automated Diff (05/28/20 18:44) Comprehensive Metabolic Panel (05/28/20 18:44) Ua Culture If Indicated (05/28/20 18:44) Ed Iv/Invasive Line Start (05/28/20 18:44) Lactated Ringers (Lr 1000 Ml Iv Solution (05/28/20 18:44) Alcohol (05/28/20 18:49) Drug Screen Stat (Urine) (05/28/20 18:49) Ondansetron Injection (Zofran Injectio (05/28/20 19:15) Ketorolac Injection (Toradol Injection) (05/28/20 19:01) Ed Iv/Invasive Line Start (05/28/20 19:19) Ns Iv 1000 Ml (Sodium Chloride 0.9%) (05/28/20 19:19) Ns Iv 1000 Ml (Sodium Chloride 0.9%) (05/28/20 19:19) Urine Culture (05/28/20 20:20) Ceftriaxone For Iv Use (Rocephin For I (05/28/20 21:15) Phenazopyridine Tablet (Pyridium Tablet) (05/28/20 21:15) Rx-Tramadol Hcl (Rx-Ultram) (05/28/20 21:10) Medications Given in ED Current Medications Medications Dose Ordered Sig/Sisi Route Start Time Stop Time Status Last Admin Dose Admin Ceftriaxone Sodium 1000 mg/ Sterile Water 10 ml @ 200 mls/hr ONCE ONCE IV 05/28/20 21:15 05/28/20 21:17 DC 05/28/20 21:20 200 MLS/HR Lactated Ringer's 1,000 ml @ 0 mls/hr Q0M ONCE IV 05/28/20 18:44 05/28/20 18:46 DC 05/28/20 19:17 0 MLS/HR Ondansetron HCl 4 mg ONCE ONCE IVP 05/28/20 19:15 05/28/20 19:16 DC 05/28/20 19:17 4 MG Phenazopyridine HCl 200 mg ONCE ONCE PO 05/28/20 21:15 05/28/20 21:16 DC 05/28/20 21:20 200 MG Vital Signs/I&O 05/28/20 05/28/20 18:42 21:35 Temp 36.1 36.1 Pulse 103 91 Resp 18 18 B/P (MAP) 203/119 (147) 166/103 (147) Pulse Ox 99 99 O2 Delivery Room Air Room Air Blood Pressure Mean: 147 Progress Progress Note : Progress Note PT NOT CONCERNED ABOUT BLOOD PRESSURE--STATES IT IS ALWAYS THIS HIGH WHEN SHE IS IN PAIN BP AND HEART RATE DOWN AT TIME OF DISMISSAL GIVEN TORADOL WITH MILD IMPROVEMENT IN PAIN GIVEN IV FLUIDS AND ZOFRAN GIVEN ROCEPHIN AND PYRIDIUM SYMPTOMS IMPROVED AT DISMISSAL Initial ECG Impression: Atrial Fibrillation w/RVR Diagnostic Imaging Comments CT ABDOMEN/PELVIS--PER RADIOLOGIST REPORT AT 2019 FINDINGS: There is cardiomegaly. There are small bilateral pleural effusions. The liver is normal in size and without focal lesions. The gallbladder is contracted. There is no biliary ductal dilatation. Spleen is normal. The pancreas and adrenal glands are unremarkable. There are vascular calcifications of both kidneys. The aorta is nonaneurysmal. The bowel gas pattern is nonspecific. There is no free air. There is no ascites. There is no focal inflammatory change. There is a large anterior abdominal wall hernia containing omental fat. The bladder is normal. The uterus is normal. There is no pelvic mass, adenopathy or free fluid. IMPRESSION: 1. Large anterior abdominal wall hernia containing omental fat. 2. Vascular calcifications in both kidneys. 3. Air in the bladder which is nonspecific; however, it is unchanged when compared to prior examination from November 21, 2019. ABDOMEN XRAYS--NO ACUTE PROCESS, PER RADIOLOGIST REPORT AT 2018 Reviewed: Reviewed by Me Departure Impression Primary Impression: Urinary tract infection Additional Impressions: Periumbilical hernia IDDM (insulin dependent diabetes mellitus) HTN (hypertension) Disposition: 01 HOME, SELF-CARE Condition: Stable Departure-Patient Inst. Referrals: [facility] [place] (PC[place]) Primary Care Physician ERIKA CONKLIN MD (Family) Primary Care Physician KARTIK AMATO DO Patient Instructions: Urinary Tract Infection, Adult (DC), Abdominal Hernia (DC), High Blood Pressure (DC), Diabetes Type 2 (DC) Add. Discharge Instructions: INCREASE YOUR WATER INTAKE TAKE YOUR REGULAR MEDICATIONS PRESCRIBED FOLLOW UP WITH DR. AMATO OR SURGEON OF CHOICE NEXT WEEK FOR FURTHER EVALUATION OF HERNIA FOLLOW UP WITH [facility] IN 2-3 DAYS FOR FURTHER CARE AND RECHECK ON UTI All discharge instructions reviewed with patient and/or family. Voiced understanding. Scripts Cefdinir (Cefdinir) 300 Mg Capsule 300 MG PO BID, #20 CAP Prov: JUN TINOCO DO 05/28/20 Tramadol HCl (Ultram) 50 Mg Tablet 50 MG PO Q4H for Pain, #20 TAB Prov: JUN TINOCO DO 05/28/20 Phenazopyridine HCl (Pyridium) 200 Mg Tablet 1 TAB PO TID, #15 TAB Prov: JUN TINOCO DO 05/28/20 JUN TINOCO DO May 28, 2020 19:11
[2020-05-28 19:12] LABS: CREATININE SERUM 1.19 MG/DL (0.60-1.30); GFR ESTIMATED 48
[2020-05-28 19:13] LABS: BUN/CREATININE RATIO 10
[2020-05-28 19:14] LABS: ALANINE AMINOTRANSFERASE 30 U/L (0-55)
[2020-05-28] MEDS ORDERED: ONDANSETRON 4 MG/2 ML (SDV) Z0FRAN IVP ONE (19:15)
[2020-05-28] MEDS ORDERED: NS IV 1000 ML 1,000 ML ONE (19:19)
[2020-05-28] MEDS ORDERED: NS IV 1000 ML 1,000 ML IV SCH (19:19)
--- OUTSIDE RECORDS SUMMARY | 2020-05-28 19:41 | XMS REPORT ---
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 Provident Link [facility] Address [address] [address] Care Team Providers Care Residential Sales Associate Name Role Phone LUDA ARAYA Unavailable Unavailable NO, LOCAL PHYSICIAN Unavailable Unavailable MYRON Garcia Unavailable LEI LE Unavailable MIREILLE BAPTISTE Unavailable MIREILLE BAPTISTE Unavailable CLEOPATRA FRANCISCO Unavailable CLEOPATRA FRANCISCO Unavailable NICK LAM Unavailable MACIEJ FITZGERALD Unavailable CLEOPATRA FRANCISCO Unavailable CLEOPATRA FRANCISCO Unavailable CLEOPATRA FRANCISCO Unavailable CLEOPATRA FRANCISCO Unavailable LUDA ARAYA Unavailable [facility] Unavailable LUDA ARAYA Unavailable MADAN LESTERTA Unavailable TREVON, JIE Unavailable TREVON, JIE Unavailable Migration, Doctor Unavailable Unavailable Migration, Doctor Unavailable Unavailable Migration, Doctor Unavailable Unavailable zShefali, JÚNIOR Unavailable Migration, Doctor Unavailable Unavailable Migration, Doctor Unavailable Unavailable SARA BURTON Unavailable zzSANCHEZ, JÚNIOR Unavailable zzSANCHEZ, JÚNIOR Unavailable zzSANCHEZ, JÚNIOR Unavailable Migration, Doctor Unavailable Unavailable TAMMI FREIRE Unavailable Israel Ratliff MD Unavailable Unavailable Israel Ratliff MD Unavailable Unavailable Physician, No Primary or Family Unavailable UnavailLUDA Allan Unavailable Unavailable SARA BADILLO Unavailable Unavailable GENIE EASON MD Unavailable Unavailable GENIE EASON MD Unavailable Unavailable CATHERINE DO, DANUTA S Unavailable Unavailable ERIKA CONKLIN MD Unavailable Unavailable ALEJANDRINA DO, JUN K Unavailable Unavailable Unavailable Unavailable ROBBY RINCON, JANESSA Alejandre Unavailable Unavailable CATHERINE DO, DANUTA S Unavailable Unavailable JÚNIOR Ying Unavailable [facility] JOYCE TERRELL Unavailable Unavailab le Migration, Doctor Unavailable Unavailable SOHEILA SANTO MD Unavailable Unavailable Migration, Doctor Unavailable Unavailable Unavailable Unavailable Unavailable Unavailable Unavailable Unavailable Unavailable Unavailable Allergies Allergy Reported Allergen(s) Allergy Type Date of Reaction(s) Care Facility Classificati Onset Provider on Unclassified plastic tape ; Allergy to 09-09-2018 plastic LEYLA EASON Not (21 sources) Translations: [plastic Substance tape, skin MD Available tape] peeling of (17393) Encounters Encounter Date Encounter Type Encounter Diagnosis Care Provider Facility Start: [facility]2020 Start: Patient encounter SOHEILA SANTO MD [facility] 04-17-2020 procedure [facility] Start: Patient encounter JOYCE Rosa VC [facility] 04-02-[address] [facility] Start: Telephone encounter [facility] 03-16-2020 Start: Telephone encounter [facility] 03-02-2020 Start: Evaluation and DANUTA CATHERINE DO [facility] 02-15-2020 management of [facility] inpatient End: 02-16-2020 Start: Patient encounter DANUTA S FLORIN DO [facility] 02-15-2020 procedure [facility] End: 02-16-2020 Start: Emergency department JANESSA BUSTAMANTE MD [facility] 02-15-2020 patient visit [facility] Start: [facility] Type 2 diabetes SARA BADILLO [facility] 01-27-2020 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, unspecified eye Start: Patient encounter SARA Baker YISELHARRY [facility] 01-27-2020 procedure [facility] Start: Patient encounter SARA BADILLO Critical [facility] hospital 01-23-2020 procedure [facility] ([id number]) Start: Telephone encounter SARA BADILLO [facility] 12-17-2019 Start: Follow-up encounter Tubulo-interstitial SARA PORTILLO [facility] 11-28-2019 nephritis, not specified as acute or chronic Start: Evaluation and DANUTA CATHERINE DO [facility] 11-21-2019 management of [facility] inpatient End: 11-24-2019 Start: Patient encounter DANUTA CATHERINE DO [facility] Via [facility] 11-21-2019 procedure [facility] ([id number]) End: 11-24-2019 Start: Emergency department JUN TINOCO DO [facility] 11-21-2019 patient visit [facility] ([id number]) Start: Consultation for Type 2 diabetes SARA BADILLO [facility] 11-01-2019 laboratory medicine mellitus with unspecified complications Start: Patient encounter [facility] 11-01-2019 procedure [facility] ([id number]) Start: Patient encounter [facility] 10-31-2019 [facility] ([id number]) Start: [facility] Type 2 diabetes SARA BADILLO [facility] 10-31-2019 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, unspecified eye Start: Patient encounter SARA BADILLO [facility] hospital 09-17-2019 procedure [facility] ([id number]) Start: [facility] Urinary tract [facility]ESSENIA SWARTZ [facility] 09-17-2019 CARE infection, site not CARE specified Start: Patient encounter NA [facility] 07-09-2019 procedure [facility] ([id number]) Start: [facility] Type 2 diabetes SARA YISELHARRY [facility] 07-09-2019 mellitus with unspecified complications Start: [facility] 07-03-2019 procedure ([id number]) End: 07-03-2019 Start: Patient encounter Israel Gallagher [facility] 07-03-2019 procedure ([id number]) End: 07-03-2019 Start: [facility] LUDA ARAYA [facility] 06-26-2019 [facility]: [facility] ([id number]) Start: Patient encounter LUDA [facility] 06-25-2019 procedure [facility] ([id number]) Start: Patient encounter [facility] 06-25-2019 procedure [facility] ([id number]) Start: [facility] Injury of conjunctiva JESSENIA ORE LLANA [facility] 06-25-2019 CARE and corneal abrasion CARE without foreign body, right eye, sequela Start: [facility] Unspecified acute LENNY BERNOT [facility] 06-12-2019 CARE conjunctivitis, CARE unspecified eye Start: Patient encounter LUDA [facility] 06-12-2019 procedure [facility] ([id number]) Start: Telephone encounter Chronic viral JIE TREVON [facility] 10-29-2018 hepatitis C End: 10-29-2018 Start: Telephone encounter Type 2 diabetes JIE TREVON [facility] 2018 mellitus with unspecified End: complications 2018 Start: Patient encounter NA YINA Critical access hospital 09-18-2018 procedure [facility] ([id number]) Start: Follow-up encounter Type 2 diabetes JIE TREVON [facility] 09-18-2018 mellitus with unspecified End: complications 09-18-2018 Start: Telephone encounter JIE TREVON [facility] 09-18-2018 End: 09-18-2018 Start: Telephone encounter LUDA ARAYA [facility] 09-12-2018 End: 09-12-2018 Start: Patient encounter GENIE EASON MD Not Availa ble ([id number]) 09-09-2018 procedure End: 09-12-2018 Start: Emergency department JUN ALEJANDRINA DO Not Dennis [facility]amarena ([id number]) 09-09-2018 patient visit Start: Evaluation and Mass of urinary GENIE Olsen YUMI [facility] 09-09-2018 management of bladder Work Phone: [facility] inpatient End: 09-12-2018 Start: Patient encounter [facility] 01-10-2018 procedure [facility] ([id number]) Start: Patient encounter [facility] 01-08-2018 procedure [facility] ([id number]) Start: Patient encounter [facility] 01-05-2018 procedure [facility] ([id number]) Start: Patient encounter [facility] 01-03-2018 procedure [facility] ([id number]) Start: Patient encounter [facility] 01-01-2018 procedure [facility] ([id number]) Start: Patient encounter [facility] 12-30-2017 procedure [facility] ([id number]) Start: Patient encounter [facility] 12-26-2017 procedure [facility] ([id number]) Start: Patient encounter [facility] 12-24-2017 procedure [facility] ([id number]) Start: Patient encounter [facility] 12-23-2017 procedure [facility] ([id number]) Start: Patient encounter 12-22-2017 procedure Medical Equipment No Information Goals No Information Immunizations Immunizatio Immunization Notes Care Provider Facility n Date NEGATED: influenza, [facility] Highlighted injectable,quadrivalen Work Phone: [facility] urg ([id number]) row has not t, preservative free, occurred! pediatric 09-09-2018 Interventions No Information Medications Current Medications Medication Drug Dates Sig Sig (Original) Class(es) (Normalized) amLODIPine 5 mg / Dihydropyr take 1 tablet Amlodipine-A torvastatin 5-10 MG Orally atorvastatin 10 mg oral idine by mouth once Once a day 1 tablet 24h 30 day(s) Active tablet Calcium daily (1 source) Channel Carlos A, HMG-CoA Reductase Inhibitor azithromycin 250 mg oral Macrolide Start: Azith romycin 250 mg 2 Tablet by Oral tablet Antimicrob 12-31-2014 route on day 1 then take 1 daily for 4 (1 source) ial days Dec, A ctive Glucocard Expression Start: Glucocard Expres quinten Monitor w/Device as Monitor w/Device 09-18-2018 directed Sep Active (1 source) Glucocard Expression Start: Glucocard Expres quinten Test - In Vitro 2 Test - 09-18-2018 times a day as dire cted Sep, (1 source) Active Multiple Vitamins Start: take 1 tablet Multiple Vi tamins 1 Tablet by Oral route (1 source) 12-31-2014 by mouth once 1 time per day Dec, Active daily NovoLog Flexpen 100 Start: inject 7 [IU] NovoLog F lexpen 100 unit/mL inject 7 unit/mL 03-06-2013 by subcutaneous Units by Subcu taneous route before meals (1 source) injection three 3 times per day Feb, Active times daily before mealtime Completed/Discontinued Medications Medication Drug Dates Sig Sig (Original) Class(es) (Normalized) Acetaminophen / Opioid Start: take 1 tablet Acetamin ophen/Hydrocodone Bitart HYDROcodone Agonist 09-11-2018 by mouth every (Hydrocodon e/Acetaminophen 5/325MG (2 sources) four hours as Tablet) 1 Tab Tab 1 Tab ORAL Every 4HRS needed for pain as needed for Pain-Moderate 15 Tab 09/11/18 take 1 Hydrocodone-Ac tablet by etaminophen mouth 5-325 MG every four Orally every 4 hours as hrs 1 tablet needed as needed 4h Active amLODIPine 5 mg oral Dihydropyr Start: take 1 tablet Aml odipine Besylate 5 Mg Tablet 5 Mg tablet idine 09-11-2018 by mouth once ORAL Daily 3 0 Tab 09/11/18 (1 source) Calcium daily Channel Carlos A Aspirin (Aspirin Ec 81 End: Aspirin (Aspir in Ec 81 Mg) 81 Mg Tabec, Mg) 81 Mg Tabec, 81 Mg 12-01-2014 81 Mg Oral Feli ly Discontinued Oral (1 source) cefdinir 300 mg oral Cephalospo Start: take 1 capsule Ce fdinir 300 Mg Capsule 300 Mg ORAL capsule rin 09-11-2018 by mouth twice Twice A Day 10 Cap 09/11/18 (2 sources) Antibacter daily ial enalapril maleate 10 mg Angiotensi Start: take 1 tablet Enalapril Maleate 10 Mg Tablet 10 Mg oral tablet n 09-11-2018 by mouth once ORAL Daily 3 0 Tab 09/11/18 (2 sources) Converting daily Enzyme Inhibitor Insulin Aspart (Novolog End: inject 10 [IU] Insul in Aspart (Novolog Pen) 100 Unit/1 Pen) 100 Unit/1 Ml 12-01-2014 by subcutaneous Ml Insuln .pen, 10 Unit Subcutaneous Insuln.pen, 10 Unit injection Before Meals Dis continued Subcutaneous before mealtime (1 source) Insulin Glargine End: inject 30 [IU] Insulin Glar gine (Lantus) 300 Units/3 Ml (Lantus) 300 Units/3 Ml 12-01-2014 by subcutaneous Soln , 30 Units Subcutaneous Bedtime Soln, 30 Units injection at Discontinued Subcutaneous bedtime (1 source) Insulin Human Lispro 1 Start: inject 7 [IU] Insuli n Human Lispro 1 Unit/0.01 Ml Paulette, Unit/0.01 Ml Paulette, 7 Unit 12-04-2014 by subcutaneous 7 U nit Subcutaneous Before Meals Subcutaneous injection 12/04/14 Discontinued (1 source) End: before mealtime 09-10-2018 lactulose 667 mg/ml oral Osmotic Start: take 10 g by Lactulose 20 Gm/30 Ml Solution 10 Gm solution Laxative 09-11-2018 mouth twice ORAL Twice A D ay 8 Ounce 09/11/18 (1 source) daily Lantus , Not Applicable End: Lantus , Not Applicable Discontinued (1 source) 10-27-2012 loratadine 10 mg oral take 1 tablet Loratadine (Cl aritin) 10 Mg Tablet 10 Mg tablet by mouth once ORAL Daily as neede d for Allergies (1 source) daily as needed Multivitamin (Multi Start: Multivitamin (Mul ti Vitamin Daily) 1 Vitamin Daily) 1 Each 12-04-2014 Each Tablet, 1 Each Oral Daily 12/04/14 Tablet, 1 Each Oral Discontinued (1 source) End: 09-10-2018 Nitroglycerin 0.3 Mg End: Nitroglycerin 0. 3 Mg Tab.subl, 0.3 Mg Tab.subl, 0.3 Mg 12-01-2014 Sublingual As Direc wilton Discontinued Sublingual (1 source) Paxil , Not Applicable End: Paxil , Not Ap plicable Discontinued (1 source) 10-27-2012 Ritalin , Not Applicable End: Ritalin , No t Applicable Discontinued (1 source) 10-27-2012 simethicone 125 mg Simethicone (Gas-X) 125 Mg Tab.chew 125 chewable tablet Mg ORAL As Directed as need ed for Gas (1 source) Payers Date Payer Normalized Payer [id number] [place] [id number] Plan of Treatment Date Care Activity Detail [facility] 09-24-2018 Start: Follow-up encounter [facility] 09-18-2018 Problems Active Problems Problem Problem Date Last Documented Episodic/Chr Provider Classificati Recorded Date onic on Abdominal Ventral hernia without obstruction 04-02-2020 Epis odic GENIE EASON hernia or gangrene (10 sources) Acute Non-ST elevation (NSTEMI) 04-02-2020 Chronic DANUTA CATHERINE myocardial myocardial infarction DO infarction (9 sources) Attention-de Attention-deficit hyperactivity 04-02-2020 Chroni c GENIE EASON ficit, disorder, unspecified type MD conduct, and disruptive behavior disorders (24 sources) Bacterial Other and unspecified Escherichia Episodic ERIKA infection; coli [E. 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, right eye, stage Fatimah floyd MD unspecified ; Translations: [Glaucoma] Heart valve Nonrheumatic mitral (valve) 04-23-2020 Chronic BASHAR GAL disorders insufficiency (2 sources) Hepatitis Chronic hepatitis C without mention 04-02-2020 Chr onic ERIKA (20 sources) of hepatic coma ; Translations: JAD CH MD [Chronic viral hepatitis C] Hepatitis Viral hepatitis C ; Translations: 04-02-2020 Episo cristino EASON (17 sources) [Unspecified viral hepatitis C MD without hepatic coma] Hepatitis Hepatitis COMMUNITY (1 source) [facility] Work Phone: Inflammation Unspecified acute conjunctivitis, Episodic JÚNIOR ; infection unspecified eye ; Translations: [ - zzSANCHEZ of eye Acute bacterial conjunctivitis, Oth er Phone: (except that unspecified laterality H10.30] [phone] caused by 3 tuberculosis or sexually transmittedd isease) (3 sources) Nonmalignant Other specified disorders of breast 04-23-2020 Ep isodic SOHEILA SANTO breast MD conditions (2 sources) Osteoarthrit Primary osteoarthritis, unspecified 04-02-2020 Jacqueline EASON is site ; Translations: [Unspecified M D (24 sources) osteoarthritis, unspecified site] Other [facility] (current) use of insulin 04-02-2020 Epis ata EASON aftercare ; Translations: [ - [facility] MD (21 sources) (current) use of insulin Z7 9.4] Other Long-term current use of insulin ; Episodic JÚNIOR aftercare Translations: [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 (3 sources) use of insulin] Other Phone: Other and Cardiomegaly 04-23-2020 Chronic SOHEILA SANTO ill-defined MD heart disease (2 sources) Other Fibromyalgia 04-02-2020 Episodic GENIE EASON connective MD tissue disease (19 sources) Other Mass of urinary bladder Chronic COMM UNITY diseases of [facility] bladder and Work Phone: urethra [phone] (1 source) 3 Other Renal mass Chronic COMMUNITY diseases of [facility] kidney and Work Phone: ureters [phone] (1 source) 3 Other eye Vitreous hemorrhage, right eye ; Chronic Israel disorders Translations: [ - Vitreous Evy RINCON (5 sources) hemorrhage of right eye H43 .11] Other eye Hemorrhage of right vitreous body ; Chronic JÚNIOR disorders Translations: [Vitreous hemorrhage zzSANCHEZ (3 sources) of right eye] Other Phone: Other Constipation ; Translations: Episodic JÚNIOR gastrointest [Constipation, unspecified zzSANCHE Z inal constipation type] Other Phone: disorders [phone] (6 sources) 3 Other Constipation, unspecified ; Episodic JÚNIOR gastrointest Translations: [ - Constipation, zzS ANCHEZ inal unspecified constipation type Other Phone: disorders K59.00] [phone] (3 sources) 3 Other 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 (2 sources) Other liver Hepatomegaly, not elsewhere Episodic JIE TREVON diseases classified ; Translations: [ - Othe r Phone: (18 sources) Enlarged liver R16.0] Other Body mass index 30+ - obesity ; Chronic JÚNIOR nutritional; Translations: [Obesity (BMI zzSANCH EZ endocrine; 30-39.9)] Other Phone: and [phone] metabolic 3 disorders (3 sources) Other Obesity, unspecified ; Chronic JÚNIOR nutritional; Translations: [ - Obesity (BMI zzSA NCHEZ endocrine; 30-39.9) E66.9] Other Phone: and [phone] metabolic 3 disorders (3 sources) Phlebitis; Acute embolism and thrombosis of 04-02-2020 Episod fransisca CATHERINE thrombophleb left popliteal vein ; Translations: DO itis and [Personal history of other venous thromboembol thrombosis and embolism] ism (20 sources) Residual Patient's noncompliance with other 04-02-2020 Epis odfransisca EASON codes; medical treatment and regimen unclassified (21 sources) Residual Edema, unspecified ; Translations: Episodic JÚNIOR codes; [ - Edema, unspecified type R60.9] zzSANCHEZ unclassified Other Phone: (3 sources) Screening Personal history of nicotine 04-02-2020 Episodic GENIE EASON and history dependence of mental health and substance abuse codes (21 sources) Septicemia Sepsis ; Translations: [Sepsis, 04-02-2020 Episodi c ERIKA (except in unspecified organism] RUBIN RINCON labor) (6 sources) Superficial Injury of conjunctiva and corneal Episodic JÚNIOR injury; abrasion without foreign body, zzSA NCHEZ contusion right eye, sequela ; Translations: Other Phone: (3 sources) [ - Abrasion of right cornea, [phone] sequela S05.01XS] 3 Systemic Systemic lupus erythematosus, 04-02-2020 Chronic GENIE EASON lupus unspecified erythematosu s and connective tissue disorders (17 sources) Unclassified COMMUNITY (7 sources) [facility] Work Phone: Past or Other Problems Problem Problem Date Last Documented Episodic/Chr Provider Classificati Recorded Date onic on Acute and Acute kidney failure, unspecified 04-02-2020 Episo dic GENIE EASON unspecified MD renal failure (8 sources) Coronary Presence of coronary angioplasty 04-02-2020 Episod ic GENIE EASON atherosclero implant and graft sis and other heart disease (18 sources) 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-02-2020 Episodic DANUTA CATHERINE aftercare anticoagulants DO (9 sources) Other Hydronephrosis Episodic COMMUNITY diseases of [facility] kidney and Work Phone: ureters [phone] (3 sources) 3 Other Disorder of kidney and ureter, 04-02-2020 Episodic GENIE EASON diseases of unspecified MD kidney and ureters (8 sources) Other Unspecified hydronephrosis 04-02-2020 Episodic GENIE EASON diseases of MD kidney and ureters (8 sources) Other Other constipation 04-02-2020 Episodic DANUTA G ARNER gastrointest DO inal disorders (5 sources) Other liver Alkaline phosphatase raised Episodic [facility] diseases [facility] (2 sources) Work Phone: Other liver Elevated liver enzymes level Episodic [facility] diseases [facility] (2 sources) Work Phone: Procedures Date Procedure Procedure Detail Performing Cl inician Start: Comprehensive JIE LESTER 09-18-2018 metabolic panel Other Phone: Start: No Charge JIE LESTER 09-18-2018 Other Start: US scan of abdomen DANUTA CATHERINE 09-10-2018 and pelvis Work Phone: Start: US scan of CRISTOFERASHTYN VINES 09-10-2018 gallbladder Work Phone: Start: Ct Abd/Pelv W JUN TINOCO 09-09-2018 (Appendicitis) Work Phone: Start: Diagnostic JUN K ALEJANDRINA 09-09-2018 radiography of Work Phone: abdomen Start: Assessment of [facility] 09-09-2018 catheter entry Work Phone: site End: 09-09-2018 Start: Oxygen measurement [facility] 09-09-2018 End: 09-09-2018 Start: Hemoglobin JÚNIOR Deonna 12-31-2014 glycosylated a1c Other Phone: Start: Urine albumin JÚNIOR Deonna 12-31-2014 quantitative Other Phone: Start: Urine albumin JÚNIOR Deonna 12-31-2014 semiquantitative Other Phone: Alcohol ERIKA CONKLIN MD detoxification Results Test Name Value Interpreta Reference Facilit Date tion Range y Time not yet categorized on null Lot # [id number] Invalid Communi Interpreta ty tion Code [facility] (77250) laboratory on null Color (U) 12/13/20~turbid~fang Invalid Communi Interpreta ty tion Code [facility] (11560) not yet categorized on 2020-01-27 Exp date 11/02 Invalid Communi Interpreta ty tion Code [facility] (55106) Lot 11.2~10.7~0610 Invalid Communi Interpreta ty tion Code [facility] (19225) laboratory on 2019-11-01 Albumin [Mass/Vol] 3.3 g/dL Low 3.6-5.1 Communi g/dL ty [facility] (29246) Albumin/Globulin 0.9 {ratio} Low 1.0-2.5 Communi [Mass ratio] (calc) ty [facility] (97410) ALP [Catalytic 203 U/L High 33-115 U/L Communi activity/Vol] ty [facility] (60110) ALT [Catalytic 10 U/L Normal 6-29 U/L Communi activity/Vol] ty [facility] (89760) AST [Catalytic 8 U/L Low 10-35 U/L Communi activity/Vol] [facility] (52061) Basophils (Bld) 0.04 10*3/uL Normal 0-200 Communi [#/Vol] cells/uL [facility] (79446) Basophils/100 WBC 0.8 % Normal % Communi (Bld) [facility] (87423) Bilirubin [Mass/Vol] 0.4 mg/dL Normal 0.2-1.2 Commu ni mg/dL [facility] (75839) Calcium [Mass/Vol] 9.0 mg/dL Normal 8.6-10.2 Communi mg/dL [facility] (31132) Chloride [Moles/Vol] 102 mmol/L Normal 98-110 Commu ni mmol/L [facility] (98740) Cholesterol 228 mg/dL High <200 mg/dL Communi [Mass/Vol] ty [facility] (35363) Cholesterol in HDL 56 mg/dL Normal >50 mg/dL Communi [Mass/Vol] [facility] (74995) Cholesterol in LDL 150 mg/dL High mg/dL Communi [Mass/Vol] (calc) [facility] (32922) Cholesterol non HDL 172 mg/dL High <130 mg/dL Commun i [Mass/Vol] (calc) [facility] (76123) Cholesterol.total/Ch 4.1 {ratio} Normal <5.0 Commu ni olesterol in HDL (calc) ty [Mass ratio] [facility] (44446) CO2 [Moles/Vol] 28 mmol/L Normal 20-32 Communi mmol/L [facility] (49228) Creatinine 0.79 mg/dL Normal 0.50-1.10 Communi [Mass/Vol] mg/dL [facility] (99640) Eosinophils (Bld) 0.13 10*3/uL Normal 15-500 Communi [#/Vol] cells/uL [facility] (26347) Eosinophils/100 WBC 2.6 % Normal % Commun i (Bld) ty [facility] (46656) Erythrocyte 13.5 % Normal 11.0-15.0 Communi distribution width % ty (RBC) [Ratio] [facility] (85145) GFR/1.73 sq 103 mL/min/{1.73_m2} Normal > OR = 60 Commu ni M.predicted among mL/min/1.7 ty blacks MDRD 3m2 Health (S/P/Bld) [Vol Center rate/Area] [facility] (87250) GFR/1.73 sq 89 mL/min/{1.73_m2} Normal > OR = 60 Commun i M.predicted MDRD mL/min/1.7 ty (S/P/Bld) [Vol 3m2 Health rate/Area] [facility] (44114) Globulin (S) 3.5 g/dL Normal 1.9-3.7 Communi [Mass/Vol] g/dL ty (calc) [facility] (47838) Glucose [Mass/Vol] 161 mg/dL High 65-99 Communi mg/dL ty [facility] (91109) Hematocrit (Bld) 40.8 % Normal 35.0-45.0 Communi [Volume fraction] % ty [facility] (27918) Hemoglobin (Bld) 12.7 g/dL Normal 11.7-15.5 Communi [Mass/Vol] g/dL ty [facility] (52438) Lymphocytes (Bld) 1.885 10*3/uL Normal 850-3900 Commun i [#/Vol] cells/uL ty [facility] (68395) Lymphocytes/100 WBC 37.7 % Normal % Commun i (Bld) ty [facility] (66406) MCH (RBC) [Entitic 25.2 pg Low 27.0-33.0 Communi mass] pg ty [facility] (82931) MCHC (RBC) 31.1 g/dL Low 32.0-36.0 Communi [Mass/Vol] g/dL ty [facility] (13138) MCV (RBC) [Entitic 81.0 fL Normal 80.0-100.0 Communi vol] fL [facility] (95144) Monocytes (Bld) 0.425 10*3/uL Normal 200-950 Communi [#/Vol] cells/uL [facility] (08836) Monocytes/100 WBC 8.5 % Normal % Communi (Bld) [facility] (97362) Neutrophils (Bld) 2.52 10*3/uL Normal 3449-8626 Communi [#/Vol] cells/uL [facility] (84310) Neutrophils/100 WBC 50.4 % Normal % Commun i (Bld) [facility] (02113) Platelet mean volume 11.7 fL Normal 7.5-12.5 Commu ni (Bld) [Entitic vol] fL [facility] (79212) Platelets (Bld) 231 10*3/uL Normal 140-400 Communi [#/Vol] Thousand/u ty L [facility] (99571) Potassium 4.1 mmol/L Normal 3.5-5.3 Communi [Moles/Vol] mmol/L [facility] (22796) Protein [Mass/Vol] 6.8 g/dL Normal 6.1-8.1 Communi g/dL [facility] (80928) RBC (Bld) [#/Vol] 5.04 10*6/uL Normal 3.80-5.10 Communi Million/uL [facility] (31996) Sodium [Moles/Vol] 138 mmol/L Normal 135-146 Communi mmol/L [facility] (05539) Triglyceride 108 mg/dL Normal <150 mg/dL Communi [Mass/Vol] [facility] (42291) Urea nitrogen 16 mg/dL Normal 7-25 mg/dL Communi [Mass/Vol] [facility] (90114) Urea NOT APPLICABLE Invalid 6-22 Communi nitrogen/Creatinine Interpreta (calc) ty [Mass ratio] tion Code [facility] (03715) WBC (Bld) [#/Vol] 5.0 10*3/uL Normal 3.8-10.8 Communi Thousand/u ty L [facility] (23342) not yet categorized on 2019-10-31 Exp date 07/03 Invalid Communi Interpreta ty tion Code [facility] (09981) Lot [id number] Invalid Communi Interpreta ty tion Code [facility] (01430) Previous A1c >14 Invalid Communi Interpreta ty tion Code [facility] (60825) laboratory on 2019-10-31 HbA1c (Bld) [Mass 10.7 % Invalid 4.3 - 5.6 Communi fraction] Interpreta % ty on [facility] (99881) laboratory on 2019-09-17 Bacteria identified SEE NOTE Abnormal Communi Cx Nom (U) ty [facility] (49981) not yet categorized on 2019-07-09 Control >300~normal Invalid Communi Interpreta ty tion [facility] (32782) CRE 150~100 Invalid Communi Interpreta ty tion [facility] (14045) Exp date 01/31 Invalid Communi Interpreta ty tion Code [facility] (71376) Lot 0993 Invalid Communi Interpreta ty tion Code [facility] (14503) Lot # [id number] Invalid Communi Interpreta ty tion [facility] (38249) MICROALBUMIN abnormal Invalid Communi Interpreta ty tion [facility] (40539) Previous A1c >14~>14 Invalid Communi Interpreta ty tion [facility] (66807) laboratory on 2019-07-09 Color (U) 12/02~cloudy~yellow Invalid Communi Interpreta ty tion Code [facility] (14334) not yet categorized on 2019-07-03 MRSA SURVEILLANCE See Below Invalid [place] SCREEN Interpreta Medical tion [facility] (59035) OPERATION PROCEDURE ~ [facility]~ [address]~ [place] REPORT VIANNEY HENRIQUEZ [address]~ ~ ~PATIENT'S NAME: CURTIS Mosley UNIT NO: [id number]~: Center 13:42-0 71 AGE: 48 SEX: F ) 86 [phone] [id number]~ATTENDING PHYS: Dr. RAJENDRA Alejandre PT STATUS: DEP [facility] ~REPORT NAME: OPERATION PROCEDURE REPORT ROOM NO: ~REPORT STATU S Signed ~ ~DATE OF ADMISSION: 07/03/19~ ~ ~DATE OF SURGERY/PROCEDURE: 07/03/2019~ ~SURGEON/PHYSICIAN: Israel Ratliff MD ~ ~PREOPERATIVE DIAGNOSES:~Neovascular glaucoma, right eye, proliferative diab etic retinopathy, vitreous~hemorrhage.~ ~POSTOPERATIVE DIAGNOSES:~Neovascular glaucoma, right eye, proliferative diab etic retinopathy, vitreous~hemorrhage.~ ~PROCEDURE:~Cyclophotocoagulation, righ t eye.~ ~ANESTHESIA:~General, Dr. Grier. ~ ~COMPLICATIONS:~None.~ ~INDICATIONS FOR PROCEDURE:~Curtis is 48 years old. She is noncompliant with diabetes management. She~has some chronic alcoholism. She grimaldo s not taken insulin. In fact, blood sugar~thi s morning preop was in the 420 range, giv en 40 units of insulin, still into~the 300 ra nge. The patient has developed severe neovas cular glaucoma. She is~having chronic pain or pressure at one point was 70. Vision is in the light~perception range. She has sev ere nonproliferative diabetic retinopathy with~macular edema on her left eye. Con sent was obtained for laser treatment to~her right eye with Iridex Diode G probe. The jadyn ent's consent was obtained.~ ~DESCRIPTION OF PROCEDURE:~The patient was taken to the operating room. Under brief induction, placed an~inferotemporal retrobulbar block and medial canthal block. This was~suppleme nted. Lid speculum was placed. The diode G6 p robe was applied.~Power settings at 1500 mW and duration 3.5 seconds, #20 spots from the~inferonasal, inferotemporal, and superotemporal quadrant. She tolerated the~procedure well. The patient will be dismissed to home on prednisolone q.i.d.,~atropine daily. She will contin ue her preop medicines of Diamox, timolol, and ~ ~PATIENT'S NAME: CURTIS KAPLAN ACCOUN T NO: [id number]~ ~ ~ ~latanoprost. She stanton l follow with me in 1 week. She has an appointment with~a clinic she is not fo llowed with and the last appointment approxima griselda 5~years ago~at [facility] with Sara nurse practitioner. This~has been written and appointment obtained.~ ~Israel Ratliff MD Date/Ti me~ ~pdw/ai 1242 T: 9 1431 JOB#: [id number]~ ~cc: Israel dominique MD~Israel Ratliff MD~Israel Ratliff MD~[facility]~Authenticate d and Edited by Israel Ratliff MD On 07/08/19 10:57:19 AM ~ ~ ~ ~Electronically Ashlee d by Israel Ratliff MD on 07/08/19 at 1059 ~ ~ ~ ~ ~ ~ ~ ~ ~ ~ ~ ~ ~ ~ ~ ~ ~ ~ ~ ~ ~ ~ ~ ~ ~ ~ ~ ~ ~ ~ ~ ~ ~ ~ ~PATIENT'S NAME: CURTIS KAPLAN ACCOUNT NO: [id number] OPERATION PROCEDURE ~ [facility]~ [address]~ [place] REPORT KARUKVIANNEY AGUIRRE [address]~ ~ ~PATIENT'S NAME: Md dical 019 CURTIS KAPLAN UNIT NO: [id number]~: Center 13:42-0 71 AGE: 48 SEX: F ) 40 [phone] [id number]~ATTENDING PHYS: Dr. RAJENDRA Alejandre PT STATUS: DEP [facility] ~REPORT NAME: OPERATION PROCEDURE REPORT ROOM NO: ~REPORT STATU S Draft ~ ~DATE OF ADMISSION: 07/03/19~ ~ ~ ~ ~ ~ ~DATE OF SURGERY/PROCEDURE: 9~ ~SURGEON/PHYSICIAN: Israel Ratliff MD ~ ~PREOPERATIVE DIAGNOSES:~Neovascular glaucoma, right eye, proliferative diab etic retinopathy, vitreous~hemorrhage.~ ~POSTOPERATIVE DIAGNOSES:~Neovascular glaucoma, right eye, proliferative diab etic retinopathy, vitreous~hemorrhage.~ ~PROCEDURE:~Cyclophotocoagulation, righ t eye.~ ~ANESTHESIA:~General, Dr. Grier. ~ ~COMPLICATIONS:~None.~ ~INDICATIONS FOR PROCEDURE:~Curtis is 48 years old. She is noncompliant with diabetes management. She~has some chronic alcoholism. She grimaldo s not taken insulin. In fact, blood sugar~thi s morning preop was in the 420 range, giv en 40 units of insulin, still into~the 300 ra nge. The patient has developed severe neovas cular glaucoma. She is~having chronic pain or pressure at one point was 70. Vision is in the light~perception range. She has sev ere nonproliferative diabetic retinopathy with~macular edema on her left eye. Con sent was obtained for laser treatment to~her right eye with . The patient's cons ent was obtained.~ ~DESCRIPTION OF PROCEDUR E:~The patient was taken to the operating room . Under brief induction, placed an~inferotemporal retrobulbar block and medial canthal block. This was~suppleme nted. Lid speculum was placed. The diode G6 p robe was applied.~ ~PATIENT'S NAME: Tae KAPLAN ACCOUNT NO: [id number]~ ~ ~ ~Power settings at 1500 mW and duration 3.5 se conds, #20 spots from the~inferonasal, inferotemporal, and superotemporal quad rant. She tolerated the~procedure well. The p atient will be dismissed to home on prednisolo ne q.i.d.,~atropine daily. She will contin ue her preop medicines of Diamox, timolol, and~latanoprost. She will follow with hanna perea in 1 week. She has an appointment with~james lazcano courtney she is not followed with and the last appointment approximately 5~years ago~a [facility] with Sara nurse practitioner. This~has bee n written and appointment obtained.~ ~ ~ ~ ~Israel Ratliff MD Date/Time~ ~carlitos 1242 1431 JOB# : [id number]~ ~cc: Israel Ratliff MD~Israel Ratliff MD~Israel Ratliff MD~[facility]~ ~ ~ ~ ~ ~ ~ ~ ~ ~ ~ ~ ~ ~ ~ ~ ~ ~ ~ ~ ~ ~ ~ ~ ~ ~ ~ ~ ~ ~ ~ ~ ~PATIENT'S NAME: CURTIS KAPLAN T NO: [id number] TEST, Negative Invalid NEGATIVE Elliott SERUM Interpreta Medical tion [facility] (92990) laboratory on 2019-07-03 Glucose [Mass/Vol] 391 mg/dL High 70-99 Elliott mg/dL [facility] (86273) Glucose [Mass/Vol] 140 mg/dL High 70-99 Elliott mg/dL [facility] (55923) Glucose [Mass/Vol] 180 mg/dL High 70-99 Elliott mg/dL [facility] (55159) Glucose [Mass/Vol] 210 mg/dL High 70-99 Elliott mg/dL [facility] (65019) Glucose [Mass/Vol] 419 mg/dL Critically 70-99 Elliott high mg/dL [facility] (20033) Glucose [Mass/Vol] 367 mg/dL High 70-99 Elliott mg/dL [facility] (11597) HbA1c (Bld) [Mass 13.5 % High < 5.7 % Elliott fraction] [facility] (23920) Potassium 3.5 mmol/L Normal 3.5-5.3 Elliott [Moles/Vol] mmol/L [facility] (99570) laboratory on 2018-09-18 Albumin [Mass/Vol] 3.4 g/dL Low 3.6-5.1 Communi g/dL [facility] () Albumin/Globulin 0.8 {ratio} Low 1.0-2.5 Communi [Mass ratio] (calc) [facility] (76553) ALP [Catalytic 581 U/L High 33-115 U/L Communi activity/Vol] [facility] (71705) ALT [Catalytic 17 U/L Normal 6-29 U/L Communi activity/Vol] [facility] (98018) AST [Catalytic 9 U/L Low 10-35 U/L Communi activity/Vol] [facility] (21662) Bilirubin [Mass/Vol] 0.5 mg/dL Normal 0.2-1.2 Commu ni mg/dL ty [facility] (22785) Calcium [Mass/Vol] 8.9 mg/dL Normal 8.6-10.2 Communi mg/dL ty [facility] (15428) Chloride [Moles/Vol] 99 mmol/L Normal 98-110 Commu ni mmol/L ty [facility] (33963) CO2 [Moles/Vol] 30 mmol/L Normal 20-32 Communi mmol/L ty [facility] (95389) Creatinine 0.69 mg/dL Normal 0.50-1.10 Communi [Mass/Vol] mg/dL ty [facility] (88596) GFR/1.73 sq 121 mL/min/{1.73_m2} Normal > OR = 60 Commu ni M.predicted among mL/min/1.7 ty blacks MDRD 2 Health (S/P/Bld) [Vol Center rate/Area] [facility] () GFR/1.73 sq 104 mL/min/{1.73_m2} Normal > OR = 60 Commu ni M.predicted MDRD mL/min/1.7 ty (S/P/Bld) [Vol 2 Health rate/Area] [facility] () Globulin (S) 4.1 g/dL High 1.9-3.7 Communi [Mass/Vol] g/dL ty (calc) [facility] (76744) Glucose [Mass/Vol] 274 mg/dL High 65-99 Communi mg/dL ty [facility] (58783) Potassium 3.5 mmol/L Normal 3.5-5.3 Communi [Moles/Vol] mmol/L ty [facility] (03264) Protein [Mass/Vol] 7.5 g/dL Normal 6.1-8.1 Communi g/dL ty [facility] (06360) Sodium [Moles/Vol] 138 mmol/L Normal 135-146 Communi mmol/L ty [facility] (52748) Urea nitrogen 10 mg/dL Normal 7-25 mg/dL Communi [Mass/Vol] ty [facility] (95655) Urea NOT APPLICABLE Invalid 05-04 Communi nitrogen/Creatinine Interpreta (calc) ty [Mass ratio] tion Code [facility] (36769) glucose glucometer (bldc) [mass/vol] on 2018-09-12 Glucose [Mass/Vol] 159 mg/dL High 70-110 Via [facility] rg (79364) wbc auto (bld) [#/vol] on 2018-09-11 WBC (Bld) [#/Vol] 4.7 10*3/uL 4.3-11.[address] [facility] [place] (12394) urea nitrogen/creatinine [mass ratio] on 2018-09-11 Urea 20 mg/mg Via nitrogen/Creatinine [place] [Mass ratio] [facility] rg (89922) urea nitrogen [mass/vol] on 2018-09-11 Urea nitrogen 16 mg/dL 7-18 Via [Mass/Vol] [facility] (62680) sodium [moles/vol] on 2018-09-11 Sodium [Moles/Vol] 135 mmol/L 135-145 Via [facility] [place] (88014) rbc auto (bld) [#/vol] on 2018-09-11 RBC (Bld) [#/Vol] 3.48 10*6/uL Low 4.35-5.85 Via [facility] [place] (89547) pt coag (ppp) [time] on 2018-09-11 PT Coag (PPP) [Time] 13.2 s 12.2-14.[address] [facility] [place] (81189) protein [mass/vol] on 2018-09-11 Protein [Mass/Vol] 6.4 g/dL 6.4-8.[address] [facility] (04624) potassium [moles/vol] on 2018-09-11 Potassium 3.9 mmol/L 3.6-5.0 Via [Moles/Vol] [facility] (43269) platelets auto (bld) [#/vol] on 2018-09-11 Platelets (Bld) 214 10*3/uL 130-400 Via [#/Vol] [facility] (37278) platelet mean volume auto (bld) [entitic vol] on 2018-09-11 Platelet mean volume 10.6 fL High 7.4-10.4 Via (Bld) [Entitic vol] [facility] (30641) neutrophils/100 wbc auto (bld) on 2018-09-11 Neutrophils/100 WBC 60 % 42-75 Via (Bld) [facility] (39828) neutrophils auto (bld) [#/vol] on 2018-09-11 Neutrophils (Bld) 2.8 10*3/uL 1.8-7.8 Via [#/Vol] [facility] (41492) monocytes/100 wbc (bld) on 2018-09-11 Monocytes/100 WBC 9 % 0-12 Via (Bld) [facility] (38115) monocytes auto (bld) [#/vol] on 2018-09-11 Monocytes (Bld) 0.4 10*3/uL 0.0-1.0 Via [#/Vol] [facility] (10782) mcv auto (rbc) [entitic vol] on 2018-09-11 MCV (RBC) [Entitic 79 fL Low 80-99 Via vol] [facility] (57723) mchc auto (rbc) [mass/vol] on 2018-09-11 MCHC (RBC) 33 g/dL 32-36 Via [Mass/Vol] [facility] (74650) mch auto (rbc) [entitic mass] on 2018-09-11 MCH (RBC) [Entitic 26 pg 25-34 Via mass] [place] [facility] (61310) lymphocytes/100 wbc auto (bld) on 2018-09-11 Lymphocytes/100 WBC 29 % 12-44 Via (Bld) [facility] (52516) lymphocytes auto (bld) [#/vol] on 2018-09-11 Lymphocytes (Bld) 1.4 10*3/uL 1.0-4.0 Via [#/Vol] [facility] (96144) inr coag (platelet poor plasma or blood) [relative time] on 2018-09-11 INR Coag (Platelet 1.0 0.8-1.4 Via poor plasma or [facility] blood) [Relative Hospita time] l [facility] (83727) hemoglobin (bldv) [mass/vol] on 2018-09-11 Hemoglobin (Bld) 9.0 g/dL Low 11.5-16.0 Via [Mass/Vol] [facility] (26114) hematocrit (bld) [volume fraction] on 2018-09-11 Hematocrit (Bld) 28 % Low 35-52 Via [Volume fraction] [facility] () glucose [mass/vol] on 2018-09-11 Glucose [Mass/Vol] 182 mg/dL High 70-105 Via [facility] () erythrocyte distribution width auto (rbc) [ratio] on 2018-09-11 Erythrocyte 14.4 % 10.0-14.5 Via distribution width [place] (RBC) [Ratio] [facility] () eosinophils/100 wbc auto (bld) on 2018-09-11 Eosinophils/100 WBC 2 % 0-10 Via (Bld) [facility] () eosinophils auto (bld) [#/vol] on 2018-09-11 Eosinophils (Bld) 0.1 10*3/uL 0.0-0.3 Via [#/Vol] [facility] () creatinine and glomerular filtration rate.predicted panel (s/p/bld) on 2018-09-11 GFR/1.73 sq Via M.predicted among [facility] non-blacks MDRD Hospita (S/P/Bld) [Vol l rate/Area] [facility] () creatinine [mass/vol] on 2018-09-11 Creatinine 0.81 mg/dL 0.60-1.30 Via [Mass/Vol] [facility] () chloride [moles/vol] on 2018-09-11 Chloride [Moles/Vol] 109 mmol/L High 98-107 Via [facility] (18338) carbon dioxide on 2018-09-11 CO2 [Moles/Vol] 18 mmol/L Low 21-32 Via [facility] () calcium measurement corrected for albumin on 2018-09-11 Albumin [Mass/Vol] 9.3 g/dL 8.5-10.1 Via [facility] () calcium [mass/vol] on 2018-09-11 Calcium [Mass/Vol] 8.3 mg/dL Low 8.5-10.1 Via [facility] () bilirubin [mass/vol] on 2018-09-11 Bilirubin [Mass/Vol] 0.4 mg/dL 0.1-1.0 Via [facility] () basophils/100 wbc auto (bld) on 2018-09-11 Basophils/100 WBC 0 % 0-10 Via (Bld) [facility] () basophils auto (bld) [#/vol] on 2018-09-11 Basophils (Bld) 0.0 10*3/uL 0.0-0.1 Via [#/Vol] [facility] () ast [catalytic activity/vol] on 2018-09-11 AST [Catalytic 142 U/L High 5-34 Via activity/Vol] [facility] () anion gap [moles/vol] on 2018-09-11 Anion gap 8 mmol/L 5-14 Via [Moles/Vol] [facility] () ammonia (unsp spec) [mass/vol] on 2018-09-11 Ammonia (Unsp spec) 34 ug/dL High 11-32 Via [Mass/Vol] [facility] () alt [catalytic activity/vol] on 2018-09-11 ALT [Catalytic 172 U/L High 0-55 Via activity/Vol] [facility] () alp [catalytic activity/vol] on 2018-09-11 ALP [Catalytic 993 U/L High 40-136 Via activity/Vol] [facility] () albumin [mass/vol] on 2018-09-11 Albumin [Mass/Vol] 2.7 g/dL Low 3.2-4.5 Via [place] [facility] (30714) hba1c (bld) [mass/vol] on 2018-09-10 HbA1c (Bld) 12.9 High 4.0-5.6 Via [Mass/Vol] [facility] (39221) glucose mean estimated using hba1c on 2018-09-10 HbA1c (Bld) [Mass 324 % High <=126 Via fraction] [facility] (04775) wbc lm.hpf (urine sed) [#/area] on 2018-09-09 WBC LM.HPF (Urine Via sed) [#/Area] [facility] (55625) ventilation mode ventilator on 2018-09-09 Ventilation mode NO Via Ventilator [facility] (46859) urobilinogen auto test strip (u) [mass/vol] on 2018-09-09 Urobilinogen (U) NORMAL NORMAL Via [Mass/Vol] [facility] (37587) urinalysis complete w reflex culture panel (u) on 2018-09-09 Urinalysis complete NO Via W Reflex Culture [place] panel - Urine [facility] rg (16700) specific gravity test strip (u) [rel density] on 2018-09-09 Specific gravity (U) 1.005 Invalid 1.016-1.02 Via [Rel density] Interpreta 2 [place] tion Code [facility] [place] (65508) rbc lm.hpf (urine sed) [#/area] on 2018-09-09 RBC LM.HPF (Urine Invalid Via sed) [#/Area] Interpreta [place] tion Code [facility] [place] [facility] (11895) rbc lm ql (urine sed) on 2018-09-09 RBC Ql (U) 4+ Invalid NEGATIVE Via Interpreta [place] tion Code [facility] [place] [facility] (89251) protein test strip ql (u) on 2018-09-09 Protein Ql (U) 2+ Invalid NEGATIVE Via Interpreta [place] tion [facility] [place] [facility] (03086) ph test strip (u) on 2018-09-09 pH (U) 7 [pH] 5-[address] (42583) ph adjusted to patient's actual temperature (blda) on 2018-09-09 pH adjusted to 7.39 7.37-7.43 Via patient's actual [place] temperature (BldA) [facility] (78820) oxygen (bld) [partial pressure] on 2018-09-09 Oxygen (Bld) 89 mm[Hg] 79-93 Via [Partial pressure] [place] [facility] rg (89869) nitrite test strip ql (u) on 2018-09-09 Nitrite Ql (U) Negative NEGATIVE Via [place] [facility] rg (63400) mucus lm ql (urine sed) on 2018-09-09 Mucus Ql (Urine sed) Negative Via [facility] (36177) lipase [catalytic activity/vol] on 2018-09-09 Lipase [Catalytic 22 U/L 8-78 Via activity/Vol] [place] [facility] (70513) leukocyte esterase test strip ql (u) on 2018-09-09 Leukocyte esterase 1+ Invalid NEGATIVE Via Test strip Ql (U) Interpreta [place] tion Code [facility] rg (63433) ketones auto test strip ql (u) on 2018-09-09 Ketones Auto test 2+ Invalid NEGATIVE Via strip Ql (U) Interpreta [place] tion Code [facility] (28279) hco3 (blda) [moles/vol] on 2018-09-09 HCO3 (Bld) 20 mmol/L Low 23-27 Via [Moles/Vol] [place] [facility] rg (67706) glucose auto test strip ql (u) on 2018-09-09 Glucose Auto test 4+ Invalid NEGATIVE Via strip Ql (U) Interpreta [place] tion Code [facility] (80256) epithelial cells.squamous lm ql (urine sed) on 2018-09-09 Epithelial Via cells.squamous LM Ql [place] (Urine sed) [facility] (54654) crystals lm ql (urine sed) on 2018-09-09 Crystals LM Ql NONE Via (Urine sed) [place] [facility] rg (60177) color (u) on 2018-09-09 Color (U) YELLOW Via [place] [facility] rg (69602) co2 (blda) [moles/vol] on 2018-09-09 CO2 [Moles/Vol] 21.2 mmol/L 21.0-31.0 Via [facility] (82503) co2 (bld) [partial pressure] on 2018-09-09 CO2 (Bld) [Partial 34 mm[Hg] Low 35-45 Via pressure] [facility] (77449) clarity (u) on 2018-09-09 Clarity (U) SLIGHTLY CLOUDY Via [facility] (52523) casts lm ql (urine sed) on 2018-09-09 Casts LM Ql (Urine NONE Via sed) [facility] (96245) bilirubin test strip ql (u) on 2018-09-09 Bilirubin Ql (U) Negative NEGATIVE Via [facility] (03071) base excess calc (blda) [moles/vol] on 2018-09-09 Base excess Calc -4.2000 mmol/L Low -2.5-2.5 Via (Bld) [Moles/Vol] [facility] (68311) bacteria lm ql (urine sed) on 2018-09-09 Bacteria LM Ql Negative Via (Urine sed) [facility] (86462) arterial patency wrist artery --pre arterial puncture on 2018-09-09 Arterial patency Via Wrist artery --pre [place] arterial puncture [facility] (61165) amylase [catalytic activity/vol] on 2018-09-09 Amylase [Catalytic 22 U/L Low 25-125 Via activity/Vol] [facility] (81372) laboratory on 2017-12-22 Bacteria identified SEE NOTE Abnormal Not Aer cx Nom (Unsp Availab spec) le (82120) laboratory on 2017-09-07 Bacteria identified Note Invalid Not Aer cx Nom (Unsp Interpreta [facility]ail[facility] 017 spec) tion Code le 16:39-0 ([id number]) 400 Social History No Information Vital Signs Date Time Vital Sign Value Performing Clinician Facil it 09-18-2018 Body height 154.94 cm [facility] 14:20-0500 Other Phone: [facility] ([id number]) 09-18-2018 Body mass index 32.02 kg/m2 [facility] 14:20-0500 (BMI) [Ratio] Other Phone: [facility] ([id number]) 09-18-2018 Body temperature 97.3 [degF] [facility] 14:20-0500 Other Phone: [facility] ([id number]) 09-18-2018 Body weight 76.89 kg [facility] [id number] Other Phone: [facility] ([id number]) 09-09-2018 Body temperature 97.7 [facility] 04:40-0400 Work Phone: [place] [id number]) 09-09-2018 SaO2% (BldA) [Mass 98 % [facility] 04:40-0400 fraction] Work Phone: [place] [phone]) 12-31-2014 Body height 154.94 cm [facility] 14:44-0500 Other Phone: [facility] ([id number]) 12-31-2014 Body temperature 97.6 [degF] [facility] 14:44-0500 Other Phone: [facility] ([id number]) 12-31-2014 Body weight 75.66 kg [facility] 14:44-0500 Other Phone: [facility] ([id number]) 05-13-2013 Body height 154.94 cm [facility] 12:48-0400 [facility] ([id number]) 05-13-2013 Body weight 84.37 kg [facility] 12:48-0400 [facility] ([id number]) Functional Status The data below is from unstructured sources Query Response Date Roby rded Patient Orientation Person Place Time Situation December 04, 2014 5:27pm Comprehension Ability Understands Co ncepts December 04, 2014 8:05am Query Response Date Roby rded Patient Orientation Normal For Age September 11, 2018 1:43pm Comprehension Ability Understands Co ncepts September 12, 2018 9:00am Mental Status No Information History general Narrative - Reported Note Date & Note Facility Type History general Narrative - Reported Type Medical Blurred vision History Medical CAD-hospitalized at 13/ 012 for NSTEMI, s/p stenting to the mid History LAD (had 99% occulsion). EF 45% Medical Hypertension History Medical Asthma History Medical DM II History Medical Arthritis History Medical Chronic pain-Lupus, fibromy algia, RA History Medical Depression History Medical Anxiety History Medical ADHD History Surgical coronary artery stent (LAD) s/p NSTEMI- EF 45% 10/2012 History Surgical section 1990 & 1995 History Surgical rotator cuff tear repair-Right 2009 History Hospitalizatio NSTEMI 10/2012 n History Hospitalizatio ETOH rehab 12/2014 n History Hospitalizatio Kidney issues, liver levels were high 08/2018 n History [facility] ([id number]) History general Narrative - Reported Note Date & Note Facility Type History general Narrative - Reported Type Medical Blurred vision History Medical CAD-hospitalized at / 13 for NSTEMI, s/p stenting to the mid History LAD (had 99% occulsion). EF 45% Medical Hypertension History Medical Asthma History Medical DM II History Medical Arthritis History Medical Chronic pain-Lupus, fibromy algia, RA History Medical Depression History Medical Anxiety History Medical ADHD History Medical diabetes History Medical blood clot History Surgical coronary artery stent (LAD) s/p NSTEMI- EF 45% 10/2012 History Surgical section 1990 & 1995 History Surgical rotator cuff tear repair-Right 2009 History Surgical eye surgery to release pressure 08/201 9 History Hospitalizatio NSTEMI 10/2012 n History Hospitalizatio ETOH rehab 12/2014 n History Hospitalizatio Kidney issues, liver levels were high 08/2018 [facility] kidneys [facility]2019 n History [facility] ([id number]) Summary Purpose eClinicalWorks Submission Advance Directives Directive Response Recor ded Date/Time Advance Directives No 9:27pm Health Care Power of Syrup Machine Laborer No 12/01/14 9:27pm Organ Donor No 12/01/14 9:27pm Resuscitation Status Full Code 12/01/14 9:27pm Directive Response Recor ded Date/Time Advance Directives No 8:29am Health Care Power of Syrup Machine Laborer No 09/09/18 8:29am Organ Donor No 09/09/18 8:29am Resuscitation Status Full Code 09/09/18 8:29am Discharge Instructions Patient Instructions Physician Instructions New, Converted or Re-Newed RX: Call to Patients Pharmacy Goal/Follow Up Appt: Check blood sugars at least twice daily would recommend checking at least fasting in the AM. Please continuous pickling line pickler helper glucometer and supplies from [facility] from Luda from internal medicine You will need to re-establish with a provider at [facility] at the first available appt. with a provider to monitor your diabetes. You will go straight to [facility] to continuous pickling line pickler helper your medication and supplies and then to [facility] for treatment Discharge Diet: ADA Diet, Other Diet (Keep fluid restricted to less than 2,000ml or 2L daily) Activity as Tolerated: Yes Patient will need to continuous pickling line pickler helper glucometer, strips and syringes for insulin if needed. Luda from internal medicine will get her supplies together for her to continuous pickling line pickler helper on her way to [facility]. No hospital discharge instruction information available. Chief Complaint and Reason for Visit Chief Complaint PYELONEPHRITIS,UNCON TROLLED DIABETES,HYPONATREMIA, Reason for Visit Bladder mass Hepatitis C Elevated liver enzymes Alcohol abuse Hydronephrosis Elevated alkaline phosphatase level Elevated liver enzymes Elevated alkaline phosphatase level Right kidney mass Hydronephrosis Kidney abscess Hepatitis C Additional Source Comments This clinical document has been generated using [employer] software that has been certified by the Office of the National Coordinator for Health Information Technology (ONC 15.99.04.3023.Diam.[id number]) and the National Committee for Dip Painter (NCQA, as an eMeasure certified technology). FOR [...] BASED ON T HE PRIMARY CLINICAL RECORDS. [employer] provides no warranty or guara ntee of the accuracy or completeness of information in this document.The followi ng information is based on time limited clinical information UNRECOGNIZED CONTENT PROVIDED BELOW FOR UNRECOGNIZED SECTION REASON FOR VISIT Requests [facility] follow [facility], kidney problems, liver levels were elevated Moe buckleyEMR-MigEMR-MigEMR-Alhaji
--- OUTSIDE RECORDS SUMMARY | 2020-05-28 19:41 | XMS REPORT ---
Author Author Curtis Tanner Doctor Organization [facility] Address Unknown Phone Unavailable Care Team Providers Care Pesticide Applicator Name Role Phone Migration, Doctor Unavailable Unavailable PROBLEMS Type Condition ICD9-CM Code NHD03-WH Code Onset Dates Condition S tatus SNOMED Code Problem Alcohol dependence with unspecified alcohol-induced disord er F10.29 Active 11723523 Problem Arteriosclerosis of coronary artery I25.10 Active 90170694 Problem Vitreous hemorrhage of right eye H43.11 Active 034809882102438 Problem Mixed hyperlipidemia E78.2 Active 525151766 Problem Severe nonproliferative diab etic retinopathy of both eyes associated with type 2 diabetes mellitus, macular edema presence unspecified E11.3493 Active 108780556 Problem Severe nonproliferative diab etic retinopathy of both eyes associated with type 2 diabetes mellitus, macular edema presence unspecified E11.3493 Active 370204275 Problem Diabetic polyneuropathy associated with type 2 d iabetes mellitus E11.42 Active 735926993 Problem Constipation, unspecified constipation type K59.00 Active 78679379 Problem Constipation, unspecified constipation type K59.00 Active 44974608 Problem Type 2 diabetes mellitus wit h mild nonproliferative diabetic retinopathy with macular edema, unspecified eye E11.3219 Activ e 40404374 Problem Glaucoma of both eyes, unspecified glaucoma type H 40.9 Active 20172272 Problem Obesity (BMI 30-39.9) E66.9 Active 226594744 Problem Glaucoma of both eyes, unspecified glaucoma type H 40.9 Active 08463828 Problem Essential hypertension I10 Active 51204895 Problem jail (current) use of insulin Z79.4 Active 993729532 Problem Type 2 diabetes mellitus wit h 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, unspecified eye E11.3419 Active 65973526 Problem Type 2 diabetes mellitus wit h complication, without long-term current use of insulin E11.8 Active 357244207 ALLERGIES No Information ENCOUNTERS Encounter Location Date Diagnosis [facility] [address] [facility] [id number] [address] [place] [address] May, [facility] [address] [facility] [id number] [address] [place] [address] May, [facility] [address] [place] [id number] [address] [place] [address] March, [facility] [address] [place] [id number] [address] [place] [address] Feb, [facility] [address] [place] [id number] [address] [place] [address] Jan, Type 2 diabetes mellitus wit h 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, unspecified eye E11.3419 ; Essential hypertension I10 ; jail (current) use of insulin Z79.4 ; Mixed hy perlipidemia E78.2 ; Type 2 diabetes mellitus with complication, without long- term current use of insulin E11.8 and Obesity (BMI 30-39.9) E66.9 [facility] [address] [place] [id number] [address] [place] [address] Dec, [facility] [id number] [place] [address] Nov, Pyelonephritis N12 ; Acute d eep vein thrombosis (DVT) of popliteal vein of left lower extremity I82.432 ; Arteriosclerosis of coronary artery I25.10 ; Mixed hyperlipidemia E78.2 ; jail (current) use of insulin Z79.4 ; Type 2 diabetes mellitus with mild nonproliferative diabetic retinopathy with macular edema, unspecified eye E11.3219 and Edema, unspecified type R60.9 [facility] [address] [place] [id number] [address] [place] [address] Oct, Type 2 diabetes mellitus wit h complication, without long-term current use of insulin E11.8 and Mixed hyperlipidemia E78.2 [place] [address] [place] [id number] [address] [place] [address] Oct, Type 2 diabetes mellitus wit h 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, unspecified eye E11.3419 ; jail (current) use of insulin Z79.4 ; Mixed hyperlipidemia E78.2 ; Essential hypertension I10 ; Type 2 diabetes mellitus with complication, without long-term current use of insulin E11.8 and Diabetic polyneuropathy associated with type 2 diabetes mellitus E11.42 [facility] [place] [address] [address] 05 Sep, 2019 Urinary tract infection, sit e not specified N39.0 ; Hematuria, unspecified R31.9 and Constipation, unspecified constipation type K59.00 [place] [address] [address] Jun, Type 2 diabetes mellitus wit h complication, without long-term current use of insulin E11.8 ; Arteriosclerosis of coronary artery I25.10 ; Diabetes type 2, uncontrolled E11.65 ; Diabetic polyneuropathy associated with type 2 diabetes mellitus E11.42 ; Proliferative diabetic retinopathy of both eyes associated with type 2 diabetes mellitus, unspecified proliferative retinopathy type E11.3593 ; Vitreous hemorrhage of right eye H43.11 ; Type 2 diabetes mellitus with other diabetic ophthalmic complication E11.39 ; Glaucoma of both eyes, unspecified glaucoma type H40.9 and Mixed hyperlipidemia E78.2 [place] [address] [address] Jun, [facility] [place] [address] [address] Jun, Abrasion of right cornea, se quela S05.01XS [facility] [place] [address] [address] May, Acute bacterial conjunctivit is, unspecified laterality H10.30 [place] [address] [place] [id number] [address] [place] [address] Oct, Chronic viral hepatitis C B1 8.2 [place] [address] [address] 15 Sep, 2018 Type 2 diabetes mellitus wit h complication, without long-term current use of insulin E11.8 [place] [address] [address] Sep, [facility] [address] [facility] [id number] [address] [place] [address] Sep, Type 2 diabetes mellitus wit h complication, without long-term current use of insulin E11.8 and Enlarged liver R16.0 [facility] [address] [id number] [place] [address] Aug, [facility] [address] [facility] [id number] [address] [place] [address] Dec, Abscess, scalp L02.811 [place] [address] [facility] [id number] [address] [place] [address] Dec, [place] [address] [place] [id number] [place] [address] Dec, [facility] [address] [place] [id number] [address] [place] [address] Dec, Abscess, scalp L02.811 [place] [address] [place] [id number] [address] [place] [address] Dec, Abscess, scalp L02.811 [facility] [address] [place] [id number] [address] [place] [address] 17 Dec, 2017 Abscess, scalp L02.811 [place] [address] [place] [id number] [address] [place] [address] 15 Dec, 2017 Abscess, scalp L02.811 [facility] [address] [place] [id number] [address] [place] [address] 13 Dec, 2017 Abscess, scalp L02.811 [facility] [address] [place] [id number] [address] [place] [address] 11 Dec, 2017 Cutaneous abscess of head ex cluding face L02.811 [facility] [address] [place] [id number] [address] [place] [address] 10 Dec, 2017 Abscess L02.91 [facility] [address] [facility] [address] [address] [id number] [id number] Dec, [facility] [address] [facility] [id number] [address] [place] [address] Dec, Abscess L02.91 [facility] [address] [facility] [id number] [address] [place] [address] Aug, Acute allergic rhinitis due to other allergen, unspecified seasonality J30.89 and Cellulitis of head except face L03.811 [facility] [address] [id number] [address] [place] [address] Jun, [facility] [address] [facility] [id number] [address] [place] [address] Jun, [facility] [address] [facility] [id number] [address] [place] [address] Jun, [facility] [address] [facility] [id number] [address] [place] [address] Jun, [facility] [address] [facility] [id number] [address] [place] [address] Jun, [facility] [address] [facility] [id number] [address] [place] [address] Jun, Hematuria 599.70 ; Diabetes type 2, uncontrolled 250.02 ; Chest pain 786.50 ; Chronic pain 338.29 and Coronary atherosclerosis of unspecified type of vessel, blackfeet or graft 414.00 [facility] [address] [facility] [id number] [address] [place] [address] Feb, [facility] [address] [facility] [id number] [address] [place] [address] Feb, [facility] [address] [facility] [id number] [address] [place] [address] Jan, [facility] [address] [facility] [id number] [address] [place] [address] Jan, [facility] [address] [id number] [address] [place] [address], [place] [address] Jan, [facility] [address] [id number] [address] [place] [address], [place] [address] Jan, [facility] [address] [id number] [address] [place] [address], [place] [address] Jan, [facility] [address] [id number] [address] [place] [address], [place] [address] Jan, [facility] [address] [id number] [address] [place] [address], [place] [address] Dec, 2014 [facility] [address] [id number] [address] [place] [address], [place] [address] Dec, 2014 [facility] [address] [id number] [address] [place] [address], [place] [address] Dec, 2014 [facility] [address] [id number] [address] [place] [address], [place] [address] Dec, 2014 [facility] [address] [id number] [address] [place] [address], [place] [address] Dec, [facility] [address] [id number] [address] [place] [address], [place] [address] Dec, [facility] [address] [id number] [address] [place] [address], [place] [address] Dec, [facility] [address] [id number] [address] [place] [address], [place] [address] Dec, [facility] [address] [id number] [address] [place] [address], [place] [address] Nov, [facility] [address] [id number] [address] [place] [address], [place] [address] Nov, [facility] [address] [id number] [address] [place] [address], [place] [address] Aug, [facility] [address] [id number] [address] [place] [address] Aug, [facility] [address] [id number] [address] [place] [address], [place] [address] May, [facility] [address] [id number] [address] [place] [address], [place] [address] March, [facility] [address] [id number] [address] [place] [address], [place] [address] March, [facility] [address] [id number] [address] [place] [address], [place] [address] March, [facility] [address] [id number] [address] [place] [address], [place] [address] March, [facility] [address] [id number] [address] [place] [address], [place] [address] Feb, [facility] [address] [id number] [address] [place] [address], [place] [address] Feb, [facility] [address] [id number] [address] [place] [address], [place] [address] Jan, [facility] [address] [id number] [address] [place] [address], [place] [address] Jan, [facility] [address] [id number] [address] [place] [address], [place] [address] Dec, [facility] [address] [id number] [address] [place] [address], [place] [address] Nov, [facility] [address] [id number] [address] [place] [address], [place] [address] Nov, [facility] [address] [id number] [address] [place] [address], [place] [address] Nov, [facility] [address] [id number] [address] [place] [address], [place] [address] Nov, [facility] [address] [id number] [address] [place] [address], [place] [address] Nov, [facility] [address] [place] [id number] Oct, [facility] [address] [id number] [address] [place] [address], [place] [address] Oct, [facility] [address] [id number] [address] [place] [address], [place] [address] Oct, [facility] [address] [id number] [address] [place] [address], [place] [address] Oct, [facility] [address] [id number] [address] [place] [address], [place] [address] Sep, [facility] [address] [id number] [address] [place] [address], [place] [address] Sep, [facility] [address] [id number] [address] [place] [address], [place] [address] May, [facility] [address] [id number] [address] [place] [address], [place] [address] Apr, [facility] [address] [id number] [address] [place] [address], [place] [address] March, [facility] [address] [id number] [address] [place] [address], [place] [address] Feb, [facility] [address] [id number] [address] [place] [address], [place] [address] Feb, [facility] [address] [id number] [address] [place] [address], [place] [address] Feb, [facility] [address] [id number] [address] [place] [address], [place] [address] Jan, [facility] [address] [id number] [address] [place] [address], [place] [address] Jan, [facility] [address] [id number] [address] [place] [address], [place] [address] Jan, [facility] [address] [id number] [address] [place] [address], [place] [address] Dec, [facility] [address] [id number] [address] [place] [address], [place] [address] Dec, [facility] [address] [id number] [address] [place] [address], [place] [address] Dec, [facility] [address] [id number] [address] [place] [address], [place] [address] Dec, [facility] [address] [id number] [address] [place] [address], [place] [address] Dec, [facility] [address] [id number] [address] [place] [address], [place] [address] 16 Dec, 2011 [facility] [address] [id number] [address] [place] [address], [place] [address] Oct, [facility] [address] [id number] [address] [place] [address], [place] [address] Oct, [facility] [address] [id number] [address] [place] [address], [place] [address] Oct, [facility] [address] [id number] [address] [place] [address], [place] [address] 29 Sep, 2011 [facility] [address] [id number] [address] [place] [address], [place] [address] 28 Sep, 2011 [facility] [address] [id number] [address] [place] [address], [place] [address] 18 Sep, 2011 [facility] [address] [id number] [address] [place] [address], [place] [address] 18 Sep, 2011 [facility] [address] [id number] [address] [place] [address], [place] [address] 14 Sep, 2011 [facility] [address] [id number] [address] [place] [address], [place] [address] 15 May, 2011 [facility] [address] [id number] [address] [place] [address], [place] [address] 14 Dec, 2010 [facility] [address] [id number] [place] [address] Oct, [facility] [address] [id number] [address] [place] [address] Sep, [facility] [address] [id number] [address] [place] [address] Aug, [facility] [address] [id number] [address] [place] [address] Aug, [facility] [address] [id number] [address] [place] [address] Aug, [facility] [address] [id number] [address] [place] [address] Sep, [facility] [address] [id number] [address] [place] [address] Sep, [facility] [address] [facility] [id number] [address] [place] [address] Jul, IMMUNIZATIONS No Known Immunizations SOCIAL HISTORY Never Assessed REASON FOR VISIT PLAN OF CARE VITAL SIGNS Height 61 in 2013-05-13 Weight 186 lbs 2013-05-13 Heart Rate 88 bpm 2013-05-13 Blood pressure systolic 132 mmHg 2013-05-13 Blood pressure diastolic 88 mmHg 2013-05-13 MEDICATIONS Unknown Medications RESULTS No Results PROCEDURES [...] Depression Medical History Anxiety Medical History ADHD Medical History diabetes Medical History blood clot Surgical History coronary artery stent (LAD) s/p NSTEMI-E F 45% 10/2012 Surgical History section 1990 & 1995 Surgical History rotator cuff tear repair-Right 2009 Surgical History eye surgery to release pressure 06/2019 Hospitalization History NSTEMI 10/2012 Hospitalization History ETOH rehab 12/2014 Hospitalization History Kidney issues, liver levels were hig h 08/2018 Hospitalization History [facility] Blood clot and kidneys 11/2019
--- OUTSIDE RECORDS SUMMARY | 2020-05-28 19:41 | XMS REPORT ---
Author Author Curtis Tanner Doctor Organization [facility] Address Unknown Phone Unavailable Care Team Providers Care Internet Marketing Specialist Name Role Phone Migration, Doctor Unavailable Unavailable PROBLEMS Type Condition ICD9-CM Code [id number] Code Onset Dates Condition S tatus SNOMED Code Problem Alcohol dependence with unspecified alcohol-induced disord er F10.29 Active 35890492 Problem Arteriosclerosis of coronary artery I25.10 Active 27435598 Problem Vitreous hemorrhage of right eye H43.11 Active 603129981823187 Problem Mixed hyperlipidemia E78.2 Active 240572172 Problem Severe nonproliferative diab etic retinopathy of both eyes associated with type 2 diabetes mellitus, macular edema presence unspecified E11.3493 Active 539279059 Problem Severe nonproliferative diab etic retinopathy of both eyes associated with type 2 diabetes mellitus, macular edema presence unspecified E11.3493 Active 689645792 Problem Diabetic polyneuropathy associated with type 2 d iabetes mellitus E11.42 Active 725992018 Problem Constipation, unspecified constipation type K59.00 Active 61859313 Problem Constipation, unspecified constipation type K59.00 Active 78356808 Problem Type 2 diabetes mellitus wit h mild nonproliferative diabetic retinopathy with macular edema, unspecified eye E11.3219 Activ e 21169736 Problem Glaucoma of both eyes, unspecified glaucoma type H 40.9 Active 28985021 Problem Obesity (BMI 30-39.9) E66.9 Active 691819057 Problem Glaucoma of both eyes, unspecified glaucoma type H 40.9 Active 80339580 Problem Essential hypertension I10 Active 96570257 Problem longterm (current) use of insulin Z79.4 Active 484506798 Problem Type 2 diabetes mellitus wit h 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, unspecified eye E11.3419 Active 70424062 Problem Type 2 diabetes mellitus wit h complication, without long-term current use of insulin E11.8 Active 942449109 ALLERGIES No Information ENCOUNTERS Encounter Location Date Diagnosis [facility] [place] [address] [facility] [id number] [address] [place] [address] March, [facility] [place] [address] [address] Feb, [facility] [place] [address] [address] Jan, Type 2 diabetes mellitus wit h 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, unspecified eye E11.3419 ; Essential hypertension I10 ; longterm (current) use of insulin Z79.4 ; Mixed hy perlipidemia E78.2 ; Type 2 diabetes mellitus with complication, without long- term current use of insulin E11.8 and Obesity (BMI 30-39.9) E66.9 [place] [address] [address] Dec, [facility] [place] [address] [address] Nov, Pyelonephritis N12 ; Acute d eep vein thrombosis (DVT) of popliteal vein of left lower extremity I82.432 ; Arteriosclerosis of coronary artery I25.10 ; Mixed hyperlipidemia E78.2 ; joint terminal attack controller (current) use of insulin Z79.4 ; Type 2 diabetes mellitus with mild nonproliferative diabetic retinopathy with macular edema, unspecified eye E11.3219 and Edema, unspecified type R60.9 [facility] [place] [address] [address] Oct, Type 2 diabetes mellitus wit h complication, without long-term current use of insulin E11.8 and Mixed hyperlipidemia E78.2 [facility] [place] [address] [place] [id number] [address] [place] [address] Oct, Type 2 diabetes mellitus wit h 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, unspecified eye E11.3419 ; longterm (current) use of insulin Z79.4 ; Mixed hyperlipidemia E78.2 ; Essential hypertension I10 ; Type 2 diabetes mellitus with complication, without long-term current use of insulin E11.8 and Diabetic polyneuropathy associated with type 2 diabetes mellitus E11.42 [facility] [address] [address] Sep, Urinary tract infection, sit e not specified N39.0 ; Hematuria, unspecified R31.9 and Constipation, unspecified constipation type K59.00 [place] [address] [address] Jun, Type 2 diabetes mellitus wit h [...] glaucoma type H40.9 and Mixed hyperlipidemia E78.2 [place] [address] [address] Jun, [facility] [place] [address] [address] Jun, Abrasion of right cornea, se quela S05.01XS [facility] [address] [address] May, Acute bacterial conjunctivit is, unspecified laterality H10.30 [place] [address] [place] [id number] [address] [place] [address] Oct, Chronic viral hepatitis C B1 8.2 [place] [address] [address] Sep, Type 2 diabetes mellitus wit h complication, without long-term current use of insulin E11.8 [place] [address] [address] Sep, [place] [address] [address] Sep, Type 2 diabetes mellitus wit h complication, without long-term current use of insulin E11.8 and Enlarged liver R16.0 [place] [id number] [address] Aug, [facility] [place] [address] [facility] [id number] [address] [place] [address] Dec, Abscess, scalp L02.811 [facility] [place] [address] [facility] [id number] [address] [place] [address] Dec, [facility] [place] [address] [place] [id number] [address] [place] [address] Dec, [facility] [address] [place] [id number] [address] [place] [address] Dec, Abscess, scalp L02.811 [place] [address] [place] [id number] [address] [place] [address] 19 Dec, 2017 Abscess, scalp L02.811 [facility] [id number] [place] [address] 17 Dec, 2017 Abscess, scalp L02.811 [facility] [place] [address] [place] [id number] [address] [place] [address] 15 Dec, 2017 Abscess, scalp L02.811 [facility] [place] [address] [place] [id number] [address] [place] [address] 13 Dec, 2017 Abscess, scalp L02.811 [facility] [address] [facility] [id number] [address] [place] [address] 11 Dec, 2017 Cutaneous abscess of head ex cluding face L02.811 [facility] [address] [facility] [id number] [address] [place] [address] 10 Dec, 2017 Abscess L02.91 [facility] [place] [id number] [id number] Dec, [facility] [address] [facility] [id number] [address] [place] [address] Dec, Abscess L02.91 [facility] [address] [id number] [address] [place] [address] Aug, Acute allergic rhinitis due to other allergen, unspecified seasonality J30.89 and Cellulitis of head except face L03.811 [facility] [place] [address] [id number] [address] [place] [address] Jun, [facility] [place] [address] [id number] [address] [place] [address] Jun, [facility] [place] [address] [id number] [address] [place] [address] Jun, [facility] [place] [address] [id number] [address] [place] [address] Jun, [facility] [place] [address] [id number] [address] [place] [address] Jun, [facility] [place] [address] [id number] [address] [place] [address] Jun, Hematuria 599.70 ; Diabetes type 2, uncontrolled 250.02 ; Chest pain 786.50 ; Chronic pain 338.29 and Coronary atherosclerosis of unspecified type of vessel, [place] or graft 414.00 [facility] [place] [address] [id number] [address] [place] [address] Feb, [facility] [place] [address] [id number] [address] [place] [address] Feb, [facility] [place] [address] [id number] [address] [place] [address] Jan, [facility] [place] [address] [id number] [address] [place] [address] Jan, [facility] [place] [address] [id number] [address] [place] [address] Jan, [facility] [place] [address] [facility] [id number] [address] [place] [address] Jan, [facility] [place] [address] [id number] [address] [place] [address], [place] [address] Jan, 2014 [facility] [address] [id number] [address] [place] [address], [place] [address] Jan, 2014 [facility] [address] [id number] [address] [place] [address], [place] [address] Dec, 2014 [facility] [address] [id number] [address] [place] [address], [place] [address] Dec, 2014 [facility] [address] [id number] [address] [place] [address], [place] [address] Dec, 2014 [facility] [address] [id number] [address] [place] [address], [place] [address] Dec, 2014 [facility] [address] [id number] [address] [place] [address], [place] [address] Dec, 2014 [facility] [address] [id number] [address] [place] [address], [place] [address] Dec, 2014 [facility] [address] [id number] [address] [place] [address], [place] [address] Dec, [facility] [address] [id number] [address] [place] [address], [place] [address] Dec, [facility] [address] [id number] [address] [place] [address], [place] [address] Nov, [facility] [address] [id number] [address] [place] [address], [place] [address] Nov, [facility] [address] [id number] [address] [place] [address], [place] [address] Aug, [facility] [address] [id number] [address] [place] [address], [place] [address] Aug, [facility] [address] [id number] [address] [place] [address], [place] [address] May, [facility] [address] [id number] [address] [place] [address], [place] [address] March, [facility] [address] [id number] [address] [place] [address], [place] [address] March, [facility] [address] [id number] [address] [place] [address], [place] [address] March, [facility] [address] [id number] [address] [place] [address], [place] [address] March, [facility] [address] [id number] [address] [place] [address], [place] [address] Feb, [facility] [address] [id number] [address] [place] [address], [place] [address] Feb, [facility] [address] [id number] [address] [place] [address], [place] [address] Jan, [facility] [address] [id number] [address] [place] [address], [place] [address] Jan, [facility] [address] [id number] [address] [place] [address], [place] [address] Dec, [facility] [address] [id number] [address] [place] [address], [place] [address] Nov, [facility] [address] [id number] [address] [place] [address], [place] [address] Nov, [facility] [address] [id number] [address] [place] [address], [place] [address] Nov, [facility] [address] [id number] [address] [place] [address], [place] [address] Nov, [facility] [address] [id number] [address] [place] [address], [place] [address] Nov, [facility] [address] [place] [id number] Oct, [facility] [address] [id number] [address] [place] [address], [place] [address] Oct, [facility] [address] [id number] [address] [place] [address], [place] [address] Oct, [facility] [address] [id number] [address] [place] [address], [place] [address] Oct, [facility] [address] [id number] [address] [place] [address], [place] [address] Sep, [facility] [address] [id number] [address] [place] [address], [place] [address] Sep, [facility] [address] [id number] [address] [place] [address], [place] [address] May, [facility] [address] [id number] [address] [place] [address], [place] [address] Apr, [facility] [address] [id number] [address] [place] [address], [place] [address] March, [facility] [address] [id number] [address] [place] [address], [place] [address] Feb, [facility] [address] [id number] [address] [place] [address], [place] [address] Feb, [facility] [address] [id number] [address] [place] [address], [place] [address] Feb, [facility] [address] [id number] [address] [place] [address], [place] [address] Jan, [facility] [address] [id number] [address] [place] [address], [place] [address] Jan, [facility] [address] [id number] [address] [place] [address], [place] [address] Jan, [facility] [address] [id number] [address] [place] [address], [place] [address] Dec, [facility] [address] [id number] [address] [place] [address], [place] [address] Dec, [facility] [address] [id number] [address] [place] [address], [place] [address] Dec, [facility] [address] [id number] [address] [place] [address], [place] [address] Dec, [facility] [address] [id number] [address] [place] [address], [place] [address] Dec, [facility] [address] [id number] [address] [place] [address], [place] [address] 16 Dec, 2011 [facility] [address] [id number] [address] [place] [address], [place] [address] Oct, [facility] [address] [id number] [address] [place] [address], [place] [address] Oct, [facility] [address] [id number] [address] [place] [address], [place] [address] Oct, [facility] [address] [id number] [address] [place] [address], [place] [address] 29 Sep, 2011 [facility] [address] [id number] [address] [place] [address], [place] [address] 28 Sep, 2011 [facility] [address] [id number] [address] [place] [address], [place] [address] 18 Sep, 2011 [facility] [address] [id number] [address] [place] [address], [place] [address] 18 Sep, 2011 [facility] [address] [id number] [address] [place] [address], [place] [address] 14 Sep, 2011 [facility] [address] [id number] [address] [place] [address], [place] [address] 15 May, 2011 [facility] [address] [id number] [address] [place] [address], [place] [address] 14 Dec, 2010 [facility] [address] [id number] [address] [place] [address], [place] [address] 10 Oct, 2010 [facility] [address] [id number] [address] [place] [address], [place] [address] 03 Sep, 2010 [facility] [address] [id number] [address] [place] [address], [place] [address] Aug, [facility] [place] [address] [facility] [id number] [place] [address] Aug, [facility] [place] [address] [facility] [id number] [address] [place] [address] Aug, [facility] [place] [address] [facility] [id number] [address] [place] [address] Sep, [facility] [place] [address] [facility] [id number] [address] [place] [address] Sep, [facility] [place] [address] [facility] [id number] [address] [place] [address] Jul, IMMUNIZATIONS No Known Immunizations SOCIAL HISTORY [...] levels were hig h 08/2018 Hospitalization History [facility] Blood clot and kidneys 11/2019
--- OUTSIDE RECORDS SUMMARY | 2020-05-28 19:41 | XMS REPORT ---
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 Role Phone JÚNIOR Ying Unavailable PROBLEMS Type Condition ICD9-CM Code [id number] Code Onset Dates Condition S tatus SNOMED Code Problem Alcohol dependence with unspecified alcohol-induced disord er F10.29 Active 65358903 Problem Arteriosclerosis of coronary artery I25.10 Active 57816993 Problem Vitreous hemorrhage of right eye H43.11 Active [id number] Problem Mixed hyperlipidemia E78.2 Active 604741656 Problem Severe nonproliferative diab etic retinopathy of both eyes associated with type 2 diabetes mellitus, macular edema presence unspecified E11.3493 Active 897843062 Problem Severe nonproliferative diab etic retinopathy of both eyes associated with type 2 diabetes mellitus, macular edema presence unspecified E11.3493 Active 969436229 Problem Diabetic polyneuropathy associated with type 2 d iabetes mellitus E11.42 Active 702933098 Problem Constipation, unspecified constipation type K59.00 Active 05124451 Problem Constipation, unspecified constipation type K59.00 Active 76574780 Problem Type 2 diabetes mellitus wit h mild nonproliferative diabetic retinopathy with macular edema, unspecified eye E11.3219 Activ e 53359054 Problem Glaucoma of both eyes, unspecified glaucoma type H 40.9 Active 04460009 Problem Obesity (BMI 30-39.9) E66.9 Active 830268794 Problem Glaucoma of both eyes, unspecified glaucoma type H 40.9 Active 74552266 Problem Essential hypertension I10 Active 35227172 Problem MCFP (current) use of insulin Z79.4 Active 662076732 Problem Type 2 diabetes mellitus wit h 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, unspecified eye E11.3419 Active 88537926 Problem Type 2 diabetes mellitus wit h complication, without long-term current use of insulin E11.8 Active 074515327 ALLERGIES No Information ENCOUNTERS Encounter Location Date Diagnosis [facility] [address] [address] 20 Feb, 2020 [facility] [address] [address] 16 Jan, 2020 Type 2 diabetes mellitus wit h 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, unspecified eye E11.3419 ; Essential hypertension I10 ; MCFP (current) use of insulin Z79.4 ; Mixed hy perlipidemia E78.2 ; Type 2 diabetes mellitus with complication, without long- term current use of insulin E11.8 and Obesity (BMI 30-39.9) E66.9 [facility] [address] [address] 04 Dec, 2019 [facility] [address] [address] Nov, Pyelonephritis N12 ; Acute d eep vein thrombosis (DVT) of popliteal vein of left lower extremity I82.432 ; Arteriosclerosis of coronary artery I25.10 ; Mixed hyperlipidemia E78.2 ; MCFP (current) use of insulin Z79.4 ; Type 2 diabetes mellitus with mild nonproliferative diabetic retinopathy with macular edema, unspecified eye E11.3219 and Edema, unspecified type R60.9 [facility] [address] [address] 20 Oct, 2019 Type 2 diabetes mellitus wit h complication, without long-term current use of insulin E11.8 and Mixed hyperlipidemia E78.2 [facility] [address] [address] 19 Oct, 2019 Type 2 diabetes mellitus wit h 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, unspecified eye E11.3419 ; 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 ; Mixed hyperlipidemia E78.2 ; Essential hypertension I10 ; Type 2 diabetes mellitus with complication, without long-term current use of insulin E11.8 and Diabetic polyneuropathy associated with type 2 diabetes mellitus E11.42 [facility] IN [facility] [address] [address] Sep, Urinary tract infection, sit e not specified N39.0 ; Hematuria, unspecified R31.9 and Constipation, unspecified constipation type K59.00 [place] [id number] [place] [address] Jun, Type 2 diabetes mellitus wit h [...] glaucoma type H40.9 and Mixed hyperlipidemia E78.2 [place] [address] [address] Jun, [facility] [place] [address] [address] Jun, Abrasion of right cornea, se quela S05.01XS [facility] WALK IN [address] [address] May, Acute bacterial conjunctivit is, unspecified laterality H10.30 [place] [address] [address] [place] [id number] [address] [place] [address] Oct, Chronic viral hepatitis C B1 8.2 [place] [address] [address] [place] [id number] [place] [address] Sep, Type 2 diabetes mellitus wit h complication, without long-term current use of insulin E11.8 [place] [address] [address] Sep, [place] [address] [address] Sep, Type 2 diabetes mellitus wit h complication, without long-term current use of insulin E11.8 and Enlarged liver R16.0 [facility] [id number] [address] Aug, [facility] [address] [facility] [id number] [address] [place] [address] Dec, Abscess, scalp L02.811 [facility] [address] [facility] [id number] [address] [place] [address] Dec, [facility] [address] [facility] [id number] [address] [place] [address] Dec, [facility] [address] [place] [id number] [address] [place] [address] Dec, Abscess, scalp L02.811 [place] [address] [address] [place] [id number] [address] [place] [address] 19 Dec, 2017 Abscess, scalp L02.811 [facility] [place] [id number] [address] [place] [address] 17 Dec, 2017 Abscess, scalp L02.811 [facility] [address] [place] [id number] [address] [place] [address] 15 Dec, 2017 Abscess, scalp L02.811 [facility] [address] [place] [id number] [address] [place] [address] 13 Dec, 2017 Abscess, scalp L02.811 [facility] [address] [place] [id number] [address] [place] [address] 11 Dec, 2017 Cutaneous abscess of head ex cluding face L02.811 [facility] [address] [facility] [id number] [address] [place] [address] 10 Dec, 2017 Abscess L02.91 [facility] [place] [facility] [id number] [id number] Dec, [facility] [address] [facility] [id number] [address] [place] [address] 09 Feb, 2018 Abscess L02.91 [facility] [address] [id number] [address] [place] [address] Aug, Acute allergic rhinitis due to other allergen, unspecified seasonality J30.89 and Cellulitis of head except face L03.811 [facility] [address] [id number] [address] [place] [address] Jun, [facility] [address] [id number] [address] [place] [address] Jun, [facility] [address] [id number] [address] [place] [address] Jun, [facility] [address] [facility] [id number] [address] [place] [address] Jun, [facility] [address] [facility] [id number] [address] [place] [address] Jun, [facility] [address] [facility] [id number] [address] [place] [address] Jun, Hematuria 599.70 ; Diabetes type 2, uncontrolled 250.02 ; Chest pain 786.50 ; Chronic pain 338.29 and Coronary atherosclerosis of unspecified type of vessel, [facility] ira or graft 414.00 [facility] [address] [facility] [id number] [address] [place] [address] Feb, [facility] [address] [facility] [id number] [address] [place] [phone] Feb, [facility] [address] [id number] [address] [place] [phone] Jan, [facility] [address] [id number] [address] [place] [phone] Jan, [facility] [address] [facility] [id number] [address] [place] [address] Jan, [facility] [address] [facility] [id number] [address] [place] [phone] Jan, [facility] [address] [id number] [address] [place] [address], [place] [address] Jan, [facility] [address] [id number] [address] [place] [address], [place] [address] Jan, 2014 [facility] [address] [id number] [address] [place] [address], [place] [address] Dec, 2014 [facility] [address] [id number] [address] [place] [address], [place] [address] Dec, 2014 [facility] [address] [id number] [address] [place] [address], [place] [address] Dec, 2014 [facility] [address] [id number] [address] [place] [address], [place] [address] Dec, 2014 [facility] [address] [id number] [address] [place] [address], [place] [address] Dec, 2014 [facility] [address] [id number] [address] [place] [address], [place] [address] Dec, 2014 [facility] [address] [id number] [address] [place] [address], [place] [address] Dec, [facility] [address] [id number] [address] [place] [address], [place] [address] Dec, [facility] [address] [id number] [address] [place] [address], [place] [address] Nov, [facility] [address] [id number] [address] [place] [address], [place] [address] Nov, [facility] [address] [id number] [address] [place] [address], [place] [address] Aug, [facility] [address] [id number] [address] [place] [address], [place] [address] Aug, [facility] [address] [id number] [address] [place] [address], [place] [address] May, [facility] [address] [id number] [address] [place] [address], [place] [address] March, [facility] [address] [id number] [address] [place] [address], [place] [address] March, [facility] [address] [id number] [address] [place] [address], [place] [address] March, [facility] [address] [id number] [address] [place] [address], [place] [address] March, [facility] [address] [id number] [address] [place] [address], [place] [address] Feb, [facility] [address] [id number] [address] [place] [address], [place] [address] Feb, [facility] [address] [id number] [address] [place] [address], [place] [address] Jan, [facility] [address] [id number] [address] [place] [address], [place] [address] Jan, [facility] [address] [id number] [address] [place] [address], [place] [address] Dec, [facility] [address] [id number] [address] [place] [address], [place] [address] Nov, [facility] [address] [id number] [address] [place] [address], [place] [address] Nov, [facility] [address] [id number] [address] [place] [address], [place] [address] Nov, [facility] [address] [id number] [address] [place] [address], [place] [address] Nov, [facility] [address] [id number] [address] [place] [address], [place] [address] Nov, [facility] [address] [place] [id number] Oct, [facility] [address] [id number] [address] [place] [address], [place] [address] Oct, [facility] [address] [id number] [address] [place] [address], [place] [address] Oct, [facility] [address] [id number] [address] [place] [address], [place] [address] Oct, [facility] [address] [id number] [address] [place] [address], [place] [address] Sep, [facility] [address] [id number] [address] [place] [address], [place] [address] Sep, [facility] [address] [id number] [address] [place] [address], [place] [address] May, [facility] [address] [id number] [address] [place] [address], [place] [address] Apr, [facility] [address] [id number] [address] [place] [address], [place] [address] March, [facility] [address] [id number] [address] [place] [address], [place] [address] Feb, [facility] [address] [id number] [address] [place] [address], [place] [address] Feb, [facility] [address] [id number] [address] [place] [address], [place] [address] Feb, [facility] [address] [id number] [address] [place] [address], [place] [address] Jan, [facility] [address] [id number] [address] [place] [address], [place] [address] Jan, [facility] [address] [id number] [address] [place] [address], [place] [address] Jan, [facility] [address] [id number] [address] [place] [address], [place] [address] Dec, [facility] [address] [id number] [address] [place] [address], [place] [address] Dec, [facility] [address] [id number] [address] [place] [address], [place] [address] Dec, [facility] [address] [id number] [address] [place] [address], [place] [address] Dec, [facility] [address] [id number] [address] [place] [address], [place] [address] Dec, [facility] [address] [id number] [address] [place] [address], [place] [address] 16 Dec, 2011 [facility] [address] [id number] [address] [place] [address], [place] [address] Oct, [facility] [address] [id number] [address] [place] [address], [place] [address] Oct, [facility] [address] [id number] [address] [place] [address], [place] [address] Oct, [facility] [address] [id number] [address] [place] [address], [place] [address] 29 Sep, 2011 [facility] [address] [id number] [address] [place] [address], [place] [address] 28 Sep, 2011 [facility] [address] [id number] [address] [place] [address], [place] [address] 18 Sep, 2011 [facility] [address] [id number] [address] [place] [address], [place] [address] 18 Sep, 2011 [facility] [address] [id number] [address] [place] [address], [place] [address] 14 Sep, 2011 [facility] [address] [id number] [address] [place] [address], [place] [address] 15 May, 2011 [facility] [address] [id number] [address] [place] [address], [place] [address] 14 Dec, 2010 [facility] [address] [id number] [address] [place] [address], [place] [address] 10 Oct, 2010 [facility] [address] [id number] [address] [place] [address], [place] [address] 03 Sep, 2010 [facility] [address] [id number] [place] [address] Aug, [facility] [address] [facility] [id number] [address] [place] [address] Aug, [facility] [address] [facility] [id number] [address] [place] [address] Aug, [facility] [address] [facility] [id number] [address] [place] [address] Sep, [facility] [address] [facility] [id number] [address] [place] [address] Sep, [facility] [address] [facility] [id number] [address] [place] [id number] Jul, IMMUNIZATIONS No Known Immunizations SOCIAL HISTORY [...] levels were hig h 08/2018 Hospitalization History [facility] Blood clot and kidneys 11/2019
--- OUTSIDE RECORDS SUMMARY | 2020-05-28 19:43 | XMS REPORT | Continuity of Care Document ---
Author Organization Unknown Address Unknown Phone Unavailable Allergies Active Description Code Type Severity Reaction Onset Reported/Identified Relationship to Patient Clinical Status Yes etodolac [id number] Drug Allergy Unknown N/A 02/13/2006 Yes morphine Drug Allergy 01/31/2009 Yes morphine Drug Allergy N/A N/A 01/31/2009 Yes morphine [id number] Drug Allergy Mild itching 12/01/2014 Yes latex [id number] Drug Allergy Unknown N/A 12/01/2014 Yes plastic tape plastic tape Severe skin peeling of 09/09/2018 Yes No Known Allergies No Known Allergies Drug Allergy Unknown N/A 07/02/2019 Medications There is no data. Problems Date Dx Coded Attending Type Code Diagnosis Diagnosed By 06/10/2008 250.02 IRENE BETES MELLITUS TYPE 2 - UNCOMPLICATED, UNCONTROLLED 06/10/2008 354.0 CARP AL TUNNEL SYNDROME 06/10/2008 401.9 UNSP ECIFIED ESSENTIAL HYPERTENSION 06/10/2008 780.52 INS OMNIA UNSPECIFIED 06/10/2008 250.02 IRENE BETES MELLITUS TYPE 2 - UNCOMPLICATED, UNCONTROLLED 06/10/2008 354.0 CARP AL TUNNEL SYNDROME 06/10/2008 401.9 UNSP ECIFIED ESSENTIAL HYPERTENSION 06/10/2008 780.52 INS OMNIA UNSPECIFIED 06/10/2008 DOMINGA MOYA DO 250.02 DIABETES MELLITUS TYPE 2 - UNCOMPLICATED, UNCONTROLLED 06/10/2008 DOMINGA MOYA DO 354.0 CARPAL TUNNEL SYNDROME 06/10/2008 DOMINGA MOYA DO 401.9 UNSPECIFIED ESSENTIAL HYPERTENSION 06/10/2008 DOMINGA MOYA DO 780.52 INSOMNIA UNSPECIFIED 06/10/2008 SARA BURTON MD 250.0 2 DIABETES MELLITUS TYPE 2 - UNCOMPLICATED, UNCONTROLLED 06/10/2008 SARA BURTON MD 354.0 CARPAL TUNNEL SYNDROME 06/10/2008 SARA BURTON MD 401.9 UNSPECIFIED ESSENTIAL HYPERTENSION 06/10/2008 SARA BURTON MD 780.5 2 INSOMNIA UNSPECIFIED 06/10/2008 250.02 IRENE BETES MELLITUS TYPE 2 - UNCOMPLICATED, UNCONTROLLED 06/10/2008 354.0 CARP AL TUNNEL SYNDROME 06/10/2008 401.9 UNSP ECIFIED ESSENTIAL HYPERTENSION 06/10/2008 780.52 INS OMNIA UNSPECIFIED 06/10/2008 CORRIE STAFFORDSuyapa PEARL SANTORO 250.02 DIABETES MELLITUS TYPE 2 - UNCOMPLICATED, UNCONTROLLED 06/10/2008 CORRIE STAFFORDN, PEARL SANT[place]O 354.0 CARPAL TUNNEL SYNDROME 06/10/2008 CORRIE STAFFORDN, PEARL SANT[place]O 401.9 UNSPECIFIED ESSENTIAL HYPERTENSION 06/10/2008 DENTONLUIGI STAFFORDN, PEARL SANT[place]O 780.52 INSOMNIA UNSPECIFIED 06/10/2008 ISABEL STORAGE CONSULTANT, JÚNIOR R 250.02 DIABETES MELLITUS TYPE 2 - UNCOMPLICATED, UNCONTROLLED 06/10/2008 ISABEL STORAGE CONSULTANT, JÚNIOR R 354.0 CARPAL TUNNEL SYNDROME 06/10/2008 ISABEL STORAGE CONSULTANT, JÚNIOR R 401.9 UNSPECIFIED ESSENTIAL HYPERTENSION 06/10/2008 ISABEL LATIF, JÚNIOR R 780.52 INSOMNIA UNSPECIFIED 06/10/2008 ISABEL LATIF, JÚNIOR R 250.02 DIABETES MELLITUS TYPE 2 - UNCOMPLICATED, UNCONTROLLED 06/10/2008 ISABEL STORAGE CONSULTANT, JÚNIOR R 354.0 CARPAL TUNNEL SYNDROME 06/10/2008 ISABEL STORAGE CONSULTANT, JÚNIOR R 401.9 UNSPECIFIED ESSENTIAL HYPERTENSION 06/10/2008 IASBEL STAFFORDN, JÚNIOR R 780.52 INSOMNIA UNSPECIFIED 06/10/2008 STEVEN MCQUEEN APRNIDI A 250.02 DIABETES MELLITUS TYPE 2 - UNCOMPLICATED, UNCONTROLLED 06/10/2008 CHARISSE LATIF SHILPI A 35 4.0 CARPAL TUNNEL SYNDROME 06/10/2008 CHARISSE LATIF SHILPI A 40 1.9 UNSPECIFIED ESSENTIAL HYPERTENSION 06/10/2008 CHARISSE LATIF SHILPI A 780.52 INSOMNIA UNSPECIFIED 01/31/2009 465.9 UPPE R RESPIRATORY INFECTION ACUTE 01/31/2009 465.9 UPPE R RESPIRATORY INFECTION ACUTE 01/31/2009 DOMINGA MOYA DO 465.9 UPPER RESPIRATORY INFECTION ACUTE 01/31/2009 SARA BURTON MD 465.9 UPPER RESPIRATORY INFECTION ACUTE 01/31/2009 465.9 UPPE R RESPIRATORY INFECTION ACUTE 01/31/2009 CORRIE LATIF PEARL MAUDE 465.9 UPPER RESPIRATORY INFECTION ACUTE 01/31/2009 ISABEL LATIF JÚNIOR R 465.9 UPPER RESPIRATORY INFECTION ACUTE 01/31/2009 ISABEL STORAGE CONSULTANT, JÚNIOR R 465.9 UPPER RESPIRATORY INFECTION ACUTE 01/31/2009 SHILPI MCQUEEN APRN A 46 5.9 UPPER RESPIRATORY INFECTION ACUTE 12/22/2009 070.54 HEP ATITIS, C VIRUS - CHRONIC 12/22/2009 729.1 INTE RCOSTAL MYOSITIS 12/22/2009 780.79 FATIGUE 12/22/2009 070.54 HEP ATITIS, C VIRUS - CHRONIC 12/22/2009 729.1 INTE RCOSTAL MYOSITIS 12/22/2009 780.79 FATIGUE 12/22/2009 DOMINGA MOYA DO K 070.54 HEPATITIS, C VIRUS - CHRONIC 12/22/2009 MOYA DOMINGA BRAN K 729.1 INTERCOSTAL MYOSITIS 12/22/2009 DOMINGA MOYA DO K 780.79 FATIGUE 12/22/2009 SARA BURTON MD 070.5 4 HEPATITIS, C VIRUS - CHRONIC 12/22/2009 SARA BURTON MD 729.1 INTERCOSTAL MYOSITIS 12/22/2009 SARA BURTON MD 780.7 9 FATIGUE 12/22/2009 070.54 HEP ATITIS, C VIRUS - CHRONIC 12/22/2009 729.1 INTE RCOSTAL MYOSITIS 12/22/2009 780.79 FATIGUE 12/22/2009 PEARL DENTON APRN 070.54 HEPATITIS, C VIRUS - CHRONIC 12/22/2009 PEARL DENTON APRN 729.1 INTERCOSTAL MYOSITIS 12/22/2009 PEARL DENTON APRN 780.79 FATIGUE 12/22/2009 ISABEL LATIF, JÚNIOR R 070.54 HEPATITIS, C VIRUS - CHRONIC 12/22/2009 ISABEL LATIF, JÚNIOR R 729.1 INTERCOSTAL MYOSITIS 12/22/2009 ISABEL STAFFORDN, JÚNIOR R 780.79 FATIGUE 12/22/2009 ISABEL STAFFORDN, JÚNIOR R 070.54 HEPATITIS, C VIRUS - CHRONIC 12/22/2009 ISABEL LATIF, JÚNIOR R 729.1 INTERCOSTAL MYOSITIS 12/22/2009 ISABEL LATIF, JÚNIOR R 780.79 FATIGUE 12/22/2009 SHILPI MCQUEEN APRN A 070.54 HEPATITIS, C VIRUS - CHRONIC 12/22/2009 SHILPI MCQUEEN APRN A 72 9.1 INTERCOSTAL MYOSITIS 12/22/2009 SHILPI MCQUEEN APRN A 780.79 FATIGUE 12/24/2009 285.9 ANEM IA UNSPECIFIED 12/24/2009 285.9 ANEM IA UNSPECIFIED 12/24/2009 DOMINGA MOYA DO K 285.9 ANEMIA UNSPECIFIED 12/24/2009 SARA BURTON MD 285.9 ANEMIA UNSPECIFIED 12/24/2009 285.9 ANEM IA UNSPECIFIED 12/24/2009 PEARL DENTON APRN 285.9 ANEMIA UNSPECIFIED 12/24/2009 ALVARO HALL APRNINA R 285.9 ANEMIA UNSPECIFIED 12/24/2009 ALVARO HALL APRNINA R 285.9 ANEMIA UNSPECIFIED 12/24/2009 SHILPI MCQUEEN APRN A 28 5.9 ANEMIA UNSPECIFIED 12/27/2010 296.32 MO DEPRESSIVE RECURRENT MODERATE 12/27/2010 300.02 AN GEN ANXIETY 12/27/2010 314.00 ADH D INATTENTIVE 12/27/2010 296.32 MO DEPRESSIVE RECURRENT MODERATE 12/27/2010 300.02 AN GEN ANXIETY 12/27/2010 314.00 ADH D INATTENTIVE 12/27/2010 DOMINGA MOYA DO 296.32 MO DEPRESSIVE RECURRENT MODERATE 12/27/2010 DOMINGA MOYA DO K 300.02 AN GEN ANXIETY 12/27/2010 DOMINGA MOYA DO 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 12/27/2010 SARA BURTON MD 296.3 2 MO DEPRESSIVE RECURRENT MODERATE 12/27/2010 SARA BURTON MD 300.0 2 AN GEN ANXIETY 12/27/2010 SARA BURTON MD 314.0 0 ADHD INATTENTIVE 12/27/2010 296.32 MO DEPRESSIVE RECURRENT MODERATE 12/27/2010 300.02 AN GEN ANXIETY 12/27/2010 314.00 ADH D INATTENTIVE 12/27/2010 PEARL DENTON APRN 296.32 MO DEPRESSIVE RECURRENT MODERATE 12/27/2010 PEARL DENTON APRN 300.02 AN GEN ANXIETY 12/27/2010 PEARL DENTON APRN 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 12/27/2010 JÚNIOR HALL APRN R 296.32 MO DEPRESSIVE RECURRENT MODERATE 12/27/2010 ALVARO HALL APRNINA R 300.02 AN GEN ANXIETY 12/27/2010 ALVARO HALL APRNINA R 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 12/27/2010 ISABEL STORAGE CONSULTANT, JÚNIOR R 296.32 MO DEPRESSIVE RECURRENT MODERATE 12/27/2010 ISABEL STAFFORDN, JÚNIOR R 300.02 AN GEN ANXIETY 12/27/2010 ISABEL STAFFORDN, JÚNIOR R 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 12/27/2010 CHARISSE LATIF SHILPI A 296.32 MO DEPRESSIVE RECURRENT MODERATE 12/27/2010 CHARISSE STAFFORDN, SHILPI A 300.02 AN GEN ANXIETY 12/27/2010 CHARISSE STAFFORDN, SHILPI A 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 05/27/2011 314.01 ADH D COMBINED 05/27/2011 314.01 ADH D COMBINED 05/27/2011 CARLENE MOYA DOA K 314.01 ADHD COMBINED 05/27/2011 SARA BURTON MD 314.0 1 ADHD COMBINED 05/27/2011 314.01 ADH D COMBINED 05/27/2011 PEARL DENTON APRN 314.01 ADHD COMBINED 05/27/2011 ISABEL LATIF, JÚNIOR R 314.01 ADHD COMBINED 05/27/2011 ISABEL LATIF, JÚNIOR R 314.01 ADHD COMBINED 05/27/2011 STEVEN MCQUEEN APRNIDI A 314.01 ADHD COMBINED 07/05/2011 112.3 CAND IDIASIS OF SKIN AND NAILS 07/05/2011 710.0 SYST EMIC LUPUS ERYTHEMATOSUS 07/05/2011 780.60 FEV ER UNSPECIFIED 07/05/2011 112.3 CAND IDIASIS OF SKIN AND NAILS 07/05/2011 710.0 SYST EMIC LUPUS ERYTHEMATOSUS 07/05/2011 780.60 FEV ER UNSPECIFIED 07/05/2011 DOMINGA MOYA DO K 112.3 CANDIDIASIS OF SKIN AND NAILS 07/05/2011 DOMINGA MOYA DO K 710.0 SYSTEMIC LUPUS ERYTHEMATOSUS 07/05/2011 DOMINGA MOYA DO K 780.60 FEVER UNSPECIFIED 07/05/2011 SARA BURTON MD 112.3 CANDIDIASIS OF SKIN AND NAILS 07/05/2011 SARA BURTON MD 710.0 SYSTEMIC LUPUS ERYTHEMATOSUS 07/05/2011 SARA BURTON MD 780.6 0 FEVER UNSPECIFIED 07/05/2011 112.3 CAND IDIASIS OF SKIN AND NAILS 07/05/2011 710.0 SYST EMIC LUPUS ERYTHEMATOSUS 07/05/2011 780.60 FEV ER UNSPECIFIED 07/05/2011 PEARL DENTON APRN 112.3 CANDIDIASIS OF SKIN AND NAILS 07/05/2011 PEARL DENTON APRN 710.0 SYSTEMIC LUPUS ERYTHEMATOSUS 07/05/2011 PEARL DENTON APRN 780.60 FEVER UNSPECIFIED 07/05/2011 ISABEL STORAGE CONSULTANT, JÚNIOR R 112.3 CANDIDIASIS OF SKIN AND NAILS 07/05/2011 ISABEL STORAGE CONSULTANT, JÚNIOR R 710.0 SYSTEMIC LUPUS ERYTHEMATOSUS 07/05/2011 ISABEL STORAGE CONSULTANT, JÚNIOR R 780.60 FEVER UNSPECIFIED 07/05/2011 ISABEL STORAGE CONSULTANT, JÚNIOR R 112.3 CANDIDIASIS OF SKIN AND NAILS 07/05/2011 ISABEL STORAGE CONSULTANT, JÚNIOR R 710.0 SYSTEMIC LUPUS ERYTHEMATOSUS 07/05/2011 ISABEL STORAGE CONSULTANT, JÚNIOR R 780.60 FEVER UNSPECIFIED 07/05/2011 CHARISSE APRN, SHILPI A 11 2.3 CANDIDIASIS OF SKIN AND NAILS 07/05/2011 CHARISSE APRN, SHILPI A 71 0.0 SYSTEMIC LUPUS ERYTHEMATOSUS 07/05/2011 CHARISSE APRN, SHILPI A 780.60 FEVER UNSPECIFIED 01/03/2012 289.3 PRIM ARTEM LYMPHADENITIS 01/03/2012 616.10 VAG INITIS 01/03/2012 V76.10 vis it for: screening exam malignant neoplasm breast 01/03/2012 V76.2 Cerv ical Pap Smear 01/03/2012 289.3 PRIM ARTEM LYMPHADENITIS 01/03/2012 616.10 VAG INITIS 01/03/2012 V76.10 vis it for: screening exam malignant neoplasm breast 01/03/2012 V76.2 Cerv ical Pap Smear 01/03/2012 DOMINGA MOYA DO 289.3 PRIMARY LYMPHADENITIS 01/03/2012 DOMINGA MOYA DO 616.10 VAGINITIS 01/03/2012 DOMINGA MOYA DO V76.10 visit for: screening exam malignant neoplasm breast 01/03/2012 DOMNIGA MOYA DO V76.2 Cervical Pap Smear 01/03/2012 SARA BURTON MD 289.3 PRIMARY LYMPHADENITIS 01/03/2012 SARA BURTON MD 616.1 0 VAGINITIS 01/03/2012 SARA BURTON MD V76.1 0 visit for: screening exam malignant neoplasm breast 01/03/2012 SARA BURTON MD V76.2 Cervical Pap Smear 01/03/2012 289.3 PRIM ARTEM LYMPHADENITIS 01/03/2012 616.10 VAG INITIS 01/03/2012 V76.10 vis it for: screening exam malignant neoplasm breast 01/03/2012 V76.2 Cerv ical Pap Smear 01/03/2012 CORRIE LATIF PEARL SANTORO 289.3 PRIMARY LYMPHADENITIS 01/03/2012 DENTON APRN, PE[place] 616.10 VAGINITIS 01/03/2012 CORRIE LATIF PEARL SANT[place]O V76.10 visit for: screening exam malignant neoplasm breast 01/03/2012 CORRIE LATIF PEARL SANT[place]O V76.2 Cervical Pap Smear 01/03/2012 ISABEL LATIF, JÚNIOR R 289.3 PRIMARY LYMPHADENITIS 01/03/2012 ISABEL LATIF, JÚNIOR R 616.10 VAGINITIS 01/03/2012 ISABEL BHAVYA, JÚNIOR R V76.10 visit for: screening exam malignant neoplasm breast 01/03/2012 ISABEL LATIF, JÚNIOR R V76.2 Cervical Pap Smear 01/03/2012 ISABEL LATIF, JÚNIOR R 289.3 PRIMARY LYMPHADENITIS 01/03/2012 ISABEL LATIF, JÚNIOR R 616.10 VAGINITIS 01/03/2012 ISABEL LATIF, JÚNIOR R V76.10 visit for: screening exam malignant neoplasm breast 01/03/2012 ISABEL LATIF, JÚNIOR R V76.2 Cervical Pap Smear 01/03/2012 SHILPI MCQUEEN APRN A 28 9.3 PRIMARY LYMPHADENITIS 01/03/2012 CHARISSE LATIF SHILPI A 616.10 VAGINITIS 01/03/2012 CHARISSE LATIF SHILPI A V76.10 visit for: screening exam malignant neoplasm breast 01/03/2012 CHARISSE LATIF SHILPI A V7 6.2 Cervical Pap Smear 01/09/2012 461.9 SINU SITIS ACUTE 01/09/2012 461.9 SINU SITIS ACUTE 01/09/2012 DOMINGA MOYA DO 461.9 SINUSITIS ACUTE 01/09/2012 SARA BURTON MD 461.9 SINUSITIS ACUTE 01/09/2012 461.9 SINU SITIS ACUTE 01/09/2012 CORRIE LATIF PEARL MAUDE 461.9 SINUSITIS ACUTE 01/09/2012 ISABEL STORAGE CONSULTANT, JÚNIOR R 461.9 SINUSITIS ACUTE 01/09/2012 ISABEL LATIF, JÚNIOR R 461.9 SINUSITIS ACUTE 01/09/2012 CHARISSE LATIF, SHILPI A 46 1.9 SINUSITIS ACUTE 11/14/2012 DOMINGA MOYA DO 414.00 CAD 11/14/2012 SARA BURTON MD 414.0 0 CORONARY ARTERY DISEASE 11/14/2012 414.00 COR ONARY ARTERY DISEASE 11/14/2012 PEARL DENTON APRN 414.00 CORONARY ARTERY DISEASE 11/14/2012 ISABEL LATIF, JÚNIOR R 414.00 CORONARY ARTERY DISEASE 11/14/2012 ISABEL ALTIF, JÚNIOR R 414.00 CORONARY ARTERY DISEASE 11/14/2012 CHARISSE LATIF, SHILPI A 414.00 CORONARY ARTERY DISEASE 11/29/2012 SARA BURTON MD 625.3 DYSMENORRHEA 11/29/2012 625.3 DYSM ENORRHEA 11/29/2012 PEARL DENOTN APRN 625.3 DYSMENORRHEA 11/29/2012 ISABEL LATIF, JÚNIOR R 625.3 DYSMENORRHEA 11/29/2012 ISABEL LATIF, JÚNIOR R 625.3 DYSMENORRHEA 11/29/2012 CHARISSE LATIF, SHILPI Gan 62 5.3 DYSMENORRHEA 12/04/2014 ERIKA CONKLIN MD Ot 038 .9 SEPTICEMIA NOS 12/04/2014 ERIKA CONKLIN MD Ot 041.49 OTHER AND UNSPECIFIED ESCHERICHIA COLI [ 12/04/2014 ERIKA CONKLIN MD Ot 070.54 CHRONIC HEPATITIS C W/O HEPATIC COMA 12/04/2014 ERIKA CONKLIN MD Ot 250.02 DIAB MATEUSZ WO COMPL, TYPE II OR UNSPEC TY 12/04/2014 ERIKA CONKLIN MD Ot 276 .1 HYPOSMOLALITY 12/04/2014 ERIKA CONKLIN MD Ot 303.01 12/04/2014 ERIKA CONKLIN MD Ot 305.01 ALCOHOL ABUSE-CONTINUOUS 12/04/2014 ERIKA CONKLIN MD Ot 414.01 CORONARY ATHEROSCLEROSIS OF [place] CORON 12/04/2014 ERIKA CONKLIN MD Ot 599 .0 URIN TRACT INFECTION NOS 12/04/2014 ERIKA CONKLIN MD Ot 995.91 SEPSIS 12/31/2014 JÚNIOR HALL APRN R 303.90 OTHER AND UNSPECIFIED ALCOHOL DEPENDENCE UNSPECIFIED DRINKING BEHAVIOR 12/31/2014 ALVARO HALL APRNINA R 303.90 OTHER AND UNSPECIFIED ALCOHOL DEPENDENCE UNSPECIFIED DRINKING BEHAVIOR 12/31/2014 CHARISSE STORAGE CONSULTANTSHILPI Dale A 303.90 OTHER AND UNSPECIFIED ALCOHOL DEPENDENCE UNSPECIFIED DRINKING BEHAVIOR 02/18/2015 ALVARO HALL APRNINA R 719.47 PAIN IN JOINT INVOLVING ANKLE AND FOOT 02/18/2015 ALVARO HALL APRNINA R 788.41 URINARY FREQUENCY 02/18/2015 CHARISSESHILPI Dale APRN A 719.47 PAIN IN JOINT INVOLVING ANKLE AND FOOT 02/18/2015 SHILPI MCQUEEN APRN A 788.41 URINARY FREQUENCY 02/23/2015 SHILPI MCQUEEN APRN A 131.01 TRICHOMONAL VULVOVAGINITIS 02/23/2015 SHILPI MCQUEEN APRN A V72.31 WOOD GRINDER OPERATOR EXAM, ROUTINE 02/23/2015 SHILPI MCQUEEN APRN V73.81 HPV SCREENING 02/23/2015 SHILPI MCQUEEN APRN A V7 4.5 STD SCREEN 09/12/2018 GENIE EASON MD, Ot B19. 20 UNSPECIFIED VIRAL HEPATITIS C WITHOUT HE 09/12/2018 GENIE EASON MD, Ot E11. 00 TYPE 2 DIAB W HYPROSM W/O NONKET HYPRGLY 09/12/2018 GENIE EASON MD, Ot E78. 5 HYPERLIPIDEMIA, UNSPECIFIED 09/12/2018 GENIE EASON MD, Ot F10. 20 ALCOHOL DEPENDENCE, UNCOMPLICATED 09/12/2018 GENIE EASON MD, Ot F90. 9 ATTENTION-DEFICIT HYPERACTIVITY DISORDER 09/12/2018 GENIE EASON MD, Ot I10 ESSENTIAL (PRIMARY) HYPERTENSION 09/12/2018 GENIE EASON MD, Ot I25. 10 ATHSCL HEART DISEASE OF [place] CORONARY 09/12/2018 GENIE EASON MD, Ot I25. 2 OLD MYOCARDIAL INFARCTION 09/12/2018 GENIE EASON MD, Ot K43. 9 VENTRAL HERNIA WITHOUT OBSTRUCTION OR GA 09/12/2018 GENIE EASON MD, Ot L93. 0 DISCOID LUPUS ERYTHEMATOSUS 09/12/2018 GENIE EASON MD, Ot M19. 91 PRIMARY OSTEOARTHRITIS, UNSPECIFIED SITE 09/12/2018 GENIE EASON MD, Ot M79. 7 FIBROMYALGIA 09/12/2018 GENIE EASON MD, Ot N12 TUBULO-INTERSTITIAL NEPHRITIS, NOT SPCF 09/12/2018 GENIE EASON MD, Ot Z79. 4 HEEL SLICKER (CURRENT) USE OF INSULIN 09/12/2018 GENIE EASON MD, Ot Z87.891 PERSONAL HISTORY OF NICOTINE DEPENDENCE 09/12/2018 GENIE EASON MD, Ot Z91. 19 PATIENT'S NONCOMPLIANCE W [facility] 09/12/2018 GNEIE EASON MD, Ot Z95. 5 PRESENCE OF CORONARY ANGIOPLASTY IMPLANT 09/12/2018 GENIE EASON MD, Ot B18. 2 CHRONIC VIRAL HEPATITIS C 09/12/2018 GENIE EASON MD, Ot E11. 00 TYPE 2 DIAB W HYPROSM W/O NONKET HYPRGLY 09/12/2018 GENIE EASON MD, Ot E78. 5 HYPERLIPIDEMIA, UNSPECIFIED 09/12/2018 GENIE EASON MD, Ot E87. 1 HYPO-OSMOLALITY AND HYPONATREMIA 09/12/2018 GENIE EASON MD, Ot F10. 20 ALCOHOL DEPENDENCE, UNCOMPLICATED 09/12/2018 GENIE EASON MD, Ot F90. 9 ATTENTION-DEFICIT HYPERACTIVITY DISORDER 09/12/2018 GENIE EASON MD, Ot I10 ESSENTIAL (PRIMARY) HYPERTENSION 09/12/2018 GENIE EASON MD, Ot I25. 10 ATHSCL HEART DISEASE OF [place] CORONARY 09/12/2018 GENIE EASON MD, Ot I25. 2 OLD MYOCARDIAL INFARCTION 09/12/2018 GENIE EASON MD, Ot K43. 9 VENTRAL HERNIA WITHOUT OBSTRUCTION OR GA 09/12/2018 GENIE EASON MD, Ot M19. 91 PRIMARY OSTEOARTHRITIS, UNSPECIFIED SITE 09/12/2018 GENIE EASON MD, Ot M32. 9 SYSTEMIC LUPUS ERYTHEMATOSUS, UNSPECIFIE 09/12/2018 GENIE EASON MD, Ot M79. 7 FIBROMYALGIA 09/12/2018 GENIE EASON MD, Ot N10 ACUTE PYELONEPHRITIS 09/12/2018 GENIE EASON MD, Ot N13. 30 UNSPECIFIED HYDRONEPHROSIS 09/12/2018 GENIE EASON MD, Ot N15. 1 RENAL AND PERINEPHRIC ABSCESS 09/12/2018 GENIE EASON MD, Ot N17. 9 ACUTE KIDNEY FAILURE, UNSPECIFIED 09/12/2018 GENIE EASON MD, Ot N28. 9 DISORDER OF KIDNEY AND URETER, UNSPECIFI 09/12/2018 GENIE ESAON MD, Ot R33. 9 RETENTION OF URINE, UNSPECIFIED 09/12/2018 GENIE EASON MD, Ot Z79. 4 HEEL SLICKER (CURRENT) USE OF INSULIN 09/12/2018 GENIE EASON MD, Ot Z87.440 PERSONAL HISTORY OF URINARY (TRACT) INFE 09/12/2018 GENIE EASON MD, Ot Z87.891 PERSONAL HISTORY OF NICOTINE DEPENDENCE 09/12/2018 GENIE EASON MD, Ot Z91. 19 PATIENT'S NONCOMPLIANCE W [facility] 09/12/2018 GENIE EASON MD, Ot Z95. 5 PRESENCE OF CORONARY ANGIOPLASTY IMPLANT 11/24/2019 FLORIN BRAN DANUTA Ot A41.9 SEPSIS, UNSPECIFIED ORGANISM 11/24/2019 FLORIN BRAN DANUTA Ot E11.40 TYPE 2 DIABETES MELLITUS WITH DIABETIC N 11/24/2019 ERICA CATHERINE DOI Ot E11.65 TYPE 2 DIABETES MELLITUS WITH HYPERGLYCE 11/24/2019 FLORIN BRAN DANUTA Ot E78.00 PURE HYPERCHOLESTEROLEMIA, UNSPECIFIED 11/24/2019 FLORIN BRAN DANUTA Ot E87.5 HYPERKALEMIA 11/24/2019 FLORIN BRAN DANUTA Ot F10.20 ALCOHOL DEPENDENCE, UNCOMPLICATED 11/24/2019 FLORIN BRAN DANUTA Ot F90.9 ATTENTION-DEFICIT HYPERACTIVITY DISORDER 11/24/2019 FLORIN BRAN DANUTA Ot I10 ESSENTIAL (PRIMARY) HYPERTENSION 11/24/2019 ERICA CATHERINE DOI Ot I25.10 ATHSCL HEART DISEASE OF [place] CORONARY 11/24/2019 FLORIN BRAN DANUTA Ot I25.2 OLD MYOCARDIAL INFARCTION 11/24/2019 FLORIN BRAN DANUTA Ot I82.43 2 ACUTE EMBOLISM AND THROMBOSIS OF LEFT PO 11/24/2019 FLORIN BRAN DANUTA Ot I82.4Z 2 AC EMBLSM AND THOMBOS UNSP DEEP VEINS OF 11/24/2019 FLORIN BRAN DANUTA Ot K59.09 OTHER CONSTIPATION 11/24/2019 FLORIN BRAN DANUTA Ot M19.90 UNSPECIFIED OSTEOARTHRITIS, UNSPECIFIED 11/24/2019 FLORIN BRAN DANUTA Ot N10 ACUTE PYELONEPHRITIS 11/24/2019 FLORIN BRAN DANUTA Ot Z87.89 1 PERSONAL HISTORY OF NICOTINE DEPENDENCE 11/24/2019 FLORIN BRAN DANUTA Ot Z95.5 PRESENCE OF CORONARY ANGIOPLASTY IMPLANT 02/16/2020 FLORIN BRAN DANUTA Ot B19.20 UNSPECIFIED VIRAL HEPATITIS C WITHOUT HE 02/16/2020 FLORIN BRAN DANUTA Ot E11.31 9 TYPE 2 DIABETES W UNSP DIABETIC RTNOP W/ 02/16/2020 FLORIN BRAN DANUTA Ot E11.42 TYPE 2 DIABETES MELLITUS WITH DIABETIC P 02/16/2020 FLORIN BRAN DANUTA Ot E11.65 TYPE 2 DIABETES MELLITUS WITH HYPERGLYCE 02/16/2020 FLORIN BRAN DANUTA Ot E78.5 HYPERLIPIDEMIA, UNSPECIFIED 02/16/2020 FLORIN BRAN DANUTA Ot F10.20 ALCOHOL DEPENDENCE, UNCOMPLICATED 02/16/2020 FLORIN BRAN DANUTA Ot F90.9 ATTENTION-DEFICIT HYPERACTIVITY DISORDER 02/16/2020 FLORIN BRAN DANUTA Ot H26.9 UNSPECIFIED CATARACT 02/16/2020 FLORIN BRAN, DANUTA Ot I10 ESSENTIAL (PRIMARY) HYPERTENSION 02/16/2020 FLORIN BRAN DANUTA Ot I21.4 NON-ST ELEVATION (NSTEMI) MYOCARDIAL INF 02/16/2020 FLORIN BRAN DANUTA Ot 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 02/16/2020 FLORIN BRAN DANUTA Ot I25.2 OLD MYOCARDIAL INFARCTION 02/16/2020 FLORIN BRAN DANUTA Ot 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 02/16/2020 FLORIN BRAN DANUTA Ot M19.91 PRIMARY OSTEOARTHRITIS, UNSPECIFIED SITE 02/16/2020 FLORIN BRAN DANUTA Ot M32.9 SYSTEMIC LUPUS ERYTHEMATOSUS, UNSPECIFIE 02/16/2020 FLORIN BRAN DANUTA Ot M79.7 FIBROMYALGIA 02/16/2020 FLORIN BRAN DANUTA Ot Z79.01 RETIREMENT (CURRENT) USE OF ANTICOAGULANT 02/16/2020 FLORIN BRAN DANUTA Ot Z79.4 HEEL SLICKER (CURRENT) USE OF INSULIN 02/16/2020 FLORIN BRAN DNAUTA Ot Z86.71 8 PERSONAL HISTORY OF OTHER VENOUS THROMBO 02/16/2020 FLORIN BRAN DANUTA Ot Z87.89 1 PERSONAL HISTORY OF NICOTINE DEPENDENCE 02/16/2020 FLORIN BRAN DANUTA Ot Z91.19 PATIENT'S NONCOMPLIANCE W [facility] 02/16/2020 FLORIN BRAN DANUTA Ot Z95.5 PRESENCE OF CORONARY ANGIOPLASTY IMPLANT 02/21/2020 FLORIN BRAN DANUTA Ot B19.20 UNSPECIFIED VIRAL HEPATITIS C WITHOUT HE 02/21/2020 FLORIN DO, DANUTA Ot E11.31 9 TYPE 2 DIABETES W UNSP DIABETIC RTNOP W/ 02/21/2020 FLORIN DO, DANUTA Ot E11.42 TYPE 2 DIABETES MELLITUS WITH DIABETIC P 02/21/2020 FLORIN DO DANUTA Ot E11.65 TYPE 2 DIABETES MELLITUS WITH HYPERGLYCE 02/21/2020 FLORIN DO DANUTA Ot E78.5 HYPERLIPIDEMIA, UNSPECIFIED 02/21/2020 FLORIN BRAN DANUTA Ot F10.20 ALCOHOL DEPENDENCE, UNCOMPLICATED 02/21/2020 FLORIN BRAN, DANUTA Ot F90.9 ATTENTION-DEFICIT HYPERACTIVITY DISORDER 02/21/2020 CATHERINE DO, DANUTA Ot H26.9 UNSPECIFIED CATARACT 02/21/2020 CATHERINE DO, DANUTA Ot I10 ESSENTIAL (PRIMARY) HYPERTENSION 02/21/2020 FLORNI DO DANUTA Ot I21.4 NON-ST ELEVATION (NSTEMI) MYOCARDIAL INF 02/21/2020 FLORIN BRAN DANUTA Ot 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 02/21/2020 FLORIN DO DANUTA Ot I25.2 OLD MYOCARDIAL INFARCTION 02/21/2020 FLORIN BRAN DANUTA Ot 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 02/21/2020 FLORIN DO DANUTA Ot M19.91 PRIMARY OSTEOARTHRITIS, UNSPECIFIED SITE 02/21/2020 FLORIN BRAN DANUTA Ot M32.9 SYSTEMIC LUPUS ERYTHEMATOSUS, UNSPECIFIE 02/21/2020 FLORIN DO DANUTA Ot M79.7 FIBROMYALGIA 02/21/2020 FLORIN BRAN DANUTA Ot Z79.01 HEEL SLICKER (CURRENT) USE OF ANTICOAGULANT 02/21/2020 FLORIN BRAN DANUTA Ot Z79.4 HEEL SLICKER (CURRENT) USE OF INSULIN 02/21/2020 FLORIN BRAN DANUTA Ot Z86.71 8 PERSONAL HISTORY OF OTHER VENOUS THROMBO 02/21/2020 FLORIN BRAN DANUTA Ot Z87.89 1 PERSONAL HISTORY OF NICOTINE DEPENDENCE 02/21/2020 FLORIN BRAN DANUTA Ot Z91.19 PATIENT'S NONCOMPLIANCE W [facility] 02/21/2020 FLORIN BRAN DANUTA Ot Z95.5 PRESENCE OF CORONARY ANGIOPLASTY IMPLANT 02/27/2020 FLORIN BRAN DANUTA Ot B19.20 UNSPECIFIED VIRAL HEPATITIS C WITHOUT HE 02/27/2020 FLORIN BRAN DANUTA Ot E11.31 9 TYPE 2 DIABETES W UNSP DIABETIC RTNOP W/ 02/27/2020 FLORIN BRAN DANUTA Ot E11.42 TYPE 2 DIABETES MELLITUS WITH DIABETIC P 02/27/2020 FLORIN BRAN DANUTA Ot E11.65 TYPE 2 DIABETES MELLITUS WITH HYPERGLYCE 02/27/2020 FLORIN BRAN DANUTA Ot E78.5 HYPERLIPIDEMIA, UNSPECIFIED 02/27/2020 FLORIN BRAN DANUTA Ot F10.20 ALCOHOL DEPENDENCE, UNCOMPLICATED 02/27/2020 FLORIN BRAN DANUTA Ot F90.9 ATTENTION-DEFICIT HYPERACTIVITY DISORDER 02/27/2020 FLORIN BRAN DANUTA Ot H26.9 UNSPECIFIED CATARACT 02/27/2020 FLORIN BRAN, DANUTA Ot I10 ESSENTIAL (PRIMARY) HYPERTENSION 02/27/2020 FLORIN BRAN DANUTA Ot I21.4 NON-ST ELEVATION (NSTEMI) MYOCARDIAL INF 02/27/2020 FLORIN BRAN DANUTA Ot 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 02/27/2020 FLORIN BRAN DANUTA Ot I25.2 OLD MYOCARDIAL INFARCTION 02/27/2020 FLORIN BRAN DANUTA Ot 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 02/27/2020 FLORIN BRAN DANUTA Ot M19.91 PRIMARY OSTEOARTHRITIS, UNSPECIFIED SITE 02/27/2020 FLORIN BRAN DANUTA Ot M32.9 SYSTEMIC LUPUS ERYTHEMATOSUS, UNSPECIFIE 02/27/2020 FLORIN BRAN DANUTA Ot M79.7 FIBROMYALGIA 02/27/2020 FLORIN BRAN DANUTA Ot Z79.01 RETIREMENT (CURRENT) USE OF ANTICOAGULANT 02/27/2020 FLORIN BRAN DANUTA Ot Z79.4 HEEL SLICKER (CURRENT) USE OF INSULIN 02/27/2020 FLORIN BRAN DANUTA Ot Z86.71 8 PERSONAL HISTORY OF OTHER VENOUS THROMBO 02/27/2020 ERICA CATHERINE DOI Ot Z87.89 1 PERSONAL HISTORY OF NICOTINE DEPENDENCE 02/27/2020 DANUTA CATHERINE DO Ot Z91.19 PATIENT'S NONCOMPLIANCE W [facility] 02/27/2020 DANUTA CATHERINE DO Ot Z95.5 PRESENCE OF CORONARY ANGIOPLASTY IMPLANT 03/13/2020 ERICA CATHERINE DOI Ot B19.20 UNSPECIFIED VIRAL HEPATITIS C WITHOUT HE 03/13/2020 ERICA CATHERINE DOI Ot E11.31 9 TYPE 2 DIABETES W UNSP DIABETIC RTNOP W/ 03/13/2020 ERICA CATHERINE DOI Ot E11.42 TYPE 2 DIABETES MELLITUS WITH DIABETIC P 03/13/2020 DANUTA CATHERINE DO Ot E11.65 TYPE 2 DIABETES MELLITUS WITH HYPERGLYCE 03/13/2020 ERICA CATHERINE DOI Ot E78.5 HYPERLIPIDEMIA, UNSPECIFIED 03/13/2020 FLORIN BRAN DANUTA Ot F10.20 ALCOHOL DEPENDENCE, UNCOMPLICATED 03/13/2020 ERICA CATHERINE DOI Ot F90.9 ATTENTION-DEFICIT HYPERACTIVITY DISORDER 03/13/2020 FLORIN BRAN DANUTA Ot H26.9 UNSPECIFIED CATARACT 03/13/2020 FLORIN BRAN DANUTA Ot I10 ESSENTIAL (PRIMARY) HYPERTENSION 03/13/2020 FLORIN BRAN DANUTA Ot I21.4 NON-ST ELEVATION (NSTEMI) MYOCARDIAL INF 03/13/2020 FLORIN BRAN DANUTA Ot 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 03/13/2020 FLORIN BRAN DANUTA Ot I25.2 OLD MYOCARDIAL INFARCTION 03/13/2020 ERICA CATHERINE DOI Ot 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 03/13/2020 FLORIN BRAN DANUTA Ot M19.91 PRIMARY OSTEOARTHRITIS, UNSPECIFIED SITE 03/13/2020 FLORIN BRAN DANUTA Ot M32.9 SYSTEMIC LUPUS ERYTHEMATOSUS, UNSPECIFIE 03/13/2020 ERICA CATHERINE DOI Ot M79.7 FIBROMYALGIA 03/13/2020 FLORIN BRAN DANUTA Ot Z79.01 RETIREMENT (CURRENT) USE OF ANTICOAGULANT 03/13/2020 ERICA CATHERINE DOI Ot Z79.4 RETIREMENT (CURRENT) USE OF INSULIN 03/13/2020 ERICA CATHERINE DOI Ot Z86.71 8 PERSONAL HISTORY OF OTHER VENOUS THROMBO 03/13/2020 DANUTA CATHERINE DO Ot Z87.89 1 PERSONAL HISTORY OF NICOTINE DEPENDENCE 03/13/2020 DANUTA CATHERINE DO, Ot Z91.19 PATIENT'S NONCOMPLIANCE W OTH MEDICAL TR 03/13/2020 DANUTA CATHERINE DO, Ot Z95.5 PRESENCE OF CORONARY ANGIOPLASTY IMPLANT 04/23/2020 SOHEILA SANTO MD Ot I25. 10 ATHSCL HEART DISEASE OF [place] CORONARY 04/23/2020 SOHEILA SANTO MD Ot I25. 89 OTHER FORMS OF CHRONIC ISCHEMIC HEART DI 04/23/2020 SOHEILA SANTO MD Ot I34. 0 NONRHEUMATIC MITRAL (VALVE) INSUFFICIENC 04/23/2020 SOHEILA SANTO MD Ot I51. 7 CARDIOMEGALY 04/23/2020 SOHEILA SANTO MD Ot I82.409 ACUTE EMBOLISM AND THOMBOS UNSP DEEP VN 04/23/2020 SOHEILA SANTO MD Ot N64. 89 OTHER SPECIFIED DISORDERS OF BREAST 05/04/2020 Israel Ratliff MD H40 .89 OTHER SPECIFIED GLAUCOMA 05/04/2020 Israel Ratliff MD H40 .89 OTHER SPECIFIED GLAUCOMA Procedures Code Description Performed By Per formed On Cardiolog Junito Louise 11/14/2012 53380 A1C (IN-HOUSE) 11/29/2012 42978 US P ELVIC COMPL (REFLEX CPT- 39547) 12/03/2012 56929 MICR O ALBUMIN-IN HOUSE 12/03/2012 32426 PSYC H IND W/MED CK 20 12/04/2012 42927 A1C (IN-HOUSE) 03/06/2013 94.62 ALCO HOL DETOXIFICATION 12/01/2014 51600 CULT URE URINE 02/18/2015 87324 UA W / CULTURE IF INDICATED 02/18/2015 56187 TRIC HOMONAS (IN-HOUSE) 02/23/2015 70632 MAMM OGRAM, SCREENING 02/23/2015 70483 CULT URE UROGENITAL 02/23/2015 74699 GC/C HLAM PROBE (STATE) 02/23/2015 33126 PAP SMEAR 02/23/2015 Q0091 PAP SMEAR OBTAIN SMEAR 02/23/2015 Results Test Result Range Aerobic Bacterial Culture - 09/01/17 17: 35 Aerobic Bacterial Culture Note CULTURE, AEROBIC - 09/01/17 17:35 Aerobic Bacterial Culture Final report NRG Result 1 Staphylococcus aureus NRG Antimicrobial Susceptibility N RG CULTURE, AEROBIC - 12/22/17 13:20 CULTURE, AEROBIC BACTERIA SEE NOTE NRG Complete urinalysis with reflex to cultu re - 09/09/18 01:30 Urine color determination YELLOW NRG Urine clarity determination SLIGHTLY CLOUDY NRG Urine pH measurement by test strip 7 5-9 Specific gravity of urine by test strip 1.005 1.016-1.022 Urine protein assay by test strip, semi-quantitative 2+ NEGATIVE Urine glucose detection by automated test strip 4+ NEGATIVE Erythrocytes detection in urine sediment by light micr oscopy 4+ NEGATIVE Urine ketones detection by automated test strip 2+ NEGATIVE Urine nitrite detection by test strip NEGATIVE NEGATIVE Urine total bilirubin detection by test strip NEGA TIVE NEGATIVE Urine urobilinogen measurement by automated test strip (mass/volume) NORMAL NORMAL Urine leukocyte esterase detection by dipstick 1+ NEGATIVE Automated urine sediment erythrocyte cou nt by microscopy (number/high power field) [HPF] NRG Automated urine sediment leukocyte count by microscopy (number/high power field) [HPF] NRG Bacteria detection in urine sediment by light microsco py NEGATIVE NRG Squamous epithelial cells detection in u rine sediment by light microscopy 0-2 NRG Crystals detection in urine sediment by light microsco py NONE NRG Casts detection in urine sediment by light microscopy NONE NRG Mucus detection in urine sediment by light microscopy NEGATIVE NRG Complete urinalysis with reflex to culture NO NRG Urine drug screening test - 09/09/18 01: 30 Urine phencyclidine detection by screening method NEGATIVE NEGATIVE Urine benzodiazepines detection by screening method NEGATIVE NEGATIVE Urine cocaine detection NEGATIVE NEGATI VE Urine amphetamines detection by screening method N EGATIVE NEGATIVE Urine methamphetamine detection by screening method NEGATIVE NEGATIVE Urine cannabinoids detection by screening method N EGATIVE NEGATIVE Urine opiates detection by screening method NEGATI VE NEGATIVE Urine barbiturates detection NEGATIVE N EGATIVE Screening urine tricyclic antidepressants detection NEGATIVE NEGATIVE Urine methadone detection by screening method NEGA TIVE NEGATIVE Urine oxycodone detection NEGATIVE NEGA TIVE Urine propoxyphene detection NEGATIVE N EGATIVE Complete blood count (CBC) with automate d white blood cell (WBC) differential - 09/09/18 01:47 Blood leukocytes automated count (number/volume) 10.7 10*3/uL 4.3-11.0 Blood erythrocytes automated count (number/volume) 4.42 10*6/uL 4.35-5.85 Venous blood hemoglobin measurement (mass/volume) 11.4 g/dL 11.5-16.0 Blood hematocrit (volume fraction) 34 % 35-52 Automated erythrocyte mean corpuscular volume 77 [ foz_us] 80-99 Automated erythrocyte mean corpuscular h emoglobin (mass per erythrocyte) 26 pg 25-34 Automated erythrocyte mean corpuscular h emoglobin concentration measurement (mass/volume) 34 g/dL 32-36 Automated erythrocyte distribution width ratio 13. 6 % 10.0- 14.5 Automated blood platelet count (count/volume) 255 10*3/uL 130-400 Automated blood platelet mean volume measurement 10.1 [foz_us] 7.4-10.4 Automated blood neutrophils/100 leukocytes 82 % 42-75 Automated blood lymphocytes/100 leukocytes 12 % 12-44 Blood monocytes/100 leukocytes 5 % 0-12 Automated blood eosinophils/100 leukocytes 1 % 0-10 Automated blood basophils/100 leukocytes 0 % 0-10 Blood neutrophils automated count (number/volume) 8.8 10*3 1.8-7.8 Blood lymphocytes automated count (number/volume) 1.3 10*3 1.0-4.0 Blood monocytes automated count (number/volume) 0. 6 10*3 0.0-1.0 Automated eosinophil count 0.1 10*3/uL 0 .0-0.3 Automated blood basophil count (count/volume) 0.0 10*3/uL 0.0-0.1 Serum or plasma choriogonadotropin (preg jayjay test) detection - 09/09/18 01:47 Serum or plasma choriogonadotropin ( test) de tection NEGATIVE NEGATIVE Comprehensive metabolic panel - 09/09/18 01:47 Serum or plasma sodium measurement (moles/volume) 129 mmol/L 135-145 Serum or plasma potassium measurement (moles/volume) 4.2 mmol/L 3.6-5.0 Serum or plasma chloride measurement (moles/volume) 94 mmol/L 98-107 Carbon dioxide 20 mmol/L 21-32 Serum or plasma anion gap determination (moles/volume) 15 mmol/L 5-14 Serum or plasma urea nitrogen measurement (mass/volume ) 14 mg/dL 7-18 Serum or plasma creatinine measurement (mass/volume) 1.14 mg/dL 0.60-1.30 Serum or plasma urea nitrogen/creatinine mass ratio 12 NRG Serum or plasma creatinine measurement w ith calculation of estimated glomerular filtration rate 51 NRG Serum or plasma glucose measurement (mass/volume) 717 mg/dL 70-105 Serum or plasma calcium measurement (mass/volume) 10.0 mg/dL 8.5-10.1 Serum or plasma total bilirubin measurement (mass/volu me) 0.5 mg/dL 0.1-1.0 Serum or plasma alkaline phosphatase rodney surement (enzymatic activity/volume) 405 U/L 40-136 Serum or plasma aspartate aminotransfera se measurement (enzymatic activity/volume) 14 U/L 5-34 Serum or plasma alanine aminotransferase measurement (enzymatic activity/volume) 14 U/L 0-55 Serum or plasma protein measurement (mass/volume) 8.5 g/dL 6.4-8.2 Serum or plasma albumin measurement (mass/volume) 3.6 g/dL 3.2-4.5 CALCIUM CORRECTED 10.3 mg/dL 8.5-10.1 Serum or plasma amylase measurement (enz ymatic activity/volume) - 09/09/18 01:47 Serum or plasma amylase measurement (enzymatic activit y/volume) 22 U/L 25-125 Lipase - 09/09/18 01:47 Lipase 22 U/L 8-78 Serum or plasma ethanol measurement (mas s/volume) - 09/09/18 01:47 Serum or plasma ethanol measurement (mass/volume) < mg/dL <10 Arterial blood gas measurement - 8 03:40 Blood pCO2 34 mm[Hg] 35-45 Blood pO2 89 mm[Hg] 79-93 Arterial blood bicarbonate measurement (moles/volume) 20 mmol/L 23-27 Arterial blood base excess by calculation -4.2 mmo l/L -2.5-2.5 Arterial blood oxygen saturation measurement 98 % 94-100 * Inhaled oxygen flow rate RA NRG Arterial blood pH measurement with patient temperature correction 7.39 7.37-7.43 Arterial blood carbon dioxide, total measurement (mole s/volume) 21.2 mmol/L 21.0-31.0 Body site R BRAK NRG Assessment of wrist artery patency prior to arterial p uncture YES-POS NRG Setting of ventilation mode NO NR G Measurement of body temperature 97.7 NRG Human immunodeficiency virus (HIV) type 1 and 2 antibody detection - 09/09/18 04:13 Serum HIV 1+2 antibody detection by immunoblot Non-Reactive Non-Reactive Acute hepatitis panel - 09/09/18 04:13 Confirmatory quantitative serum or plasm a hepatitis B virus surface antigen measurement Non-Reactive Non-Reactive Hepatitis A virus IgM antibody assay Non-Reactive Non- Reactive Hepatitis B virus core IgM antibody assay Non-Reac tive Non- Reactive Serum hepatitis C virus antibody detection Reactiv e Non- Reactive Hepatitis C virus ab signal/cutoff in serum or plasma by immunoassay 3.93 % 0.00-0.79 Capillary blood glucose measurement by g lucometer (mass/volume) - 09/09/18 05:57 Capillary blood glucose measurement by glucometer (mas s/volume) 348 mg/dL 70-110 Capillary blood glucose measurement by g lucometer (mass/volume) - 09/09/18 08:14 Capillary blood glucose measurement by glucometer (mas s/volume) 359 mg/dL 70-110 Capillary blood glucose measurement by g lucometer (mass/volume) - 09/09/18 11:27 Capillary blood glucose measurement by glucometer (mas s/volume) 389 mg/dL 70-110 Capillary blood glucose measurement by g lucometer (mass/volume) - 09/09/18 15:46 Capillary blood glucose measurement by glucometer (mas s/volume) 339 mg/dL 70-110 Capillary blood glucose measurement by g lucometer (mass/volume) - 09/09/18 20:36 Capillary blood glucose measurement by glucometer (mas s/volume) 343 mg/dL 70-110 Capillary blood glucose measurement by g lucometer (mass/volume) - 09/10/18 05:05 Capillary blood glucose measurement by glucometer (mas s/volume) 193 mg/dL 70-110 Complete blood count (CBC) with automate d white blood cell (WBC) differential - 09/10/18 06:35 Blood leukocytes automated count (number/volume) 4.7 10*3/uL 4.3-11.0 Blood erythrocytes automated count (number/volume) 3.64 10*6/uL 4.35-5.85 Venous blood hemoglobin measurement (mass/volume) 9.3 g/dL 11.5-16.0 Blood hematocrit (volume fraction) 29 % 35-52 Automated erythrocyte mean corpuscular volume 79 [ foz_us] 80-99 Automated erythrocyte mean corpuscular h emoglobin (mass per erythrocyte) 26 pg 25-34 Automated erythrocyte mean corpuscular h emoglobin concentration measurement (mass/volume) 32 g/dL 32-36 Automated erythrocyte distribution width ratio 13. 9 % 10.0- 14.5 Automated blood platelet count (count/volume) 227 10*3/uL 130-400 Automated blood platelet mean volume measurement 10.5 [foz_us] 7.4-10.4 Automated blood neutrophils/100 leukocytes 67 % 42-75 Automated blood lymphocytes/100 leukocytes 24 % 12-44 Blood monocytes/100 leukocytes 8 % 0-12 Automated blood eosinophils/100 leukocytes 2 % 0-10 Automated blood basophils/100 leukocytes 0 % 0-10 Blood neutrophils automated count (number/volume) 3.1 10*3 1.8-7.8 Blood lymphocytes automated count (number/volume) 1.1 10*3 1.0-4.0 Blood monocytes automated count (number/volume) 0. 4 10*3 0.0-1.0 Automated eosinophil count 0.1 10*3/uL 0 .0-0.3 Automated blood basophil count (count/volume) 0.0 10*3/uL 0.0-0.1 Comprehensive metabolic panel - 09/10/18 06:35 Serum or plasma sodium measurement (moles/volume) 135 mmol/L 135-145 Serum or plasma potassium measurement (moles/volume) 3.6 mmol/L 3.6-5.0 Serum or plasma chloride measurement (moles/volume) 105 mmol/L 98-107 Carbon dioxide 21 mmol/L 21-32 Serum or plasma anion gap determination (moles/volume) 9 mmol/L 5-14 Serum or plasma urea nitrogen measurement (mass/volume ) 15 mg/dL 7-18 Serum or plasma creatinine measurement (mass/volume) 0.82 mg/dL 0.60-1.30 Serum or plasma urea nitrogen/creatinine mass ratio 18 NRG Serum or plasma creatinine measurement w ith calculation of estimated glomerular filtration rate > NRG Serum or plasma glucose measurement (mass/volume) 200 mg/dL 70-105 Serum or plasma calcium measurement (mass/volume) 8.9 mg/dL 8.5-10.1 Serum or plasma total bilirubin measurement (mass/volu me) 0.5 mg/dL 0.1-1.0 Serum or plasma alkaline phosphatase rodney surement (enzymatic activity/volume) 849 U/L 40-136 Serum or plasma aspartate aminotransfera se measurement (enzymatic activity/volume) 175 U/L 5-34 Serum or plasma alanine aminotransferase measurement (enzymatic activity/volume) 103 U/L 0-55 Serum or plasma protein measurement (mass/volume) 6.7 g/dL 6.4-8.2 Serum or plasma albumin measurement (mass/volume) 2.9 g/dL 3.2-4.5 CALCIUM CORRECTED 9.8 mg/dL 8.5-10.1 Hemoglobin A1c - 09/10/18 06:35 Blood hemoglobin A1C measurement (mass/volume) 12. 9 % 4.0- 5.6 MEAN BLOOD GLUCOSE 324 % <=126 Capillary blood glucose measurement by g lucometer (mass/volume) - 09/10/18 11:01 Capillary blood glucose measurement by glucometer (mas s/volume) 315 mg/dL 70-110 Capillary blood glucose measurement by g lucometer (mass/volume) - 09/10/18 17:17 Capillary blood glucose measurement by glucometer (mas s/volume) 233 mg/dL 70-110 Capillary blood glucose measurement by g lucometer (mass/volume) - 09/10/18 21:00 Capillary blood glucose measurement by glucometer (mas s/volume) 269 mg/dL 70-110 Complete blood count (CBC) with automate d white blood cell (WBC) differential - 09/11/18 04:23 Blood leukocytes automated count (number/volume) 4.7 10*3/uL 4.3-11.0 Blood erythrocytes automated count (number/volume) 3.48 10*6/uL 4.35-5.85 Venous blood hemoglobin measurement (mass/volume) 9.0 g/dL 11.5-16.0 Blood hematocrit (volume fraction) 28 % 35-52 Automated erythrocyte mean corpuscular volume 79 [ foz_us] 80-99 Automated erythrocyte mean corpuscular h emoglobin (mass per erythrocyte) 26 pg 25-34 Automated erythrocyte mean corpuscular h emoglobin concentration measurement (mass/volume) 33 g/dL 32-36 Automated erythrocyte distribution width ratio 14. 4 % 10.0- 14.5 Automated blood platelet count (count/volume) 214 10*3/uL 130-400 Automated blood platelet mean volume measurement 10.6 [foz_us] 7.4-10.4 Automated blood neutrophils/100 leukocytes 60 % 42-75 Automated blood lymphocytes/100 leukocytes 29 % 12-44 Blood monocytes/100 leukocytes 9 % 0-12 Automated blood eosinophils/100 leukocytes 2 % 0-10 Automated blood basophils/100 leukocytes 0 % 0-10 Blood neutrophils automated count (number/volume) 2.8 10*3 1.8-7.8 Blood lymphocytes automated count (number/volume) 1.4 10*3 1.0-4.0 Blood monocytes automated count (number/volume) 0. 4 10*3 0.0-1.0 Automated eosinophil count 0.1 10*3/uL 0 .0-0.3 Automated blood basophil count (count/volume) 0.0 10*3/uL 0.0-0.1 Comprehensive metabolic panel - 09/11/18 04:23 Serum or plasma sodium measurement (moles/volume) 135 mmol/L 135-145 Serum or plasma potassium measurement (moles/volume) 3.9 mmol/L 3.6-5.0 Serum or plasma chloride measurement (moles/volume) 109 mmol/L 98-107 Carbon dioxide 18 mmol/L 21-32 Serum or plasma anion gap determination (moles/volume) 8 mmol/L 5-14 Serum or plasma urea nitrogen measurement (mass/volume ) 16 mg/dL 7-18 Serum or plasma creatinine measurement (mass/volume) 0.81 mg/dL 0.60-1.30 Serum or plasma urea nitrogen/creatinine mass ratio 20 NRG Serum or plasma creatinine measurement w ith calculation of estimated glomerular filtration rate > NRG Serum or plasma glucose measurement (mass/volume) 182 mg/dL 70-105 Serum or plasma calcium measurement (mass/volume) 8.3 mg/dL 8.5-10.1 Serum or plasma total bilirubin measurement (mass/volu me) 0.4 mg/dL 0.1-1.0 Serum or plasma alkaline phosphatase rodney surement (enzymatic activity/volume) 993 U/L 40-136 Serum or plasma aspartate aminotransfera se measurement (enzymatic activity/volume) 142 U/L 5-34 Serum or plasma alanine aminotransferase measurement (enzymatic activity/volume) 172 U/L 0-55 Serum or plasma protein measurement (mass/volume) 6.4 g/dL 6.4-8.2 Serum or plasma albumin measurement (mass/volume) 2.7 g/dL 3.2-4.5 CALCIUM CORRECTED 9.3 mg/dL 8.5-10.1 Alkaline phosphatase isoenzymes measurem ent - 09/11/18 04:23 Serum or plasma liver alkaline phosphata se measurement (enzymatic activity/volume) 1050 U/L 0-94 Serum or plasma bone alkaline phosphatase measurement (mass/volume) 130 U/L 0-55 Alkaline phosphatase isoenzymes 1180 U/L 40-120 Capillary blood glucose measurement by g lucometer (mass/volume) - 09/11/18 06:14 Capillary blood glucose measurement by glucometer (mas s/volume) 181 mg/dL 70-110 Ammonia - 09/11/18 09:50 Ammonia 34 umol/L 11-32 PT panel in platelet poor plasma by coag ulation assay - 09/11/18 09:50 Prothrombin time (PT) in platelet poor plasma by coagu lation assay 13.2 s 12.2-14.7 INR in platelet poor plasma or blood by coagulation as say 1.0 0.8-1.4 Capillary blood glucose measurement by g lucometer (mass/volume) - 09/11/18 10:58 Capillary blood glucose measurement by glucometer (mas s/volume) 192 mg/dL 70-110 Capillary blood glucose measurement by g lucometer (mass/volume) - 09/11/18 15:29 Capillary blood glucose measurement by glucometer (mas s/volume) 211 mg/dL 70-110 Capillary blood glucose measurement by g lucometer (mass/volume) - 09/11/18 20:22 Capillary blood glucose measurement by glucometer (mas s/volume) 170 mg/dL 70-110 Capillary blood glucose measurement by g lucometer (mass/volume) - 09/12/18 05:42 Capillary blood glucose measurement by glucometer (mas s/volume) 214 mg/dL 70-110 Capillary blood glucose measurement by g lucometer (mass/volume) - 09/12/18 11:02 Capillary blood glucose measurement by glucometer (mas s/volume) 159 mg/dL 70-110 CMP - 09/18/18 14:04 GLUCOSE 274 mg/dL 65-99 UREA NITROGEN (BUN) 10 mg/dL 7-25 CREATININE 0.69 mg/dL 0.50-1.10 eGFR NON-AFR. [place] 104 mL/min/1.73m2 > OR = 60 eGFR 121 mL/min/1.73m2 > OR = 60 BUN/CREATININE RATIO NOT APPLICABLE (calc) 6-22 SODIUM 138 mmol/L 135-146 POTASSIUM 3.5 mmol/L 3.5-5.3 CHLORIDE 99 mmol/L 98-110 CARBON DIOXIDE 30 mmol/L 20-32 CALCIUM 8.9 mg/dL 8.6-10.2 PROTEIN, TOTAL 7.5 g/dL 6.1-8.1 ALBUMIN 3.4 g/dL 3.6-5.1 GLOBULIN 4.1 g/dL (calc) 1.9-3.7 ALBUMIN/GLOBULIN RATIO 0.8 (calc) 1.0-2. 5 BILIRUBIN, TOTAL 0.5 mg/dL 0.2-1.2 ALKALINE PHOSPHATASE 581 U/L 33-115 AST 9 U/L 10-35 ALT 17 U/L 6-29 POTASSIUM - 07/03/19 09:23 POTASSIUM 3.5 mmol/L 3.5-5.3 TEST, SERUM - 07/03/19 09:23 TEST, SERUM NEGATIVE NEGATIVE GLUCOSE (POC) - 07/03/19 09:28 GLUCOSE (POC) 419 mg/dL 70-99 HEMOGLOBIN A1C - 07/03/19 09:45 HEMOGLOBIN A1C 13.5 % < 5.7 GLUCOSE (POC) - 07/03/19 10:22 GLUCOSE (POC) 367 mg/dL 70-99 MRSA SURVEILLANCE SCREEN - 07/03/19 10:2 8 Microbiology GLUCOSE (POC) - 07/03/19 10:46 GLUCOSE (POC) 391 mg/dL 70-99 GLUCOSE (POC) - 07/03/19 11:26 GLUCOSE (POC) 210 mg/dL 70-99 GLUCOSE (POC) - 07/03/19 12:04 GLUCOSE (POC) 180 mg/dL 70-99 GLUCOSE (POC) - 07/03/19 12:41 GLUCOSE (POC) 140 mg/dL 70-99 CULTURE, URINE - 09/17/19 14:50 CULTURE, URINE, ROUTINE SEE NOTE NR LIPID PANEL - 11/01/19 09:11 CHOLESTEROL, TOTAL 228 mg/dL <200 HDL CHOLESTEROL 56 mg/dL >50 TRIGLYCERIDES 108 mg/dL <150 LDL-CHOLESTEROL 150 mg/dL (calc) NRG CHOL/HDLC RATIO 4.1 (calc) <5.0 NON HDL CHOLESTEROL 172 mg/dL (calc) <13 0 CMP - 11/01/19 09:11 GLUCOSE 161 mg/dL 65-99 UREA NITROGEN (BUN) 16 mg/dL 7-25 CREATININE 0.79 mg/dL 0.50-1.10 eGFR NON-AFR. [place] 89 mL/min/1.73m2 > OR = 60 eGFR 103 mL/min/1.73m2 > OR = 60 BUN/CREATININE RATIO NOT APPLICABLE (calc) 6-22 SODIUM 138 mmol/L 135-146 POTASSIUM 4.1 mmol/L 3.5-5.3 CHLORIDE 102 mmol/L 98-110 CARBON DIOXIDE 28 mmol/L 20-32 CALCIUM 9.0 mg/dL 8.6-10.2 PROTEIN, TOTAL 6.8 g/dL 6.1-8.1 ALBUMIN 3.3 g/dL 3.6-5.1 GLOBULIN 3.5 g/dL (calc) 1.9-3.7 ALBUMIN/GLOBULIN RATIO 0.9 (calc) 1.0-2. 5 BILIRUBIN, TOTAL 0.4 mg/dL 0.2-1.2 ALKALINE PHOSPHATASE 203 U/L 33-115 AST 8 U/L 10-35 ALT 10 U/L 6-29 CBC - 11/01/19 09:11 WHITE BLOOD CELL COUNT 5.0 Thousand/uL 3 .8-10.8 RED BLOOD CELL COUNT 5.04 Million/uL 3.8 0-5.10 HEMOGLOBIN 12.7 g/dL 11.7-15.5 HEMATOCRIT 40.8 % 35.0-45.0 MCV 81.0 fL 80.0-100.0 MCH 25.2 pg 27.0-33.0 MCHC 31.1 g/dL 32.0-36.0 RDW 13.5 % 11.0-15.0 PLATELET COUNT 231 Thousand/uL 140-400 MPV 11.7 fL 7.5-12.5 ABSOLUTE NEUTROPHILS 2520 cells/uL 1500- 7800 ABSOLUTE LYMPHOCYTES 1885 cells/uL 850-3 900 ABSOLUTE MONOCYTES 425 cells/uL 200-950 ABSOLUTE EOSINOPHILS 130 cells/uL 15-500 ABSOLUTE BASOPHILS 40 cells/uL 0-200 NEUTROPHILS 50.4 % NRG LYMPHOCYTES 37.7 % NRG MONOCYTES 8.5 % NRG EOSINOPHILS 2.6 % NRG BASOPHILS 0.8 % NRG Complete blood count (CBC) with automate d white blood cell (WBC) differential - 11/21/19 11:48 Blood leukocytes automated count (number/volume) 10.5 10*3/uL 4.3-11.0 Blood erythrocytes automated count (number/volume) 5.51 10*6/uL 4.35-5.85 Venous blood hemoglobin measurement (mass/volume) 13.4 g/dL 11.5-16.0 Blood hematocrit (volume fraction) 41 % 35-52 Automated erythrocyte mean corpuscular volume 75 [ foz_us] 80-99 Automated erythrocyte mean corpuscular h emoglobin (mass per erythrocyte) 24 pg 25-34 Automated erythrocyte mean corpuscular h emoglobin concentration measurement (mass/volume) 32 g/dL 32-36 Automated erythrocyte distribution width ratio 14. 9 % 10.0- 14.5 Automated blood platelet count (count/volume) 218 10*3/uL 130-400 Automated blood platelet mean volume measurement 11.3 [foz_us] 7.4-10.4 Automated blood neutrophils/100 leukocytes 88 % 42-75 Automated blood lymphocytes/100 leukocytes 7 % 12-44 Blood monocytes/100 leukocytes 5 % 0-12 Automated blood eosinophils/100 leukocytes 0 % 0-10 Automated blood basophils/100 leukocytes 0 % 0-10 Blood neutrophils automated count (number/volume) 9.2 10*3 1.8-7.8 Blood lymphocytes automated count (number/volume) 0.7 10*3 1.0-4.0 Blood monocytes automated count (number/volume) 0. 5 10*3 0.0-1.0 Automated eosinophil count 0.0 10*3/uL 0 .0-0.3 Automated blood basophil count (count/volume) 0.0 10*3/uL 0.0-0.1 Fibrin D-dimer FEU measurement in platel et poor plasma (mass/volume) - 11/21/19 11:48 Fibrin D-dimer FEU measurement in platelet poor plasma (mass/volume) 0.52 ug/mL 0.00-0.49 Comprehensive metabolic panel - 11/21/19 11:48 Serum or plasma sodium measurement (moles/volume) 133 mmol/L 135-145 Serum or plasma potassium measurement (moles/volume) 3.7 mmol/L 3.6-5.0 Serum or plasma chloride measurement (moles/volume) 98 mmol/L 98-107 Carbon dioxide 25 mmol/L 21-32 Serum or plasma anion gap determination (moles/volume) 10 mmol/L 5-14 Serum or plasma urea nitrogen measurement (mass/volume ) 12 mg/dL 7-18 Serum or plasma creatinine measurement (mass/volume) 1.06 mg/dL 0.60-1.30 Serum or plasma urea nitrogen/creatinine mass ratio 11 NRG Serum or plasma creatinine measurement w ith calculation of estimated glomerular filtration rate 55 NRG Serum or plasma glucose measurement (mass/volume) 340 mg/dL 70-105 Serum or plasma calcium measurement (mass/volume) 9.1 mg/dL 8.5-10.1 Serum or plasma total bilirubin measurement (mass/volu me) 0.5 mg/dL 0.1-1.0 Serum or plasma alkaline phosphatase rodney surement (enzymatic activity/volume) 285 U/L 40-136 Serum or plasma aspartate aminotransfera se measurement (enzymatic activity/volume) 12 U/L 5-34 Serum or plasma alanine aminotransferase measurement (enzymatic activity/volume) 17 U/L 0-55 Serum or plasma protein measurement (mass/volume) 7.8 g/dL 6.4-8.2 Serum or plasma albumin measurement (mass/volume) 3.4 g/dL 3.2-4.5 CALCIUM CORRECTED 9.6 mg/dL 8.5-10.1 Serum or plasma amylase measurement (enz ymatic activity/volume) - 11/21/19 11:48 Serum or plasma amylase measurement (enzymatic activit y/volume) 25 U/L 25-125 Lipase - 11/21/19 11:48 Lipase 17 U/L 8-78 Manual absolute plasma cell count - 08/02 11:48 Blood monocytes/100 leukocytes 4 % NRG Manual blood segmented neutrophils/100 leukocytes 90 % NRG Manual blood lymphocytes/100 leukocytes 6 % NRG Blood erythrocyte morphology finding identification NORMAL NRG Complete urinalysis with reflex to cultu re - 11/21/19 12:25 Urine color determination YELLOW NRG Urine clarity determination CLEAR NR G Urine pH measurement by test strip 7.0 5-9 Specific gravity of urine by test strip 1.020 1.016-1.022 Urine protein assay by test strip, semi-quantitative 3+ NEGATIVE Urine glucose detection by automated test strip 3+ NEGATIVE Erythrocytes detection in urine sediment by light micr oscopy 3+ NEGATIVE Urine ketones detection by automated test strip NE GATIVE NEGATIVE Urine nitrite detection by test strip NEGATIVE NEGATIVE Urine total bilirubin detection by test strip NEGA TIVE NEGATIVE Urine urobilinogen measurement by automated test strip (mass/volume) 0.2 mg/dL < = 1.0 Urine leukocyte esterase detection by dipstick NEG ATIVE NEGATIVE Automated urine sediment erythrocyte cou nt by microscopy (number/high power field) [HPF] NRG Automated urine sediment leukocyte count by microscopy (number/high power field) NONE NRG Bacteria detection in urine sediment by light microsco py TRACE NRG Squamous epithelial cells detection in u rine sediment by light microscopy 0-2 NRG Crystals detection in urine sediment by light microsco py NONE NRG Casts detection in urine sediment by light microscopy NONE NRG Mucus detection in urine sediment by light microscopy NEGATIVE NRG Complete urinalysis with reflex to culture NO NRG Bacterial urine culture - 11/21/19 12:25 Bacterial urine culture 3 OR MORE NRG COLONY COUNT 10,000 CFU/ML NRG FTX;REPORTABLE SUGGESTING PROBABLE COLLECTION NRG FREE TEXT ENTRY 2 CONTAMINATION WITH SKIN SARINA NRG FREE TEXT ENTRY 3 NO SUSCEPTIBILITY PERFORMED. NRG HEPATITIS C GENOTYPE - 11/21/19 22:25 Blood hepatitis C virus genotype identif ication by probe and target amplification method Not Detected NRG Capillary blood glucose measurement by g lucometer (mass/volume) - 11/21/19 22:39 Capillary blood glucose measurement by glucometer (mas s/volume) 300 mg/dL 70-110 Complete blood count (CBC) with automate d white blood cell (WBC) differential - 11/22/19 04:25 Blood leukocytes automated count (number/volume) 9.8 10*3/uL 4.3-11.0 Blood erythrocytes automated count (number/volume) 4.84 10*6/uL 4.35-5.85 Venous blood hemoglobin measurement (mass/volume) 11.4 g/dL 11.5-16.0 Blood hematocrit (volume fraction) 36 % 35-52 Automated erythrocyte mean corpuscular volume 75 [ foz_us] 80-99 Automated erythrocyte mean corpuscular h emoglobin (mass per erythrocyte) 24 pg 25-34 Automated erythrocyte mean corpuscular h emoglobin concentration measurement (mass/volume) 31 g/dL 32-36 Automated erythrocyte distribution width ratio 14. 5 % 10.0- 14.5 Automated blood platelet count (count/volume) 199 10*3/uL 130-400 Automated blood platelet mean volume measurement 11.6 [foz_us] 7.4-10.4 Automated blood neutrophils/100 leukocytes 80 % 42-75 Automated blood lymphocytes/100 leukocytes 14 % 12-44 Blood monocytes/100 leukocytes 6 % 0-12 Automated blood eosinophils/100 leukocytes 0 % 0-10 Automated blood basophils/100 leukocytes 0 % 0-10 Blood neutrophils automated count (number/volume) 7.8 10*3 1.8-7.8 Blood lymphocytes automated count (number/volume) 1.3 10*3 1.0-4.0 Blood monocytes automated count (number/volume) 0. 6 10*3 0.0-1.0 Automated eosinophil count 0.0 10*3/uL 0 .0-0.3 Automated blood basophil count (count/volume) 0.0 10*3/uL 0.0-0.1 Comprehensive metabolic panel - 11/22/19 04:25 Serum or plasma sodium measurement (moles/volume) 133 mmol/L 135-145 Serum or plasma potassium measurement (moles/volume) 3.7 mmol/L 3.6-5.0 Serum or plasma chloride measurement (moles/volume) 100 mmol/L 98-107 Carbon dioxide 21 mmol/L 21-32 Serum or plasma anion gap determination (moles/volume) 12 mmol/L 5-14 Serum or plasma urea nitrogen measurement (mass/volume ) 13 mg/dL 7-18 Serum or plasma creatinine measurement (mass/volume) 1.11 mg/dL 0.60-1.30 Serum or plasma urea nitrogen/creatinine mass ratio 12 NRG Serum or plasma creatinine measurement w ith calculation of estimated glomerular filtration rate 52 NRG Serum or plasma glucose measurement (mass/volume) 217 mg/dL 70-105 Serum or plasma calcium measurement (mass/volume) 8.4 mg/dL 8.5-10.1 Serum or plasma total bilirubin measurement (mass/volu me) 0.4 mg/dL 0.1-1.0 Serum or plasma alkaline phosphatase rodney surement (enzymatic activity/volume) 237 U/L 40-136 Serum or plasma aspartate aminotransfera se measurement (enzymatic activity/volume) 9 U/L 5-34 Serum or plasma alanine aminotransferase measurement (enzymatic activity/volume) 13 U/L 0-55 Serum or plasma protein measurement (mass/volume) 6.7 g/dL 6.4-8.2 Serum or plasma albumin measurement (mass/volume) 2.9 g/dL 3.2-4.5 CALCIUM CORRECTED 9.3 mg/dL 8.5-10.1 Hepatitis C virus RNA viral load by prob e and target amplification method (units/volume) - 11/22/19 04:25 Hepatitis C virus (HCV) RNA viral load m easurement (log number/volume) Not Detected Not Detected HEP C COPIES ML Not Detected Not Detect ed Capillary blood glucose measurement by g lucometer (mass/volume) - 11/22/19 11:01 Capillary blood glucose measurement by glucometer (mas s/volume) 114 mg/dL 70-110 Capillary blood glucose measurement by g lucometer (mass/volume) - 11/22/19 15:35 Capillary blood glucose measurement by glucometer (mas s/volume) 200 mg/dL 70-110 Capillary blood glucose measurement by g lucometer (mass/volume) - 11/22/19 20:10 Capillary blood glucose measurement by glucometer (mas s/volume) 206 mg/dL 70-110 Capillary blood glucose measurement by g lucometer (mass/volume) - 11/23/19 00:20 Capillary blood glucose measurement by glucometer (mas s/volume) 167 mg/dL 70-110 Automated blood complete blood count (he mogram) panel - 11/23/19 04:39 Blood leukocytes automated count (number/volume) 4.9 10*3/uL 4.3-11.0 Blood erythrocytes automated count (number/volume) 4.36 10*6/uL 4.35-5.85 Venous blood hemoglobin measurement (mass/volume) 10.6 g/dL 11.5-16.0 Blood hematocrit (volume fraction) 33 % 35-52 Automated erythrocyte mean corpuscular volume 76 [ foz_us] 80-99 Automated erythrocyte mean corpuscular h emoglobin (mass per erythrocyte) 24 pg 25-34 Automated erythrocyte mean corpuscular h emoglobin concentration measurement (mass/volume) 32 g/dL 32-36 Automated erythrocyte distribution width ratio 14. 2 % 10.0- 14.5 Automated blood platelet count (count/volume) 158 10*3/uL 130-400 Automated blood platelet mean volume measurement 12.1 [foz_us] 7.4-10.4 Comprehensive metabolic panel - 11/23/19 04:39 Serum or plasma sodium measurement (moles/volume) 136 mmol/L 135-145 Serum or plasma potassium measurement (moles/volume) 3.7 mmol/L 3.6-5.0 Serum or plasma chloride measurement (moles/volume) 107 mmol/L 98-107 Carbon dioxide 18 mmol/L 21-32 Serum or plasma anion gap determination (moles/volume) 11 mmol/L 5-14 Serum or plasma urea nitrogen measurement (mass/volume ) 24 mg/dL 7-18 Serum or plasma creatinine measurement (mass/volume) 1.26 mg/dL 0.60-1.30 Serum or plasma urea nitrogen/creatinine mass ratio 19 NRG Serum or plasma creatinine measurement w ith calculation of estimated glomerular filtration rate 45 NRG Serum or plasma glucose measurement (mass/volume) 79 mg/dL 70-105 Serum or plasma calcium measurement (mass/volume) 8.0 mg/dL 8.5-10.1 Serum or plasma total bilirubin measurement (mass/volu me) 0.2 mg/dL 0.1-1.0 Serum or plasma alkaline phosphatase rodney surement (enzymatic activity/volume) 430 U/L 40-136 Serum or plasma aspartate aminotransfera se measurement (enzymatic activity/volume) 77 U/L 5-34 Serum or plasma alanine aminotransferase measurement (enzymatic activity/volume) 61 U/L 0-55 Serum or plasma protein measurement (mass/volume) 6.0 g/dL 6.4-8.2 Serum or plasma albumin measurement (mass/volume) 2.6 g/dL 3.2-4.5 CALCIUM CORRECTED 9.1 mg/dL 8.5-10.1 Capillary blood glucose measurement by g lucometer (mass/volume) - 11/23/19 11:17 Capillary blood glucose measurement by glucometer (mas s/volume) 205 mg/dL 70-110 Capillary blood glucose measurement by g lucometer (mass/volume) - 11/23/19 15:56 Capillary blood glucose measurement by glucometer (mas s/volume) 162 mg/dL 70-110 Capillary blood glucose measurement by g lucometer (mass/volume) - 11/23/19 20:27 Capillary blood glucose measurement by glucometer (mas s/volume) 187 mg/dL 70-110 Complete blood count (CBC) with automate d white blood cell (WBC) differential - 11/24/19 04:54 Blood leukocytes automated count (number/volume) 4.6 10*3/uL 4.3-11.0 Blood erythrocytes automated count (number/volume) 4.83 10*6/uL 4.35-5.85 Venous blood hemoglobin measurement (mass/volume) 11.5 g/dL 11.5-16.0 Blood hematocrit (volume fraction) 37 % 35-52 Automated erythrocyte mean corpuscular volume 76 [ foz_us] 80-99 Automated erythrocyte mean corpuscular h emoglobin (mass per erythrocyte) 24 pg 25-34 Automated erythrocyte mean corpuscular h emoglobin concentration measurement (mass/volume) 31 g/dL 32-36 Automated erythrocyte distribution width ratio 14. 5 % 10.0- 14.5 Automated blood platelet count (count/volume) 169 10*3/uL 130-400 Automated blood platelet mean volume measurement 12.3 [foz_us] 7.4-10.4 Automated blood neutrophils/100 leukocytes 46 % 42-75 Automated blood lymphocytes/100 leukocytes 43 % 12-44 Blood monocytes/100 leukocytes 10 % 0-12 Automated blood eosinophils/100 leukocytes 2 % 0-10 Automated blood basophils/100 leukocytes 0 % 0-10 Blood neutrophils automated count (number/volume) 2.1 10*3 1.8-7.8 Blood lymphocytes automated count (number/volume) 2.0 10*3 1.0-4.0 Blood monocytes automated count (number/volume) 0. 4 10*3 0.0-1.0 Automated eosinophil count 0.1 10*3/uL 0 .0-0.3 Automated blood basophil count (count/volume) 0.0 10*3/uL 0.0-0.1 Comprehensive metabolic panel - 11/24/19 04:54 Serum or plasma sodium measurement (moles/volume) 136 mmol/L 135-145 Serum or plasma potassium measurement (moles/volume) 3.6 mmol/L 3.6-5.0 Serum or plasma chloride measurement (moles/volume) 109 mmol/L 98-107 Carbon dioxide 18 mmol/L 21-32 Serum or plasma anion gap determination (moles/volume) 9 mmol/L 5-14 Serum or plasma urea nitrogen measurement (mass/volume ) 21 mg/dL 7-18 Serum or plasma creatinine measurement (mass/volume) 1.10 mg/dL 0.60-1.30 Serum or plasma urea nitrogen/creatinine mass ratio 19 NRG Serum or plasma creatinine measurement w ith calculation of estimated glomerular filtration rate 53 NRG Serum or plasma glucose measurement (mass/volume) 104 mg/dL 70-105 Serum or plasma calcium measurement (mass/volume) 8.3 mg/dL 8.5-10.1 Serum or plasma total bilirubin measurement (mass/volu me) 0.2 mg/dL 0.1-1.0 Serum or plasma alkaline phosphatase rodney surement (enzymatic activity/volume) 696 U/L 40-136 Serum or plasma aspartate aminotransfera se measurement (enzymatic activity/volume) 110 U/L 5-34 Serum or plasma alanine aminotransferase measurement (enzymatic activity/volume) 119 U/L 0-55 Serum or plasma protein measurement (mass/volume) 6.6 g/dL 6.4-8.2 Serum or plasma albumin measurement (mass/volume) 2.9 g/dL 3.2-4.5 CALCIUM CORRECTED 9.2 mg/dL 8.5-10.1 Capillary blood glucose measurement by g lucometer (mass/volume) - 11/24/19 05:57 Capillary blood glucose measurement by glucometer (mas s/volume) 102 mg/dL 70-110 Capillary blood glucose measurement by g lucometer (mass/volume) - 11/24/19 11:27 Capillary blood glucose measurement by glucometer (mas s/volume) 154 mg/dL 70-110 Complete blood count (CBC) with automate d white blood cell (WBC) differential - 02/15/20 04:28 Blood leukocytes automated count (number/volume) 8.3 10*3/uL 4.3-11.0 Blood erythrocytes automated count (number/volume) 5.01 10*6/uL 4.35-5.85 Venous blood hemoglobin measurement (mass/volume) 12.6 g/dL 11.5-16.0 Blood hematocrit (volume fraction) 37 % 35-52 Automated erythrocyte mean corpuscular volume 74 [ foz_us] 80-99 Automated erythrocyte mean corpuscular h emoglobin (mass per erythrocyte) 25 pg 25-34 Automated erythrocyte mean corpuscular h emoglobin concentration measurement (mass/volume) 34 g/dL 32-36 Automated erythrocyte distribution width ratio 16. 8 % 10.0- 14.5 Automated blood platelet count (count/volume) 214 10*3/uL 130-400 Automated blood platelet mean volume measurement 10.5 [foz_us] 7.4-10.4 Automated blood neutrophils/100 leukocytes 61 % 42-75 Automated blood lymphocytes/100 leukocytes 28 % 12-44 Blood monocytes/100 leukocytes 8 % 0-12 Automated blood eosinophils/100 leukocytes 2 % 0-10 Automated blood basophils/100 leukocytes 0 % 0-10 Blood neutrophils automated count (number/volume) 5.1 10*3 1.8-7.8 Blood lymphocytes automated count (number/volume) 2.3 10*3 1.0-4.0 Blood monocytes automated count (number/volume) 0. 7 10*3 0.0-1.0 Automated eosinophil count 0.2 10*3/uL 0 .0-0.3 Automated blood basophil count (count/volume) 0.0 10*3/uL 0.0-0.1 PT panel in platelet poor plasma by coag ulation assay - 02/15/20 04:28 Prothrombin time (PT) in platelet poor plasma by coagu lation assay 18.6 s 12.2-14.7 INR in platelet poor plasma or blood by coagulation as say 1.5 0.8-1.4 Activated partial thromboplastin time (a PTT) in platelet poor plasma bycoagulation assay - 02/15/20 04:28 Activated partial thromboplastin time (a PTT) in platelet poor plasma bycoagulation assay 38 s 24-35 Comprehensive metabolic panel - 02/15/20 04:28 Serum or plasma sodium measurement (moles/volume) 135 mmol/L 135-145 Serum or plasma potassium measurement (moles/volume) 3.5 mmol/L 3.6-5.0 Serum or plasma chloride measurement (moles/volume) 101 mmol/L 98-107 Carbon dioxide 22 mmol/L 21-32 Serum or plasma anion gap determination (moles/volume) 12 mmol/L 5-14 Serum or plasma urea nitrogen measurement (mass/volume ) 15 mg/dL 7-18 Serum or plasma creatinine measurement (mass/volume) 1.13 mg/dL 0.60-1.30 Serum or plasma urea nitrogen/creatinine mass ratio 13 NRG Serum or plasma creatinine measurement w ith calculation of estimated glomerular filtration rate 51 NRG Serum or plasma glucose measurement (mass/volume) 280 mg/dL 70-105 Serum or plasma calcium measurement (mass/volume) 8.7 mg/dL 8.5-10.1 Serum or plasma total bilirubin measurement (mass/volu me) 0.3 mg/dL 0.1-1.0 Serum or plasma alkaline phosphatase rodney surement (enzymatic activity/volume) 188 U/L 40-136 Serum or plasma aspartate aminotransfera se measurement (enzymatic activity/volume) 18 U/L 5-34 Serum or plasma alanine aminotransferase measurement (enzymatic activity/volume) 23 U/L 0-55 Serum or plasma protein measurement (mass/volume) 7.1 g/dL 6.4-8.2 Serum or plasma albumin measurement (mass/volume) 3.4 g/dL 3.2-4.5 CALCIUM CORRECTED 9.2 mg/dL 8.5-10.1 Magnesium - 02/15/20 04:28 Magnesium 1.6 mg/dL 1.6-2.4 Myoglobin, serum - 02/15/20 04:28 Myoglobin, serum 72.4 ng/mL 10.0-92.0 Lipase - 02/15/20 04:28 Lipase 27 U/L 8-78 Serum or plasma troponin i.cardiac measu rement (mass/volume) - 02/15/20 04:28 Serum or plasma troponin i.cardiac measurement (mass/v olume) 0.046 ng/mL <0.028 Serum or plasma troponin i.cardiac measu rement (mass/volume) - 02/15/20 08:48 Serum or plasma troponin i.cardiac measurement (mass/v olume) 0.053 ng/mL <0.028 Lipid 1996 panel - 02/15/20 08:48 Serum or plasma triglyceride measurement (mass/volume) 102 mg/dL <150 Serum or plasma cholesterol measurement (mass/volume) 172 mg/dL < 200 Serum or plasma cholesterol in HDL measurement (mass/v olume) 56 mg/dL 40-60 Cholesterol in LDL [mass/volume] in serum or plasma by direct assay 114 mg/dL 1-129 Serum or plasma cholesterol in VLDL measurement (mass/ volume) 20 mg/dL 5-40 Arterial blood gas measurement - 0 10:00 Blood pCO2 36 mm[Hg] 35-45 Blood pO2 83 mm[Hg] 79-93 Arterial blood bicarbonate measurement (moles/volume) 23 mmol/L 23-27 Arterial blood base excess by calculation -1.4 mmo l/L -2.5-2.5 Arterial blood oxygen saturation measurement 97 % 94-100 * Inhaled oxygen flow rate N/A NRG Arterial blood pH measurement with patient temperature correction 7.41 7.37-7.43 Arterial blood carbon dioxide, total measurement (mole s/volume) 23.9 mmol/L 21.0-31.0 Body site RIGHT RADIAL NRG Assessment of wrist artery patency prior to arterial p uncture POSITIVE NRG Setting of ventilation mode NO NR G Measurement of body temperature 36.4 NRG Capillary blood glucose measurement by g lucometer (mass/volume) - 02/15/20 11:52 Capillary blood glucose measurement by glucometer (mas s/volume) 112 mg/dL 70-110 Blood lactic acid measurement (moles/vol ume) - 02/15/20 15:20 Blood lactic acid measurement (moles/volume) 0.89 mmol/L 0.50-2.00 PROCALCITONIN (PCT) - 02/15/20 15:20 PROCALCITONIN (PCT) 0.05 ng/mL <0.10 Capillary blood glucose measurement by g lucometer (mass/volume) - 02/15/20 17:57 Capillary blood glucose measurement by glucometer (mas s/volume) 189 mg/dL 70-110 Capillary blood glucose measurement by g lucometer (mass/volume) - 02/15/20 20:52 Capillary blood glucose measurement by glucometer (mas s/volume) 227 mg/dL 70-110 Automated blood complete blood count (he mogram) panel - 02/16/20 02:24 Blood leukocytes automated count (number/volume) 7.7 10*3/uL 4.3-11.0 Blood erythrocytes automated count (number/volume) 4.34 10*6/uL 4.35-5.85 Venous blood hemoglobin measurement (mass/volume) 10.7 g/dL 11.5-16.0 Blood hematocrit (volume fraction) 33 % 35-52 Automated erythrocyte mean corpuscular volume 77 [ foz_us] 80-99 Automated erythrocyte mean corpuscular h emoglobin (mass per erythrocyte) 25 pg 25-34 Automated erythrocyte mean corpuscular h emoglobin concentration measurement (mass/volume) 32 g/dL 32-36 Automated erythrocyte distribution width ratio 17. 0 % 10.0- 14.5 Automated blood platelet count (count/volume) 213 10*3/uL 130-400 Automated blood platelet mean volume measurement 10.5 [foz_us] 7.4-10.4 Lipid 1996 panel - 02/16/20 02:24 Serum or plasma triglyceride measurement (mass/volume) 83 mg/dL <150 Serum or plasma cholesterol measurement (mass/volume) 145 mg/dL < 200 Serum or plasma cholesterol in HDL measurement (mass/v olume) 43 mg/dL 40-60 Cholesterol in LDL [mass/volume] in serum or plasma by direct assay 93 mg/dL 1-129 Serum or plasma cholesterol in VLDL measurement (mass/ volume) 17 mg/dL 5-40 Capillary blood glucose measurement by g lucometer (mass/volume) - 02/16/20 06:52 Capillary blood glucose measurement by glucometer (mas s/volume) 104 mg/dL 70-110 Novel Coronavirus 2019 InHouse - 0 08:04 Microbiology GLUCOSE (POC) - 05/04/20 08:17 GLUCOSE (POC) 184 mg/dL 70-99 TEST, SERUM - 05/04/20 08:19 TEST, SERUM NEGATIVE NEGATIVE GLUCOSE (POC) - 05/04/20 10:29 GLUCOSE (POC) 125 mg/dL 70-99 GLUCOSE (POC) - 05/04/20 12:13 GLUCOSE (POC) 105 mg/dL 70-99 GLUCOSE (POC) - 05/04/20 13:08 GLUCOSE (POC) 105 mg/dL 70-99 Complete blood count (CBC) with automate d white blood cell (WBC) differential - 05/28/20 18:48 Blood leukocytes automated count (number/volume) 8.4 10*3/uL 4.3-11.0 Blood erythrocytes automated count (number/volume) 4.64 10*6/uL 4.35-5.85 Venous blood hemoglobin measurement (mass/volume) 10.4 g/dL 11.5-16.0 Blood hematocrit (volume fraction) 34 % 35-52 Automated erythrocyte mean corpuscular volume 73 [ foz_us] 80-99 Automated erythrocyte mean corpuscular h emoglobin (mass per erythrocyte) 22 pg 25-34 Automated erythrocyte mean corpuscular h emoglobin concentration measurement (mass/volume) 31 g/dL 32-36 Automated erythrocyte distribution width ratio 16. 9 % 10.0- 14.5 Automated blood platelet count (count/volume) 213 10*3/uL 130-400 Automated blood platelet mean volume measurement 11.0 [foz_us] 7.4-10.4 Automated blood neutrophils/100 leukocytes 74 % 42-75 Automated blood lymphocytes/100 leukocytes 18 % 12-44 Blood monocytes/100 leukocytes 8 % 0-12 Automated blood eosinophils/100 leukocytes 0 % 0-10 Automated blood basophils/100 leukocytes 0 % 0-10 Blood neutrophils automated count (number/volume) 6.2 10*3 1.8-7.8 Blood lymphocytes automated count (number/volume) 1.5 10*3 1.0-4.0 Blood monocytes automated count (number/volume) 0. 7 10*3 0.0-1.0 Automated eosinophil count 0.0 10*3/uL 0 .0-0.3 Automated blood basophil count (count/volume) 0.0 10*3/uL 0.0-0.1 Comprehensive metabolic panel - 05/28/20 18:48 Serum or plasma sodium measurement (moles/volume) 137 mmol/L 135-145 Serum or plasma potassium measurement (moles/volume) 3.4 mmol/L 3.6-5.0 Serum or plasma chloride measurement (moles/volume) 104 mmol/L 98-107 Carbon dioxide 25 mmol/L 21-32 Serum or plasma anion gap determination (moles/volume) 8 mmol/L 5-14 Serum or plasma urea nitrogen measurement (mass/volume ) 12 mg/dL 7-18 Serum or plasma creatinine measurement (mass/volume) 1.19 mg/dL 0.60-1.30 Serum or plasma urea nitrogen/creatinine mass ratio 10 NRG Serum or plasma creatinine measurement w ith calculation of estimated glomerular filtration rate 48 NRG Serum or plasma glucose measurement (mass/volume) 252 mg/dL 70-105 Serum or plasma calcium measurement (mass/volume) 8.4 mg/dL 8.5-10.1 Serum or plasma total bilirubin measurement (mass/volu me) 0.6 mg/dL 0.1-1.0 Serum or plasma alkaline phosphatase rodney surement (enzymatic activity/volume) 263 U/L 40-136 Serum or plasma aspartate aminotransfera se measurement (enzymatic activity/volume) 22 U/L 5-34 Serum or plasma alanine aminotransferase measurement (enzymatic activity/volume) 30 U/L 0-55 Serum or plasma protein measurement (mass/volume) 6.7 g/dL 6.4-8.2 Serum or plasma albumin measurement (mass/volume) 3.1 g/dL 3.2-4.5 CALCIUM CORRECTED 9.1 mg/dL 8.5-10.1 Serum or plasma ethanol measurement (mas s/volume) - 05/28/20 18:48 Serum or plasma ethanol measurement (mass/volume) < mg/dL <10 Encounters ACCT No. Visit Date/Time Discharge Status Pt. Type Provider Facility Loc./Unit Complaint [id number] 02/23/2015 08:49:00 02/23/2015 23:59: 59 CLS Outpatient SHILPI MCQUEEN APRN [id number] 02/18/2015 11:19:00 02/18/2015 23:59: 59 CLS Outpatient JÚNIOR HALL APRN [id number] 12/31/2014 14:44:00 12/31/2014 23:59: 59 CLS Outpatient JÚNIOR HALL APRN [id number] 05/13/2013 11:48:00 05/13/2013 23:59: 59 CLS Outpatient DENTON BHAVYA PEARL RICHARDH [id number] 11/29/2012 13:55:00 11/29/2012 23:59: 59 CLS Outpatient SARA BURTON MD [id number] 11/14/2012 09:49:00 11/14/2012 23:59: 59 CLS Outpatient DOMINGA MOYA DO [id number] 11/12/2012 09:06:00 11/12/2012 23:59: 59 CLS Outpatient [id number] 09/18/2012 12:59:00 09/18/2012 23:59: 59 CLS Outpatient [id number] 03/06/2013 14:04:00 Document Registration [id number] 05/04/2020 06:55:00 020 11:45:00 DIS Outpatient Evy RINCON, [place] Alejandre [facility] W.OR [id number] 07/03/2019 07:52:00 019 13:32:00 DIS Outpatient Evy RINCON, [facility] WLACEYA [id number] 09/07/2017 16:08:00 Document Registration [id number] 04/17/2020 06:57:00 23:59:59 CLS Outpatient AGL RINCON, SOHEILA Olsen [facility] [address] CARD MR [id number] 04/02/2020 12:47:00 23:59:59 CLS Outpatient WILY AGUERO [facility] [address] CARD DVT [id number] 02/15/2020 06:20:00 14:28:00 DIS Outpatient DANUTA CATHERINE DO [facility] [address] CATH CHEST PAIN,ELEVATED TRO PONIN [id number] 11/21/2019 14:10:00 13:53:00 DIS Inpatient DANUTA CATHERINE DO V [facility] [address] 4TH PYELONEPHRITIS;L LOWER EXT DVT [id number] 09/09/2018 04:00:00 018 15:10:00 DIS Inpatient YUMI RINCON, GENIE Olsen [facility] [address] 4TH PYELONEPHRITIS,UNCONTRO LLED DIABETES,HYPONATREMIA, [id number] 12/01/2014 17:35:00 015 15:57:00 DIS Inpatient ERIKA CONKLIN MD [facility] [address] 4TH UTI,HYPONATREMIA,UNCONT ROLLED HYPERGLYCEMIA,EOTH A [id number] 05/28/2020 18:58:00 Document Registration [id number] 01/23/2020 08:40:00 01/23/2020 23:59:5 9 CLS Outpatient SARA BADILLO [facility] [id number] 11/01/2019 09:00:00 Document Registration [id number] 09/17/2019 13:50:00 Document Registration [id number] 09/18/2018 13:20:00 Document Registration [id number] 12/22/2017 12:15:00 Document Registration [id number] 09/01/2017 16:45:00 Document Registration
--- NOTE | 2020-05-28 20:04 | Diagnostic Imaging Report ---
INDICATION: Abdominal pain increasing today. TECHNIQUE: Two supine views of the abdomen at 8:04 p.m. CORRELATION STUDY: None. FINDINGS: Coronary artery stents are present. Heart size is enlarged. Question of some edema at the lung bases. Bowel gas pattern demonstrates no findings suggesting underlying obstruction. Mild severity fecal retention. No gross free intraperitoneal air. Increased density over the low pelvis may reflect a mildly distended bladder. IMPRESSION: Nonobstructive appearing bowel gas pattern. Dictated by: Dictated on workstation # [id number]
--- NOTE | 2020-05-28 20:18 | Diagnostic Imaging Report ---
PROCEDURE: CT urinary tract, rule out kidney stone. TECHNIQUE: Multiple contiguous axial images were obtained through the abdomen and pelvis without the use of intravenous contrast. Auto Exposure Controls were utilized during the CT exam to meet ALARA standards for radiation dose reduction. INDICATION: Abdominal pain. COMPARISON: Prior examination from 11/21/2019. FINDINGS: There is cardiomegaly. There are small bilateral pleural effusions. The liver is normal in size and without focal lesions. The gallbladder is contracted. There is no biliary ductal dilatation. Spleen is normal. The pancreas and adrenal glands are unremarkable. There are vascular calcifications of both kidneys. The aorta is nonaneurysmal. The bowel gas pattern is nonspecific. There is no free air. There is no ascites. There is no focal inflammatory change. There is a large anterior abdominal wall hernia containing omental fat. The bladder is normal. The uterus is normal. There is no pelvic mass, adenopathy or free fluid. IMPRESSION: 1. Large anterior abdominal wall hernia containing omental fat. 2. Vascular calcifications in both kidneys. 3. Air in the bladder which is nonspecific; however, it is unchanged when compared to prior examination from November 21, 2019. Dictated by: Dictated on workstation # [id number]
[2020-05-28 20:28] LABS: BILIRUBIN,URINE NEGATIVE (NEGATIVE); CLARITY,URINE CLEAR; COLOR,URINE YELLOW; GLUCOSE, URINE (UA) 3+ (NEGATIVE); KETONES,URINE NEGATIVE (NEGATIVE); LEUKOCYTE ESTERASE ,URINE 1+ (NEGATIVE); NITRITE,URINE NEGATIVE (NEGATIVE); PH,URINE 6.5 (5-9); PROTEIN,URINE 2+ (NEGATIVE)
[2020-05-28 20:39] LABS: AMPHETAMINE SCREEN, URINE NEGATIVE (NEGATIVE); BARBITURATE SCREEN URINE NEGATIVE (NEGATIVE); BENZODIAZEPINES SCREEN URINE NEGATIVE (NEGATIVE); CANNABINOID SCREEN, URINE NEGATIVE (NEGATIVE); COCAINE SCREEN URINE NEGATIVE (NEGATIVE); METHADONE STAT NEGATIVE (NEGATIVE); METHAMPHETAMINE SCREEN URINE S NEGATIVE (NEGATIVE); OPIATE SCREEN URINE NEGATIVE (NEGATIVE); OXYCODONE STAT NEGATIVE (NEGATIVE); PROPOXYPHENE STAT NEGATIVE (NEGATIVE); TRICYCLIC ANTIDEPRESSANTS SCRE NEGATIVE (NEGATIVE)
[2020-05-28 20:59] LABS: BACTERIA,URINE LARGE /HPF; WBC,URINE >100 /HPF
[2020-05-28] MEDS ORDERED: TRAM-42 PO (21:10)
[2020-05-28] MEDS ORDERED: PHEN-640 PO (21:10)
[2020-05-28] MEDS ORDERED: RX-TRAMADOL 50 MG (ULTRAM) TAB PPK#4 PO STA (21:10)
[2020-05-28] MEDS ORDERED: NITR-65 PO (21:10)
[2020-05-28] MEDS ORDERED: CEFD300C3 PO (21:13)
[2020-05-28] MEDS ORDERED: PHENAZOPYRIDINE 100 MG (PYRIDIUM) TABLET PO ONE (21:15)
[2020-05-28] MEDS ORDERED: cefTRIAXone FOR IV USE 1,000 MG in WATER (STERILE) FOR INJECTION 10 ML IV ONE (21:15)
[2020-05-28 21:35] VITALS: BP 166/103
== END 2020-05-28 21:36 | disposition home or self-care (01) ==
LOC: EDUNIT# 18:36 → ER 18:38
DX: N39.0 Urinary tract infection, site not specified (principal); K42.9 Umbilical hernia without obstruction or gangrene; E11.40 Type 2 diabetes mellitus with diabetic neuropathy, unspecified; I10 Essential (primary) hypertension; I25.2 Old myocardial infarction; I25.10 Atherosclerotic heart disease of native coronary artery without angina pectoris; E78.00 Pure hypercholesterolemia, unspecified; M79.7 Fibromyalgia; G89.29 Other chronic pain; M54.9 Dorsalgia, unspecified; Z85.42 Personal history of malignant neoplasm of other parts of uterus; Z79.82 Long term (current) use of aspirin; Z79.02 Long term (current) use of antithrombotics/antiplatelets; Z91.040 Latex allergy status; Z86.718 Personal history of other venous thrombosis and embolism; Z88.8 Allergy status to other drugs, medicaments and biological substances; Z79.4 Long term (current) use of insulin; Z79.01 Long term (current) use of anticoagulants; Z87.891 Personal history of nicotine dependence
CPT/HCPCS: 74018; 74176; 80053; 80306; 81000; 85025; 87077; 87088; 87186; 99284; G0480; 36415; 80320